=== PATIENT | female | born 1950 | race Caucasian/White ===

== ENCOUNTER → 2019-07-19 14:37 | Outpatient (BNVA) | payer MEDICARE, MEDICAID, SELFPAY | PROVIDERS: Family Provider Family Medicine; PCP Family Medicine; Visit Provider Nurse Practitioner Psychiatric/Mental Health | DX: F33.2 Major depressive disorder, recurrent severe without psychotic features (principal); F41.1 Generalized anxiety disorder; F17.210 Nicotine dependence, cigarettes, uncomplicated | CPT/HCPCS: 99213 ==

== ENCOUNTER → 2019-07-30 14:55 | Outpatient (BNVA) | payer MEDICARE, MEDICAID, SELFPAY | PROVIDERS: Family Provider Family Medicine; PCP Family Medicine; Visit Provider Anesthesiology | DX: M47.817 Spondylosis without myelopathy or radiculopathy, lumbosacral region (principal); M79.651 Pain in right thigh; F17.210 Nicotine dependence, cigarettes, uncomplicated; Z79.891 Long term (current) use of opiate analgesic | CPT/HCPCS: 99214 ==

== ENCOUNTER → 2019-08-17 12:53 | Outpatient (BNVA) | payer MEDICARE, MEDICAID, SELFPAY | PROVIDERS: Family Provider Family Medicine; PCP Family Medicine; Visit Provider Psychiatry & Neurology Neurology | DX: G43.709 Chronic migraine without aura, not intractable, without status migrainosus (principal); F17.210 Nicotine dependence, cigarettes, uncomplicated | CPT/HCPCS: 99213 ==

== ENCOUNTER → 2019-08-25 13:25 | Outpatient (BNVA) | payer MEDICARE, MEDICAID, SELFPAY | PROVIDERS: Family Provider Family Medicine; PCP Family Medicine; Visit Provider Anesthesiology Pain Medicine | DX: G57.01 Lesion of sciatic nerve, right lower limb (principal); G24.8 Other dystonia; M54.9 Dorsalgia, unspecified | CPT/HCPCS: 64642; 77003; J0585; J2001 ==

== ENCOUNTER → 2019-09-24 10:18 | Outpatient (BNVA) | payer MEDICARE, MEDICAID, SELFPAY | PROVIDERS: Family Provider Family Medicine; PCP Family Medicine; Visit Provider Nurse Practitioner | DX: Z76.89 Persons encountering health services in other specified circumstances (principal) | CPT/HCPCS: 99212 ==

== ENCOUNTER → 2019-10-12 08:20 | Outpatient (BNVA) | payer MEDICARE, MEDICAID, SELFPAY | PROVIDERS: Family Provider Family Medicine; PCP Family Medicine; Visit Provider Nurse Practitioner Psychiatric/Mental Health | DX: F33.2 Major depressive disorder, recurrent severe without psychotic features (principal); F41.1 Generalized anxiety disorder; F17.210 Nicotine dependence, cigarettes, uncomplicated | CPT/HCPCS: 99214 ==

== ENCOUNTER → 2019-12-08 07:50 | Outpatient (BNVA) | payer MEDICARE, MEDICAID, SELFPAY | PROVIDERS: Family Provider Family Medicine; PCP Family Medicine; Visit Provider Nurse Practitioner Psychiatric/Mental Health | DX: F33.2 Major depressive disorder, recurrent severe without psychotic features (principal); F41.1 Generalized anxiety disorder; F17.210 Nicotine dependence, cigarettes, uncomplicated | CPT/HCPCS: 99214 ==

== ENCOUNTER → 2020-01-20 13:45 | Outpatient (BNVA) | payer MEDICARE, MEDICAID, SELFPAY | PROVIDERS: Family Provider Family Medicine; PCP Family Medicine; Visit Provider Anesthesiology | DX: M54.42 Lumbago with sciatica, left side (principal); M47.817 Spondylosis without myelopathy or radiculopathy, lumbosacral region; M54.9 Dorsalgia, unspecified; F17.210 Nicotine dependence, cigarettes, uncomplicated; Z79.891 Long term (current) use of opiate analgesic | CPT/HCPCS: 99213; 99214 ==

== ENCOUNTER → 2020-02-21 07:35 | Outpatient (BNVA) | payer MEDICARE, MEDICAID, SELFPAY | PROVIDERS: Family Provider Family Medicine; PCP Family Medicine; Visit Provider Nurse Practitioner Psychiatric/Mental Health | DX: F33.2 Major depressive disorder, recurrent severe without psychotic features (principal); F41.1 Generalized anxiety disorder; F17.210 Nicotine dependence, cigarettes, uncomplicated; F43.12 Post-traumatic stress disorder, chronic | CPT/HCPCS: 99213 ==

== ENCOUNTER 2020-02-27 16:26 | Inpatient (IN) | payer MEDICARE, MEDICAID, SELFPAY ==
[2020-02-27] VITALS (8 sets, daily range): BP systolic 90–117; BP diastolic 49–72; PULSE 71–85; RESP 12–19; TEMP 36.7–37.9; O2SAT 94–98; BMI 24.3
--- NOTE | 2020-02-27 | SCC_ITS ---
Procedure Done: 1. Cystoscopy with right ureteral stent placement 9.7 seconds of fluoroscopic guidance, for a cumulative dose of 2.09 mGy, was provided to Dr. Willard by the radiology department. C-arm images of the abdomen were saved for the patient's permanent record. [facility]
--- NOTE | 2020-02-27 16:35 | CTR_ITS ---
PROCEDURE INFORMATION: Exam: CT Abdomen And Pelvis Without Contrast Exam date and time: 02/27/2020 5:14 PM Age: 69 years old Clinical indication: Abdominal pain; Right; Prior surgery; Surgery date: 6+ months; Surgery type: Hysteroscopy; Patient HX: C/O R flank pain and nausea x 2 days; Additional info: Flank/abdominal pain TECHNIQUE: Imaging protocol: Computed tomography of the abdomen and pelvis without contrast. Radiation optimization: All CT scans at this facility use at least one of these dose optimization techniques: automated exposure control; mA and/or kV adjustment per patient size (includes targeted exams where dose is matched to clinical indication); or iterative reconstruction. COMPARISON: CT abdomen pelvis w con* [id number] 03/22/2019 11:09 AM RADIATION DOSE METRICS: Total DLP (mGy-cm): 936.37 FINDINGS: Lungs: There is mild right basilar ground-glass opacity compatible with mild pneumonitis versus atelectasis. Liver: Unremarkable.No mass. Gallbladder and bile ducts: There has been a cholecystectomy. There is no common bile duct dilation. Pancreas: Normal. No ductal dilation. Spleen: Normal. No splenomegaly. Adrenals: Normal. No mass. Kidneys and ureters: There is mild right hydronephrosis and right hydroureter which can be followed to a 2.5 mm calculus right ureter at the level of the right sacroiliac joint image 123. There is no evidence of renal calcifications. There is right perinephric stranding. There is no evidence of left hydronephrosis. Stomach and bowel: There is wall thickening of the descending and sigmoid colon with haziness of the adjacent fat compatible with distal colitis. Appendix: A normal appendix is identified. Intraperitoneal space: Unremarkable. No free air. No significant fluid collection. Vasculature: Unremarkable.No abdominal aortic aneurysm. Lymph nodes: Unremarkable.No enlarged lymph nodes. Bladder: There is nonspecific bladder wall thickening. This may be related to incomplete distention. Reproductive: Unremarkable as visualized. Bones/joints: Unremarkable. No acute fracture. Soft tissues: Unremarkable. CT/CT kidney stone [id number] IMPRESSION: 1. There is wall thickening of the descending and sigmoid colon with haziness of the adjacent fat compatible with distal colitis. 2. There is mild right hydronephrosis and right hydroureter which can be followed to a 2.5 mm calculus right ureter at the level of the right sacroiliac joint image 123. Radiation Dose CTDIVOL = (mGy): DLP = 936.37 (mGy-cm)
[2020-02-27 16:53] LABS: Basophils % 0.5 %; Eosinophils # 0.1 10^3/uL (0.0-0.8); Eosinophils % 1.4 %; Hematocrit 44.7 % (37.0-47.0); Hemoglobin 14.1 g/dL (11.5-15.3); Lymphocytes # 2.3 10^3/uL (0.8-4.8); Lymphocytes % 29.8 %; Mean Corpuscular HGB Conc 31.5 g/dL (30.0-36.0); Mean Corpuscular Hemoglobin 27.3 pg (28.0-34.0); Mean Corpuscular Volume 86.6 fL (81-99); Mean Platelet Volume 12.8 fL (7.4-10.4); Monocytes # 0.6 10^3/uL (0.2-0.9); Monocytes % 7.2 %; Neutrophils # 4.69 10^3/uL (1.8-7.7); Neutrophils % 60.7 %; Nucleated Red Blood Cells % 0 %; Platelet Count 360 10^3/cmm (130-400); Red Blood Count 5.16 10^6/uL (4.1-5.3); Red Cell Distribution Width 16.1 % (12.1-15.1); White Blood Count 7.7 10^3/uL (4.0-10.0)
--- NOTE | 2020-02-27 16:55 | ED_ITS ---
HPI - Female Genitourinary General: Chief complaint: Urogenital-Female Stated complaint: RIGHT FLANK PAIN; NAUSEA; RASH Time Seen by Provider: 02/27/20 16:32 Source: patient and EMS Mode of arrival: EMS Limitations: no limitations History of Present Illness: HPI Narrative: Ms. Romero is a nice 69-year-old female who comes in complaining of right flank pain that started 2 nights ago. She states the pain comes and goes and she is not had anything like this before. Pain is described as sharp and moderate to severe in nature. Patient also complains of a diffuse rash. She states she itches all over. Patient has significant loss of vision but states she can still tell that this looks like hives. Patient is unaware of any new medicines, shampoos, soaps, clothing, perfumes or any other allergen that may have precipitated this reaction. She denies any nausea or vomiting, shortness of breath or throat tightening. She denies any urinary symptoms such as dysuria, urinary frequency or urgency. The patient took Benadryl for the itching shortly before calling EMS for her flank pain. The rash just started today according to her. Associated symptoms: Deny abdominal pain, headache(s), nausea or syncope Review of Systems Const: Denies: fever(s), chills, body aches, fatigue, malaise or diaphoresis Eyes: Denies: change in vision, blurry vision, photophobia, eye discomfort, eye discharge or eye redness ENMT: Denies: throat pain, odynophagia, hoarseness, swelling of lips/tongue, ear or mastoid pain, ear discharge, change in hearing or nasal discharge Card: Denies: chest pain, palpitations, irregular heart rhythm, edema, lightheadedness, syncope, pre-syncope, dyspnea on exertion or orthopnea Resp: Denies: dyspnea, productive cough, non-productive cough, wheezing, hemoptysis or chest congestion GI: Denies: abdominal pain, nausea, vomiting, hematemesis, coffee ground emesis, heartburn, diarrhea, constipation, GI cramping, hematochezia or melena : Reports: flank pain; Denies: dysuria, urinary frequency, urinary urgency or hematuria Musc: Denies: neck pain, back pain, extremity pain, extremity swelling, joint pain, joint swelling, joint redness, joint warmth or joint stiffness Skin/Breast: Reports: rash; Denies: pruritus, erythema or skin tenderness Neuro: Denies: headache(s), numbness in extremities, weakness in extremities, sensory changes, lack of coordination, difficulty walking, dizziness, vertigo, confusion, Slurred speech present or seizure-like activity Alec/Lymph: Denies: easy bruising, easy bleeding, petechiae, purpura or enlarged lymph nodes All/Imm: Denies: urticaria, throat swelling, tongue swelling, facial swelling or acute wheezing PFSH ED PFSH: Medical History (Updated 02/27/20 @ 19:29 by Artie Willard MD) Chronic migraine Encounter for long-term use of opiate analgesic Generalized anxiety disorder History of hysteroscopy Major depressive disorder, recurrent severe without psychotic features Nicotine dependence, cigarettes, uncomplicated Obstructive pyelonephritis Opioid contract exists Right ureteral calculus Smoker Spondylosis without myelopathy or radiculopathy, lumbosacral region Surgical History (Updated 02/27/20 @ 19:29 by Artie Willard MD) H/O tubal ligation Hx of dilation and curettage 09/14/19 [facility] Family History Other CAD (coronary artery disease) Cancer Social History Smoking and tobacco status: current every day smoker cigarettes [ Other cigarette details: 2-3 DAILY ] Alcohol intake: never History of recent travel: No Physical Exam Const: COMMON NORMALS: no acute distress, patient oriented x3, no limitations, healthy appearing and well nourished GENERAL APPEARANCE: cooperative, well kempt and well developed HENMT: COMMON NORMALS: normocephalic, atraumatic, external ears normal, EAC's normal and Normal external nose present HEAD & SCALP: normal to inspection, normocephalic and atraumatic FACE & SINUS: normal facial exam and face symmetric NOSE: Normal external nose present and Normal nares present EXTERNAL EAR: Yes external ears normal EXTERNAL AUDITORY CANAL: EAC's normal MOUTH: Normal oral and palatal mucosa present, lip normal and tongue normal Eye: COMMON NORMALS: Equal, round and reactive pupils present and conjunctivae normal GENERAL EYE: appearance normal, both eyes and all related structures ALIGNMENT: Yes alignment normal PERIORBITAL: periorbital findings normal EYELID: eyelids normal CONJUNCTIVA: Yes conjunctivae normal SCLERA: sclerae normal PUPIL: Yes Equal, round and reactive pupils present Neck/C-Spine: COMMON NORMALS: full ROM, no lymphadenopathy, supple, no meningeal signs and no JVD GENERAL: Yes normal visual inspection and Yes trachea midline Chest: COMMONS NORMALS: normal inspection of the chest and normal palpation of entire chest wall Resp: COMMON NORMALS: normal respiratory effort, No retractions, No use of accessory muscles and clear to auscultation bilaterally EFFORT & INSPECTION: Yes able to speak in complete sentences and Yes symmetric chest movement AUSCULTATION: clear to auscultation bilaterally, no crackles, no rales, no rhonchi and no wheezes Cardio: COMMON NORMALS: no JVD, regular rate, regular rhythm, S1 normal heart sound present and S2 normal heart sound present RATE: regular rate RHYTHM: regular rhythm HEART SOUNDS: S1 normal heart sound present, S2 normal heart sound present, no click, no gallops, no murmurs, no rubs and abnormal split S2 GI: COMMON NORMALS: Soft to palpation and No hepatosplenomegaly present PALPATION: Yes Soft to palpation, No Tenderness to palpation present (GI), No Guarding due to palpation present (GI), No Rigid due to palpation, Yes No hepatosplenomegaly present, No Hernia present, No Palpable mass present and No Pulsatile mass present : COMMON NORMALS: Yes no CVA tenderness BLADDER/KIDNEY EXAM: Yes no CVA tenderness EXTERNAL FEMALE EXAM: No Hernia present Back/Pelvis: COMMON NORMALS: no CVA tenderness, thoracic and lumbar spine normal to inspection, no thoracic nor lumbar tenderness and thoraco-lumbar ROM normal Extremity: COMMON NORMALS: normal to inspection, full ROM, capillary refill normal, no joint enlargement, no clubbing, cyanosis or edema and no calf tenderness Neuro: COMMON NORMALS: patient oriented x3, CN's II-XII intact bilaterally, m oves all extremities, no focal motor deficits and no sensory deficits noted MENINGEAL SIGNS: Yes no meningeal signs SPEECH: speech normal Psych: COMMON NORMALS: mental status grossly normal, Normal thought process present, cooperative, normal affect, speech normal and activity/motor behavior normal APPEARANCE: Yes well kempt SPEECH: Yes normal speech THOUGHT PROCESS: Normal thought process present Skin: COMMON NORMALS: turgor normal, no jaundice, no petechiae and no mottling NARRATIVE SKIN EXAM: Diffuse hives GENERAL SKIN EXAM: turgor normal Course Vital Signs: Vital signs: Vital Signs Temperature 98.9 F 02/27/20 20:09 Pulse Rate 74 02/27/20 20:09 Respiratory Rate 18 02/27/20 20:09 Blood Pressure 117/72 02/27/20 20:09 Pulse Oximetry 96 02/27/20 20:09 MDM - Female MDM Narrative: Medical decision making narrative: Ms Romero is a nice 69-year-old female who comes in with right flank pain and hives. Benadryl, Pepcid and Solu-Medrol her hives are improved. There is no sign of anaphylaxis that she has no throat tightening, shortness of breath, wheezing or other anaphylactic symptoms. Patient's right flank pain I believe is caused by a 2.[address] seen on CT. Patient has a urinary tract infection and appears septic with acute renal failure from this. The case was reviewed with Drs. Villeda and Sudheer, they will admit and consult respectively. Currently the patient is being loaded with Cipro and Flagyl to cover a UTI and colitis. She getting IV fluids and her blood pressure is remained stable. She was going to the OR for stent placement and then will be admitted for further IV antibiotics and IV fluids. Lab Data: Attestation: I reviewed the patient's lab results. Labs: Lab Results 02/27/20 02/27/20 02/27/20 Range/Units 16:10 16:10 16:10 WBC 7.7 (4.0-10.0) 10^3/ uL RBC 5.16 (4.1-5.3) 10^6/u L Hgb 14.1 (11.5-15.3) g/dL Hct 44.7 (37.0-47.0) % MCV 86.6 (81-99) fL MCH 27.3 L (28.0-34.0) pg MCHC 31.5 (30.0-36.0) g/dL RDW 16.1 H (12.1-15.1) % Plt Count 360 (130-400) 10^3/c mm MPV 12.8 H (7.4-10.4) fL Neut % (Auto) 60.7 % Lymph % (Auto) 29.8 % [place] % (Auto) 7.2 % Eos % (Auto) 1.4 % Baso % (Auto) 0.5 % Neut # (Auto) 4.69 (1.8-7.7) 10^3/u L Lymph # (Auto) 2.3 (0.8-4.8) 10^3/u L [place] # (Auto) 0.6 (0.2-0.9) 10^3/u L Eos # (Auto) 0.1 (0.0-0.8) 10^3/u L Baso # (Auto) 0.0 (0.0-0.1) 10^3/u L Nucleated RBC % (a uto) 0 % Nucleated RBCs # 0.0 /100WBC Specimen Type Sample Site ABG pH (7.35-7.45) ABG pCO2 (35-45) mmHg ABG pO2 (80.0-100.0) mmH g ABG HCO3 (22-26) mmol/L ABG Base Excess (-2.0-2.0) mmol/ L Robert Test Hematocrit (37-47) % O2 Delivery Device FiO2 % Income Tax Expert ID Sodium 131 L (136-145) mmol/L Potassium 4.2 (3.5-5.1) mmol/L Chloride 96 L (98-107) mmol/L Carbon Dioxide 18 L (22-29) mmol/L Anion Gap 21.2 H (5-19) BUN 22 (8-23) mg/dL Creatinine 2.3 H (0.5-0.9) mg/dL GFR Calculation Not Reportable Glucose 294 H (65-115) mg/dL Calculated Osmolal ity 280 L (285-295) mOsm/k g Lactic Acid (0.5-2.2) mmol/L Calcium 8.7 (8.5-10.5) mg/dL Total Bilirubin 1.0 (0.15-1.2) mg/dL AST 55 H (0-32) U/L ALT 37 H (0-33) U/L Alkaline Phosphata se 120 H (35-105) IU/L Creatine Kinase 73 (26-192) U/L C-Reactive Protein (0.0-4.9) mg/L Total Protein 7.0 (6.6-8.7) g/dL Albumin 3.3 L (3.5-5.2) g/dL Globulin 3.7 (1.3-4.6) g/dL Lipase 7 L (13-60) U/L Procalcitonin (0-0.5) ng/mL Urine Color (Yellow) Urine Appearance (CLEAR) Urine pH (5-7) Ur Specific Gravit y (1.005-1.030) Urine Protein (Negative) Urine Glucose (UA) (Normal) Urine Ketones (Negative) Urine Blood (Negative) Urine Nitrate (Negative) Urine Bilirubin (NEGATIVE) Urine Urobilinogen (Negative) mg/dL Ur Leukocyte Sally ase (Negative) Urine RBC (0-2) /hpf Urine WBC (0-5) /hpf Ur Squamous Epith Cells (0-5) Amorphous Sediment Urine Bacteria (NONE) 02/27/20 02/27/20 02/27/20 Range/Units 16:10 18:05 18:12 WBC (4.0-10.0) 10^3/ uL RBC (4.1-5.3) 10^6/u L Hgb (11.5-15.3) g/dL Hct (37.0-47.0) % MCV (81-99) fL MCH (28.0-34.0) pg MCHC (30.0-36.0) g/dL RDW (12.1-15.1) % Plt Count (130-400) 10^3/c mm MPV (7.4-10.4) fL Neut % (Auto) % Lymph % (Auto) % [place] % (Auto) % Eos % (Auto) % Baso % (Auto) % Neut # (Auto) (1.8-7.7) 10^3/u L Lymph # (Auto) (0.8-4.8) 10^3/u L [place] # (Auto) (0.2-0.9) 10^3/u L Eos # (Auto) (0.0-0.8) 10^3/u L Baso # (Auto) (0.0-0.1) 10^3/u L Nucleated RBC % (a uto) % Nucleated RBCs # /100WBC Specimen Type Sample Site ABG pH (7.35-7.45) ABG pCO2 (35-45) mmHg ABG pO2 (80.0-100.0) mmH g ABG HCO3 (22-26) mmol/L ABG Base Excess (-2.0-2.0) mmol/ L Robert Test Hematocrit (37-47) % O2 Delivery Device FiO2 % Income Tax Expert ID Sodium (136-145) mmol/L Potassium (3.5-5.1) mmol/L Chloride (98-107) mmol/L Carbon Dioxide (22-29) mmol/L Anion Gap (5-19) BUN (8-23) mg/dL Creatinine (0.5-0.9) mg/dL GFR Calculation Glucose (65-115) mg/dL Calculated Osmolal ity (285-295) mOsm/k g Lactic Acid 3.5 H (0.5-2.2) mmol/L Calcium (8.5-10.5) mg/dL Total Bilirubin (0.15-1.2) mg/dL AST (0-32) U/L ALT (0-33) U/L Alkaline Phosphata se (35-105) IU/L Creatine Kinase (26-192) U/L C-Reactive Protein 443.6 H (0.0-4.9) mg/L Total Protein (6.6-8.7) g/dL Albumin (3.5-5.2) g/dL Globulin (1.3-4.6) g/dL Lipase (13-60) U/L Procalcitonin 3.18 H (0-0.5) ng/mL Urine Color Yellow (Yellow) Urine Appearance Cloudy (CLEAR) Urine pH 5 (5-7) Ur Specific Gravit y 1.015 (1.005-1.030) Urine Protein 2+ H (Negative) Urine Glucose (UA) Norm (Normal) Urine Ketones Negative (Negative) Urine Blood 3+ H (Negative) Urine Nitrate Negative (Negative) Urine Bilirubin Neg (NEGATIVE) Urine Urobilinogen 1 H (Negative) mg/dL Ur Leukocyte Sally ase 2+ H (Negative) Urine RBC Too numerous to c nt H (0-2) /hpf Urine WBC Too numerous to c nt H (0-5) /hpf Ur Squamous Epith Cells 0-4 H (0-5) Amorphous Sediment Not Reportable Urine Bacteria 4+ H (NONE) 02/26/20 Range/Units 18:45 WBC (4.0-10.0) 10^3/ uL RBC (4.1-5.3) 10^6/u L Hgb (11.5-15.3) g/dL Hct (37.0-47.0) % MCV (81-99) fL MCH (28.0-34.0) pg MCHC (30.0-36.0) g/dL RDW (12.1-15.1) % Plt Count (130-400) 10^3/c mm MPV (7.4-10.4) fL Neut % (Auto) % Lymph % (Auto) % [place] % (Auto) % Eos % (Auto) % Baso % (Auto) % Neut # (Auto) (1.8-7.7) 10^3/u L Lymph # (Auto) (0.8-4.8) 10^3/u L [place] # (Auto) (0.2-0.9) 10^3/u L Eos # (Auto) (0.0-0.8) 10^3/u L Baso # (Auto) (0.0-0.1) 10^3/u L Nucleated RBC % (a uto) % Nucleated RBCs # /100WBC Specimen Type Arterial Sample Site Radial, left ABG pH 7.35 (7.35-7.45) ABG pCO2 35.4 (35-45) mmHg ABG pO2 64.2 L (80.0-100.0) mmH g ABG HCO3 19.5 L (22-26) mmol/L ABG Base Excess -5.4 L (-2.0-2.0) mmol/ L Robert Test Pos Hematocrit 36.8 L (37-47) % O2 Delivery Device Room air FiO2 21.0 % Income Tax Expert ID glc Sodium (136-145) mmol/L Potassium (3.5-5.1) mmol/L Chloride (98-107) mmol/L Carbon Dioxide (22-29) mmol/L Anion Gap (5-19) BUN (8-23) mg/dL Creatinine (0.5-0.9) mg/dL GFR Calculation Glucose (65-115) mg/dL Calculated Osmolal ity (285-295) mOsm/k g Lactic Acid (0.5-2.2) mmol/L Calcium (8.5-10.5) mg/dL Total Bilirubin (0.15-1.2) mg/dL AST (0-32) U/L ALT (0-33) U/L Alkaline Phosphata se (35-105) IU/L Creatine Kinase (26-192) U/L C-Reactive Protein (0.0-4.9) mg/L Total Protein (6.6-8.7) g/dL Albumin (3.5-5.2) g/dL Globulin (1.3-4.6) g/dL Lipase (13-60) U/L Procalcitonin (0-0.5) ng/mL Urine Color (Yellow) Urine Appearance (CLEAR) Urine pH (5-7) Ur Specific Gravit y (1.005-1.030) Urine Protein (Negative) Urine Glucose (UA) (Normal) Urine Ketones (Negative) Urine Blood (Negative) Urine Nitrate (Negative) Urine Bilirubin (NEGATIVE) Urine Urobilinogen (Negative) mg/dL Ur Leukocyte Sally ase (Negative) Urine RBC (0-2) /hpf Urine WBC (0-5) /hpf Ur Squamous Epith Cells (0-5) Amorphous Sediment Urine Bacteria (NONE) Imaging Data: CT Abd/Pel: Radiologist's impression: [place] [address] CT Scan Report Signed Patient: Jackie Romero Unit #: [id number] : [id number] Age/Sex: 69 / F ADM Date: 02/27/20 Loc: ER Room/Bed: Attending Dr: Ordering Provider/Ordering MD: Ashley Iqbal DO Date of Service: 02/27/20 Procedure(s): CT kidney stone [id number] Accession Number(s): [id number] Report Number: [id number] PROCEDURE INFORMATION: Exam: CT Abdomen And Pelvis Without Contrast Exam date and time: 02/27/2020 5:14 PM Age: 69 years old Clinical indication: Abdominal pain; Right; Prior surgery; Surgery date: 6+ months; Surgery type: Hysteroscopy; Patient HX: C/O R flank pain and nausea x 2 days; Additional info: Flank/abdominal pain TECHNIQUE: Imaging protocol: Computed tomography of the abdomen and pelvis without contrast. Radiation optimization: All CT scans at this facility use at least one of these dose optimization techniques: automated exposure control; mA and/or kV adjustment per patient size (includes targeted exams where dose is matched to clinical indication); or iterative reconstruction. COMPARISON: CT abdomen pelvis w con* [id number] 03/22/2019 11:09 AM RADIATION DOSE METRICS: Total DLP (mGy-cm): 936.37 FINDINGS: Lungs: There is mild right basilar ground-glass opacity compatible with mild pneumonitis versus atelectasis. Liver: Unremarkable.No mass. Gallbladder and bile ducts: There has been a cholecystectomy. There is no common bile duct dilation. Pancreas: Normal. No ductal dilation. Spleen: Normal. No splenomegaly. Adrenals: Normal. No mass. Kidneys and ureters: There is mild right hydronephrosis and right hydroureter which can be followed to a 2.5 mm calculus right ureter at the level of the right sacroiliac joint image 123. There is no evidence of renal calcifications. There is right perinephric stranding. There is no evidence of left hydronephrosis. Stomach and bowel: There is wall thickening of the descending and sigmoid colon with haziness of the adjacent fat compatible with distal colitis. Appendix: A normal appendix is identified. Intraperitoneal space: Unremarkable. No free air. No significant fluid collection. Vasculature: Unremarkable.No abdominal aortic aneurysm. Lymph nodes: Unremarkable.No enlarged lymph nodes. Bladder: There is nonspecific bladder wall thickening. This may be related to incomplete distention. Reproductive: Unremarkable as visualized. Bones/joints: Unremarkable. No acute fracture. Soft tissues: Unremarkable. CT/CT kidney stone [id number] IMPRESSION: 1. There is wall thickening of the descending and sigmoid colon with haziness of the adjacent fat compatible with distal colitis. 2. There is mild right hydronephrosis and right hydroureter which can be followed to a 2.5 mm calculus right ureter at the level of the right sacroiliac joint image 123. Radiation Dose CTDIVOL = (mGy): DLP = 936.37 (mGy-cm) Dictated By: Sarah Huggins Signed By: Sarah Huggins Signed Date/Time: 02/27/201748 DD/ 46 Discharge Plan Discharge Patient Disposition: Placed in Observation Admit Provider: Javon Villeda Clinical Impression: Acute pyelonephritis, Colitis Sepsis Qualifiers: Sepsis type: sepsis due to unspecified organism Sepsis acute organ dysfunction status: with acute organ dysfunction Severe sepsis acute organ dysfunction type: acute renal failure Acute renal failure type: unspecified Severe sepsis shock status: with septic shock Qualified Code(s): A41.9 - Sepsis, unspecified organism Allergic reaction Qualifiers: Encounter type: initial encounter Qualified Code(s): T78.40XA - Allergy, unspecified, initial encounter Condition: Stable Discharge Date/Time: 02/27/20 19:09 Coding Level of Care Code ED Director Software for g 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
[2020-02-27] MEDS: famotidine 20 mg/2 mL INJ 40 MG IVP (17:05)
[2020-02-27] MEDS: diphenhydrAMINE 50 mg/mL SDV 1mL 25 MG IVP (17:05)
[2020-02-27] MEDS: sodium chloride 0.9% 1,000 ML 999 ML IV ×2 (17:05→18:51)
[2020-02-27 17:11] LABS: Alanine Aminotransferase 37 U/L (0-33); Albumin Level 3.3 g/dL (3.5-5.2); Alkaline Phosphatase 120 IU/L (35-105); Aspartate Amino Transferase 55 U/L (0-32); Blood Urea Nitrogen 22 mg/dL (8-23); Calcium 8.7 mg/dL (8.5-10.5); Carbon Dioxide 18 mmol/L (22-29); Chloride 96 mmol/L (98-107); Globulin 3.7 g/dL (1.3-4.6); Glucose 294 mg/dL (65-115); Lipase 7 U/L (13-60); Osmolality Calculated 280 mOsm/kg (285-295); Sodium 131 mmol/L (136-145)
[2020-02-27 17:14] LABS: Anion Gap 21.2 (5-19); Potassium 4.2 mmol/L (3.5-5.1)
[2020-02-27 18:03] LABS: Creatine Phosphokinase 73 U/L (26-192)
[2020-02-27 18:27] LABS: Bilirubin Urine Neg (NEGATIVE); Blood Urine 3+ (Negative); Glucose Urine UA Norm (Normal); Ketones Urine Negative (Negative); Leukocyte Esterase Urine 2+ (Negative); Nitrate Urine Negative (Negative); Protein Urine 2+ (Negative); Specific Gravity, Urine 1.015 (1.005-1.030); Urine Appearance Cloudy (CLEAR); Urine Color Yellow (Yellow); Urobilinogen Urine 1 mg/dL (Negative); pH Urine 5 (5-7)
[2020-02-27 18:28] LABS: Add Urine Culture? Yes; Bacteria Urine 4+; RBC Urine TOO NUMEROUS TO CNT /hpf (0-2); Squamous Epithelial Cell Urine 0-4 (0-5); WBC Urine TOO NUMEROUS TO CNT /hpf (0-5)
[2020-02-27] MEDS: metroNIDAZOLE IV 500 MG/100 ML PREMIX 100 MG IV (18:35)
[2020-02-27] MEDS: ciprofloxacin 400 MG/200 ML PREMIX 200 MG IV (18:35)
[2020-02-27 18:40] LABS: Lactic Sepsis W/Reflex 3.5 mmol/L (0.5-2.2)
[2020-02-27 18:46] LABS: Procalcitonin 3.18 ng/mL (0-0.5)
--- NOTE | 2020-02-27 18:50 | P.CONIM_ITS ---
Providers/Reason For Consult Consulting Physican/Specialty*: Urology/Sudheer Reason for Consult*: Right obstructive pyelonephritis Attending Physician: Artie Willard MD Primary Care Provider: Cisco Sevilla MD History of Present Illness History of Present Illness Jackie Romero is a 69 year old female evaluated emergency department for sepsis. Urine was grossly infected CT scan showed an obstructing 2.5 mm stone at the level of the pelvic vessel crossing on the RIGHT. Related to emergency right ureteral stent placement cystoscopy Began having right flank pain and abdominal pain 2 days ago. Has continually deteriorated with progressive weakness to the point where she was falling over. She also developed a rash with no clear evidence of anaphylaxis but it was unclear what she had done as the source of that. Also had fever and chills. Work-up was consistent with sepsis with a lactic acid of 3.5, elevated creatinine, elevated alk phos and pro-Codey 3.18. She is critically ill and it was recommended that she go emergently for the stent placement. Situation is complicated by no ICU beds currently available. It was felt that it was indicated to proceed with stent placement rather than risk further deterioration during transport and pursuit of an ICU bed. This decision regarding her postop care status was made by Dr. Fountain and Dr. Andersen after close evaluation and thorough consideration. If her deterioration continues despite stent placement transfer would then be pursued. I reviewed with the patient the diagnosis and the rationale for emergency stent placement. She expressed good understanding and has given informed consent to proceed. Review of Systems Const: Reports: fever(s), chills and malaise Eyes: Reports: other (Chronic decreased visual acuity with legal blindness) ENMT: Denies: throat pain Card: Denies: chest pain or palpitations Resp: Denies: dyspnea, productive cough, non-productive cough or wheezing GI: Reports: abdominal pain and nausea : Reports: flank pain; Denies: dysuria Musc: Denies: neck pain or joint warmth Skin/Breast: Reports: rash, pruritus and other (Consistent with allergic reaction) Neuro: Denies: Slurred speech present or seizure-like activity Psych: Denies: panic attacks or memory loss Endo: Denies: polyuria or hot flashes Alec/Lymph: Denies: easy bruising or easy bleeding All/Imm: Reports: urticaria Meds/Allergies Home Medications and Allergies Home Medications Medication Instructions Recorded Confirmed Last Taken Type furosemide 20 mg tablet 20 mg PO QAM 07/19/19 02/27/20 Unknown History insulin aspart U-100 100 unit/mL See Rx Instructions .ROUTE 07/19/19 02/27/20 Unknown History (3 mL) subcutaneous pen .COMPLEX ml omeprazole 40 mg capsule,delayed 40 mg PO DAILY 07/19/19 02/27/20 Unknown History release insulin detemir U-100 100 unit/mL 28 unit SUBCUT BEDTIME ml 07/30/19 02/27/20 Unknown History (3 mL) subcutaneous pen meclizine 25 mg tablet 25 mg PO BID #60 tab 08/17/19 02/27/20 Unknown Rx hydrocodone 10 mg-acetaminophen 1 tab PO TID PRN 30 Days #90 tab 01/20/20 02/27/20 Unknown Rx 325 mg tablet aripiprazole 5 mg tablet 5 mg PO QAM #30 tab 02/21/20 02/27/20 Unknown Rx lorazepam 1 mg tablet 1 mg PO TID PRN #90 tab 02/22/20 02/27/20 Unknown Rx 5 Hour Energy Drink With Vit B See Rx Instructions .ROUTE .COMPLEX 02/27/20 02/27/20 Unknown History Celexa 20 mg PO QAM 02/27/20 02/27/20 Unknown History Emergen-C 1 packet PO QAM 02/27/20 02/27/20 Unknown History Hair,Skin and Nails 2 tab PO DAILY 02/27/20 02/27/20 Unknown History Pepto-Bismol See Rx Instructions .ROUTE .COMPLEX 02/27/20 02/27/20 Unknown History cinnamon bark [Cinnamon] 500 mg PO DAILY 02/27/20 02/27/20 Unknown History loratadine [Claritin] 10 mg PO DAILY 02/27/20 02/27/20 Unknown History ondansetron HCl [Zofran] 4 mg PO BID 02/27/20 02/27/20 Unknown History oxybutynin chloride 10 mg PO DAILY 02/27/20 02/27/20 Unknown History zinc 50 mg PO DAILY 02/27/20 02/27/20 Unknown History Allergies Allergy/AdvReac Type Severity Reaction Status Date / Time atorvastatin [From Lipitor] Allergy Unknown Unknown Verified 02/27/20 16:42 desvenlafaxine [From Pristiq] Allergy Unknown Unknown Verified 02/27/20 16:42 duloxetine [From Cymbalta] Allergy Unknown Unknown Verified 02/27/20 16:42 paroxetine [From Paxil] Allergy Unknown Unknown Verified 02/27/20 16:42 Penicillins Allergy Unknown Unknown Verified 02/27/20 16:42 gabapentin Allergy Unknown Verified 02/27/20 16:42 Current Medications Current Medications Generic Name Dose Route Start Last Admin Trade Name Freq PRN Reason Stop Dose Admin Sodium Chloride 1,000 mls @ 999 mls/hr 02/27/20 17:00 02/27/20 17:05 Sodium Chloride 0.9% IV 02/27/20 19:00 999 mls/hr .Q1H1M RADHA Administration PFSH Acute PFSH: Medical History (Updated 02/27/20 @ 19:29 by Artie Willard MD) Chronic migraine Encounter for long-term use of opiate analgesic Generalized anxiety disorder History of hysteroscopy Major depressive disorder, recurrent severe without psychotic features Nicotine dependence, cigarettes, uncomplicated Obstructive pyelonephritis Opioid contract exists Right ureteral calculus Smoker Spondylosis without myelopathy or radiculopathy, lumbosacral region Surgical History (Updated 02/27/20 @ 19:29 by Artie Willard MD) H/O tubal ligation Hx of dilation and curettage 09/14/19 [facility] Family History Other CAD (coronary artery disease) Cancer Social History Smoking and tobacco status: current every day smoker cigarettes [ Other cigarette details: 2-3 DAILY ] Alcohol intake: never History of recent travel: No Vitals/I&O/Wt Last Vital Signs Temp 98.0 F 02/27/20 16:34 Pulse 77 02/27/20 17:13 Resp 14 02/27/20 17:13 BP 90/51 02/27/20 17:13 Pulse Ox 97 02/27/20 17:13 Weight last 48 hrs Weight 133 lb Physical Exam Const: COMMON NORMALS: no acute distress, alert and well nourished GENERAL APPEARANCE: well kempt and well developed ORIENTATION/CONSCIOUSNESS: not confused HENMT: COMMON NORMALS: normocephalic and atraumatic HEAD & SCALP: normocephalic and atraumatic Eye: VISUAL ACUITY: Yes other (Severe visual loss) Neck/C-Spine: COMMON NORMALS: full ROM GENERAL: Yes normal visual inspection Lymph: LYMPHATIC: no lymphadenopathy noted and no lymphedema noted Resp: COMMON NORMALS: normal respiratory effort EFFORT & INSPECTION: No labored and No Actively coughing : COMMON NORMALS: No no CVA tenderness, Yes normal external appearance and Yes normal appearance of the vagina BLADDER/KIDNEY EXAM: No no CVA tenderness EXTERNAL FEMALE EXAM: Yes normal appearance of the urethra and No lesion Back/Pelvis: COMMON NORMALS: negative for no CVA tenderness Extremity: COMMON NORMALS: no clubbing, cyanosis or edema Neuro: COMMON NORMALS: no focal motor deficits SENSORIUM/ORIENTATION: Yes alert Psych: COMMON NORMALS: mental status grossly normal APPEARANCE: Yes grossly normal and Yes well kempt ATTITUDE: Yes calm and Yes engaged Skin: NARRATIVE SKIN EXAM: Hives Urinary Catheter Management^: Mccoy: Cath Placed During This Visit: yes Reason for Continuing Indwelling Catheter: Acute Urinary Retention or Obstruction Urinary Catheter Date of Insertion: 02/27/20 Urinary Catheter Time of Insertion: 18:07 Data Micro: Micro: Microbiology 02/27/20 18:12 Blood Culture - Pr eliminary Blood SPECIMEN [facility] A&P Assessment and plan (1) Obstructive pyelonephritis: To the operating room emergently for right ureteral stent placement Reviewed that we will deal with the stone after she recovers from the infection. 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 Evidence of sepsis. Requires emergent stent placement If deteriorates may require transfer for ICU care currently not available at [facility] due to the ICU being full. Coding Level of Care Code Acute Rn Digestive for [facility] 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 Diagnoses Obstructive pyelonephritis N11.1 Sepsis A41.9 Right ureteral calculus N20.1 Obstructive pyelonephritis N11.1 Blind in both eyes H54.3
--- NOTE | 2020-02-27 18:52 | PM.HP ---
Providers/Chief Complaint Primary Care Provider: Cisco Sevilla MD Chief Complaint: RIGHT FLANK PAIN; NAUSEA; RASH History of Present Illness Jackie Romero is a 69 year old female with a past medical history of age-related macular degeneration, currently legally blind, type 2 diabetes mellitus, chronic back pain on [place], depression anxiety, who presents to [facility] due to complaints of right flank pain and a rash. Patient states she lives at home by herself, has 2 dogs, currently from her , she has been in [place] for 37 years, originally from [place], has been doing well, socially isolating, has been doing well for the last few weeks, but for the last 2 days she has been noticing right flank pain, she thought it was her pain related related to the sciatica, but the pain persisted, [place] did not help, she also complains dysuria, increased urinary frequency, no nausea, no vomiting she complains of fevers at home, chills, no recent travel, no exposure to COVID-19. Denies lightheadedness, denies dizziness, denies chest pain, denies nausea, denies vomiting, but does have poor appetite. She states that roughly at noon she started to develop a rash, rash all over her face and arms with pruritus, rash then became quite diffuse, so she called her , who called EMS. In the emergency room patient was diagnosed with right nephrolithiasis, UTI, pyelonephritis, obstructive uropathy, and allergic reaction. She is received Solu-Medrol, Benadryl and the rash has significantly improved, mainly on the arms. She received a liter bolus, currently working working on a second liter bolus, initial blood pressures were 80s over 60s, blood pressure is improved to 111/60, she is answering all questions appropriate, no tachycardia, no fevers, Lactic acid 3.5, creatinine 2.3, has transaminitis, elevated alk phos, pro-Codye 3.18. Dr. Willard has been consulted, he will take the patient to the OR, place a stent. Initially I was concerned as we did not have an ICU bed, or CSU bed, currently patient's has septic shock secondary to obstructive uropathy, I was told that all the EMS is on her divert, and it could be hours before she could be transferred. After the second bolus, patient's blood pressures have improved over to 111 over 60s, she is responding adequately to fluids, she wants to stay, alert oriented x3, is a full code, I think that urgently placing a stent would be in her best interest, delaying surgical intervention in preference for transfer could result in significant morbidity and mortality, will monitor closely postoperatively, if her blood pressures are reasonable, she is okay to go to the general medical floors postoperatively, however if she remains hypotensive or septic will need to transfer her to a facility with a with a capable ICU, I will go over this with Dr. Mills Review of Systems Const: Reports: fever(s) and chills; Denies: fatigue or malaise Eyes: Denies: change in vision or blurry vision ENMT: Denies: nasal congestion Resp: Denies: dyspnea, productive cough, non-productive cough or wheezing GI: Denies: abdominal pain, nausea, vomiting, hematemesis, diarrhea, constipation, hematochezia or melena : Reports: flank pain and dysuria; Denies: urinary frequency Musc: Denies: neck pain or back pain Skin/Breast: Reports: rash Neuro: Denies: headache(s), dizziness or vertigo Psych: Denies: anxiety or depression Endo: Denies: polyuria or polydipsia Medications/Allergies Home Medications Medication Instructions Recorded Confirmed Last Taken Type furosemide 20 mg tablet 20 mg PO QAM 07/19/19 02/27/20 Unknown History insulin aspart U-100 100 unit/mL See Rx Instructions .ROUTE 07/19/19 02/27/20 Unknown History (3 mL) subcutaneous pen .COMPLEX ml omeprazole 40 mg capsule,delayed 40 mg PO DAILY 07/19/19 02/27/20 Unknown History release insulin detemir U-100 100 unit/mL 28 unit SUBCUT BEDTIME ml 07/30/19 02/27/20 Unknown History (3 mL) subcutaneous pen meclizine 25 mg tablet 25 mg PO BID #60 tab 08/17/19 02/27/20 Unknown Rx hydrocodone 10 mg-acetaminophen 1 tab PO TID PRN 30 Days #90 tab 01/20/20 02/27/20 Unknown Rx 325 mg tablet aripiprazole 5 mg tablet 5 mg PO QAM #30 tab 02/21/20 02/27/20 Unknown Rx lorazepam 1 mg tablet 1 mg PO TID PRN #90 tab 02/22/20 02/27/20 Unknown Rx 5 Hour Energy Drink With Vit B See Rx Instructions .ROUTE .COMPLEX 02/27/20 02/27/20 Unknown History Celexa 20 mg PO QAM 02/27/20 02/27/20 Unknown History Emergen-C 1 packet PO QAM 02/27/20 02/27/20 Unknown History Hair,Skin and Nails 2 tab PO DAILY 02/27/20 02/27/20 Unknown History Pepto-Bismol See Rx Instructions .ROUTE .COMPLEX 02/27/20 02/27/20 Unknown History cinnamon bark [Cinnamon] 500 mg PO DAILY 02/27/20 02/27/20 Unknown History loratadine [Claritin] 10 mg PO DAILY 02/27/20 02/27/20 Unknown History ondansetron HCl [Zofran] 4 mg PO BID 02/27/20 02/27/20 Unknown History oxybutynin chloride 10 mg PO DAILY 02/27/20 02/27/20 Unknown History zinc 50 mg PO DAILY 02/27/20 02/27/20 Unknown History Allergies Allergy/AdvReac Type Severity Reaction Status Date / Time atorvastatin [From Lipitor] Allergy Unknown Unknown Verified 02/27/20 16:42 desvenlafaxine [From Pristiq] Allergy Unknown Unknown Verified 02/27/20 16:42 duloxetine [From Cymbalta] Allergy Unknown Unknown Verified 02/27/20 16:42 paroxetine [From Paxil] Allergy Unknown Unknown Verified 02/27/20 16:42 Penicillins Allergy Unknown Unknown Verified 02/27/20 16:42 gabapentin Allergy Unknown Verified 02/27/20 16:42 PFSH Acute PFSH: Medical History Chronic migraine Encounter for long-term use of opiate analgesic Generalized anxiety disorder History of hysteroscopy Major depressive disorder, recurrent severe without psychotic features Nicotine dependence, cigarettes, uncomplicated Opioid contract exists Smoker Spondylosis without myelopathy or radiculopathy, lumbosacral region Surgical History H/O tubal ligation Family History Other CAD (coronary artery disease) Cancer Social History Smoking and tobacco status: current every day smoker cigarettes [ Other cigarette details: 2-3 DAILY ] Alcohol intake: never History of recent travel: No Vitals/I&O/Wt Last Vital Signs Temp 98.0 F 02/27/20 16:34 Pulse 77 02/27/20 17:13 Resp 14 02/27/20 17:13 BP 90/51 02/27/20 17:13 Pulse Ox 97 02/27/20 17:13 Weight last 48 hrs Weight 60.328 kg Physical Exam Const: COMMON NORMALS: no acute distress and patient oriented x3 GENERAL APPEARANCE: cooperative and comfortable HENMT: COMMON NORMALS: normocephalic HEAD & SCALP: normocephalic Eye: COMMON NORMALS: Equal, round and reactive pupils present, EOMs intact bilaterally and no papilledema GENERAL EYE: appearance normal, both eyes and all related structures PUPIL: Yes Equal, round and reactive pupils present DIRECT OPHTHALMOSCOPY: Yes no papilledema Neck/C-Spine: COMMON NORMALS: full ROM, no lymphadenopathy, no JVD and Thyroid normal THYROID: Thyroid normal Lymph: LYMPHATIC: no lymphadenopathy noted Resp: COMMON NORMALS: normal respiratory effort, No retractions, No use of accessory muscles and clear to auscultation bilaterally AUSCULTATION: clear to auscultation bilaterally Cardio: COMMON NORMALS: no JVD, regular rate, regular rhythm, S1 normal heart sound present, S2 normal heart sound present, No gallops present (Cardio), No clicks present (Cardio) and No murmurs present (Cardio) RATE: regular rate RHYTHM: regular rhythm HEART SOUNDS: S1 normal heart sound present and S2 normal heart sound present GI: COMMON NORMALS: Normal to inspection, nondistended, normoactive bowel sounds present, Soft to palpation, non-tender and No hepatosplenomegaly present PALPATION: Yes Soft to palpation and Yes No hepatosplenomegaly present : OTHER: Has right CVA tenderness Extremity: COMMON NORMALS: normal to inspection, full ROM and no pedal edema Neuro: COMMON NORMALS: patient oriented x3, CN's II-XII intact bilaterally, moves all extremities and no focal motor deficits Psych: COMMON NORMALS: mental status grossly normal, Normal thought process present and cooperative THOUGHT PROCESS: Normal thought process present Urinary Catheter Management^: Mccoy: Cath Placed During This Visit: yes Reason for Continuing Indwelling Catheter: Acute Urinary Retention or Obstruction Urinary Catheter Date of Insertion: 02/27/20 Urinary Catheter Time of Insertion: 18:07 Data : 02/27/20 16:10 02/27/20 16:10 Micro: Microbiology 02/27/20 18:12 Blood Culture - Preliminary Blood SPECIMEN COLLECTED A&P Assessment and plan (1) Obstructive pyelonephritis: -Obstructive pyelonephritis, UTI, sepsis -Currently fluid responsive after 1-1/2 L bolus, blood pressure is 111 over 60s, white blood cell count 7.7, creatinine 2.3, lactic acid 3.5, transaminitis, pro-Codey 3.18, -UA positive for WBCs, rare RBCs, nitrate negative, positive for blood, positive for leukocyte Estrace -CT of the abdomen shows mild right hydronephrosis, right hydroureter, followed by 2.5 mm calculus right ureter at the level of the right sacroiliac joint Plan: -Patient will take be taken from the ER straight to the operating room by Dr. Willard for stent placement -Currently working on sepsis bolus, LR for map less than 65, continue LR at 125 cc an hour -Received ciprofloxacin, and Flagyl will give her Primaxin -Trend lactic acids -Monitor blood pressure carefully, monitor postoperatively -If patient continues to have hypotensive episodes, postoperatively, will likely need to be transferred to ICU or to an ICU capable facility, if she does well postoperatively, she is okay to go to the general medical floors, I will go over this in detail with Dr. Marin Status: Acute (2) Sepsis: Status: Acute (3) Allergic reaction: -Continue prednisone 40 mg daily, Benadryl as needed for rash Status: Acute Qualifiers: Encounter type: initial encounter Qualified Code(s): T78.40XA - Allergy, unspecified, initial encounter (4) LISHA (acute kidney injury): Status: Acute (5) Transaminitis: Status: Acute (6) Lactic acidemia: Status: Acute Attestations Medical Necessity Statement*: Patient current hospitalization, inpatient, greater than 2 midnights, for obstructive pyelonephritis with sepsis Coding Level of Care Code Acute Developmental Psychologist for [facility] Diagnoses Obstructive pyelonephritis N11.1 Sepsis A41.9 Allergic reaction T78.40XA Encounter type: initial encounter LISHA (acute kidney injury) N17.9 Transaminitis R74.0 Lactic acidemia E87.2
[2020-02-27 18:56] LABS: ABG PCO2 35.4 mmHg (35-45); ABG PH Result 7.35 (7.35-7.45); Arterial Blood Gas Hematocrit 36.8 % (37-47); Base Excess ABG -5.4 mmol/L (-2.0-2.0); Blood Gas Allen Test Pos; Blood Gas Operator Identificat glc; Blood Gas Sample Site Radial, left; Blood Gas Sample Type Arterial; HCO3 ABG 19.5 mmol/L (22-26); Oxygen Device ROOM AIR; PO2 ABG 64.2 mmHg (80.0-100.0)
--- NOTE | 2020-02-27 18:56 | SC_ITS ---
WS: [id number] C-ARM RADIOGRAPHS ABDOMEN; 2 IMAGES HISTORY: Intraoperative imaging. COMPARISON: 02/27/2020 Intraoperative imaging during RIGHT ureteral stent placement. [place]/C-arm [place] for Urology IMPRESSION: Intraoperative imaging during RIGHT ureteral stent placement.
[2020-02-27 19:09] LABS: Reflex Lactate Order REFLEX LACTIC ORDERD
[2020-02-27 19:19] LABS: C Reactive Protein 443.6 mg/L (0.0-4.9)
--- NOTE | 2020-02-27 19:22 | ANES.PREANE2 ---
Pre-Anesthetic Assessment Pre-Anesthetic Assessment: Height/Weight: Height 1.57 m Weight 60.328 kg Temp Pulse Resp BP Pulse Ox 98.0 F 73 14 98/49 96 02/27/20 16:34 02/27/20 18:53 02/27/20 18:53 02/27/20 18:53 02/27/20 18:53 Preop Diagnosis: Hydronephrosis Proposed Procedure: Operation Date: 02/27/20 19:00 Proposed Procedures p Ureteral Stent Placement(Not Applicable) - Artie Willard MD Familial anesthetic complications: None Last intake: NPO > 8 hrs, has been drinking water to flush kidneys, unable to state last intake of water Social: Social History: Tobacco and No alcohol Exam: Pre-Anes Outpt Exam: alert, oriented x 3, clear to auscultation bilaterally and regular rate & rhythm Airway: Cervical ROM: WNL MP: 2 Dentition: Full : Comments: LISHA d/t stone GI: GI: GERD Metabolic: Metabolic: DM Anesthetic Plan: ASA status: 3E Anesthesia: MAC Risk of > 500 ml blood loss (7ml/kg in children): No PFSH Anesthesia PFSH: Medical History Chronic migraine Encounter for long-term use of opiate analgesic Generalized anxiety disorder History of hysteroscopy Major depressive disorder, recurrent severe without psychotic features Nicotine dependence, cigarettes, uncomplicated Opioid contract exists Smoker Spondylosis without myelopathy or radiculopathy, lumbosacral region Surgical History H/O tubal ligation Family History Other CAD (coronary artery disease) Cancer Social History Smoking and tobacco status: current every day smoker cigarettes [ Other cigarette details: 2-3 DAILY ] Alcohol intake: never History of recent travel: No Data Anesthesia CBC & Chem 7: 02/27/20 16:10 02/27/20 16:10 Other Labs: Laboratory Results - last 48 hr 02/27/20 02/27/20 02/27/20 16:10 16:10 16:10 WBC 7.7 RBC 5.16 Hgb 14.1 Hct 44.7 MCV 86.6 MCH 27.3 L MCHC 31.5 RDW 16.1 H Plt Count 360 MPV 12.8 H Neut % (Auto) 60.7 Lymph % (Auto) 29.8 [place] % (Auto) 7.2 Eos % (Auto) 1.4 Baso % (Auto) 0.5 Neut # (Auto) 4.69 Lymph # (Auto) 2.3 [place] # (Auto) 0.6 Eos # (Auto) 0.1 Baso # (Auto) 0.0 Nucleated RBC % (auto) 0 Nucleated RBCs # 0.0 Specimen Type Sample Site ABG pH ABG pCO2 ABG pO2 ABG HCO3 ABG Base Excess Robert Test Hematocrit O2 Delivery Device FiO2 Director Educational Radio ID Sodium 131 L Potassium 4.2 Chloride 96 L Carbon Dioxide 18 L Anion Gap 21.2 H BUN 22 Creatinine 2.3 H GFR Calculation Not Reportable Glucose 294 H Calculated Osmolality 280 L Lactic Acid Calcium 8.7 Total Bilirubin 1.0 AST 55 H ALT 37 H Alkaline Phosphatase 120 H Creatine Kinase 73 C-Reactive Protein Total Protein 7.0 Albumin 3.3 L Globulin 3.7 Lipase 7 L Procalcitonin Urine Color Urine Appearance Urine pH Ur Specific [place] Urine Protein Urine Glucose (UA) Urine Ketones Urine Blood Urine Nitrate Urine Bilirubin Urine Urobilinogen Ur Leukocyte Esterase Urine RBC Urine WBC Ur Squamous Epith Cells Amorphous Sediment Urine Bacteria 02/27/20 02/27/20 02/27/20 16:10 18:05 18:12 WBC RBC Hgb Hct MCV MCH MCHC RDW Plt Count MPV Neut % (Auto) Lymph % (Auto) [place] % (Auto) Eos % (Auto) Baso % (Auto) Neut # (Auto) Lymph # (Auto) [place] # (Auto) Eos # (Auto) Baso # (Auto) Nucleated RBC % (auto) Nucleated RBCs # Specimen Type Sample Site ABG pH ABG pCO2 ABG pO2 ABG HCO3 ABG Base Excess Robert Test Hematocrit O2 Delivery Device FiO2 Director Educational Radio ID Sodium Potassium Chloride Carbon Dioxide Anion Gap BUN Creatinine GFR Calculation Glucose Calculated Osmolality Lactic Acid 3.5 H Calcium Total Bilirubin AST ALT Alkaline Phosphatase Creatine Kinase C-Reactive Protein 443.6 H Total Protein Albumin Globulin Lipase Procalcitonin 3.18 H Urine Color Yellow Urine Appearance Cloudy Urine pH 5 Ur Specific [place] 1.015 Urine Protein 2+ H Urine Glucose (UA) Norm Urine Ketones Negative Urine Blood 3+ H Urine Nitrate Negative Urine Bilirubin Neg Urine Urobilinogen 1 H Ur Leukocyte Esterase 2+ H Urine RBC Too numerous to cnt H Urine WBC Too numerous to cnt H Ur Squamous Epith Cells 0-4 H Amorphous Sediment Not Reportable Urine Bacteria 4+ H 02/27/20 18:45 WBC RBC Hgb Hct MCV MCH MCHC RDW Plt Count MPV Neut % (Auto) Lymph % (Auto) [place] % (Auto) Eos % (Auto) Baso % (Auto) Neut # (Auto) Lymph # (Auto) [place] # (Auto) Eos # (Auto) Baso # (Auto) Nucleated RBC % (auto) Nucleated RBCs # Specimen Type Arterial Sample Site Radial, left ABG pH 7.35 ABG pCO2 35.4 ABG pO2 64.2 L ABG HCO3 19.5 L ABG Base Excess -5.4 L Robert Test Pos Hematocrit 36.8 L O2 Delivery Device Room air FiO2 21.0 Director Educational Radio ID glc Sodium Potassium Chloride Carbon Dioxide Anion Gap BUN Creatinine GFR Calculation Glucose Calculated Osmolality Lactic Acid Calcium Total Bilirubin AST ALT Alkaline Phosphatase Creatine Kinase C-Reactive Protein Total Protein Albumin Globulin Lipase Procalcitonin Urine Color Urine Appearance Urine pH Ur Specific [place] Urine Protein Urine Glucose (UA) Urine Ketones Urine Blood Urine Nitrate Urine Bilirubin Urine Urobilinogen Ur Leukocyte Esterase Urine RBC Urine WBC Ur Squamous Epith Cells Amorphous Sediment Urine Bacteria Micro: Microbiology 02/27/20 18:12 Blood Culture - Preliminary Blood SPECIMEN COLLECTED Cardiac Studies: No Data to Display
--- NOTE | 2020-02-27 20:04 | PM.OP ---
Operative Report Date of procedure: February 27, 2020 Pre-op Diagnosis: Obstructive pyelonephritis, right Post-op diagnosis: same Procedure Done: 1. Cystoscopy with right ureteral stent placement Implants: 7 Tanzanian by 24 cm double-pigtail stent Pathology: none sent Surgeon: Sudheer Anesthesia: MAC (AVTAR Rios) Urine output: Not measured Complications: None Findings: Stent easily passed. Showed purulent drainage Condition: stable Disposition: PACU Brief History: Mrs. Quintero is a very pleasant 69-year-old white female who I evaluated for the first time today at the request of the emergency department and the hospitalist service for obstructive pyelonephritis with a 2.5 mm right mid/distal ureteral stone with obstructive changes and grossly purulent urine. It was recommended because of her septic status that she undergo emergency ureteral stent placement. Procedure: After emergent evaluation examination and obtaining of informed consent she was taken to the operating suite on 02/27/2020 where general anesthesia was administered without difficulty after appropriate timeout was performed, SCDs confirmed to be functioning, preoperative antibiotics administered, beta-jonna protocol confirmed. Prepped and draped in the usual sterile fashion in dorsolithotomy position pain careful attention to avoiding pressure points. 21 Tanzanian cystoscope with 30 degree lens was introduced into urethral meatus and advanced into the bladder under videoscopy. Bladder was systematically examined. No stones were seen. There was no evidence of chronic infection. A flexible tip guidewire was then easily advanced up the right ureter bypassing the area of the stone curling in the area of the renal pelvis and a 7 Tanzanian by 24 cm double-pigtail stent was advanced easily over the guidewire through the cystoscope into appropriate position as confirmed via fluoroscopy and cystoscopy. The stent was confirmed to be draining purulent urine immediately after placement. Bladder was drained with a Mccoy catheter and the procedure was completed. She tolerated procedure well without complications and was awakened in the operating room and returned to the recovery room in stable condition. PLANS: 1. Maintain Mccoy catheter as long as needed. Can remove at your discretion 2. We will plan for cystoscopy, right ureteroscopy stone extraction after she is recovered from the infectious part of this condition
[2020-02-27] MEDS: predniSONE 20 mg Tablet 40 MG PO (20:39)
[2020-02-27] MEDS: lactated ringers 1,000 ML 125 ML IV (20:42)
[2020-02-27 21:01] LABS: Glucose Point of Care 285 mg/dL (70-110)
[2020-02-27 21:19] LABS: Lactic Sepsis W/Reflex 2.3 mmol/L (0.5-2.2)
[2020-02-27 21:24] LABS: Thyroid Stimulating Hormone 3.19 uIU/mL (0.27-4.20)
[2020-02-27 22:50] LABS: Reflex Lactate Order REFLEX LACTIC ORDERD
[2020-02-28] VITALS (8 sets, daily range): BP systolic 110–128; BP diastolic 53–79; PULSE 64–85; RESP 16–18; TEMP 36.6–37.2; O2SAT 94–98
[2020-02-28 00:34] LABS: Lactic Acid level (Lactate) 3.4 mmol/L (0.5-2.2)
[2020-02-28 04:37] LABS: Basophils # 0.1 10^3/uL (0.0-0.1); Basophils % 0.6 %; Eosinophils # 0.1 10^3/uL (0.0-0.8); Eosinophils % 0.7 %; Hematocrit 38.8 % (37.0-47.0); Hemoglobin 11.9 g/dL (11.5-15.3); Lymphocytes % 9.5 %; Mean Corpuscular HGB Conc 30.7 g/dL (30.0-36.0); Mean Corpuscular Hemoglobin 26.9 pg (28.0-34.0); Mean Corpuscular Volume 87.6 fL (81-99); Mean Platelet Volume 12.3 fL (7.4-10.4); Monocytes # 0.5 10^3/uL (0.2-0.9); Neutrophils # 9.02 10^3/uL (1.8-7.7); Neutrophils % 83.9 %; Nucleated Red Blood Cells % 0 %; Platelet Count 301 10^3/cmm (130-400); Red Blood Count 4.43 10^6/uL (4.1-5.3); White Blood Count 10.7 10^3/uL (4.0-10.0)
[2020-02-28 04:49] LABS: INR 1.16 (0.8-1.2)
[2020-02-28 04:57] LABS: Lactic Sepsis W/Reflex 3.3 mmol/L (0.5-2.2)
[2020-02-28 05:01] LABS: Alanine Aminotransferase 24 U/L (0-33); Albumin Level 2.9 g/dL (3.5-5.2); Alkaline Phosphatase 95 IU/L (35-105); Anion Gap 21.5 (5-19); Aspartate Amino Transferase 28 U/L (0-32); Blood Urea Nitrogen 20 mg/dL (8-23); Calcium 7.7 mg/dL (8.5-10.5); Carbon Dioxide 16 mmol/L (22-29); Chloride 103 mmol/L (98-107); Globulin 3.2 g/dL (1.3-4.6); Glucose 412 mg/dL (65-115); Magnesium 1.9 mg/dL (1.7-2.3); Osmolality Calculated 296 mOsm/kg (285-295); Phosphorus 3.3 mg/dL (2.5-4.5); Potassium 4.5 mmol/L (3.5-5.1); Sodium 136 mmol/L (136-145); Total Bilirubin 0.5 mg/dL (0.15-1.2); Total Protein 6.1 g/dL (6.6-8.7)
[2020-02-28] MEDS: lactated ringers 1,000 ML 125 ML IV ×3 (06:15→16:14)
[2020-02-28 06:51] LABS: Glucose Point of Care 376 mg/dL (70-110)
--- NOTE | 2020-02-28 07:27 | P.PN_ITS ---
Subjective Subjective: Interval history: Feeling much better this morning. Denies any significant right flank pain. No spiking fever. Significant overall improvement in status. Still has Mccoy catheter in. We will plan on removing that later today. Reviewed symptoms related to the stent once the catheter is out. Once she is ready for discharge will make plans according to status of infection clearance in regards to definitive treatment of the right ureteral calculus. No further current recommendations. Medications: Reviewed: Yes Vitals/I&O/Wt Last Vital Signs Temp 98.1 F 02/28/20 07:12 Pulse 77 02/28/20 07:12 Resp 16 02/28/20 07:12 BP 126/62 02/28/20 07:12 Pulse Ox 95 02/28/20 07:12 02/27/20 02/28/20 02/28/20 22:59 06:59 14:59 Intake Total 100 / 100 1000 / 1100 127.083 / 127.083 Output Total 0 / 0 Balance 100 / 100 1000 / 1100 127.083 / 127.083 Weight last 48 hrs Weight 133 lb Physical Exam Const: COMMON NORMALS: no acute distress, alert and well nourished GENERAL APPEARANCE: well kempt and well developed ORIENTATION/CONSCIOUSNESS: not confused HENMT: COMMON NORMALS: normocephalic and atraumatic HEAD & SCALP: normocephalic and atraumatic Eye: COMMON NORMALS: conjunctivae normal and no scleral icterus CONJUNCTIVA: Yes conjunctivae normal Neck/C-Spine: GENERAL: Yes normal visual inspection Resp: COMMON NORMALS: normal respiratory effort EFFORT & INSPECTION: No labored and No Actively coughing Neuro: SENSORIUM/ORIENTATION: Yes alert Psych: COMMON NORMALS: mental status grossly normal APPEARANCE: Yes grossly normal and Yes well kempt ATTITUDE: Yes calm and Yes engaged Urinary Catheter Management^: Mccoy: Cath Placed During This Visit: yes, but has since been removed by the nurse Reason for Continuing Indwelling Catheter: Perioperative Use in Selected Surgeries Urinary Catheter Date of Insertion: 02/27/20 Urinary Catheter Time of Insertion: 19:42 Date Urinary Catheter Removed: 02/27/20 Time Urinary Catheter Discontinued: 19:35 Data : 02/28/20 04:15 02/28/20 04:15 Micro: Microbiology 02/27/20 23:57 Blood Culture - Preliminary Blood SPECIMEN COLLECTED 02/27/20 18:12 Blood Culture - Preliminary Blood SPECIMEN COLLECTED A&P Assessment and plan (1) Obstructive pyelonephritis: No evidence of progressive infectious concerns and stent placement. Status: Acute (2) Right ureteral calculus: Clinically reduced pain because of stenting. Status: Acute Attestations Medical Necessity Statement*: See attending Coding Level of Care Code Acute Insulation Board Back Tender for [facility] Diagnoses Obstructive pyelonephritis N11.1 Right ureteral calculus N20.1
--- NOTE | 2020-02-28 07:33 | ANE.PACU2 ---
Inpatient post-anesthesia follow up: Airway intact: Yes Vital signs: Temperature 98.1 F Pulse Rate [Apical ] 85 Pulse Rate 77 Respiratory Rate 16 Blood Pressure [Ri ght Arm] 98/59 Blood Pressure 126/62 Pulse Oximetry 95 Oxygen Delivery Me thod Room Air Oxygen Flow Rate Fraction of Inspir ed Oxygen Hydration adequate: Yes Nausea and vomiting: No Pain level: 4 Mental status: Baseline
[2020-02-28 08:42] LABS: Lactic Sepsis W/Reflex 2.6 mmol/L (0.5-2.2)
[2020-02-28] MEDS: predniSONE 20 mg Tablet 40 MG PO (09:14)
[2020-02-28 10:42] LABS: Glucose Point of Care 299 mg/dL (70-110)
--- NOTE | 2020-02-28 11:33 | P.PN_ITS ---
Subjective Subjective: Interval history: Patient feeling much better. She had stent placed which has helped significantly. No fevers or chills overnight. No chest pain or shortness of breath. She states she feels better than she has in a while. Vitals/I&O/Wt Last Vital Signs Temp 98.4 F 02/28/20 10:52 Pulse 78 02/28/20 10:52 Resp 16 02/28/20 10:52 BP 114/66 02/28/20 10:52 Pulse Ox 97 02/28/20 10:52 02/27/20 02/28/20 02/28/20 22:59 06:59 14:59 Intake Total 100 / 1100 1000 / 1100 367.083 / 367.083 Output Total 0 / 0 Balance 100 / 1100 1000 / 1100 367.083 / 367.083 Weight last 48 hrs Weight 133 lb Physical Exam Narrative: EXAM NARRATIVE: General: No acute distress, Alert. Well nourished. Heart: Regular rate and rhythm. No murmurs, rubs or gallops. Normal capillary refill. Lungs: Clear to auscultation. No wheezes, rhonchi or rales. Abdomen: Positive bowel sounds. Non-tender, non-distended. No hepatosplenomegaly. No gaurding. Extremities: No clubbing, cyanosis, or edema. Negative Karon's Urinary Catheter Management^: Mccoy: Cath Placed During This Visit: yes, but has since been removed by the nurse Reason for Continuing Indwelling Catheter: Perioperative Use in Selected Surgeries Urinary Catheter Date of Insertion: 02/27/20 Urinary Catheter Time of Insertion: 19:42 Date Urinary Catheter Removed: 02/27/20 Time Urinary Catheter Discontinued: 19:35 Data : 02/28/20 04:15 02/28/20 04:15 Micro: Microbiology 02/27/20 23:57 Blood Culture - Preliminary Blood SPECIMEN COLLECTED 02/27/20 18:12 Blood Culture - Preliminary Blood SPECIMEN COLLECTED A&P Assessment and plan (1) Obstructive pyelonephritis: Patient is status post stent as of 02/27/2020. Symptoms seem to be improved. We will continue to follow with Dr. Willard. Status: Acute (2) Sepsis: -Patient is currently on Primaxin. Vitals are doing well. Clinically she is much improved. Continue with IV antibiotics and supportive care. Likely plan for discharge tomorrow if she continues to do well. Status: Acute (3) Diabetes mellitus type 2 in nonobese: Blood sugars are running high at this time. Prednisone is probably contributing-along with the infection. We will go ahead and stop the prednisone today. Continue to monitor this and do sliding scale insulin. Status: Acute Attestations Medical Necessity Statement*: This is a 69-year-old female with diabetes and obstructive pyelonephritis and sepsis requiring continued inpatient treatment and IV antibiotics. Coding Level of Care Code Acute Directional Survey Drafter for [facility] Diagnoses Obstructive pyelonephritis N11.1 Sepsis A41.9 Diabetes mellitus type 2 in nonobese E11.9
[2020-02-28 12:56] LABS: Lactic Sepsis W/Reflex 2.2 mmol/L (0.5-2.2)
[2020-02-28 17:02] LABS: Lactic Sepsis W/Reflex 2.6 mmol/L (0.5-2.2)
[2020-02-28 17:04] LABS: Glucose Point of Care 354 mg/dL (70-110)
[2020-02-28 20:41] LABS: Lactic Sepsis W/Reflex 2.4 mmol/L (0.5-2.2)
[2020-02-28 21:28] LABS: Glucose Point of Care 309 mg/dL (70-110)
[2020-02-28 22:03] LABS: Reflex Lactate Order REFLEX LACTIC ORDERD
[2020-02-28 22:55] LABS: Lactic Acid level (Lactate) 2.5 mmol/L (0.5-2.2)
[2020-02-29] VITALS (8 sets, daily range): BP systolic 110–179; BP diastolic 70–88; PULSE 70–91; RESP 16–18; TEMP 36.9–37.9; O2SAT 90–96
[2020-02-29] MEDS: lactated ringers 1,000 ML 125 ML IV ×3 (01:47→17:25)
[2020-02-29 02:56] LABS: Reflex Lactate Order REFLEX LACTIC ORDERD
[2020-02-29 04:57] LABS: Hematocrit 33.1 % (37.0-47.0); Hemoglobin 10.4 g/dL (11.5-15.3); Mean Corpuscular HGB Conc 31.4 g/dL (30.0-36.0); Mean Corpuscular Hemoglobin 26.9 pg (28.0-34.0); Mean Corpuscular Volume 85.8 fL (81-99); Platelet Count 293 10^3/cmm (130-400); Red Blood Count 3.86 10^6/uL (4.1-5.3); Red Cell Distribution Width 16.4 % (12.1-15.1); White Blood Count 13.9 10^3/uL (4.0-10.0)
[2020-02-29 05:27] LABS: C Reactive Protein 304.3 mg/L (0.0-4.9)
[2020-02-29 05:37] LABS: Lactic Acid level (Lactate) 2.3 mmol/L (0.5-2.2)
[2020-02-29 05:38] LABS: Alanine Aminotransferase 24 U/L (0-33); Albumin Level 3.1 g/dL (3.5-5.2); Alkaline Phosphatase 97 IU/L (35-105); Anion Gap 14.4 (5-19); Aspartate Amino Transferase 23 U/L (0-32); Blood Urea Nitrogen 19 mg/dL (8-23); Carbon Dioxide 23 mmol/L (22-29); Chloride 105 mmol/L (98-107); Globulin 3.3 g/dL (1.3-4.6); Glucose 337 mg/dL (65-115); Magnesium 2.1 mg/dL (1.7-2.3); Osmolality Calculated 296 mOsm/kg (285-295); Phosphorus 2.3 mg/dL (2.5-4.5); Potassium 4.4 mmol/L (3.5-5.1); Sodium 138 mmol/L (136-145); Total Bilirubin 0.3 mg/dL (0.15-1.2); Total Protein 6.4 g/dL (6.6-8.7)
[2020-02-29] MEDS: citalopram 20 mg Tablet PO (06:10)
[2020-02-29] MEDS: ARIPiprazole 10 mg Tablet 5 MG PO (06:10)
[2020-02-29 06:49] LABS: Glucose Point of Care 331 mg/dL (70-110)
[2020-02-29 07:05] LABS: Slide Review Slide Review Perform
[2020-02-29 07:06] LABS: Absolute Segmented Neutrophil 4.9 10/cmm (1.6-7.1); Band Neutrophils Absolute 6.8 10^3/cmm (0.0-1.2); Lymphocytes 12 %; Monocytes Absolute 0.6 10^3/cmm (0.1-0.6); Segmented Neutrophils 35 %; Total Cells Counted 100 (0-100)
[2020-02-29 07:07] LABS: Absolute Neutrophil 11.7 10^3/cmm (1.4-6.5); Platelet Estimate Normal (Normal)
--- NOTE | 2020-02-29 07:45 | P.PN_ITS ---
Subjective Subjective: Interval history: Patient is doing well today. She feels ready to go home. No fevers overnight. Vitals/I&O/Wt Last Vital Signs Temp 99.4 F 03/01/20 03:00 Pulse 91 03/01/20 03:00 Resp 16 03/01/20 03:00 BP 169/82 03/01/20 03:00 Pulse Ox 94 03/01/20 03:00 02/29/20 03/01/20 03/01/20 22:59 06:59 14:59 Intake Total 1308.75 / 2544.167 Output Total 650 / 950 Balance 658.75 / 1594.167 Physical Exam Narrative: EXAM NARRATIVE: General: No acute distress, Alert. Well nourished. Heart: Regular rate and rhythm. No murmurs, rubs or gallops. Normal capillary refill. Lungs: Clear to auscultation. No wheezes, rhonchi or rales. Abdomen: Positive bowel sounds. Non-tender, non-distended. No hepatosplenomegaly. No gaurding. Extremities: No clubbing, cyanosis, or edema. Negative Karon's Urinary Catheter Management^: Mccoy: Cath Placed During This Visit: yes, but has since been removed by the nurse Reason for Continuing Indwelling Catheter: Decision to DC Catheter Urinary Catheter Date of Insertion: 02/27/20 Urinary Catheter Time of Insertion: 19:42 Date Urinary Catheter Removed: 02/27/20 Time Urinary Catheter Discontinued: 19:35 Data : 03/01/20 04:20 03/01/20 04:20 Micro: Microbiology 02/27/20 18:05 Urine Culture - Preliminary Urine,Clean Catch Gram Negative Rods A&P Assessment and plan (1) Obstructive pyelonephritis: -Clinically she appears to be doing well however her white blood cell count was elevated this morning. Her C-reactive protein remains elevated as well. We will probably add Levaquin to her regimen today. Monitor overnight. Hopeful for discharge maybe tomorrow. Status: Acute (2) Sepsis: Status: Acute (3) Diabetes mellitus type 2 in nonobese: Status: Acute Attestations Medical Necessity Statement*: Patient is a 69-year-old female with obstructive pyelonephritis and sepsis requiring continued inpatient IV treatments and monitoring. Coding Level of Care Code Acute Pull Up Hand for [facility] Diagnoses Obstructive pyelonephritis N11.1 Sepsis A41.9 Diabetes mellitus type 2 in nonobese E11.9
[2020-02-29] MEDS: oxybutynin chloride XL 5 MG TABLET 10 MG PO (08:05)
[2020-02-29] MEDS: pantoprazole DR 40 mg Tablet PO (08:06)
[2020-02-29] MEDS: HYDROcodone-acetaminophen 10-325 mg Tablet 1 TAB PO ×3 (08:06→21:58)
[2020-02-29] MEDS: zinc gluconate 50 mg Tablet PO (08:06)
[2020-02-29] MEDS: levofloxacin-dextrose 5 % 750 MG/150 ML PREMIX 100 MG IV (09:37)
[2020-02-29] MEDS: LORazepam 1 mg Tablet PO ×2 (10:26→17:24)
[2020-02-29 10:52] LABS: Glucose Point of Care 217 mg/dL (70-110)
--- NOTE | 2020-02-29 12:31 | PM.PN ---
Subjective Subjective: Interval history: Urology follow-up: Postop day #2 emergency right ureteral stent placement for obstructive pyelonephritis. Clinically continues to improve. No spiking temperatures. Returning appetite. Returning strength. Blood cultures have grown gram-negative rods. Identification pending as well as sensitivities. She was disappointed today that she would not be on to go home yet but understands the importance of targeted antibiotic therapy. Also reviewed with her the sequence of events regarding treating the stone definitively after her infection has improved. May target that for early next week. Vitals/I&O/Wt Last Vital Signs Temp 98.4 F 02/29/20 11:00 Pulse 75 02/29/20 11:00 Resp 18 02/29/20 11:00 BP 156/88 02/29/20 11:00 Pulse Ox 94 02/29/20 11:00 02/28/20 02/29/20 02/29/20 22:59 06:59 14:59 Intake Total 1100 / 6554.767 2048 / 2807.083 1235.417 / 1235.417 Output Total 700 / 700 150 / 150 Balance 400 / 1809.766 5171 / 2107.083 1085.417 / 1085.417 Weight last 48 hrs Weight 133 lb Physical Exam Const: COMMON NORMALS: no acute distress, alert and well nourished GENERAL APPEARANCE: well kempt and well developed ORIENTATION/CONSCIOUSNESS: not confused Resp: COMMON NORMALS: normal respiratory effort EFFORT & INSPECTION: No labored and No Actively coughing Neuro: SENSORIUM/ORIENTATION: Yes alert Psych: COMMON NORMALS: mental status grossly normal APPEARANCE: Yes grossly normal and Yes well kempt ATTITUDE: Yes calm and Yes engaged Urinary Catheter Management^: Mccoy: Cath Placed During This Visit: yes, but has since been removed by the nurse Reason for Continuing Indwelling Catheter: Decision to DC Catheter Urinary Catheter Date of Insertion: 02/27/20 Urinary Catheter Time of Insertion: 19:42 Date Urinary Catheter Removed: 02/27/20 Time Urinary Catheter Discontinued: 19:35 Data : 02/29/20 04:33 02/29/20 04:33 Micro: Microbiology 02/27/20 18:05 Urine Culture - Preliminary Urine,Clean Catch Gram Negative Rods 02/27/20 23:57 Blood Culture - Preliminary Blood NEGATIVE TO DATE 02/27/20 18:12 Blood Culture - Preliminary Blood Gram Negative Rods A&P Assessment and plan (1) Sepsis: Gram-negative rods growing in her blood cultures. Final pending Status: Acute (2) Right ureteral calculus: Small obstructing right mid ureteral stone status post stenting emergently for obstructive pyelonephritis. Status: Acute (3) Obstructive pyelonephritis: Clinically doing better. Final cultures are pending. 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
[2020-02-29 16:38] LABS: Glucose Point of Care 65 mg/dL (70-110)
--- NOTE | 2020-02-29 18:22 | PC.NURSE ---
Summary Pt has walked to the bathroom almost every hour. No stones were found so far. Pt had a couple of episodes of anxiety and was wanting to go home. I talked with Di over the phone and he had me explain that he lab work was WBC were high and that she needed to stay for the antibiotics. She said she would until the morning. Dr Willard talked with her and explained also.
[2020-02-29 20:28] LABS: Glucose Point of Care 185 mg/dL (70-110)
[2020-03-01 03:00] VITALS: BP 169/82; PULSE 91; RESP 16; TEMP 37.4; O2SAT 94
[2020-03-01] MEDS: LORazepam 1 mg Tablet PO ×2 (04:43→12:57)
[2020-03-01] MEDS: diphenhydrAMINE 50 mg/mL SDV 1mL 25 MG IVP (04:43)
[2020-03-01 05:08] LABS: Basophils # 0.1 10^3/uL (0.0-0.1); Basophils % 0.4 %; Eosinophils # 0.1 10^3/uL (0.0-0.8); Eosinophils % 0.4 %; Hematocrit 32.8 % (37.0-47.0); Hemoglobin 10.2 g/dL (11.5-15.3); Lymphocytes % 13.8 %; Mean Corpuscular HGB Conc 31.1 g/dL (30.0-36.0); Mean Corpuscular Hemoglobin 26.8 pg (28.0-34.0); Mean Corpuscular Volume 86.1 fL (81-99); Mean Platelet Volume 12.4 fL (7.4-10.4); Monocytes % 7.3 %; Neutrophils # 10.48 10^3/uL (1.8-7.7); Neutrophils % 73.7 %; Nucleated Red Blood Cells % 0 %; Platelet Count 265 10^3/cmm (130-400); Red Blood Count 3.81 10^6/uL (4.1-5.3); Red Cell Distribution Width 16.8 % (12.1-15.1); White Blood Count 14.2 10^3/uL (4.0-10.0)
[2020-03-01 05:32] LABS: Alanine Aminotransferase 25 U/L (0-33); Albumin Level 3.1 g/dL (3.5-5.2); Alkaline Phosphatase 108 IU/L (35-105); Aspartate Amino Transferase 21 U/L (0-32); Blood Urea Nitrogen 10 mg/dL (8-23); Calcium 8.7 mg/dL (8.5-10.5); Carbon Dioxide 22 mmol/L (22-29); Chloride 102 mmol/L (98-107); Globulin 3.2 g/dL (1.3-4.6); Glucose 360 mg/dL (65-115); Magnesium 1.8 mg/dL (1.7-2.3); Osmolality Calculated 297 mOsm/kg (285-295); Phosphorus 2.5 mg/dL (2.5-4.5); Sodium 138 mmol/L (136-145); Total Bilirubin 0.4 mg/dL (0.15-1.2); Total Protein 6.3 g/dL (6.6-8.7)
[2020-03-01] MEDS: citalopram 20 mg Tablet PO (05:47)
[2020-03-01] MEDS: ARIPiprazole 10 mg Tablet 5 MG PO (05:47)
[2020-03-01 05:53] LABS: C Reactive Protein 220.9 mg/L (0.0-4.9)
[2020-03-01] MEDS: HYDROcodone-acetaminophen 10-325 mg Tablet 1 TAB PO ×2 (06:42→14:43)
[2020-03-01 07:00] VITALS: BP 165/74; PULSE 91; RESP 18; TEMP 37.5; O2SAT 92
[2020-03-01 07:00] LABS: Glucose Point of Care 415 mg/dL (70-110)
--- NOTE | 2020-03-01 07:48 | P.PN_ITS ---
Subjective Subjective: Interval history: Patient had a rough night last night. She felt like the Primaxin infusion caused her to have a reaction. She felt she got a fever afterwards. She had a significant anxiety attack. This happened again early this morning with the infusion. She is having a difficult time assessing whether she is feeling better today or not. Very anxious this morning. Medications: Reviewed: Yes Vitals/I&O/Wt Last Vital Signs Temp 99.4 F 03/01/20 03:00 Pulse 91 03/01/20 03:00 Resp 16 03/01/20 03:00 BP 169/82 03/01/20 03:00 Pulse Ox 94 03/01/20 03:00 02/29/20 03/01/20 03/01/20 22:59 06:59 14:59 Intake Total 1308.75 / 2544.167 Output Total 650 / 950 Balance 658.75 / 1594.167 Physical Exam Narrative: EXAM NARRATIVE: General: No acute distress, Alert. Well nourished. Heart: Regular rate and rhythm. No murmurs, rubs or gallops. Normal capillary refill. Lungs: Clear to auscultation. No wheezes, rhonchi or rales. Abdomen: Positive bowel sounds. Non-tender, non-distended. No hepatosplenomegaly. No gaurding. Extremities: No clubbing, cyanosis, or edema. Negative Karon's Urinary Catheter Management^: Mccoy: Cath Placed During This Visit: yes, but has since been removed by the nurse Reason for Continuing Indwelling Catheter: Decision to DC Catheter Urinary Catheter Date of Insertion: 02/27/20 Urinary Catheter Time of Insertion: 19:42 Date Urinary Catheter Removed: 02/27/20 Time Urinary Catheter Discontinued: 19:35 Data : 03/01/20 04:20 03/01/20 04:20 Micro: Microbiology 02/27/20 18:05 Urine Culture - Preliminary Urine,Clean Catch Gram Negative Rods A&P Assessment and plan (1) Obstructive pyelonephritis: -She seems a little worse today. White count has elevated a little more but CRP is continuing to go down some. She had a difficult night last night. That being said she is very adamant about going home today. I convinced her to wait and see how she does through the day today. If she is feeling better we may consider discharge later on today.. Status: Acute (2) Sepsis: Status: Acute (3) Diabetes mellitus type 2 in nonobese: Status: Acute Attestations Medical Necessity Statement*: 69-year-old with obstructive pyelonephritis requiring continued IV treatments and monitoring in the inpatient setting. Coding Level of Care Code [facility] Diagnoses Obstructive pyelonephritis N11.1 Sepsis A41.9 Diabetes mellitus type 2 in nonobese E11.9
[2020-03-01] MEDS: pantoprazole DR 40 mg Tablet PO (08:03)
[2020-03-01] MEDS: oxybutynin chloride XL 5 MG TABLET 10 MG PO (08:03)
[2020-03-01] MEDS: zinc gluconate 50 mg Tablet PO (08:03)
--- NOTE | 2020-03-01 08:50 | PC.SOCIAL ---
IMM Page 2 of IMM explained to patient, however she is unable to sign d/t her being legally blind. Initialed, dated, and timed and placed in chart. Copy provided to patient.
[2020-03-01] MEDS: lactated ringers 1,000 ML 125 ML IV (10:38)
[2020-03-01 10:57] LABS: Glucose Point of Care 199 mg/dL (70-110)
[2020-03-01 11:00] VITALS: BP 148/78; PULSE 82; RESP 18; TEMP 36.9; O2SAT 93
--- NOTE | 2020-03-01 14:25 | P.DS_ITS ---
Discharge Providers Date of Admission: 02/27/20 19:43 Date of Discharge: March 01, 2020 Attending Provider at Admission: Javon Villeda MD Attending Provider at Discharge: Artie Willard MD Primary Care Provider: Cisco Sevilla MD Diagnoses at Discharge Discharge Diagnosis (1) Obstructive pyelonephritis: Status: Acute (2) Sepsis: Status: Acute (3) Diabetes mellitus type 2 in nonobese: Status: Acute Reason for Visit Reason for Visit: RIGHT FLANK PAIN; NAUSEA; RASH Hospital Course Discharge Summary: Patient came in with a renal stone, ureter obstruction, pyelonephritis and severe sepsis. She improved with fluids and had stent placed. On Primaxin. Was improving. Her WBC remained high but her CRP was improving. She overall felt good. She was anxious to go home so discharged on Levaquin. cultures pending. Physical Exam Urinary Catheter Management^: Mccoy: Cath Placed During This Visit: yes, but has since been removed by the nurse Reason for Continuing Indwelling Catheter: Decision to DC Catheter Urinary Catheter Date of Insertion: 02/27/20 Urinary Catheter Time of Insertion: 19:42 Date Urinary Catheter Removed: 02/27/20 Time Urinary Catheter Discontinued: 19:35 Discharge Data Data Completed and Pending: Completed Studies During Hospitalization Category Date Time Status CT kidney stone [id number] Urgent Cat Scan 02/27/20 16:35 Completed Pending at discharge Category Date Time Status Basic Metabolic P marie AM LABS Lab 03/02/20 04:00 Ordered Blood Culture Sta t Lab 02/27/20 23:57 Results Blood Culture Sta t Lab 03/01/20 08:38 Results C Reactive Protei n AM LABS Lab 03/02/20 04:00 Ordered Complete Blood Co unt w/Auto AM LABS Lab 03/02/20 04:00 Ordered Urine Culture Rou cristi Lab 02/29/20 11:16 Received Labs from last 24 hours 03/01/20 03/01/20 03/01/20 10:52 06:44 04:20 WBC RBC Hgb Hct MCV MCH MCHC RDW Plt Count MPV Neut % (Auto) Lymph % (Auto) [place] % (Auto) Eos % (Auto) Baso % (Auto) Neut # (Auto) Lymph # (Auto) [place] # (Auto) Eos # (Auto) Baso # (Auto) Nucleated RBC % (a uto) Nucleated RBCs # Sodium Potassium Chloride Carbon Dioxide Anion Gap BUN Creatinine GFR Calculation Glucose POC Glucose 199 415 Calculated Osmolal ity Calcium Phosphorus Magnesium Total Bilirubin AST ALT Alkaline Phosphata se C-Reactive Protein 220.9 H Total Protein Albumin Globulin 03/01/20 03/01/20 02/29/20 04:20 04:20 20:22 WBC 14.2 H RBC 3.81 L Hgb 10.2 L Hct 32.8 L MCV 86.1 MCH 26.8 L MCHC 31.1 RDW 16.8 H Plt Count 265 MPV 12.4 H Neut % (Auto) 73.7 Lymph % (Auto) 13.8 [place] % (Auto) 7.3 Eos % (Auto) 0.4 Baso % (Auto) 0.4 Neut # (Auto) 10.48 H Lymph # (Auto) 2.0 [place] # (Auto) 1.0 H Eos # (Auto) 0.1 Baso # (Auto) 0.1 Nucleated RBC % (a uto) 0 Nucleated RBCs # 0.0 Sodium 138 Potassium 4.0 Chloride 102 Carbon Dioxide 22 Anion Gap 18.0 BUN 10 Creatinine 1.1 H GFR Calculation Not Reportable Glucose 360 H POC Glucose 185 Calculated Osmolal ity 297 H Calcium 8.7 Phosphorus 2.5 Magnesium 1.8 Total Bilirubin 0.4 AST 21 ALT 25 Alkaline Phosphata se 108 H C-Reactive Protein Total Protein 6.3 L Albumin 3.1 L Globulin 3.2 02/29/20 16:35 WBC RBC Hgb Hct MCV MCH MCHC RDW Plt Count MPV Neut % (Auto) Lymph % (Auto) [place] % (Auto) Eos % (Auto) Baso % (Auto) Neut # (Auto) Lymph # (Auto) [place] # (Auto) Eos # (Auto) Baso # (Auto) Nucleated RBC % (a uto) Nucleated RBCs # Sodium Potassium Chloride Carbon Dioxide Anion Gap BUN Creatinine GFR Calculation Glucose POC Glucose 65 Calculated Osmolal ity Calcium Phosphorus Magnesium Total Bilirubin AST ALT Alkaline Phosphata se C-Reactive Protein Total Protein Albumin Globulin Vitals: Last Vital Signs Temp 98.5 F 03/01/20 11:00 Pulse 82 03/01/20 11:00 Resp 18 03/01/20 11:00 BP 148/78 03/01/20 11:00 Pulse Ox 93 03/01/20 11:00 Discharge Plan Discharge Patient Disposition: Home Condition: Stable Prescriptions: New Levaquin 500 mg tablet 500 mg PO DAILY 5 Days Qty: 5 RF: 0 Continued meclizine 25 mg tablet 25 mg PO BID Qty: 60 RF: 11 omeprazole 40 mg capsule,delayed release(DR/EC) 40 mg PO DAILY RF: 0 furosemide 20 mg tablet 20 mg PO QAM RF: 0 Novolog Flexpen U-100 Insulin 100 unit/mL (3 mL) insulin pen See Rx Instructions .ROUTE .COMPLEX RF: 0 Levemir FlexTouch U-100 Insuln 100 unit/mL (3 mL) insulin pen 28 unit SUBCUT BEDTIME RF: 0 hydrocodone-acetaminophen 10-325 mg tablet 1 tab PO TID PRN (Reason: pain) 30 Days Qty: 90 RF: 0 lorazepam [Ativan] 1 mg tablet 1 mg PO TID PRN (Reason: anxiety) Qty: 90 RF: 3 Celexa 20 mg tablet 20 mg PO QAM Qty: 90 RF: 2 aripiprazole [Abilify] 5 mg tablet 5 mg PO QAM Qty: 90 RF: 2 5 Hour Energy Drink With Vit B See Rx Instructions .ROUTE .COMPLEX RF: 0 oxybutynin chloride 10 mg tablet extended release 24hr 10 mg PO DAILY RF: 0 Zofran 4 mg Tablet 4 mg PO BID RF: 0 zinc 50 mg Tablet 50 mg PO DAILY RF: 0 Claritin 10 mg Tablet 10 mg PO DAILY RF: 0 Cinnamon 500 mg Capsule 500 mg PO DAILY RF: 0 Emergen-C 1 packet PO QAM RF: 0 Hair,Skin and Nails 2 tab PO DAILY RF: 0 Pepto-Bismol See Rx Instructions .ROUTE .COMPLEX RF: 0 Discharge Orders: Discharge Order (Routine); Ordered 03/01/20 Ordered By: Cisco Sevilla Referrals: [facility] [Other] Artie Willard MD [Physician] - 1 week Cisco Sevilla MD [Primary Care Provider] - 4-7 days Discharge Diet: Diabetic Discharge Activity: Resume usual activity Activity Restrictions/Additional Instructions: - resume all of your home medications the same. 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
[2020-03-01 15:14] VITALS: BP 148/78; PULSE 82; RESP 18; TEMP 36.9; O2SAT 93
--- NOTE | 2020-03-01 18:06 | P.PN_ITS ---
Subjective Subjective: Interval history: Urology follow-up: Feels much better this morning. Denies fever or chills. Voiding well. Will be discharged later today on antibiotics. I will plan on seeing her back early next week with plans for intervention for stone removal either later that week or possibly the week of 03/20/2020 because of my out-of-town schedule on the week of the . Discussed that with her. Encouraged her to call if she has any further trouble after discharge related to stone pain stent pain etc. Vitals/I&O/Wt Last Vital Signs Temp 98.5 F 03/01/20 15:14 Pulse 82 03/01/20 15:14 Resp 18 03/01/20 15:14 BP 148/78 03/01/20 15:14 Pulse Ox 93 03/01/20 15:14 03/01/20 03/01/20 03/01/20 06:59 14:59 22:59 Intake Total 1100 / 1100 Output Total 1075 / 1075 Balance Physical Exam Const: COMMON NORMALS: no acute distress and alert GENERAL APPEARANCE: well kempt and well developed ORIENTATION/CONSCIOUSNESS: not confused Resp: COMMON NORMALS: normal respiratory effort EFFORT & INSPECTION: No labored and No Actively coughing Neuro: COMMON NORMALS: no focal motor deficits SENSORIUM/ORIENTATION: Yes alert Psych: COMMON NORMALS: mental status grossly normal, Normal thought process present and cooperative APPEARANCE: Yes grossly normal and Yes well kempt ATTITUDE: Yes calm and Yes engaged THOUGHT PROCESS: Normal thought process present Skin: COMMON NORMALS: no rashes or lesions noted GENERAL SKIN EXAM: no rashes or lesions noted Urinary Catheter Management^: Mccoy: Cath Placed During This Visit: yes, but has since been removed by the nurse Reason for Continuing Indwelling Catheter: Decision to DC Catheter Urinary Catheter Date of Insertion: 02/27/20 Urinary Catheter Time of Insertion: 19:42 Date Urinary Catheter Removed: 02/27/20 Time Urinary Catheter Discontinued: 19:35 Data : 03/01/20 04:20 03/01/20 04:20 Micro: Microbiology 02/27/20 18:12 Blood Culture - Preliminary Blood Escherichia coli 03/01/20 08:38 Blood Culture - Preliminary Blood SPECIMEN COLLECTED 03/01/20 08:36 Blood Culture - Preliminary Blood SPECIMEN COLLECTED 02/27/20 18:05 Urine Culture - Final Urine,Clean Catch Escherichia coli A&P Assessment and plan (1) Sepsis: E. coli. Sensitive to LEVAQUIN. Status: Acute (2) Right ureteral calculus: Small obstructing right mid ureteral stone status post stenting emergently for obstructive pyelonephritis. Plan for stone removal either week of 03/06/2020 or 03/20/2020. Status: Acute (3) Obstructive pyelonephritis: Clinically doing better. Final cultures are pending. Positive blood cultures as well Status: Acute Attestations Medical Necessity Statement*: See attending Coding Level of Care Code Acute Hand Crown Pouncer for [facility] Diagnoses Sepsis A41.9 Right ureteral calculus N20.1 Obstructive pyelonephritis N11.1
[2020-03-04 04:11] LABS: Coronavirus Lab Test PTC Negative
== END 2020-03-01 15:14 | disposition home or self-care (01) | DRG 853 ==
LOC: ER 18:43 → OR 18:45 → MEDSURG 19:44
PROVIDERS: Emergency Medicine; Admitting Provider Family Medicine; Family Provider Family Medicine; PCP Family Medicine; Visit Provider Urology
PROC: 0T768DZ Dilation of Right Ureter with Intraluminal Device, Via Natural or Artificial Opening Endoscopic (ICD-10-PCS; CPT 50605; principal; 2020-02-27 19:00)
PROC: 0TJB8ZZ Inspection of Bladder, Via Natural or Artificial Opening Endoscopic (ICD-10-PCS; CPT 52000; 2020-02-27 19:00)
DX: A41.9 Sepsis, unspecified organism (principal); R65.21 Severe sepsis with septic shock; E87.2 Acidosis; N17.9 Acute kidney failure, unspecified; N13.6 Pyonephrosis; F33.9 Major depressive disorder, recurrent, unspecified; G43.709 Chronic migraine without aura, not intractable, without status migrainosus; F41.1 Generalized anxiety disorder; F17.210 Nicotine dependence, cigarettes, uncomplicated; Z87.442 Personal history of urinary calculi; M47.897 Other spondylosis, lumbosacral region; H35.30 Unspecified macular degeneration; H54.8 Legal blindness, as defined in USA; E11.9 Type 2 diabetes mellitus without complications; G89.29 Other chronic pain; Z79.891 Long term (current) use of opiate analgesic; Z79.4 Long term (current) use of insulin; R21 Rash and other nonspecific skin eruption
CPT/HCPCS: 12345; 36415; 36416; 36600; 51702; 74176; 76000; 80053; 81001; 82550; 82803; 82962; 83605; 83690; 83735; 84100; 84145; 84443; 85007; 85025; 85610; 86140; 87040; 87077; 87086; 87186; 87205; 87635; 96372; 96375; 99283; C2625; J0743; J0744; J1200; J1815; J1956; J2704; J2930; J3010; J3490; J7030; J7512; S0030

== ENCOUNTER → 2020-03-07 10:38 | Outpatient (BNVA) | payer MEDICARE, MEDICAID, SELFPAY | PROVIDERS: Family Provider Family Medicine; PCP Family Medicine; Visit Provider Urology | DX: N11.1 Chronic obstructive pyelonephritis (principal) | CPT/HCPCS: 81001 ==

== ENCOUNTER 2020-03-08 05:41 | Day surgery (SDC) | payer MEDICARE, MEDICAID, SELFPAY ==
[2020-03-07 12:38] VITALS: BMI 24.3
--- NOTE | 2020-03-08 | SCC_ITS ---
Procedure Done: 1. Cystoscopy, right ureteral stent removal 2. Right ureteroscopy 16.7 seconds of fluoroscopic guidance, for a cumulative dose of 2.95 mGy, was provided to Dr. Willard by the radiology department. C-arm images of the abdomen were saved for the patient's permanent record. [facility]
--- NOTE | 2020-03-08 05:56 | SC_ITS ---
WS: [id number] C-arm fluoroscopy of the right upper quadrant, 03/08/2020. Clinical Data: Right ureteroscopy Comparison: C-arm fluoroscopy right upper quadrant, 02/27/2020. Findings: No abnormalities of the ureters are seen. There are faint densities just to the right of the L2 verte bral body. These could be within the small bowel or colon but do not appear to be in the kidney. Ther e are clips in the right upper quadrant from a cholecystectomy SC/C-arm FL for Urology Impression: Negative for right renal calcifications.
[2020-03-08 06:05] VITALS: BP 117/58; PULSE 70; RESP 16; TEMP 36.8; O2SAT 95
[2020-03-08] MEDS: sodium chloride 0.9% 1,000 ML 30 ML IV (06:20)
[2020-03-08 06:23] LABS: Glucose Point of Care 116 mg/dL (70-110)
--- NOTE | 2020-03-08 06:40 | P.HPUD_ITS ---
Surgery/Procedure H&P Update DATE OF PROCEDURE: March 08, 2020 DATE H&P PERFORMED: 03/07/20 H&P UPDATE INFORMATION: I have reviewed H&P completed within last 30 days, I have examined patient prior to procedure, No changes to prior documentation and H&P is in [facility] on date indicated PREOP DIAGNOSIS: Status post emergency stenting for obstructive pyelonephritis right PLANNED PROCEDURE: Operation Date: 03/08/20 07:00 Proposed Procedures p Cystoscopy 70117 07678 N11.1(Not Applicable) - Artie Willard MD s Retrograde Pyelogram(Right) - MD ximena Sidhu Ureteroscopy(Not Applicable) - MD ximena Sidhu Ureteral Stent Removal(Not Applicable) - Artie Willard MD s Possible Ureteral Stent Placement(Right) - Artie Willard MD
--- NOTE | 2020-03-08 06:42 | P.OP_ITS ---
Operative Report Date of procedure: March 08, 2020 Pre-op Diagnosis: Status post emergency stenting for obstructive pyelonephritis right Post-op Diagnosis: Status post emergency stenting for obstructive pyelonephritis, right Right mid ureteral stone Procedure Done: 1. Cystoscopy, right ureteral stent removal 2. Right ureteroscopy Surgeon: Sudheer Anesthesia: General Estimated blood loss: Minimal Urine output: Not measured Complications: None Condition: stable Disposition: PACU Brief History: Mrs. Romero is a very pleasant 69-year-old white female recently hospitalized for obstructive pyelonephritis associated with a 2.5 mm right mid ureteral stone. She ended up having bacteria in both blood and urine. Was treated aggressively with stent placement and antibiotics and has recovered well. Back now for stent removal ureteroscopy stone extraction if still present possible replacement of stent for short-term pending the status of the ureter. She is still being maintained on antibiotics No additional stones were seen on the original diagnostic CT scan. Procedure: After routine preoperative evaluation examination and obtaining of informed consent she was taken to the operating suite on 03/08/2020 where general anesthesia was administered without difficulty after appropriate timeout was performed, SCDs confirmed to be functioning, preoperative antibiotics administered, beta-jonna protocol confirmed. Prepped and draped in the usual sterile fashion in dorsolithotomy position pain careful attention to avoiding pressure points. The 21 [place] cystoscope with 30 degree lens was introduced into the urethral meatus and advanced into the bladder under videoscopy. Bladder was systematically examined. Stent in the expected position. No stone was seen in the bladder. The stent was grasped with grasping forceps and withdrawn to the urethral meatus where a flexible tip guidewire was advanced through the stent into appropriate position in the renal pelvis and the stent removed. The wire was secured to the drapes as a safety wire. A 7.5 [place] offset semirigid ureteroscope was advanced up the ureter, next to the wire. The scope was passed all the way to the UPJ. There was no evidence of residual stone. Based on the previous size of the stone the most likely conclusion is that it had spontaneously passed. There was no inflammatory change in the ureter where the stone had been located. The wire was removed, the bladder drained, the procedure completed. No stent She tolerated the procedure well without complications and was awakened in the operating room and returned to the recovery room in stable condition. PLANS: 1. Discharge from outpatient surgery 2. Complete antibiotic course 3. Follow-up in 3 months with [facility].
--- NOTE | 2020-03-08 06:43 | ANES.PREANE2 ---
Pre-Anesthetic Assessment Pre-Anesthetic Assessment: Height/Weight: Height 1.57 m Weight 60.328 kg Temp Pulse Resp BP Pulse Ox 98.2 F 70 16 117/58 95 03/08/20 06:05 03/08/20 06:05 03/08/20 06:05 03/08/20 06:05 03/08/20 06:05 Preop Diagnosis: Status post emergency stenting for obstructive pyelonephritis right Proposed Procedure: Operation Date: 03/08/20 07:00 Proposed Procedures p Cystoscopy [id number] N11.1(Not Applicable) - Artie Willard MD s Retrograde Pyelogram(Right) - MD ximena Sidhu Ureteroscopy(Not Applicable) - MD ximena Sidhu Ureteral Stent Removal(Not Applicable) - MD ximena Sidhu Possible Ureteral Stent Placement(Right) - Artie Willard MD Familial anesthetic complications: None Was Beta Gareth taken within 24 hours: N/A Last intake: Intake Last Liquid Date 03/07/20 Last Liquid Time 16:00 Last Solid Date 03/07/20 Last Solid Time 16:00 Social: Social History: Tobacco and No alcohol Exam: Pre-Anes Outpt Exam: alert, oriented x 3, clear to auscultation bilaterally and regular rate & rhythm Airway: Cervical ROM: WNL MP: 2 Dentition: Full GI: GI: GERD Metabolic: Metabolic: DM Neuropsych: Comments: legally blind Anesthetic Plan: ASA status: 2 Anesthesia: General Risk of > 500 ml blood loss (7ml/kg in children): No PFSH Anesthesia PFSH: Medical History Chronic migraine Diabetes mellitus type 2 in nonobese Encounter for long-term use of opiate analgesic Generalized anxiety disorder History of hysteroscopy Major depressive disorder, recurrent severe without psychotic features Nicotine dependence, cigarettes, uncomplicated Obstructive pyelonephritis Opioid contract exists Right ureteral calculus Smoker Spondylosis without myelopathy or radiculopathy, lumbosacral region Surgical History H/O tubal ligation Hx of dilation and curettage 09/14/19 [facility] Family History Other CAD (coronary artery disease) Cancer Social History (Updated 03/07/20 @ 10:33 by ADRIANA Shoemaker) Smoking and tobacco status: current every day smoker cigarettes [ Other cigarette details: 2-3 DAILY ] Alcohol intake: never Adopted: No Caregiver/support person: No Lives independently: No Marital status: Current occupational status: disabled History of recent travel: No Data Anesthesia Other Labs: Laboratory Results - last 48 hr 03/08/20 06:20 POC Glucose 116 Cardiac Studies: No Data to Display
[2020-03-08 07:22] VITALS: BP 162/80; PULSE 75; RESP 12; TEMP 37.3; O2SAT 94
[2020-03-08 07:25] VITALS: BP 137/78; PULSE 71; RESP 16; O2SAT 94
--- NOTE | 2020-03-08 07:26 | ANE.PACU2 ---
Inpatient post-anesthesia follow up: Airway intact: Yes Vital signs: Temperature 99.1 F Pulse Rate 75 Respiratory Rate 12 Blood Pressure 162/80 Pulse Oximetry 94 Oxygen Delivery Me thod Room Air Oxygen Flow Rate Fraction of Inspir ed Oxygen Hydration adequate: Yes Nausea and vomiting: No Pain level: 1 Mental status: Baseline
--- NOTE | 2020-03-08 07:29 | SUR.PHASEI ---
PT AWAKE ALERT TALKATIVE ON RA VSS PT DENIES PAIN AND NAUSEA, PT REQUESTS SPRITE AND WANTS TO SEE FAMILY,
[2020-03-08 07:30] VITALS: BP 130/65; PULSE 67; RESP 13; TEMP 37.2; O2SAT 93
[2020-03-08 07:46] VITALS: BP 131/59; PULSE 69; RESP 16; TEMP 37.2; O2SAT 94
[2020-03-08 07:56] VITALS: BP 134/87; PULSE 72; RESP 18; TEMP 37.2; O2SAT 95
--- NOTE | 2020-03-08 08:00 | ANE.PACU2 ---
Inpatient post-anesthesia follow up: Airway intact: Yes Vital signs: Temperature 99 F Pulse Rate 72 Respiratory Rate 18 Blood Pressure 134/87 Pulse Oximetry 95 Oxygen Delivery Me thod Room Air Oxygen Flow Rate Fraction of Inspir ed Oxygen Hydration adequate: Yes Nausea and vomiting: No Pain level: 1 Mental status: Baseline
== END 2020-03-08 08:10 | disposition home or self-care (01) ==
PROVIDERS: PCP Family Medicine; Visit Provider Urology
PROC: 0TJB8ZZ Inspection of Bladder, Via Natural or Artificial Opening Endoscopic (ICD-10-PCS; CPT 52000; principal; 2020-03-08 07:00)
PROC: 0TJ98ZZ Inspection of Ureter, Via Natural or Artificial Opening Endoscopic (ICD-10-PCS; CPT 52351; 2020-03-08 07:00)
PROC: (CPT 52310; 2020-03-08 07:00)
DX: Z46.6 Encounter for fitting and adjustment of urinary device (principal); Z87.442 Personal history of urinary calculi; N11.1 Chronic obstructive pyelonephritis; K21.9 Gastro-esophageal reflux disease without esophagitis; E11.9 Type 2 diabetes mellitus without complications; F33.2 Major depressive disorder, recurrent severe without psychotic features; M47.817 Spondylosis without myelopathy or radiculopathy, lumbosacral region; F17.210 Nicotine dependence, cigarettes, uncomplicated
CPT/HCPCS: 52310; 12345; 36416; 76000; 82962; J1100; J1885; J2405; J2704; J3010; J7030

== ENCOUNTER → 2020-03-24 10:54 | Outpatient (BNVA) | payer MEDICARE, MEDICAID, SELFPAY | PROVIDERS: PCP Family Medicine; Visit Provider Anesthesiology | DX: M54.42 Lumbago with sciatica, left side (principal); M47.817 Spondylosis without myelopathy or radiculopathy, lumbosacral region; M54.2 Cervicalgia; M54.9 Dorsalgia, unspecified; F17.210 Nicotine dependence, cigarettes, uncomplicated; Z79.891 Long term (current) use of opiate analgesic | CPT/HCPCS: 99214 ==

== ENCOUNTER → 2020-04-17 07:24 | Outpatient (BNVA) | payer MEDICARE, MEDICAID, SELFPAY | PROVIDERS: PCP Family Medicine; Visit Provider Nurse Practitioner Psychiatric/Mental Health | DX: F33.2 Major depressive disorder, recurrent severe without psychotic features (principal); F41.1 Generalized anxiety disorder; F17.210 Nicotine dependence, cigarettes, uncomplicated | CPT/HCPCS: 99213 ==

== ENCOUNTER 2020-06-04 08:35 | Inpatient (IN) | payer MEDICARE, MEDICAID, SELFPAY ==
[2020-06-04] VITALS (75 sets, daily range): BP systolic 76–188; BP diastolic 40–124; PULSE 77–113; RESP 12–24; TEMP 36.7–36.8; O2SAT 92–99; BMI 24.7
--- NOTE | 2020-06-04 08:48 | XRR_ITS ---
PROCEDURE INFORMATION: Exam: XR Chest, 1 View Exam date and time: 06/04/2020 8:50 AM Age: 69 years old Clinical indication: Cough and dyspnea; Additional info: Dyspnea/cough TECHNIQUE: Imaging protocol: XR of the chest Views: 1 view. COMPARISON: CR Chest 1 [place] [id number] 08/16/2017 10:12 PM FINDINGS: Lungs: Unremarkable. No consolidation. Pleural space: Unremarkable. No pleural effusion. No pneumothorax. Heart/Mediastinum: Unremarkable. No cardiomegaly. Bones/joints: Unremarkable. XR/XR chest 1V portable [id number] IMPRESSION: No acute findings.
--- NOTE | 2020-06-04 08:50 | W.ED.GENADLT ---
HPI - General Adult General: Chief complaint: Headache Stated complaint: N/V; HEADACHE Time Seen by Provider: 06/04/20 08:38 History of Present Illness: HPI narrative: 69-year-old female presents to the emergency room with complaints of a headache. She usually goes to the pain clinic and takes hydrocodone regularly she missed an appointment so she has been out. States her headache is similar to what she usually had but is more intense otherwise has the same characteristics. She is diabetic she is also blind and has aides that come to help her daily she says she is not been able to keep a track of her blood sugars lately. She has some nausea denies any vomiting or diarrhea. She denies any chest pain shortness of breath or cough. She does have frequency of urination the last few days. Her stools have been loose since she stopped taking hydrocodone but not have any james diarrhea. Onset (ago): day(s) Location: head Radiation: non-radiation Severity: severe Quality: dull and constant Pain Consistency: constant Relieving factors: none Exacerbating factors: none Associated symptoms: Reports nausea; Deny chest pain, confusion, cough, diaphoresis, decreased appetite, dyspnea, fevers/chills, headache(s), malaise, rash, palpitations, seizures, short of breath, syncope, vomiting or weakness Treatments prior to arrival: none Review of Systems Const: Denies: malaise or diaphoresis ENMT: Denies: throat pain, ear or mastoid pain, nasal discharge or nasal congestion Card: Denies: chest pain, palpitations or syncope Resp: Denies: dyspnea GI: Reports: nausea; Denies: vomiting : Denies: flank pain, difficulty voiding, dysuria, urinary frequency or urinary urgency Skin/Breast: Denies: rash Neuro: Denies: headache(s) or confusion PFS ED PFSH: Medical History (Updated 06/04/20 @ 12:38 by Lee Turner DO) Chronic migraine Diabetes mellitus type 2 in nonobese She reports DM1 Encounter for long-term use of opiate analgesic Generalized anxiety disorder History of hysteroscopy Major depressive disorder, recurrent severe without psychotic features Nicotine dependence, cigarettes, uncomplicated Obstructive pyelonephritis Opioid contract exists Right ureteral calculus Smoker Spondylosis without myelopathy or radiculopathy, lumbosacral region Surgical History H/O tubal [facility] Family History Other CAD (coronary artery disease) Cancer Social History Smoking and tobacco status: current every day smoker cigarettes [ Other cigarette details: 10 DAILY ] Alcohol intake: never Adopted: No Caregiver/support person: No Lives independently: No Marital status: Current occupational status: disabled History of recent travel: No Physical Exam Const: COMMON NORMALS: no acute distress GENERAL APPEARANCE: cooperative and comfortable ORIENTATION/CONSCIOUSNESS: Yes awake, Yes oriented to person, Yes oriented to place and Yes oriented to time HENMT: COMMON NORMALS: normocephalic, atraumatic and hearing grossly normal bilaterally HEAD & SCALP: normocephalic and atraumatic Neck/C-Spine: COMMON NORMALS: no JVD Resp: COMMON NORMALS: normal respiratory effort, No retractions, No use of accessory muscles and clear to auscultation bilaterally AUSCULTATION: clear to auscultation bilaterally Cardio: COMMON NORMALS: no JVD, regular rate, regular rhythm and No murmurs present (Cardio) RATE: regular rate RHYTHM: regular rhythm GI: COMMON NORMALS: Soft to palpation and No hepatosplenomegaly present AUSCULTATION: Yes normoactive bowel sounds PALPATION: Yes Soft to palpation, No Tenderness to palpation present (GI), No Guarding due to palpation present (GI) and Yes No hepatosplenomegaly present Extremity: COMMON NORMALS: normal to inspection, capillary refill normal, no clubbing, cyanosis or edema, no calf tenderness and no pedal edema Neuro: SENSORIUM/ORIENTATION: Yes oriented to person, Yes oriented to place and Yes oriented to time Skin: COMMON NORMALS: no rashes or lesions noted GENERAL SKIN EXAM: no rashes or lesions noted Course Vital Signs: Vital signs: Vital Signs Temperature 98.2 F 06/04/20 08:45 Pulse Rate 93 06/04/20 13:15 Respiratory Rate 22 H 06/04/20 13:15 Blood Pressure 118/58 06/04/20 13:15 Pulse Oximetry 96 06/04/20 13:15 MDM - General Adult MDM Narrative: Medical decision making narrative: Patient initially presents complaining of headache and lack of hydrocodone. On evaluation she is found to be in DKA with a significant anion gap and with a pH of 702 glucose of 1152. Patient has been given insulin fluids started on insulin drip her potassium is somewhat low given her degree of metabolic acidosis and she will require potassium supplement. Patient is to be admitted to the ICU under the care of Dr. Andrea. Lab Data: Attestation: I reviewed the patient's lab results. Labs: Lab Results 06/04/20 06/04/20 06/04/20 Range/Units 08:32 08:42 08:42 WBC 17.0 H (4.0-10.0) 10^3/ uL RBC 5.07 (4.1-5.3) 10^6/u L Hgb 12.7 (11.5-15.3) g/dL Hct 44.4 (37.0-47.0) % MCV 87.6 (81-99) fL MCH 25.0 L (28.0-34.0) pg MCHC 28.6 L (30.0-36.0) g/dL RDW 19.1 H (12.1-15.1) % Plt Count 438 H (130-400) 10^3/c mm MPV 13.5 H (7.4-10.4) fL Neut % (Auto) 79.6 % Lymph % (Auto) 16.5 % [place] % (Auto) 2.4 % Eos % (Auto) 0.1 % Baso % (Auto) 0.6 % Neut # (Auto) 13.53 H (1.8-7.7) 10^3/u L Lymph # (Auto) 2.8 (0.8-4.8) 10^3/u L [place] # (Auto) 0.4 (0.2-0.9) 10^3/u L Eos # (Auto) 0.0 (0.0-0.8) 10^3/u L Baso # (Auto) 0.1 (0.0-0.1) 10^3/u L Nucleated RBC % (a uto) 0 % Nucleated RBCs # 0.0 /100WBC Specimen Type Sample Site ABG pH (7.35-7.45) ABG pCO2 (35-45) mmHg ABG pO2 (80.0-100.0) mmH g ABG HCO3 (22-26) mmol/L ABG O2 Saturation ABG Base Excess (-2.0-2.0) mmol/ L Robert Test A-a O2 Gradient (5-10) mmHg Hematocrit (37-47) % Hgb O2 Saturation (95-100) % Carboxyhemoglobin (0.4-20.1) %THgb Methemoglobin (0.4-1.5) % Total Hemoglobin (12-16) g/dL Ionized Calcium (1.1-1.4) mmol/L O2 Delivery Device FiO2 % Theatre Manager ID Sodium 131 L (136-145) mmol/L Potassium 5.0 (3.5-5.1) mmol/L Chloride 86 L (98-107) mmol/L Carbon Dioxide 10 L (22-29) mmol/L Anion Gap 40.0 H (5-19) BUN 24 H (8-23) mg/dL Creatinine 1.5 H (0.5-0.9) mg/dL GFR Calculation Not Reportable Glucose 1152 H* (65-115) mg/dL POC Glucose (70-110) mg/dL Calculated Osmolal ity 335 H (285-295) mOsm/k g Calcium 9.5 (8.5-10.5) mg/dL Phosphorus (2.5-4.5) mg/dL Magnesium (1.7-2.3) mg/dL Total Bilirubin 0.5 (0.15-1.2) mg/dL AST 12 (0-32) U/L ALT 12 (0-33) U/L Alkaline Phosphata se 130 H (35-105) IU/L Creatine Kinase 45 (26-192) U/L Total Protein 8.3 (6.6-8.7) g/dL Albumin 4.3 (3.5-5.2) g/dL Globulin 4.0 (1.3-4.6) g/dL TSH 1.18 (0.27-4.20) uIU/ mL Urine Color (Yellow) Urine Appearance (CLEAR) Urine pH (5-7) Ur Specific Gravit y (1.005-1.030) Urine Protein (Negative) Urine Glucose (UA) (Normal) Urine Ketones (Negative) Urine Blood (Negative) Urine Nitrate (Negative) Urine Bilirubin (Negative) Urine Urobilinogen (Negative) mg/dL Ur Leukocyte Sally ase (Negative) Serum Ketones Positive H (Negative) 06/04/20 06/04/20 06/04/20 Range/Units 08:42 09:08 09:26 WBC (4.0-10.0) 10^3/ uL RBC (4.1-5.3) 10^6/u L Hgb (11.5-15.3) g/dL Hct (37.0-47.0) % MCV (81-99) fL MCH (28.0-34.0) pg MCHC (30.0-36.0) g/dL RDW (12.1-15.1) % Plt Count (130-400) 10^3/c mm MPV (7.4-10.4) fL Neut % (Auto) % Lymph % (Auto) % [place] % (Auto) % Eos % (Auto) % Baso % (Auto) % Neut # (Auto) (1.8-7.7) 10^3/u L Lymph # (Auto) (0.8-4.8) 10^3/u L [place] # (Auto) (0.2-0.9) 10^3/u L Eos # (Auto) (0.0-0.8) 10^3/u L Baso # (Auto) (0.0-0.1) 10^3/u L Nucleated RBC % (a uto) % Nucleated RBCs # /100WBC Specimen Type Sample Site ABG pH (7.35-7.45) ABG pCO2 (35-45) mmHg ABG pO2 (80.0-100.0) mmH g ABG HCO3 (22-26) mmol/L ABG O2 Saturation ABG Base Excess (-2.0-2.0) mmol/ L Robert Test A-a O2 Gradient (5-10) mmHg Hematocrit (37-47) % Hgb O2 Saturation (95-100) % Carboxyhemoglobin (0.4-20.1) %THgb Methemoglobin (0.4-1.5) % Total Hemoglobin (12-16) g/dL Ionized Calcium (1.1-1.4) mmol/L O2 Delivery Device FiO2 % Theatre Manager ID Sodium (136-145) mmol/L Potassium (3.5-5.1) mmol/L Chloride (98-107) mmol/L Carbon Dioxide (22-29) mmol/L Anion Gap (5-19) BUN (8-23) mg/dL Creatinine (0.5-0.9) mg/dL GFR Calculation Glucose (65-115) mg/dL POC Glucose > 600 (70-110) mg/dL Calculated Osmolal ity (285-295) mOsm/k g Calcium (8.5-10.5) mg/dL Phosphorus 8.8 H* (2.5-4.5) mg/dL Magnesium 2.3 (1.7-2.3) mg/dL Total Bilirubin (0.15-1.2) mg/dL AST (0-32) U/L ALT (0-33) U/L Alkaline Phosphata se (35-105) IU/L Creatine Kinase (26-192) U/L Total Protein (6.6-8.7) g/dL Albumin (3.5-5.2) g/dL Globulin (1.3-4.6) g/dL TSH (0.27-4.20) uIU/ mL Urine Color Colorless (Yellow) Urine Appearance Clear (CLEAR) Urine pH 5 (5-7) Ur Specific Gravit y 1.010 (1.005-1.030) Urine Protein Neg (Negative) Urine Glucose (UA) 4+ H (Normal) Urine Ketones 3+ H (Negative) Urine Blood Neg (Negative) Urine Nitrate Negative (Negative) Urine Bilirubin Neg (Negative) Urine Urobilinogen Norm (Negative) mg/dL Ur Leukocyte Sally ase Negative (Negative) Serum Ketones (Negative) 06/04/20 06/04/20 Range/Units 10:10 10:33 WBC (4.0-10.0) 10^3/ uL RBC (4.1-5.3) 10^6/u L Hgb (11.5-15.3) g/dL Hct (37.0-47.0) % MCV (81-99) fL MCH (28.0-34.0) pg MCHC (30.0-36.0) g/dL RDW (12.1-15.1) % Plt Count (130-400) 10^3/c mm MPV (7.4-10.4) fL Neut % (Auto) % Lymph % (Auto) % [place] % (Auto) % Eos % (Auto) % Baso % (Auto) % Neut # (Auto) (1.8-7.7) 10^3/u L Lymph # (Auto) (0.8-4.8) 10^3/u L [place] # (Auto) (0.2-0.9) 10^3/u L Eos # (Auto) (0.0-0.8) 10^3/u L Baso # (Auto) (0.0-0.1) 10^3/u L Nucleated RBC % (a uto) % Nucleated RBCs # /100WBC Specimen Type Arterial Sample Site Radial, left ABG pH 7.02 L* (7.35-7.45) ABG pCO2 25.5 L (35-45) mmHg ABG pO2 96.8 (80.0-100.0) mmH g ABG HCO3 6.6 L (22-26) mmol/L ABG O2 Saturation 94.2 ABG Base Excess -23.1 L (-2.0-2.0) mmol/ L Robert Test Pos A-a O2 Gradient 2.5 L (5-10) mmHg Hematocrit 39.2 (37-47) % Hgb O2 Saturation 92.2 L (95-100) % Carboxyhemoglobin 0.8 (0.4-20.1) %THgb Methemoglobin 1.3 (0.4-1.5) % Total Hemoglobin 12.8 (12-16) g/dL Ionized Calcium 1.2 (1.1-1.4) mmol/L O2 Delivery Device Room air FiO2 21.0 % Theatre Manager ID Cak Sodium 139.0 (136-145) mmol/L Potassium 4.7 (3.5-5.1) mmol/L Chloride (98-107) mmol/L Carbon Dioxide (22-29) mmol/L Anion Gap (5-19) BUN (8-23) mg/dL Creatinine (0.5-0.9) mg/dL GFR Calculation Glucose 803.0 H (65-115) mg/dL POC Glucose > 600 (70-110) mg/dL Calculated Osmolal ity (285-295) mOsm/k g Calcium (8.5-10.5) mg/dL Phosphorus (2.5-4.5) mg/dL Magnesium (1.7-2.3) mg/dL Total Bilirubin (0.15-1.2) mg/dL AST (0-32) U/L ALT (0-33) U/L Alkaline Phosphata se (35-105) IU/L Creatine Kinase (26-192) U/L Total Protein (6.6-8.7) g/dL Albumin (3.5-5.2) g/dL Globulin (1.3-4.6) g/dL TSH (0.27-4.20) uIU/ mL Urine Color (Yellow) Urine Appearance (CLEAR) Urine pH (5-7) Ur Specific Gravit y (1.005-1.030) Urine Protein (Negative) Urine Glucose (UA) (Normal) Urine Ketones (Negative) Urine Blood (Negative) Urine Nitrate (Negative) Urine Bilirubin (Negative) Urine Urobilinogen (Negative) mg/dL Ur Leukocyte Sally ase (Negative) Serum Ketones (Negative) Discharge Plan Discharge Patient Disposition: Admitted As Inpatient Admit Provider: Best Andrea Clinical Impression: DKA (diabetic ketoacidoses) Condition: Stable Coding Level of Care Code ED Bill Cutter for Chg 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
[2020-06-04 09:02] LABS: Basophils # 0.1 10^3/uL (0.0-0.1); Basophils % 0.6 %; Eosinophils % 0.1 %; Hematocrit 44.4 % (37.0-47.0); Hemoglobin 12.7 g/dL (11.5-15.3); Lymphocytes # 2.8 10^3/uL (0.8-4.8); Lymphocytes % 16.5 %; Mean Corpuscular HGB Conc 28.6 g/dL (30.0-36.0); Mean Corpuscular Volume 87.6 fL (81-99); Mean Platelet Volume 13.5 fL (7.4-10.4); Monocytes # 0.4 10^3/uL (0.2-0.9); Monocytes % 2.4 %; Neutrophils # 13.53 10^3/uL (1.8-7.7); Neutrophils % 79.6 %; Nucleated Red Blood Cells % 0 %; Platelet Count 438 10^3/cmm (130-400); Red Blood Count 5.07 10^6/uL (4.1-5.3); Red Cell Distribution Width 19.1 % (12.1-15.1)
[2020-06-04] MEDS: promethazine 25 mg/mL SDV 1 mL IM (09:06)
[2020-06-04] MEDS: ketorolac 30 mg/mL INJ 15 MG IVP (09:06)
[2020-06-04] MEDS: sodium chloride 0.9% 1,000 ML 999 ML IV ×2 (09:07→10:57)
[2020-06-04 09:09] LABS: Ketone (Acetest) Serum Positive (Negative)
[2020-06-04 09:14] LABS: Add Urine Microscopic? NO
[2020-06-04 09:21] LABS: Protein Urine Neg (Negative); Urine Appearance Clear (CLEAR); Urine Color Colorless (Yellow); pH Urine 5 (5-7)
[2020-06-04 09:21] LABS: Alanine Aminotransferase 12 U/L (0-33); Albumin Level 4.3 g/dL (3.5-5.2); Alkaline Phosphatase 130 IU/L (35-105); Aspartate Amino Transferase 12 U/L (0-32); Blood Urea Nitrogen 24 mg/dL (8-23); Calcium 9.5 mg/dL (8.5-10.5); Carbon Dioxide 10 mmol/L (22-29); Chloride 86 mmol/L (98-107); Creatine Phosphokinase 45 U/L (26-192); Sodium 131 mmol/L (136-145); Total Bilirubin 0.5 mg/dL (0.15-1.2); Total Protein 8.3 g/dL (6.6-8.7)
[2020-06-04 09:22] LABS: Bilirubin Urine Neg (Negative); Blood Urine Neg (Negative); Glucose Urine UA 4+ (Normal); Ketones Urine 3+ (Negative); Leukocyte Esterase Urine Negative (Negative); Nitrate Urine Negative (Negative); Urobilinogen Urine Norm (Negative)
[2020-06-04 09:29] LABS: Glucose Point of Care > 600 mg/dL (70-110)
[2020-06-04 09:29] LABS: Osmolality Calculated 335 mOsm/kg (285-295)
[2020-06-04] MEDS: insulin regular-human 100 units/1 mL 10 UNIT IVP (09:35)
[2020-06-04 10:13] LABS: Glucose 1152 mg/dL (65-115)
--- NOTE | 2020-06-04 10:19 | PC.NURSE ---
Evaluating patient's needs, comfortable in bed eating ice chips. Sofie Dawson CLAIMS COLLECTOR
[2020-06-04 10:22] LABS: ABG PCO2 25.5 mmHg (35-45); ABG PH Result 7.02 (7.35-7.45); Alveolar-Arterial Oxygen Gradi 2.5 mmHg (5-10); Arterial Blood Gas Hematocrit 39.2 % (37-47); Base Excess ABG -23.1 mmol/L (-2.0-2.0); Blood Gas Allen Test Pos; Blood Gas Operator Identificat CAK; Blood Gas Sample Site Radial, left; Blood Gas Sample Type Arterial; Carboxyhemoglobin 0.8 %THgb (0.4-20.1); HCO3 ABG 6.6 mmol/L (22-26); HGB O2 Sat 92.2 % (95-100); Ionized Calcium Level - ABG 1.2 mmol/L (1.1-1.4); Methemoglobin 1.3 % (0.4-1.5); Oxygen Device ROOM AIR; Oxygen Saturation ABG 94.2; PO2 ABG 96.8 mmHg (80.0-100.0); Potassium Level - ABG 4.7 mmol/L (3.5-5.0); Total Hemoglobin 12.8 g/dL (12-16)
--- NOTE | 2020-06-04 10:30 | CTR_ITS ---
PROCEDURE INFORMATION: Exam: CT Abdomen And Pelvis Without Contrast Exam date and time: 06/04/2020 10:55 AM Age: 69 years old Clinical indication: Abdominal pain; Generalized; Additional info: Dka, abd pain TECHNIQUE: Imaging protocol: Computed tomography of the abdomen and pelvis without contrast. Radiation optimization: All CT scans at this facility use at least one of these dose optimization techniques: automated exposure control; mA and/or kV adjustment per patient size (includes targeted exams where dose is matched to clinical indication); or iterative reconstruction. COMPARISON: CT kidney stone [id number] 02/27/2020 5:23 PM RADIATION DOSE METRICS: Total DLP (mGy-cm): 466.57 FINDINGS: Liver: Normal. No mass. Gallbladder and bile ducts: Cholecystectomy. Normal bile ducts. Pancreas: Normal. No ductal dilation. Spleen: Normal. No splenomegaly. Adrenal glands: Normal. No mass. Kidneys and ureters: Normal. No hydronephrosis. Stomach and bowel: There are a few sigmoid diverticuli but there is no evidence of acute diverticulosis. There is no bowel obstruction or dilatation. Appendix: No evidence of appendicitis. Intraperitoneal space: Unremarkable. No free air. No significant fluid collection. Vasculature: There is calcification in the aorta and iliac arteries but there is no aneurysm. Lymph nodes: Unremarkable. No enlarged lymph nodes. Urinary bladder: Unremarkable as visualized. Reproductive: Unremarkable as visualized. Bones/joints: There is degenerative disease and scoliosis in the lumbar spine. Soft tissues: Bilateral breast implants are present. CT/CT abdomen pelvis wo con [id number] IMPRESSION: No acute abnormalities are seen in the abdomen and pelvis. Radiation Dose CTDIVOL = (mGy): DLP = 466.57 (mGy-cm)
[2020-06-04 10:37] LABS: Glucose Point of Care > 600 mg/dL (70-110)
[2020-06-04] MEDS: morphine 4 mg/mL SDV 1 mL IVP ×2 (10:48→21:31)
[2020-06-04] MEDS: insulin regular-human 250 UNIT in sodium chloride 0.9% 250 ML 10 UNIT IV (11:03)
[2020-06-04 11:58] LABS: Magnesium 2.3 mg/dL (1.7-2.3)
--- NOTE | 2020-06-04 12:07 | P.HP_ITS ---
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 She takes hydrocodone for chronic back pain which she gets from pain clinic. Her chief complaint in ER was headache. Glucose check in ER noted to be severely hyperglycemic, glucose 1152, noted in DKA, with metabolic acidosis, bicarb of 10, anion gap of 40. Sodium 131. Creatinine 1.5. Alk phos 130. Positive urine and serum ketones. ABG 7.02/25.5/96.8/6.6. Noted leukocytosis of 17. Platelets 438. Sinus tachycardia 113. She is afebrile. Urinalysis not suggestive of UTI. Chest x- ray unremarkable. Treatment for obstructive pyelonephritis in February CT scan of abdomen pelvis is obtained in ER which is unremarkable. She is currently feeling better and asks if she can go home. Eating ice chips. Reports her migraine has resolved. She did not eat anything today. She did not take any of her medications. She states that last night her glucose was 300. She states that she had red meat for dinner, although is a vegetarian. She had baked potato, green beans. Drank water. She states that she takes 30-35 units of long-acting insulin at night depending on her blood glucose. She states that also takes a sliding scale insulin before her meals, and for sugar 300 would give herself 10 units, although sometimes gives insulin depending on how she feels her body will needed. She states that she is very conscious in terms of what she puts into he r body. She smokes 10 cigarettes/day, but says that she has not smoked any today, and has not felt like needing any. She is afebrile. Denies any sore throat, runny nose, sneezing, coughing, shortness of breath, chills or muscle aches. She is agreeable to stay for treatment of DKA, LISHA. Review of Systems Const: Denies: fever(s), chills, body aches or malaise Eyes: Denies: change in vision or eye redness ENMT: Denies: throat pain, oral sores or ear or mastoid pain Card: Denies: chest pain, edema, pre-syncope or dyspnea on exertion Resp: Denies: dyspnea, productive cough, change in phlegm color or hemoptysis GI: Reports: abdominal pain, nausea and vomiting; Denies: diarrhea (few loose stools, no diarrhea), constipation, hematochezia or melena : Denies: flank pain, urinary frequency or hematuria Musc: Denies: back pain, joint swelling or joint redness Skin/Breast: Denies: rash, sores or new lesions Neuro: Denies: headache(s), numbness in extremities, weakness in extremities, dizziness, confusion or seizure-like activity Endo: Denies: polyuria or polydipsia Alec/Lymph: Denies: easy bleeding or purpura All/Imm: Denies: urticaria, throat swelling or tongue swelling Medications/Allergies Home Medications Medication Instructions Recorded Confirmed Last Taken Type furosemide 20 mg tablet 20 mg PO QAM@0800 07/19/19 06/04/20 06/03/20 History insulin aspart U-100 100 unit/mL See Rx Instructions .ROUTE 07/19/19 06/04/20 06/03/20 History (3 mL) subcutaneous pen .COMPLEX ml omeprazole 40 mg capsule,delayed 40 mg PO DAILY@0800 07/19/19 06/04/20 06/02/20 History release insulin detemir U-100 100 unit/mL 28 unit SUBCUT BEDTIME@2000 ml 07/30/19 06/04/20 06/03/20 History (3 mL) subcutaneous pen Hair,Skin and Nails 2 tab PO DAILY@0800 02/27/20 06/04/20 06/03/20 History loratadine [Claritin] 10 mg PO DAILY@0802/27/20 06/04/20 06/03/20 History ondansetron HCl [Zofran] 4 mg PO BID@08,16 02/27/20 06/04/20 06/02/20 History oxybutynin chloride 10 mg PO DAILY@08 02/27/20 06/04/20 06/02/20 History zinc 50 mg PO DAILY@08 02/27/20 06/04/20 Unknown History lorazepam 1 mg tablet 1 mg PO TID PRN #90 tab 04/17/20 06/04/20 06/01/20 Rx Abilify 5 mg PO QAM@08 06/04/20 06/04/20 06/03/20 History 1 tab PO DAILY@08 06/04/20 06/04/20 06/02/20 History citalopram [Celexa] 20 mg PO QAM@06/04/20 06/04/20 06/03/20 History hydrocodone-acetaminophen 1 tab PO TID@,, PRN 06/04/20 06/04/20 06/02/20 History meclizine 25 mg PO BID@,06/04/20 06/04/20 06/02/20 History Allergies Allergy/AdvReac Type Severity Reaction Status Date / Time atorvastatin [From Lipitor] Allergy Unknown Unknown Verified 03/24/20 10:56 desvenlafaxine [From Pristiq] Allergy Unknown Unknown Verified 03/24/20 10:56 duloxetine [From Cymbalta] Allergy Unknown Unknown Verified 03/24/20 10:56 paroxetine [From Paxil] Allergy Unknown Unknown Verified 03/24/20 10:56 Penicillins Allergy Unknown Unknown Verified 03/24/20 10:56 gabapentin Allergy Unknown Verified 03/24/20 10:56 PFSH Acute PFSH: Medical History (Updated 06/04/20 @ 12:15 by Best Andrea MD) Chronic migraine Diabetes mellitus type 2 in nonobese She reports DM1 Encounter for long-term use of opiate analgesic Generalized anxiety disorder History of hysteroscopy Major depressive disorder, recurrent severe without psychotic features Nicotine dependence, cigarettes, uncomplicated Obstructive pyelonephritis Opioid contract exists Right ureteral calculus Smoker Spondylosis without myelopathy or radiculopathy, lumbosacral region Surgical History H/O tubal ligation Hx of dilation and curettage 09/14/19 [facility] Family History Other CAD (coronary artery disease) Cancer Social History Smoking and tobacco status: current every day smoker cigarettes [ Other cigarette details: 10 DAILY ] Alcohol intake: never Adopted: No Caregiver/support person: No Lives independently: No Marital status: Current occupational status: disabled History of recent travel: No Vitals/I&O/Wt Last Vital Signs Temp 98.2 F 06/04/20 08:45 Pulse 113 H 06/04/20 10:17 Resp 18 06/04/20 10:48 BP 130/81 06/04/20 10:17 Pulse Ox 98 06/04/20 10:48 Weight last 48 hrs Weight 61.235 kg Physical Exam Const: COMMON NORMALS: no acute distress, patient oriented x3 and alert GENERAL APPEARANCE: comfortable ORIENTATION/CONSCIOUSNESS: Yes awake OTHER: Not in distress. Enjoying ice chips. Conversant. HENMT: COMMON NORMALS: oropharynx normal OTHER: Blind Neck/C-Spine: COMMON NORMALS: no JVD Resp: COMMON NORMALS: normal respiratory effort and clear to auscultation bilaterally AUSCULTATION: clear to auscultation bilaterally Cardio: COMMON NORMALS: no JVD, regular rhythm, S1 normal heart sound present, S2 normal heart sound present and No murmurs present (Cardio) RHYTHM: regular rhythm HEART SOUNDS: S1 normal heart sound present and S2 normal heart sound present GI: COMMON NORMALS: Soft to palpation and non-tender INSPECTION: Yes normal to inspection and Yes abdominal distension PALPATION: Yes Soft to palpation Extremity: COMMON NORMALS: no joint enlargement and no pedal edema Neuro: COMMON NORMALS: patient oriented x3 and moves all extremities Skin: COMMON NORMALS: no rashes or lesions noted GENERAL SKIN EXAM: no rashes or lesions noted Data : 06/04/20 08:42 06/04/20 08:42 A&P Assessment and plan (1) DKA (diabetic ketoacidoses): IV hydration. Received 2 L IV fluid boluses. Started on half-normal saline with potassium. Insulin drip. Admit to ICU. Does not appear to have infection related triggers. She is already feeling better. Nausea and vomiting appear resolved. Migraine resolved. Due to abdominal pain, recent obstructive pyelonephritis CT abdomen pelvis obtained which is unremarkable. No sign of UTI. Monitor glucose, electrolytes, volume status. Mccoy catheter for accurate I&O. Not entirely sure what the trigger may be, although she does report having a meal which is unusual for her as she is a vegetarian but was having red meat, not sure if perhaps there were other indulgences. Apart from that she also appears to take some liberties with dosing of sliding scale insulin, and says that sometimes adjust her sliding scale depending on how she feels her body will need it. Reports taking 30-35 units long-acting insulin at night. Also reports sliding scale depending on glucose before meals, although does not provide a specific scale. Above 150 says would give herself 3-4 units. Glucose last night was 300, and says that for glucose like that would take 10 units. Status: Acute (2) LISHA (acute kidney injury): Creatinine 1.5. She is not aware of having chronic kidney disease, although does have diabetic retinopathy in addition to macular degeneration, so a degree of diabetic nephropathy may be expected, with renal function variable and recent acute kidney injury at that time had obstructive pyelonephritis, however. LISHA likely prerenal, with DKA, hypovolemi.She also takes Lasix at home forLower extremity swelling, although is not swollen at this time. Denies history of congestive heart failure. On discharge would make sure she is taking this only as needed or DC entirely. Status: Acute (3) Chronic migraine: Intermittent chronic migraine for which she takes at home Excedrin, Tylenol, oral Benadryl. Was having migraine this morning. Currently this is resolved. Status: Acute (4) Smoker: Current smoker of 10 cigarettes/day. Discussed smoking cessation for 5 minutes, cardiovascular risks especially with other underlying conditions, risks of lung disease, various cancers. She verbalized understanding, states understands that she needs to quit. Says that she did not smoke today he did not have a craving. She declines nicotine patch, but is agreeable to nicotine gum as needed for cravings. Status: Chronic Additional A&P Information Recent obstructive pyelonephritis: Continue follow-up with Dr. Willard. Does have LISHA currently, but no sign of hydronephrosis on CT. Urine not suggestive of UTI. Metabolic acidosis Leukocytosis Tachycardia Thrombocytosis: Suspected hemoconcentration. Dehydration: Rehydrate Hyponatremia: Hypovolemic, as above Isolated alkaline phosphatase elevation: Perhaps due to dehydration. Follow-up level. No abdominal pain currently. CT abdomen pelvis unremarkable. Attestations Medical Necessity Statement*: Admission of over 2 midnights is going to be needed for assessment and management of DKA, LISHA Critical Care Time: 45 minutes critical care time spent assessment management of immediately life-threatening issue of DKA, with metabolic acidosis, acute kidney injury, assessment for possible infectious source or sepsis, initiation of treatment. Discussed with ER physician. Patient. Coding Level of Care Code Acute Coin Machine Servicer Repairer for Noemi Veliz Diagnoses DKA (diabetic ketoacidoses) E11.10 LISHA (acute kidney injury) N17.9 Chronic migraine G43.709 Smoker F17.200
[2020-06-04 12:16] LABS: Phosphorus 8.8 mg/dL (2.5-4.5)
[2020-06-04 12:24] LABS: Glucose Point of Care 522 mg/dL (70-110)
[2020-06-04 12:24] LABS: Glucose Point of Care 600 mg/dL (70-110)
[2020-06-04 12:39] LABS: Thyroid Stimulating Hormone 1.18 uIU/mL (0.27-4.20)
[2020-06-04] MEDS: sodium chlor 0.45% +KCl 20 mEq 20 MEQ/1,000 ML BAG 100 MEQ IV (14:07)
[2020-06-04 14:12] LABS: Glucose Point of Care 386 mg/dL (70-110)
[2020-06-04 15:31] LABS: Glucose Point of Care 113 mg/dL (70-110)
[2020-06-04 15:31] LABS: Glucose Point of Care 260 mg/dL (70-110)
[2020-06-04 16:24] LABS: Anion Gap 15.1 (5-19); Blood Urea Nitrogen 20 mg/dL (8-23); Calcium 8.9 mg/dL (8.5-10.5); Carbon Dioxide 20 mmol/L (22-29); Chloride 109 mmol/L (98-107); Glucose 96 mg/dL (65-115); Osmolality Calculated 292 mOsm/kg (285-295); Phosphorus 1.9 mg/dL (2.5-4.5); Potassium 4.1 mmol/L (3.5-5.1); Sodium 140 mmol/L (136-145)
[2020-06-04] MEDS: ondansetron 4 MG Tablet PO (16:39)
[2020-06-04] MEDS: HYDROcodone-acetaminophen 10-325 mg Tablet 1 TAB PO (16:39)
[2020-06-04] MEDS: D5-NS 0.45% + KCL 20 mEq 20 MEQ/1,000 ML BAG 100 MEQ IV (16:42)
[2020-06-04 17:03] LABS: Glucose Point of Care 121 mg/dL (70-110)
--- NOTE | 2020-06-04 17:54 | PC.NURSE ---
Admission Patient was transferred from ED via stretcher at 1300. Patient was able to transfer self to other bed with no complaints. All vitals were WNL and glucose checked at time of arrival. 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
[2020-06-04] MEDS: LORazepam 1 mg Tablet PO (18:36)
--- NOTE | 2020-06-04 18:45 | PC.NURSE ---
Emesis Patient had small occurrence of emesis. About 10 minuets prior ativan was given but no pill was noted. Will continue to monitor.
[2020-06-04 18:55] LABS: Glucose Point of Care 221 mg/dL (70-110)
[2020-06-04 18:55] LABS: Glucose Point of Care 305 mg/dL (70-110)
[2020-06-04 18:58] LABS: Glucose Point of Care 344 mg/dL (70-110)
[2020-06-04 21:11] LABS: Glucose Point of Care 278 mg/dL (70-110)
[2020-06-04 21:11] LABS: Glucose Point of Care 195 mg/dL (70-110)
[2020-06-04] MEDS: ondansetron 2 mg/ML SDV 2 mL 4 MG IVP (21:30)
[2020-06-04 22:56] LABS: Anion Gap 15.3 (5-19); Blood Urea Nitrogen 15 mg/dL (8-23); Calcium 8.7 mg/dL (8.5-10.5); Carbon Dioxide 19 mmol/L (22-29); Chloride 108 mmol/L (98-107); Glucose 164 mg/dL (65-115); Osmolality Calculated 290 mOsm/kg (285-295); Phosphorus 2.2 mg/dL (2.5-4.5); Potassium 4.3 mmol/L (3.5-5.1); Sodium 138 mmol/L (136-145)
[2020-06-04 23:11] LABS: Glucose Point of Care 163 mg/dL (70-110)
[2020-06-04 23:11] LABS: Glucose Point of Care 163 mg/dL (70-110)
--- NOTE | 2020-06-04 23:48 | PC.NURSE ---
1807: Spoke to Dr. Marin regarding patient. Reported patient's Insulin gtt is currently off for this hour per protocol. Also, reported latest lab results including anion gap of 15 and CO2 of 19. Per MD: give lantus 20u, restart insulin gtt at low dose and continue with D5 1/2NS fluids. Let patient eat and turn off Insulin gtt 2hours post lantus administration and eating
[2020-06-05] VITALS (28 sets, daily range): BP systolic 92–120; BP diastolic 43–67; PULSE 54–78; RESP 11–21; TEMP 36.3–36.8; O2SAT 90–96
[2020-06-05 00:17] LABS: Glucose Point of Care 173 mg/dL (70-110)
[2020-06-05] MEDS: insulin glargine 100 units/1 mL 20 UNIT SUBCUT (00:21)
[2020-06-05] MEDS: morphine 4 mg/mL SDV 1 mL IVP ×3 (05:14→20:51)
[2020-06-05 05:22] LABS: Basophils # 0.1 10^3/uL (0.0-0.1); Basophils % 0.6 %; Eosinophils # 0.1 10^3/uL (0.0-0.8); Eosinophils % 0.4 %; Hemoglobin 10.6 g/dL (11.5-15.3); Lymphocytes # 3.8 10^3/uL (0.8-4.8); Lymphocytes % 23.6 %; Mean Corpuscular HGB Conc 30.3 g/dL (30.0-36.0); Mean Corpuscular Hemoglobin 25.2 pg (28.0-34.0); Mean Corpuscular Volume 83.1 fL (81-99); Mean Platelet Volume 11.4 fL (7.4-10.4); Monocytes # 0.9 10^3/uL (0.2-0.9); Monocytes % 5.3 %; Neutrophils # 11.24 10^3/uL (1.8-7.7); Neutrophils % 69.7 %; Nucleated Red Blood Cells % 0 %; Platelet Count 341 10^3/cmm (130-400); Red Blood Count 4.21 10^6/uL (4.1-5.3); Red Cell Distribution Width 18.2 % (12.1-15.1); White Blood Count 16.1 10^3/uL (4.0-10.0)
[2020-06-05 05:52] LABS: Alanine Aminotransferase 8 U/L (0-33); Albumin Level 3.4 g/dL (3.5-5.2); Alkaline Phosphatase 91 IU/L (35-105); Aspartate Amino Transferase 12 U/L (0-32); Blood Urea Nitrogen 13 mg/dL (8-23); Calcium 8.8 mg/dL (8.5-10.5); Carbon Dioxide 19 mmol/L (22-29); Chloride 106 mmol/L (98-107); Globulin 3.1 g/dL (1.3-4.6); Glucose 351 mg/dL (65-115); Osmolality Calculated 300 mOsm/kg (285-295); Sodium 138 mmol/L (136-145); Total Bilirubin 0.6 mg/dL (0.15-1.2); Total Protein 6.5 g/dL (6.6-8.7)
[2020-06-05 07:37] LABS: Estmated Average Glucose 177; Hemoglobin A1C 7.8 % (4.0-6.0)
[2020-06-05 07:58] LABS: Glucose Point of Care 359 mg/dL (70-110)
[2020-06-05] MEDS: oxybutynin chloride XL 5 MG TABLET 10 MG PO (07:58)
[2020-06-05] MEDS: citalopram 20 mg Tablet 10 MG PO (07:58)
[2020-06-05] MEDS: ARIPiprazole 10 mg Tablet 5 MG PO (07:58)
[2020-06-05] MEDS: zinc gluconate 50 mg Tablet PO (07:58)
[2020-06-05] MEDS: pantoprazole DR 40 mg Tablet PO (07:59)
--- NOTE | 2020-06-05 08:54 | PC.CHAP ---
Pastoral Care Encounter/Spiritual Assessment Type of Contact [] Declined banana ripening room supervisor visit [] Patient/Family/Request visit [] Outpatient visit [] Follow-up visit [] Physician referral [] Code/Alert [] Routine visit [] Staff referral [] Actively dying [] Patient sleeping [] Family support [] [] Out of room [] Palliative care [] [] Receiving care in room [] Pre-surgical visit [] Trauma [] Long length of stay [] ICU visit [] Other: Relational/Emotional Strength [] Patient feels connected with others/family/visitors/staff [] Distress [] Loneliness/isolation [] Abandonment Spirituality of Patient [] Person of Gricelda [] Attends Christian of their Gricelda [] Believes in Prayer [] Reads Bible or Tenriism materials [] There are Spiritual issues to be addressed Office Mover Interventions [x] Prayer [] Active listening [] Non-anxious presence [] Spiritual/emotional support [] Crisis/trauma care [] Spiritual counseling [] Bereavement support [] Provided bereavement packet [] Provided Bible/devotional materials [] Provided toy/stuffed animal, coloring book to patient or family member [] Provided Communion [] Anointing/[place] [] Salvation [x] Completed spiritual assessment [] Other: Impact on Illness or Injury [] Angry [] Fearful [] Anxious [] Often cries [] Exhaustion [] Unable to work [] Unable to attend judaism [] Unable to walk/stand [] Unable to read [] Unable to drive [] Unable to eat/drink [] Unable to sleep [] Unable to be with family [] Patient intubated [] Other: Summary Time spent with patient
[2020-06-05] MEDS: meclizine 25 mg tablet PO ×2 (09:08→15:15)
--- NOTE | 2020-06-05 10:26 | PM.PN ---
Subjective Subjective: Interval history: Overall she is doing a bit better. Nausea and vomiting resolved. No diarrhea. No abdominal discomfort. Ate a bit of toast this morning since he says that other parts of breakfast were leblanc and sausage, whereas she is vegetarian. Vitals/I&O/Wt Last Vital Signs Temp 98.1 F 06/05/20 04:00 Pulse 72 06/05/20 08:00 Resp 14 06/05/20 06:00 BP 114/47 06/05/20 06:00 Pulse Ox 93 06/05/20 06:00 06/04/20 06/05/20 06/05/20 22:59 06:59 14:59 Intake Total 184.39 / 573.699 7341.167 / 1397.390 200 / 200 Output Total 700 / 700 700 / 700 Balance 184.39 / 199.223 498.167 / 697.390 -500 / -500 Weight last 48 hrs Weight 64.127 kg Weight 61.235 kg Physical Exam Const: COMMON NORMALS: no acute distress, patient oriented x3 and alert GENERAL APPEARANCE: cooperative and comfortable ORIENTATION/CONSCIOUSNESS: Yes awake HENMT: COMMON NORMALS: oropharynx normal OTHER: Blind Neck/C-Spine: COMMON NORMALS: no JVD Resp: COMMON NORMALS: normal respiratory effort and clear to auscultation bilaterally AUSCULTATION: clear to auscultation bilaterally Cardio: COMMON NORMALS: no JVD, regular rhythm, S1 normal heart sound present, S2 normal heart sound present and No murmurs present (Cardio) RHYTHM: regular rhythm HEART SOUNDS: S1 normal heart sound present and S2 normal heart sound present GI: COMMON NORMALS: Normal to inspection, nondistended, normoactive bowel sounds present, Soft to palpation and non-tender INSPECTION: Yes normal to inspection PALPATION: Yes Soft to palpation Extremity: COMMON NORMALS: no joint enlargement and no pedal edema Neuro: COMMON NORMALS: patient oriented x3 and moves all extremities SENSORIUM/ORIENTATION: Yes alert Skin: COMMON NORMALS: no rashes or lesions noted GENERAL SKIN EXAM: no rashes or lesions noted Urinary Catheter Management^: Mccoy: Cath Placed During This Visit: yes Reason for Continuing Indwelling Catheter: Accurate Measurement of Urinary Output in Critically Ill Patients Urinary Catheter Date of Insertion: 06/04/20 Urinary Catheter Time of Insertion: 14:47 Data : 06/05/20 05:09 06/05/20 05:09 A&P Assessment and plan (1) DKA (diabetic ketoacidoses): DKA improved, bicarbonate yesterday improved up to 20, and kept up to 15. She was transitioned over to subcutaneous insulin and received 20 units of Lantus at night. Was started on low-dose sliding scale. This morning bicarbonate is slightly worse, 19, anion gap slightly worse as well at 18. Subjectively she is feeling well. Ate. Discussed with her options including switching back to insulin drip, however, at this time she prefers to escalate subcutaneous insulin somewhat, give additional 10 units of Lantus given she takes 30 units Levemir nightly at home. We will also increase sliding scale to moderate dose. IV hydration. P.o. diet as tolerating. If improving, DC Mccoy. Persistent metabolic acidosis, bicarb 19, anion gap 18. Will obtain VBG. Hypophosphatemia - add dairy. Improving. Recheck. Not entirely sure what the trigger may be, although she does report having a meal which is unusual for her as she is a vegetarian but was having red meat, not sure if perhaps there were other indulgences. She does state that she had barbecue beef. This usually has quite a bit of brown sugar in it. Status: Acute (2) LISHA (acute kidney injury): Improved. Continue gentle hydration. LISHA likely prerenal, with DKA, hypovolemi.She also takes Lasix at home for lower extremity swelling, although is not swollen at this time. Denies history of congestive heart failure. On discharge would make sure she is taking this only as needed or DC entirely. Status: Acute (3) Chronic migraine: Intermittent chronic migraine for which she takes at home Excedrin, Tylenol, oral Benadryl. Was having migraine this morning. Currently this is resolved. Status: Acute (4) Smoker: Current smoker of 10 cigarettes/day. Discussed smoking cessation for 5 minutes, cardiovascular risks especially with other underlying conditions, risks of lung disease, various cancers. She verbalized understanding, states understands that she needs to quit. Says that she did not smoke today he did not have a craving. She declines nicotine patch, but is agreeable to nicotine gum as needed for cravings. Status: Chronic Additional A&P Information Recent obstructive pyelonephritis: Continue follow-up with Dr. Willard. Does have LISHA currently, but no sign of hydronephrosis on CT. Urine not suggestive of UTI. Diabetes: Documented type II, she reports type I. A1c near target at 7.8. Metabolic acidosis: As above. Leukocytosis persists, although no evidence of acute infection so far. Will monitor. Tachycardia resolved Thrombocytosis: Resolved. Suspected hemoconcentration. Dehydration: Rehydrate Hyponatremia: Hypovolemic, as above Isolated alkaline phosphatase elevation: Perhaps due to dehydration. Follow-up level. No abdominal pain currently. CT abdomen pelvis unremarkable. Attestations Medical Necessity Statement*: Continue admission for assessment management following DKA, persistent metabolic acidosis, hyperglycemia, optimization of blood glucose control. Coding Level of Care Code Acute Facilities Maintenance Technician for [facility] 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 Diagnoses DKA (diabetic ketoacidoses) E11.10 LISHA (acute kidney injury) N17.9 Chronic migraine G43.709 Smoker F17.200
[2020-06-05] MEDS: ondansetron 2 mg/ML SDV 2 mL 4 MG IVP ×2 (10:44→20:48)
--- NOTE | 2020-06-05 10:46 | PC.RESP ---
Smoking Cessation information sent to patient.
[2020-06-05] MEDS: sodium chloride 0.45% 1,000 ML 75 ML IV ×2 (10:59→23:05)
[2020-06-05 11:13] LABS: Glucose Point of Care 207 mg/dL (70-110)
--- NOTE | 2020-06-05 11:38 | PC.NURSE ---
Tried to stick patient to obtain venous blood gas. When I stuck, patient stated 'it hurts too much' so I had to withdrawl the needle without the sample. I asked if I could try again and patient said no. After providing education, she did agree to let them collect the sample in the am, with the morning labs. Physician notified.
[2020-06-05] MEDS: LORazepam 1 mg Tablet PO ×2 (12:17→21:47)
[2020-06-05] MEDS: insulin glargine 100 units/1 mL 10 UNIT SUBCUT (13:13)
[2020-06-05] MEDS: enoxaparin 30 mg/0.3 mL Syringe SUBCUT (14:29)
[2020-06-05 17:16] LABS: Glucose Point of Care 188 mg/dL (70-110)
[2020-06-05 21:37] LABS: Glucose Point of Care 156 mg/dL (70-110)
--- NOTE | 2020-06-05 22:48 | PC.NURSE ---
Patient concerns Patient expressed concerns of not getting her night time levemir. She usually takes 28 units at bedtime and reports her blood sugar gets high overnight every night without it. Last glucose 156 and received 4 units novolog. Nurse reviewed chart and educated patient she had 10 units of lantus around 1300 today that she does not normally take. Pt concerned and adamant about receiving long acting insulin at bedtime. Dr. Greenberg was notified and received orders for 15 units of subcutaneous lantus insulin now.
[2020-06-05] MEDS: insulin glargine 100 units/1 mL 15 UNIT SUBCUT (23:06)
[2020-06-06] VITALS (12 sets, daily range): BP systolic 90–124; BP diastolic 40–65; PULSE 57–77; RESP 11–22; TEMP 36.4–36.7; O2SAT 92–96
[2020-06-06 03:28] LABS: Blood Gas Operator Identificat JB; Blood Gas Sample Type Venous
[2020-06-06 03:34] LABS: Glucose Point of Care 52 mg/dL (70-110)
[2020-06-06 04:04] LABS: Glucose Point of Care 80 mg/dL (70-110)
[2020-06-06 04:04] LABS: Basophils # 0.1 10^3/uL (0.0-0.1); Basophils % 0.7 %; Eosinophils # 0.3 10^3/uL (0.0-0.8); Eosinophils % 2.7 %; Hematocrit 31.7 % (37.0-47.0); Hemoglobin 9.9 g/dL (11.5-15.3); Lymphocytes % 28.9 %; Mean Corpuscular HGB Conc 31.2 g/dL (30.0-36.0); Mean Corpuscular Hemoglobin 25.3 pg (28.0-34.0); Mean Corpuscular Volume 81.1 fL (81-99); Mean Platelet Volume 11.8 fL (7.4-10.4); Monocytes # 0.7 10^3/uL (0.2-0.9); Monocytes % 7.1 %; Neutrophils # 6.27 10^3/uL (1.8-7.7); Neutrophils % 60.4 %; Nucleated Red Blood Cells % 0 %; Platelet Count 302 10^3/cmm (130-400); Red Blood Count 3.91 10^6/uL (4.1-5.3); Red Cell Distribution Width 18.5 % (12.1-15.1); White Blood Count 10.4 10^3/uL (4.0-10.0)
[2020-06-06] MEDS: ondansetron 2 mg/ML SDV 2 mL 4 MG IVP (04:06)
[2020-06-06 04:28] LABS: Alanine Aminotransferase 8 U/L (0-33); Albumin Level 3.3 g/dL (3.5-5.2); Alkaline Phosphatase 85 IU/L (35-105); Anion Gap 13.7 (5-19); Aspartate Amino Transferase 11 U/L (0-32); Blood Urea Nitrogen 8 mg/dL (8-23); Calcium 8.3 mg/dL (8.5-10.5); Carbon Dioxide 23 mmol/L (22-29); Chloride 107 mmol/L (98-107); Globulin 2.7 g/dL (1.3-4.6); Glucose 46 mg/dL (65-115); Osmolality Calculated 285 mOsm/kg (285-295); Potassium 3.7 mmol/L (3.5-5.1); Sodium 140 mmol/L (136-145); Total Bilirubin 0.3 mg/dL (0.15-1.2)
[2020-06-06 04:40] LABS: Phosphorus 3.7 mg/dL (2.5-4.5)
[2020-06-06 04:55] LABS: Glucose Point of Care 151 mg/dL (70-110)
[2020-06-06 05:31] LABS: PCO2 VBG 43.6 mmHg (41-51); pH VBG 7.35 (7.32-7.42)
[2020-06-06 05:32] LABS: Base Excess VBG -1.7 mmol/L (-3.0-3.0)
[2020-06-06 05:33] LABS: Blood Gas Sample Site LINE
[2020-06-06 05:36] LABS: Venous Blood Gas Hematocrit 31.7 % (37-47)
[2020-06-06] MEDS: pantoprazole DR 40 mg Tablet PO (07:40)
[2020-06-06] MEDS: meclizine 25 mg tablet PO (07:40)
[2020-06-06] MEDS: oxybutynin chloride XL 5 MG TABLET 10 MG PO (07:40)
[2020-06-06] MEDS: ARIPiprazole 10 mg Tablet 5 MG PO (07:40)
[2020-06-06] MEDS: citalopram 20 mg Tablet 10 MG PO (07:41)
[2020-06-06] MEDS: zinc gluconate 50 mg Tablet PO (07:41)
[2020-06-06 07:50] LABS: Glucose Point of Care 155 mg/dL (70-110)
[2020-06-06] MEDS: HYDROcodone-acetaminophen 10-325 mg Tablet 1 TAB PO (08:10)
--- NOTE | 2020-06-06 08:19 | PC.CHAP ---
Pastoral Care Encounter/Spiritual Assessment Type of Contact [] Declined electronic warfare technical visit [] Patient/Family/Request visit [] Outpatient visit [] Follow-up visit [] Physician referral [] Code/Alert [] Routine visit [] Staff referral [] Actively dying [] Patient sleeping [] Family support [] [] Out of room [] Palliative care [] [] Receiving care in room [] Pre-surgical visit [] Trauma [] Long length of stay [] ICU visit [] Other: Relational/Emotional Strength [] Patient feels connected with others/family/visitors/staff [] Distress [] Loneliness/isolation [] Abandonment Spirituality of Patient [] Person of Gricelda [] Attends Restorationist of their Gricelda [] Believes in Prayer [] Reads Bible or Orthodox materials [] There are Spiritual issues to be addressed Sports Physiologist Interventions [x] Prayer [] Active listening [] Non-anxious presence [] Spiritual/emotional support [] Crisis/trauma care [] Spiritual counseling [] Bereavement support [] Provided bereavement packet [] Provided Bible/devotional materials [] Provided toy/stuffed animal, coloring book to patient or family member [] Provided Communion [] Anointing/[place] [] Salvation [x] Completed spiritual assessment [] Other: Impact on Illness or Injury [] Angry [] Fearful [] Anxious [] Often cries [] Exhaustion [] Unable to work [] Unable to attend hinduism [] Unable to walk/stand [] Unable to read [] Unable to drive [] Unable to eat/drink [] Unable to sleep [] Unable to be with family [] Patient intubated [] Other: Summary Time spent with patient
--- NOTE | 2020-06-06 09:23 | PM.DCS ---
Discharge Providers Date of Admission: 06/04/20 10:58 Date of Discharge: June 06, 2020 Attending Provider at Admission: Best Andrea Attending Provider at Discharge: Best Andrea Primary Care Provider: Cisco Sevilla MD Diagnoses at Discharge Discharge Diagnosis (1) DKA (diabetic ketoacidoses): Status: Acute (2) LISHA (acute kidney injury): Status: Acute (3) Chronic migraine: Status: Acute (4) Smoker: Status: Chronic Reason for Visit Reason for Visit: N/V; HEADACHE Hospital Course Hospital Course Pleasant 69-year-old lady with insulin-dependent diabetes, blindness due to macular degeneration and diabetic retinopathy who 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 She was admitted after nausea vomiting, abdominal discomfort, migraine headache, found to have DKA, dehydration presentation, glucose on presentation in ER noted 1152, bicarb 10, anion gap 40, sodium 131, creatinine 1.5, alk phos 130, positive urine and serum ketones. ABG 7.02/25.5/96.8/6.6. Leukocytosis of 17,000. Platelets 438. Sinus tachycardia 113. On work-up no infectious trigger was identified, with unremarkable chest x-ray, unremarkable CT abdomen pelvis, UA. No signs of ACETYLENE PLANT OPERATOR, integumentary, GI infection, etc. She did state that she had an out of the usual meal for her the night before, and before the meal her sugar was 300 and with, and had barbecue beef, baked potato, etc. She does state that she has been regular with using her insulin. She states that she has a talking monitor, but also gets assistance from the BRAKE REPAIRER HYDRAULIC's with both checking glucose, and insulin. She counseled a number of clicks on the pen to know how many units she is administering. She received treatment with IV hydration, insulin drip. She was feeling much better. Acute kidney injury improved. She was transitioned to subcutaneous insulin, although acidosis has subsequently worsened somewhat again. Her insulin dosing was adjusted, and she is subsequently done well with 25 units total daily dose of Lantus, and was continued on sliding scale insulin. She states that her insulin regimen has worked for her for a long time. At this time we will leave it unchanged. Wreath Inspector her on diabetic diet. 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 She was also counseled on smoking cessation. Please revisit with her and assist with regards to diabetes control and stopping smoking. Physical Exam Const: COMMON NORMALS: no acute distress, patient oriented x3 and alert GENERAL APPEARANCE: cooperative and comfortable ORIENTATION/CONSCIOUSNESS: Yes awake OTHER: Feeling well. In great spirits. Happy and ready to return home. HENMT: COMMON NORMALS: oropharynx normal OTHER: Blind Neck/C-Spine: COMMON NORMALS: no JVD Resp: COMMON NORMALS: normal respiratory effort and clear to auscultation bilaterally AUSCULTATION: clear to auscultation bilaterally Cardio: COMMON NORMALS: no JVD, regular rhythm, S1 normal heart sound present, S2 normal heart sound present and No murmurs present (Cardio) RHYTHM: regular rhythm HEART SOUNDS: S1 normal heart sound present and S2 normal heart sound present GI: COMMON NORMALS: Normal to inspection, nondistended, normoactive bowel sounds present, Soft to palpation and non-tender INSPECTION: Yes normal to inspection PALPATION: Yes Soft to palpation Extremity: COMMON NORMALS: no joint enlargement and no pedal edema Neuro: COMMON NORMALS: patient oriented x3 and moves all extremities SENSORIUM/ORIENTATION: Yes alert Skin: COMMON NORMALS: no rashes or lesions noted GENERAL SKIN EXAM: no rashes or lesions noted Urinary Catheter Management^: Mccoy: Cath Placed During This Visit: yes Reason for Continuing Indwelling Catheter: Accurate Measurement of Urinary Output in Critically Ill Patients Urinary Catheter Date of Insertion: 06/04/20 Urinary Catheter Time of Insertion: 14:47 Discharge Data Data Completed and Pending: Completed Studies During Hospitalization Category Date Time Status CT abdomen pelvis wo con [id number] Urge nt Cat Scan 06/04/20 10:30 Completed XR chest 1V roselyn ble [id number] Stat Exams 06/04/20 08:48 Completed Pending at discharge Category Date Time Status Complete Blood Co unt w/Auto AM LABS Lab 06/07/20 04:00 Ordered Comprehensive Met abolic Panel AM LA BS Lab 06/07/20 04:00 Ordered Venous Blood Gas Routine Lab 06/05/20 10:39 Results Labs from last 24 hours 06/06/20 06/06/20 06/06/20 07:44 04:51 04:00 WBC RBC Hgb Hct MCV MCH MCHC RDW Plt Count MPV Neut % (Auto) Lymph % (Auto) [place] % (Auto) Eos % (Auto) Baso % (Auto) Neut # (Auto) Lymph # (Auto) [place] # (Auto) Eos # (Auto) Baso # (Auto) Nucleated RBC % (a uto) Nucleated RBCs # Specimen Type Sample Site Robert Test VBG pH VBG pCO2 VBG pO2 VBG HCO3 VBG Base Excess VBG Hematocrit O2 Delivery Device FiO2 Specimen Drawn By Copra Processor ID Sodium Potassium Chloride Carbon Dioxide Anion Gap BUN Creatinine GFR Calculation Glucose POC Glucose 155 151 80 Calculated Osmolal ity Calcium Phosphorus Total Bilirubin AST ALT Alkaline Phosphata se Total Protein Albumin Globulin 06/06/20 06/06/20 06/06/20 03:31 03:20 03:20 WBC RBC Hgb Hct MCV MCH MCHC RDW Plt Count MPV Neut % (Auto) Lymph % (Auto) [place] % (Auto) Eos % (Auto) Baso % (Auto) Neut # (Auto) Lymph # (Auto) [place] # (Auto) Eos # (Auto) Baso # (Auto) Nucleated RBC % (a uto) Nucleated RBCs # Specimen Type Sample Site Robert Test VBG pH VBG pCO2 VBG pO2 VBG HCO3 VBG Base Excess VBG Hematocrit O2 Delivery Device FiO2 Specimen Drawn By Copra Processor ID Sodium 140 Potassium 3.7 Chloride 107 Carbon Dioxide 23 Anion Gap 13.7 BUN 8 Creatinine 0.8 GFR Calculation Not Reportable Glucose 46 L POC Glucose 52 Calculated Osmolal ity 285 Calcium 8.3 L Phosphorus 3.7 Total Bilirubin 0.3 AST 11 ALT 8 Alkaline Phosphata se 85 Total Protein 6.0 L Albumin 3.3 L Globulin 2.7 06/06/20 06/06/20 06/05/20 03:20 03:20 20:47 WBC 10.4 H RBC 3.91 L Hgb 9.9 L Hct 31.7 L MCV 81.1 MCH 25.3 L MCHC 31.2 RDW 18.5 H Plt Count 302 MPV 11.8 H Neut % (Auto) 60.4 Lymph % (Auto) 28.9 [place] % (Auto) 7.1 Eos % (Auto) 2.7 Baso % (Auto) 0.7 Neut # (Auto) 6.27 Lymph # (Auto) 3.0 [place] # (Auto) 0.7 Eos # (Auto) 0.3 Baso # (Auto) 0.1 Nucleated RBC % (a uto) 0 Nucleated RBCs # 0.0 Specimen Type Venous Sample Site Line Robert Test N/a VBG pH 7.35 VBG pCO2 43.6 VBG pO2 100.0 H VBG HCO3 24.0 VBG Base Excess -1.7 VBG Hematocrit 31.7 L O2 Delivery Device Pending FiO2 21.0 Specimen Drawn By Nurcl Copra Processor ID Darion Sodium Potassium Chloride Carbon Dioxide Anion Gap BUN Creatinine GFR Calculation Glucose POC Glucose 156 Calculated Osmolal ity Calcium Phosphorus Total Bilirubin AST ALT Alkaline Phosphata se Total Protein Albumin Globulin 06/05/20 06/05/20 17:05 10:51 WBC RBC Hgb Hct MCV MCH MCHC RDW Plt Count MPV Neut % (Auto) Lymph % (Auto) [place] % (Auto) Eos % (Auto) Baso % (Auto) Neut # (Auto) Lymph # (Auto) [place] # (Auto) Eos # (Auto) Baso # (Auto) Nucleated RBC % (a uto) Nucleated RBCs # Specimen Type Sample Site Robert Test VBG pH VBG pCO2 VBG pO2 VBG HCO3 VBG Base Excess VBG Hematocrit O2 Delivery Device FiO2 Specimen Drawn By Copra Processor ID Sodium Potassium Chloride Carbon Dioxide Anion Gap BUN Creatinine GFR Calculation Glucose POC Glucose 188 207 Calculated Osmolal ity Calcium Phosphorus Total Bilirubin AST ALT Alkaline Phosphata se Total Protein Albumin Globulin Vitals: Last Vital Signs Temp 98.0 F 06/06/20 04:00 Pulse 77 06/06/20 06:00 Resp 16 06/06/20 06:00 BP 104/51 06/06/20 06:00 Pulse Ox 93 06/06/20 06:00 Discharge Plan Discharge Patient Disposition: Home Condition: Stable Prescriptions: New nicotine (polacrilex) 2 mg gum 2 mg buccal Q1H PRN (Reason: nicotine cravings) Qty: 100 RF: 0 Continued omeprazole 40 mg capsule,delayed release(DR/EC) 40 mg PO DAILY@0800 RF: 0 furosemide 20 mg tablet 20 mg PO QAM@0800 RF: 0 Novolog Flexpen U-100 Insulin 100 unit/mL (3 mL) insulin pen See Rx Instructions .ROUTE .COMPLEX RF: 0 Levemir FlexTouch U-100 Insuln 100 unit/mL (3 mL) insulin pen 28 unit SUBCUT BEDTIME@1999 RF: 0 lorazepam [Ativan] 1 mg tablet 1 mg PO TID PRN (Reason: anxiety) Qty: 90 RF: 3 oxybutynin chloride 10 mg tablet extended release 24hr 10 mg PO DAILY@08 RF: 0 ondansetron HCl [Zofran] 4 mg Tablet 4 mg PO BID@08,16 RF: 0 zinc 50 mg Tablet 50 mg PO DAILY@08 RF: 0 loratadine [Claritin] 10 mg Tablet 10 mg PO DAILY@0800 RF: 0 Hair,Skin and Nails 2 tab PO DAILY@0800 RF: 0 hydrocodone-acetaminophen 10-325 mg tablet 1 tab PO TID@08,16,20 PRN (Reason: pain) RF: 0 Celexa 20 mg tablet 20 mg PO QAM@08 RF: 0 meclizine 25 mg tablet 25 mg PO BID@08,16 RF: 0 Abilify 5 mg tablet 5 mg PO QAM@08 RF: 0 1 tab PO DAILY@08 RF: 0 Discharge Orders: Discharge Order (Routine); Ordered 06/06/20 Ordered By: Best Andrea Referrals: Todd Flowers MD [Physician] - 2 weeks (DM) Cisco Sevilla MD [Primary Care Provider] - 4-7 days Discharge Diet: Diabetic Discharge Activity: Increase activity as tolerated Patient Instructions: How to Stop Smoking (GEN), Acute Kidney Injury (GEN), Diabetic Ketoacidosis (GEN), Quitting Smoking Activity Restrictions/Additional Instructions: Please stop smoking. Please have your primary care doctor follow-up on your anemia. 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
--- NOTE | 2020-06-06 09:57 | PC.NURSE ---
Mccoy catheter and IV removed, discharge assessment complete, education/papers provided, all belongings accounted for. Follow up appointment 06/[address] Willard, 06/09 with pain clinic, and 06/[address] Sevilla
== END 2020-06-06 10:15 | disposition home or self-care (01) | DRG 638 ==
LOC: ER 08:59 → ICU 11:10
PROVIDERS: Admitting Provider Internal Medicine; Emergency Provider Family Medicine; PCP Family Medicine; Visit Provider Internal Medicine
DX: E11.10 Type 2 diabetes mellitus with ketoacidosis without coma (principal); N17.9 Acute kidney failure, unspecified; E87.1 Hypo-osmolality and hyponatremia; F33.2 Major depressive disorder, recurrent severe without psychotic features; F17.210 Nicotine dependence, cigarettes, uncomplicated; G43.709 Chronic migraine without aura, not intractable, without status migrainosus; H54.7 Unspecified visual loss; H35.30 Unspecified macular degeneration; E11.319 Type 2 diabetes mellitus with unspecified diabetic retinopathy without macular edema; E86.0 Dehydration; F41.1 Generalized anxiety disorder
CPT/HCPCS: 12345; 36415; 36416; 36600; 51702; 71045; 74176; 80048; 80051; 80053; 81003; 82009; 82330; 82550; 82803; 82805; 82962; 83036; 83605; 83735; 84100; 84443; 85025; 96372; 96375; 99282; J1650; J1815 ×2; J1885; J2270; J2405; J2550; J7030; J7050; J8597; Q0162

== ENCOUNTER → 2020-06-07 07:49 | Outpatient (BNVA) | payer MEDICARE, MEDICAID, SELFPAY | PROVIDERS: PCP Family Medicine; Visit Provider Urology | DX: N11.1 Chronic obstructive pyelonephritis (principal); N39.41 Urge incontinence | CPT/HCPCS: 81003; 87086 ==

== ENCOUNTER → 2020-06-09 10:23 | Outpatient (BNVA) | payer MEDICARE, MEDICAID, SELFPAY | PROVIDERS: PCP Family Medicine; Visit Provider Anesthesiology | DX: M54.42 Lumbago with sciatica, left side (principal); M47.817 Spondylosis without myelopathy or radiculopathy, lumbosacral region; M54.9 Dorsalgia, unspecified; F17.210 Nicotine dependence, cigarettes, uncomplicated; Z79.891 Long term (current) use of opiate analgesic | CPT/HCPCS: 99213; 99214 ==

== ENCOUNTER → 2020-06-12 07:43 | Outpatient (BNVA) | payer MEDICARE, MEDICAID, SELFPAY | PROVIDERS: PCP Family Medicine; Visit Provider Nurse Practitioner Psychiatric/Mental Health | DX: F33.2 Major depressive disorder, recurrent severe without psychotic features (principal); F17.210 Nicotine dependence, cigarettes, uncomplicated; F41.1 Generalized anxiety disorder | CPT/HCPCS: 99213 ==

== ENCOUNTER → 2020-07-17 08:07 | Outpatient (BNVA) | payer MEDICARE, MEDICAID, SELFPAY | PROVIDERS: PCP Family Medicine; Visit Provider Nurse Practitioner Psychiatric/Mental Health | DX: F33.2 Major depressive disorder, recurrent severe without psychotic features (principal); F41.1 Generalized anxiety disorder; F17.210 Nicotine dependence, cigarettes, uncomplicated | CPT/HCPCS: 99214 ==

== ENCOUNTER → 2020-07-25 13:13 | Outpatient (BNVA) | payer MEDICARE, MEDICAID, SELFPAY | PROVIDERS: PCP Family Medicine; Referring Provider Internal Medicine; Visit Provider Internal Medicine | DX: E10.65 Type 1 diabetes mellitus with hyperglycemia (principal); Z79.4 Long term (current) use of insulin; E16.0 Drug-induced hypoglycemia without coma; T38.3X5A Adverse effect of insulin and oral hypoglycemic [antidiabetic] drugs, initial encounter; H54.7 Unspecified visual loss | CPT/HCPCS: 99205 ==

== ENCOUNTER → 2020-08-01 13:11 | Outpatient (BNVA) | payer MEDICARE, MEDICAID, SELFPAY | PROVIDERS: PCP Family Medicine; Visit Provider Nurse Practitioner | DX: M47.817 Spondylosis without myelopathy or radiculopathy, lumbosacral region (principal); M54.9 Dorsalgia, unspecified; H54.7 Unspecified visual loss; F17.210 Nicotine dependence, cigarettes, uncomplicated; Z79.891 Long term (current) use of opiate analgesic; Z71.6 Tobacco abuse counseling | CPT/HCPCS: 99213; 99214 ==

== ENCOUNTER 2020-08-03 10:13 | Outpatient (CLI) | payer MEDICARE, MEDICAID, SELFPAY ==
[2020-08-03 11:33] LABS: Glucose 93 mg/dL (65-115)
[2020-08-04 10:28] LABS: C-Peptide 0.14 ng/mL (0.80-3.85)
== END 2020-08-03 10:14 | disposition home or self-care (01) ==
PROVIDERS: PCP Family Medicine; Visit Provider Internal Medicine
DX: E10.9 Type 1 diabetes mellitus without complications (principal)
CPT/HCPCS: 36415; 82947; 83519; 83525; 84681; 86337

== ENCOUNTER → 2020-08-15 07:37 | Outpatient (BNVA) | payer MEDICARE, MEDICAID, SELFPAY | PROVIDERS: PCP Family Medicine; Visit Provider Nurse Practitioner Psychiatric/Mental Health | DX: F33.2 Major depressive disorder, recurrent severe without psychotic features (principal); F41.1 Generalized anxiety disorder; F17.210 Nicotine dependence, cigarettes, uncomplicated | CPT/HCPCS: 99214 ==

== ENCOUNTER → 2020-10-06 09:48 | Outpatient (BNVA) | payer MEDICARE, MEDICAID, SELFPAY | PROVIDERS: PCP Family Medicine; Visit Provider Anesthesiology | DX: M54.41 Lumbago with sciatica, right side (principal); M47.817 Spondylosis without myelopathy or radiculopathy, lumbosacral region; M54.9 Dorsalgia, unspecified; M54.2 Cervicalgia; F17.210 Nicotine dependence, cigarettes, uncomplicated; Z79.891 Long term (current) use of opiate analgesic | CPT/HCPCS: 99214 ==

== ENCOUNTER → 2020-10-10 07:31 | Outpatient (BNVA) | payer MEDICARE, MEDICAID, SELFPAY | PROVIDERS: PCP Family Medicine; Visit Provider Nurse Practitioner Psychiatric/Mental Health | DX: F33.2 Major depressive disorder, recurrent severe without psychotic features (principal); F41.1 Generalized anxiety disorder; F17.210 Nicotine dependence, cigarettes, uncomplicated | CPT/HCPCS: 99214 ==

== ENCOUNTER → 2020-12-14 07:21 | Outpatient (BNVA) | payer MEDICARE, MEDICAID, SELFPAY | PROVIDERS: PCP Family Medicine; Visit Provider Nurse Practitioner Psychiatric/Mental Health | DX: F33.2 Major depressive disorder, recurrent severe without psychotic features (principal); Z79.899 Other long term (current) drug therapy; F41.1 Generalized anxiety disorder; F17.210 Nicotine dependence, cigarettes, uncomplicated | CPT/HCPCS: 99214 ==

== ENCOUNTER → 2021-03-08 07:23 | Outpatient (BNVA) | payer MEDICARE, MEDICAID, SELFPAY | PROVIDERS: PCP Family Medicine; Visit Provider Nurse Practitioner Psychiatric/Mental Health | DX: F33.2 Major depressive disorder, recurrent severe without psychotic features (principal); F41.1 Generalized anxiety disorder; F17.210 Nicotine dependence, cigarettes, uncomplicated; Z79.899 Other long term (current) drug therapy | CPT/HCPCS: 99214 ==

== ENCOUNTER 2021-04-06 08:33 | Inpatient (IN) | payer MEDICARE, MEDICAID, SELFPAY ==
[2021-04-06] VITALS (10 sets, daily range): BP systolic 96–167; BP diastolic 53–72; PULSE 72–91; RESP 18; TEMP 36.6–38.2; O2SAT 93–98; BMI 23.6
--- NOTE | 2021-04-06 08:48 | ECG_ITS ---
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 Measurements Intervals [place] Rate: 80 P: 62 NM: 154 QRS: -16 QRSD: 88 T: 59 QT: 385 QTc: 446 Interpretive Statements SINUS RHYTHM LOW QRS VOLTAGE IN PRECORDIAL LEADS [QRS DEFLECTION < 1.0 mV IN CHEST LEADS] POSSIBLE RIGHT VENTRICULAR CONDUCTION DELAY [RSR (QR) IN V1/V2] Compared to ECG 04/13/2019 11:46:25 Myocardial infarct finding no longer present Electronically Signed On 04-06-2021 9:34:27 CDT by Deisy Moreland M.D. [email or web address]
--- NOTE | 2021-04-06 08:49 | XR_ITS ---
WS: [id number] XR chest 1V portable [id number] REASON FOR EXAM: dyspnea/cough FINDINGS: The chest is unchanged compared to 06/04/2020. Mild tortuosity of the thoracic aorta. Normal heart size. Calcified granulomatous disease in both hemithoraces. Mild scoliosis thoracic spine convex left. XR/XR chest 1V portable [id number] IMPRESSION: No acute chest abnormality.
--- NOTE | 2021-04-06 08:53 | W.ED.BACK ---
HPI - Back Pain/Injury General: Chief Complaint: Back Pain/Injury Stated Complaint: L FLANK PAIN/ NAUSEA Time Seen by Provider: 04/06/21 08:36 History of Present Illness: HPI Narrative: 70-year-old female presents emergency room complaining of right flank pain. States she has had a stone about 1 week ago. Patient planing of right flank pain with a fever. She also has a history of diabetes mellitus blood sugars have been poorly controlled. She is not had any vomiting but has been having severe nausea. MD elicited complaint: back pain Onset (ago): day(s) Timing: constant Severity: moderate Similar Symptoms Previously: Yes Quality: stabbing Location: lumbar spine and sacrum Radiation: none Exacerbating factors: movement and other (plaptaion) Relieving factors: none Associated symptoms: Reports abdominal pain, chills, fatigue and fever(s); Deny arthralgias, change in bowel habits, difficulty walking, dysuria, fecal incontinence, hematuria, myalgias, nausea, numbness, syncope, tingling/numbness/burning, urinary frequency, urinary urgency, vomiting or weakness Review of Systems Const: Reports: fever(s), chills and fatigue ENMT: Denies: throat pain, ear or mastoid pain, nasal discharge or nasal congestion Card: Denies: syncope Resp: Denies: dyspnea, productive cough or non-productive cough GI: Reports: abdominal pain; Denies: nausea, vomiting, fecal incontinence or change in bowel habits : Denies: dysuria, urinary urgency or hematuria Skin/Breast: Denies: rash or pruritus Neuro: Denies: difficulty walking PFS ED PFSH: Medical History (Updated 04/09/21 @ 07:31 by Lee Turner DO) Blindness Cholecystectomy planned Chronic migraine Chronic migraine Colonoscopy planned Diabetes mellitus type 2 in nonobese She reports DM1 Encounter for long-term use of opiate analgesic Generalized anxiety disorder GERD (gastroesophageal reflux disease) Major depressive disorder, recurrent severe without psychotic features Medical marijuana use Nicotine dependence, cigarettes, uncomplicated Obstructive pyelonephritis Opioid contract exists Psychiatric care Right ureteral calculus Smoker Spondylosis without myelopathy or radiculopathy, lumbosacral region Urolithiasis Surgical History (Updated 04/06/21 @ 13:09 by Woody Cervantes MD) H/O tubal ligation History of cholecystectomy History of hysteroscopy Hx of dilation and curettage 09/14/19 [facility] Family History Father , at age 76 CHF (congestive heart failure) Mother Acute arthritis Other CAD (coronary artery disease) Cancer Social History Smoking and tobacco status: current every day smoker cigarettes [ Other cigarette details: 6 DAILY ] Alcohol intake: never Adopted: No Caregiver/support person: No Lives independently: No Marital status: Current occupational status: disabled History of recent travel: No Physical Exam Const: COMMON NORMALS: no acute distress GENERAL APPEARANCE: cooperative and comfortable ORIENTATION/CONSCIOUSNESS: Yes awake, Yes oriented to person, Yes oriented to place and Yes oriented to time HENMT: COMMON NORMALS: normocephalic, atraumatic and hearing grossly normal bilaterally HEAD & SCALP: normocephalic and atraumatic Neck/C-Spine: COMMON NORMALS: no JVD Resp: COMMON NORMALS: normal respiratory effort, No retractions, No use of accessory muscles and clear to auscultation bilaterally AUSCULTATION: clear to auscultation bilaterally Cardio: COMMON NORMALS: no JVD, regular rate, regular rhythm and No murmurs present (Cardio) RATE: regular rate RHYTHM: regular rhythm GI: COMMON NORMALS: Soft to palpation and No hepatosplenomegaly present AUSCULTATION: Yes normoactive bowel sounds PALPATION: Yes Soft to palpation, No Tenderness to palpation present (GI), No Guarding due to palpation present (GI) and Yes No hepatosplenomegaly present Extremity: COMMON NORMALS: normal to inspection, capillary refill normal, no clubbing, cyanosis or edema, no calf tenderness and no pedal edema Neuro: SENSORIUM/ORIENTATION: Yes oriented to person, Yes oriented to place and Yes oriented to time Skin: COMMON NORMALS: no rashes or lesions noted GENERAL SKIN EXAM: no rashes or lesions noted Course Vital Signs: Vital signs: Vital Signs Temperature 98.0 F 04/07/21 13:05 Pulse Rate 74 04/07/21 13:05 Respiratory Rate 16 04/07/21 13:05 Blood Pressure 93/58 04/07/21 13:05 Pulse Oximetry 96 04/07/21 13:05 MDM - Back Pain/Injury MDM Narrative: Medical decision making narrative: Labs and imaging reviewed. Patient has pyelonephritis elevated white count. We will go ahead and admit patient started on ceftriaxone discussed the hospitalist orders written also need control of diabetes. Lab Data: Labs: Lab Results 04/06/21 04/06/21 04/06/21 09:01 09:01 09:21 WBC 15.8 10^3/uL H 10 ^3/uL (4.0-10.0) RBC 4.69 10^6/uL 10^6 /uL (4.1-5.3) Hgb 12.6 g/dL g/dL (11.5-15.3) Hct 38.6 % % (37.0-47.0) MCV 82.3 fl fl (81-99) MCH 26.9 pg L pg (28.0-34.0) MCHC 32.6 g/dL g/dL (30.0-36.0) RDW 13.6 % % (12.1-15.1) Plt Count 361 10^3/cmm 10^3 /cmm (130-400) MPV 12.7 fL H fL (7.4-10.4) Neut % (Auto) 85.8 % % Lymph % (Auto) 7.7 % % [place] % (Auto) 5.6 % % Eos % (Auto) 0.1 % % Baso % (Auto) 0.5 % % Neut # (Auto) 13.52 10^3/uL H 1 0^3/uL (1.8-7.7) Lymph # (Auto) 1.2 10^3/uL 10^3/ uL (0.8-4.8) [place] # (Auto) 0.9 10^3/uL 10^3/ uL (0.2-0.9) Eos # (Auto) 0.0 10^3/uL 10^3/ uL (0.0-0.8) Baso # (Auto) 0.1 10^3/uL 10^3/ uL (0.0-0.1) Nucleated RBC % (a uto) 0 % % Nucleated RBCs # 0.0 /100WBC /100W BC Sodium 135 mmol/L L mmol /L (136-145) Potassium 3.8 mmol/L mmol/L (3.5-5.1) Chloride 98 mmol/L mmol/L (98-107) Carbon Dioxide 23 mmol/L mmol/L (22-29) Anion Gap 17.8 (5-19) BUN 14 mg/dL mg/dL (8-23) Creatinine 0.9 mg/dL mg/dL (0.5-0.9) GFR Calculation Not Reportable Glucose 259 mg/dL H mg/dL (65-115) Calculated Osmolal ity 289 mOsm/kg mOsm/ kg (285-295) Lactic Acid 3.8 mmol/L H mmol /L (0.5-2.2) Calcium 8.8 mg/dL mg/dL (8.5-10.5) Total Bilirubin 1.0 mg/dL mg/dL (0.15-1.2) AST 17 U/L U/L (0-32) ALT 11 U/L U/L (0-33) Alkaline Phosphata se 95 IU/L IU/L (35-105) Total Protein 7.2 g/dL g/dL (6.6-8.7) Albumin 4.0 g/dL g/dL (3.5-5.2) Globulin 3.2 g/dL g/dL (1.3-4.6) Urine Color Urine Appearance Urine pH Ur Specific Gravit y Urine Protein Urine Glucose (UA) Urine Ketones Urine Blood Urine Nitrate Urine Bilirubin Urine Urobilinogen Ur Leukocyte Sally ase Urine RBC Urine WBC Ur Squamous Epith Cells Amorphous Sediment Urine Bacteria 04/06/21 09:40 WBC RBC Hgb Hct MCV MCH MCHC RDW Plt Count MPV Neut % (Auto) Lymph % (Auto) [place] % (Auto) Eos % (Auto) Baso % (Auto) Neut # (Auto) Lymph # (Auto) [place] # (Auto) Eos # (Auto) Baso # (Auto) Nucleated RBC % (a uto) Nucleated RBCs # Sodium Potassium Chloride Carbon Dioxide Anion Gap BUN Creatinine GFR Calculation Glucose Calculated Osmolal ity Lactic Acid Calcium Total Bilirubin AST ALT Alkaline Phosphata se Total Protein Albumin Globulin Urine Color Yellow (Yellow) Urine Appearance Cloudy (CLEAR) Urine pH 6 (5-7) Ur Specific Gravit y 1.005 (1.005-1.030) Urine Protein Trace (Negative) Urine Glucose (UA) Norm (Normal) Urine Ketones 1+ H (Negative) Urine Blood 2+ H (Negative) Urine Nitrate Negative (Negative) Urine Bilirubin Neg (Negative) Urine Urobilinogen Norm mg/dL mg/dL (Negative) Ur Leukocyte Sally ase 2+ H (Negative) Urine RBC 0-4 /hpf H /hpf (0-2) Urine WBC >100 /hpf H /hpf (0-5) Ur Squamous Epith Cells 0-4 /hpf H /hpf (0-5) Amorphous Sediment Not Reportable Urine Bacteria 3+ /hpf H /hpf (NONE) Discharge Plan Discharge Patient Disposition: Home Admit Provider: Woody Cervantes Clinical Impression: Pyelonephritis Condition: Stable Discharge Orders: Discharge Order (Routine); Ordered 04/07/21 Ordered By: Vazquez Greenberg Coding Level of Care Code 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
[2021-04-06 09:11] LABS: Basophils # 0.1 10^3/uL (0.0-0.1); Basophils % 0.5 %; Eosinophils % 0.1 %; Hematocrit 38.6 % (37.0-47.0); Hemoglobin 12.6 g/dL (11.5-15.3); Lymphocytes # 1.2 10^3/uL (0.8-4.8); Lymphocytes % 7.7 %; Mean Corpuscular HGB Conc 32.6 g/dL (30.0-36.0); Mean Corpuscular Hemoglobin 26.9 pg (28.0-34.0); Mean Corpuscular Volume 82.3 fl (81-99); Mean Platelet Volume 12.7 fL (7.4-10.4); Monocytes # 0.9 10^3/uL (0.2-0.9); Monocytes % 5.6 %; Neutrophils # 13.52 10^3/uL (1.8-7.7); Neutrophils % 85.8 %; Nucleated Red Blood Cells % 0 %; Platelet Count 361 10^3/cmm (130-400); Red Blood Count 4.69 10^6/uL (4.1-5.3); Red Cell Distribution Width 13.6 % (12.1-15.1); White Blood Count 15.8 10^3/uL (4.0-10.0)
[2021-04-06 09:29] LABS: Alanine Aminotransferase 11 U/L (0-33); Alkaline Phosphatase 95 IU/L (35-105); Anion Gap 17.8 (5-19); Aspartate Amino Transferase 17 U/L (0-32); Blood Urea Nitrogen 14 mg/dL (8-23); Calcium 8.8 mg/dL (8.5-10.5); Carbon Dioxide 23 mmol/L (22-29); Chloride 98 mmol/L (98-107); Globulin 3.2 g/dL (1.3-4.6); Glucose 259 mg/dL (65-115); Osmolality Calculated 289 mOsm/kg (285-295); Potassium 3.8 mmol/L (3.5-5.1); Sodium 135 mmol/L (136-145); Total Protein 7.2 g/dL (6.6-8.7)
[2021-04-06 09:46] LABS: Lactic Sepsis W/Reflex 3.8 mmol/L (0.5-2.2)
[2021-04-06 10:21] LABS: Urine Appearance Cloudy (CLEAR); Urine Color Yellow (Yellow)
[2021-04-06 10:22] LABS: Add Urine Microscopic? YES; Bilirubin Urine Neg (Negative); Blood Urine 2+ (Negative); Glucose Urine UA Norm (Normal); Ketones Urine 1+ (Negative); Leukocyte Esterase Urine 2+ (Negative); Nitrate Urine Negative (Negative); Protein Urine Trace (Negative); Specific Gravity, Urine 1.005 (1.005-1.030); Urobilinogen Urine Norm (Negative); pH Urine 6 (5-7)
--- NOTE | 2021-04-06 10:22 | CT_ITS ---
WS: [id number] CT ABDOMEN PELVIS TECHNIQUE: Noncontrast CT of the abdomen and pelvis with coronal and sagittal reformatted images. CLINICAL INFORMATION: flank pain COMPARISON: CT June 04, 2020 DLP: 787.[address] scans at [facility] [place] use at least one of these dose optimization techniques: automated e xposure control; mA and/or kV adjustment per patient size (includes targeted exams where dose is matc hed to clinical indication); or iterative reconstruction. FINDINGS: Lung bases are well aerated. Bilateral breast implants. Prior cholecystectomy. Mild hepatomegaly. Adr enal glands are normal. Inflammatory stranding and edema about the left kidney with mild left ureterectasis. No obstructing l eft renal or ureteral calculi. Findings likely due to recently passed calculus with residual obstruct tejinder uropathy. No visualized calculi in the bladder. No obstructing right renal or ureteral calculi. No hydronephrosis right kidney. Pelvic phleboliths. Fatty atrophy of the pancreas. Small esophageal hiatal hernia. Sigmoid diverticulosis. No evidence of acute diverticulitis. Normal appendix in the right lower quadrant. Normal caliber abdominal aorta. L umbar scoliosis convex right. CT/CT kidney stone [id number] IMPRESSION: 1. Inflammatory stranding and edema about the left kidney with mild left urete rectasis. No visualized obstructing left renal ureteral calculi. No calculi wit hin the bladder. Findings likely due to recently passed calculus considering hi story of stones with residual obstructive uropathy/pyelonephritis. 2. No obstructing right renal or ureteral calculi. 3. Pelvic phleboliths. 4. Cholecystectomy clips. 5. Mild hepatomegaly. 6. Small esophageal hiatal hernia. 7. Sigmoid diverticulosis. Notified Lee Turner DO at 04/06/2021 11:11 AM.
[2021-04-06] MEDS: sodium chloride 0.9% 500 ML 999 ML IV (10:27)
[2021-04-06 10:29] LABS: Bacteria Urine 3+ /hpf; RBC Urine 0-4 /hpf (0-2); Squamous Epithelial Cell Urine 0-4 /hpf (0-5); WBC Urine >100 /hpf (0-5)
[2021-04-06 10:30] LABS: Add Urine Culture? Yes
[2021-04-06] MEDS: acetaminophen 500 mg Tablet 1000 MG PO (10:30)
[2021-04-06] MEDS: cefTRIAXone 1,000 MG in sodium chloride 0.9% (plus) 50 ML 100 MG IV ×2 (10:31→21:50)
[2021-04-06] MEDS: morphine 4 mg/mL SDV 1 mL 2 MG IVP (10:31)
[2021-04-06 11:14] LABS: Reflex Lactate Order REFLEX LACTIC ORDERD
--- NOTE | 2021-04-06 12:08 | PC.PHAR ---
pts ex silvio verified pts medications-pts exs states the pt has a card and takes thc gummies-states he gives the pt 30 units at hs of levemir rx filled for 30 units qam and 20 units qpm-states the pt takes novolog u-100 ss tid rx filled for 3-7 units per ss as directed-states the pt takes oxybutynin 10mg hs and 15mg qam-notes are made in the pharmacy comments
[2021-04-06] MEDS: ondansetron 2 mg/ML SDV 2 mL 4 MG IVP (12:44)
--- NOTE | 2021-04-06 13:04 | PM.HP ---
Providers/Chief Complaint Admitting Physician: Woody Cervantes MD Primary Care Provider: Cisco Sevilla MD Chief Complaint: L FLANK PAIN/ NAUSEA History of Present Illness Jackie Romero is a 70 year old female who presents to the emergency department with complaints of left back pain, nausea, fever. She is worried she might have a kidney stone. She has had previous kidney stones, and urinary tract infections. She reports no chest pain, or shortness of breath. She has had chills as well. In the emergency department she received Rocephin, Zofran, and morphine. Review of Systems General: Reports: 10 or more systems reviewed and unremarkable except in HPI and below Const: Reports: fever(s), chills, body aches and malaise Eyes: Denies: change in vision ENMT: Denies: throat pain Card: Denies: chest pain Resp: Denies: dyspnea GI: Reports: nausea; Denies: abdominal pain or vomiting : Reports: flank pain Musc: Denies: neck pain Skin/Breast: Denies: rash Neuro: Denies: headache(s) Psych: Reports: depression; Denies: anxiety Endo: Denies: polyuria Alec/Lymph: Denies: easy bruising All/Imm: Denies: urticaria Medications/Allergies Home Medications Medication Instructions Recorded Confirmed Last Taken Type furosemide 20 mg tablet 20 mg PO DAILY@07/19/19 04/06/21 06/03/20 History omeprazole 40 mg capsule,delayed 40 mg PO DAILY@0807/19/19 04/06/21 06/02/20 History release Hair,Skin and Nails 2 tab PO DAILY@79902/27/20 04/06/21 06/03/20 History loratadine [Claritin] 10 mg PO DAILY@79902/27/20 04/06/21 06/03/20 History ondansetron HCl [Zofran] 4 mg PO Q4H PRN 02/27/20 04/06/21 06/02/20 History meclizine 25 mg PO BID@08,16 06/04/20 04/06/21 06/02/20 History insulin detemir U-100 100 unit/mL 30 unit SUBCUT BEDTIME@2000 ml 07/25/20 04/06/21 Unknown History (3 mL) subcutaneous pen oxybutynin chloride 10 mg 10 mg PO BEDTIME 07/25/20 04/06/21 Unknown History tablet,extended release 24 hr lorazepam 1 mg tablet 1 mg PO BID PRN #60 tab 03/08/21 04/06/21 Unknown Rx Abilify 5 mg PO QAM 04/06/21 04/06/21 Unknown History Azo Cranberry Gummies 2 cap PO QAM 04/06/21 04/06/21 Unknown History PNV cmb#95-ferrous fumarate-FA 1 tab PO DAILY@04/06/21 04/06/21 Unknown History [ Multivitamins] acetaminophen [Tylenol Ex Str 500 mg PO Q4H PRN 04/06/21 04/06/21 Unknown History Rapid Release] citalopram [Celexa] 20 mg PO DAILY@04/06/21 04/06/21 Unknown History diphenhydramine HCl [Benadryl] 25 mg PO BID PRN 04/06/21 04/06/21 Unknown History docusate sodium [Colace] 100 mg PO BEDTIME 04/06/21 04/06/21 Unknown History insulin aspart U-100 [Novolog See Rx Instructions .ROUTE .COMPLEX 04/06/21 04/06/21 Unknown History Flexpen U-100 Insulin] oxybutynin chloride 15 mg PO QAM 04/06/21 04/06/21 Unknown History vit C,B-Fg-qmfif-lutein-zeaxan 1 tab PO BID 04/06/21 04/06/21 Unknown History [PreserVision AREDS-2] Allergies Allergy/AdvReac Type Severity Reaction Status Date / Time hydroxyzine Allergy Severe swollen Verified 04/06/21 11:50 throat rivaroxaban [From Xarelto] Allergy Severe suicidial Verified 04/06/21 11:50 thoughts atorvastatin [From Lipitor] Allergy Unknown Unknown Verified 04/06/21 11:50 desvenlafaxine [From Pristiq] Allergy Unknown Unknown Verified 04/06/21 11:50 duloxetine [From Cymbalta] Allergy Unknown Unknown Verified 04/06/21 11:50 paroxetine [From Paxil] Allergy Unknown Unknown Verified 04/06/21 11:50 Penicillins Allergy Unknown Unknown Verified 04/06/21 11:50 gabapentin Allergy Unknown Verified 04/06/21 11:50 PFSH Acute PFSH: Medical History (Updated 04/06/21 @ 13:16 by Woody Cervantes MD) Blindness Cholecystectomy planned Chronic migraine Chronic migraine Colonoscopy planned Diabetes mellitus type 2 in nonobese She reports DM1 Encounter for long-term use of opiate analgesic Generalized anxiety disorder GERD (gastroesophageal reflux disease) Major depressive disorder, recurrent severe without psychotic features Medical marijuana use Nicotine dependence, cigarettes, uncomplicated Obstructive pyelonephritis Opioid contract exists Psychiatric care Right ureteral calculus Smoker Spondylosis without myelopathy or radiculopathy, lumbosacral region Urolithiasis Surgical History (Updated 04/06/21 @ 13:09 by Woody Cervantes MD) H/O tubal ligation History of cholecystectomy History of hysteroscopy Hx of dilation and curettage 09/14/19 [facility] Family History Father , at age 76 CHF (congestive heart failure) Mother Acute arthritis Other CAD (coronary artery disease) Cancer Social History Smoking and tobacco status: current every day smoker cigarettes [ Other cigarette details: 6 DAILY ] Alcohol intake: never Adopted: No Caregiver/support person: No Lives independently: No Marital status: Current occupational status: disabled History of recent travel: No Vitals/I&O/Wt Last Vital Signs Temp 100.8 F H 04/06/21 08:51 Pulse 91 04/06/21 10:34 Resp 18 04/06/21 10:31 BP 167/68 04/06/21 10:34 Pulse Ox 94 04/06/21 10:34 Weight last 48 hrs Weight 58.513 kg Physical Exam Narrative: EXAM NARRATIVE: General exam is a white female complaining of left flank pain and nausea HEENT: Pupils equally round. Oropharynx clear. Neck is supple no lymphadenopathy or thyromegaly Cardiovascular regular rate and rhythm without murmur Lungs clear without wheezing or crackles Abdomen is soft. Nontender. Positive bowel sounds Back demonstrates left CVA tenderness exam is deferred Extremities no cyanosis clubbing or edema, cap refill brisk Skin no rash Neuro no obvious focal deficits. Data : 04/06/21 09:01 04/06/21 09:01 Micro: Microbiology 04/06/21 09:48 Blood Culture - Preliminary Blood SPECIMEN COLLECTED 04/06/21 09:21 Blood Culture - Preliminary Blood SPECIMEN COLLECTED Other data: Lactic acid 3.8 Calcium 8.8 LFTs normal Urinalysis demonstrates 0-4 reds, greater than 100 whites with positive leukocyte Estrace, positive bacteria Chest x-ray negative CT abdomen and pelvis noncontrast demonstrated inflammatory stranding and edema left kidney with mild left ureterectasis. No evidence of obstruction. A&P Assessment and plan (1) Pyelonephritis: Continue Rocephin 1 g IV every 12 hours Await urine and blood cultures Pain control Note lactate is elevated, but patient has no current evidence for severe sepsis or septic shock Status: Acute (2) Leukocytosis: Secondary to above Status: Acute (3) Uncontrolled type 1 diabetes mellitus: Sliding scale insulin Consistent carb diet Continue long-acting insulin, reduced amount considering current nausea Status: Acute Additional A&P Information Depression/anxiety History of migraines Full code Lovenox for DVT prophylaxis Attestations Medical Necessity Statement*: Will need greater than 2 midnight stay secondary to acute pyelonephritis, febrile UTI, with elevated lactate in this patient who possibly recently passed a renal stone. Time Spent in Patient Care: Greater than 35 minutes Coding Level of Care Code Acute Gym Teacher for Noemi Veliz Diagnoses Pyelonephritis N12 Leukocytosis D72.829 Uncontrolled type 1 diabetes mellitus E10.65
[2021-04-06 14:21] LABS: Lactic Acid level (Lactate) 1.2 mmol/L (0.5-2.2)
[2021-04-06] MEDS: sodium chloride 0.9% 1,000 ML 100 ML IV (14:49)
[2021-04-06] MEDS: LORazepam 1 mg Tablet PO (14:55)
[2021-04-06 17:06] LABS: Glucose Point of Care 373 mg/dL (70-110)
[2021-04-06] MEDS: insulin lispro 100 unit/1 mL SUBCUT ×2 (17:31→21:50)
[2021-04-06] MEDS: meclizine 25 mg tablet PO (17:32)
[2021-04-06 20:56] LABS: Glucose Point of Care 234 mg/dL (70-110)
[2021-04-06] MEDS: docusate sodium 100 mg Capsule PO (21:49)
[2021-04-06] MEDS: acetaminophen 325 mg Tablet 650 MG PO (21:49)
[2021-04-06] MEDS: insulin glargine 100 units/1 mL 15 UNIT SUBCUT (21:49)
[2021-04-07] VITALS: BP 96/58; PULSE 82; RESP 18; TEMP 36.6; O2SAT 98
[2021-04-07] MEDS: sodium chloride 0.9% 1,000 ML 100 ML IV ×2 (01:45→11:45)
[2021-04-07 04:00] VITALS: BP 121/69; PULSE 70; RESP 20; TEMP 36.9; O2SAT 98
[2021-04-07] MEDS: LORazepam 1 mg Tablet PO (04:22)
[2021-04-07] MEDS: diphenhydrAMINE 25 mg Capsule PO (04:40)
--- NOTE | 2021-04-07 04:40 | PM.MISC ---
Miscellaneous Note Note: Patient developed hives shortly after completing 1g iv dose of Ceftriaxone. States also having itchy thorat. ordered for hydrocortisone 100mg iv x 1 and benadryl 25mg po x 1. Discontinued ceftriaxone, started Ciprofloxacin 500mg po BID instead
[2021-04-07] MEDS: hydrocortisone 100 mg/2 mL SDV IVP (04:41)
--- NOTE | 2021-04-07 04:53 | PC.NURSE ---
PATIENT WAS GIVEN A DOSE OF CEFTRIAXONE AND WOKE UP HAVING AN ALLERGIC REACTION. PATIENT HAD HIVES, ITCHING AND DIFFICULTY SWALLOWING. NONE OF THESE SYMPTOMS WAS PRESENT BEFORE CEFTRIAXONE WAS ADMINISTERED. THIS NURSE GAVE PATIENT 1MG PO OF ATIVAN AND CALLED THE HOSPITALIST. NEW BLOOD PRESSURE OF 115/69 WAS OBTAINED WHEN BENADRYL 25MG PO AND SOLU-CORTEF 100MG IVP AT 0440. PER DOCTORS ORDERS ANOTHER BLOOD PRESSURE WAS TAKEN 2O MINUTES POST ADMINISTRATION OF BENADRYL AND SOLU-CORTEF WHICH READ 121/69. DOCTOR WAS NOTIFIED OF BLOOD PRESSURES. WILL CONTINUE TO CLOSELY MONITOR AND ROUND ON PATIENT.
[2021-04-07 05:48] LABS: Basophils # 0.1 10^3/uL (0.0-0.1); Basophils % 0.5 %; Eosinophils # 0.1 10^3/uL (0.0-0.8); Eosinophils % 0.8 %; Hematocrit 41.7 % (37.0-47.0); Hemoglobin 12.7 g/dL (11.5-15.3); Lymphocytes # 1.7 10^3/uL (0.8-4.8); Lymphocytes % 15.2 %; Mean Corpuscular HGB Conc 30.5 g/dL (30.0-36.0); Mean Corpuscular Hemoglobin 26.8 pg (28.0-34.0); Mean Platelet Volume 12.7 fL (7.4-10.4); Monocytes # 0.8 10^3/uL (0.2-0.9); Monocytes % 6.9 %; Neutrophils # 8.45 10^3/uL (1.8-7.7); Neutrophils % 76.2 %; Nucleated Red Blood Cells % 0 %; Platelet Count 224 10^3/cmm (130-400); Red Blood Count 4.74 10^6/uL (4.1-5.3); White Blood Count 11.1 10^3/uL (4.0-10.0)
[2021-04-07 06:00] VITALS: PULSE 67
[2021-04-07 06:16] LABS: Alanine Aminotransferase 112 U/L (0-33); Alkaline Phosphatase 107 IU/L (35-105); Blood Urea Nitrogen 12 mg/dL (8-23); Calcium 7.6 mg/dL (8.5-10.5); Carbon Dioxide 19 mmol/L (22-29); Chloride 105 mmol/L (98-107); Creatinine Clr Calc Pharmacy 53.6508; Globulin 2.6 g/dL (1.3-4.6); Glucose 159 mg/dL (65-115); Osmolality Calculated 285 mOsm/kg (285-295); Sodium 136 mmol/L (136-145); Total Bilirubin 0.4 mg/dL (0.15-1.2); Total Protein 5.6 g/dL (6.6-8.7)
[2021-04-07 06:18] LABS: Anion Gap 16.1 (5-19); Aspartate Amino Transferase 129 U/L (0-32); Potassium 4.1 mmol/L (3.5-5.1)
[2021-04-07 06:53] LABS: Glucose Point of Care 190 mg/dL (70-110)
[2021-04-07 07:50] VITALS: BP 99/63; PULSE 69; RESP 17; TEMP 36.8; O2SAT 99
[2021-04-07] MEDS: ARIPiprazole 10 mg Tablet 5 MG PO (08:40)
[2021-04-07] MEDS: citalopram 20 mg Tablet PO (08:40)
[2021-04-07] MEDS: loratadine 10 mg Tablet PO (08:40)
[2021-04-07] MEDS: pantoprazole DR 40 mg Tablet PO (08:40)
[2021-04-07] MEDS: ciprofloxacin 500 mg Tablet PO (08:40)
[2021-04-07] MEDS: meclizine 25 mg tablet PO (08:40)
[2021-04-07] MEDS: insulin lispro 100 unit/1 mL SUBCUT ×2 (08:42→12:13)
[2021-04-07] MEDS: acetaminophen 325 mg Tablet 650 MG PO (11:14)
[2021-04-07 11:21] LABS: Glucose Point of Care 284 mg/dL (70-110)
[2021-04-07 11:28] VITALS: BP 93/58; PULSE 74; RESP 16; TEMP 36.7; O2SAT 96
--- NOTE | 2021-04-07 11:36 | PM.DCS ---
Discharge Providers Date of Admission: 04/06/21 11:19 Date of Discharge: April 07, 2021 Attending Provider at Admission: Woody Cervantes MD Attending Provider at Discharge: Vazquez Greenberg MD Primary Care Provider: Cisco Sevilla MD Diagnoses at Discharge Discharge Diagnosis (1) Pyelonephritis: Status: Acute (2) Leukocytosis: Status: Acute (3) Uncontrolled type 1 diabetes mellitus: Status: Acute Reason for Visit Reason for Visit: L FLANK PAIN/ NAUSEA Hospital Course Hospital Course 70-year-old female with a history of type 1 diabetes, kidney stones recurrent UTI presented with chief complaint of left-sided flank pain. She was diagnosed with nonobstructive pyelonephritis, CT abdomen pelvis consistent with changes associated with passage of kidney stones, there were no signs of obstruction. Patient remained stable, however noticed low-grade fever. Next day patient was requesting to be discharged home with antibiotics. Of note, she developed itching and subjective feelings of facial Swelling which she attributed to use of ceftriaxone as she has allergies to penicillin. Her antibiotics were changed to ciprofloxacin overnight. No signs of anaphylaxis. She will be discharged home with a 14-day course of levofloxacin. Urine cultures negative to date. Patient does not want to stay in the hospital any further. Physical Exam Narrative: EXAM NARRATIVE: Patient was sitting comfortably in her bed I did not appreciate any stridor, wheezing No facial swelling Hemodynamically stable No focal deficit She is legally blind Abdomen soft Saturating well on room air S1, S2 sinus rhythm Discharge Data Data Completed and Pending: Completed Studies During Hospitalization Category Date Time Status CT kidney stone [id number] Stat Cat Scan 04/06/21 10:22 Completed XR chest 1V roselyn ble [id number] Stat Exams 04/06/21 08:49 Completed Pending at discharge Category Date Time Status Blood Culture Sta t Lab 04/06/21 09:48 Results Urine Culture Sta t Lab 04/06/21 09:40 Results Labs from last 24 hours 04/07/21 04/07/21 04/07/21 11:11 06:43 05:15 WBC RBC Hgb Hct MCV MCH MCHC RDW Plt Count MPV Neut % (Auto) Lymph % (Auto) [place] % (Auto) Eos % (Auto) Baso % (Auto) Neut # (Auto) Lymph # (Auto) [place] # (Auto) Eos # (Auto) Baso # (Auto) Nucleated RBC % (a uto) Nucleated RBCs # Sodium 136 Potassium 4.1 Chloride 105 Carbon Dioxide 19 L Anion Gap 16.1 BUN 12 Creatinine 0.8 GFR Calculation Not Reportable Glucose 159 H POC Glucose 284 H 190 H Calculated Osmolal ity 285 Lactic Acid (Sepsi s) Calcium 7.6 L Total Bilirubin 0.4 AST 129 H ALT 112 H Alkaline Phosphata se 107 H Total Protein 5.6 L D Albumin 3.0 L Globulin 2.6 04/07/21 04/06/21 04/06/21 05:15 20:49 16:53 WBC 11.1 H RBC 4.74 Hgb 12.7 Hct 41.7 MCV 88.0 D MCH 26.8 L MCHC 30.5 D RDW 14.0 Plt Count 224 D MPV 12.7 H Neut % (Auto) 76.2 Lymph % (Auto) 15.2 [place] % (Auto) 6.9 Eos % (Auto) 0.8 Baso % (Auto) 0.5 Neut # (Auto) 8.45 H Lymph # (Auto) 1.7 [place] # (Auto) 0.8 Eos # (Auto) 0.1 Baso # (Auto) 0.1 Nucleated RBC % (a uto) 0 Nucleated RBCs # 0.0 Sodium Potassium Chloride Carbon Dioxide Anion Gap BUN Creatinine GFR Calculation Glucose POC Glucose 234 H 373 H Calculated Osmolal ity Lactic Acid (Sepsi s) Calcium Total Bilirubin AST ALT Alkaline Phosphata se Total Protein Albumin Globulin 04/06/21 13:48 WBC RBC Hgb Hct MCV MCH MCHC RDW Plt Count MPV Neut % (Auto) Lymph % (Auto) [place] % (Auto) Eos % (Auto) Baso % (Auto) Neut # (Auto) Lymph # (Auto) [place] # (Auto) Eos # (Auto) Baso # (Auto) Nucleated RBC % (a uto) Nucleated RBCs # Sodium Potassium Chloride Carbon Dioxide Anion Gap BUN Creatinine GFR Calculation Glucose POC Glucose Calculated Osmolal ity Lactic Acid (Sepsi s) 1.2 Calcium Total Bilirubin AST ALT Alkaline Phosphata se Total Protein Albumin Globulin Vitals: Last Vital Signs Temp 98.0 F 04/07/21 11:28 Pulse 74 04/07/21 11:28 Resp 16 04/07/21 11:28 BP 93/58 04/07/21 11:28 Pulse Ox 96 04/07/21 11:28 Discharge Plan Discharge Patient Disposition: Home Condition: Stable Prescriptions: New ciprofloxacin HCl 500 mg Tablet 500 mg PO BID@0900,2100 14 Days Qty: 28 RF: 0 Continued omeprazole 40 mg capsule,delayed release(DR/EC) 40 mg PO DAILY@0800 RF: 0 furosemide 20 mg tablet 20 mg PO DAILY@08 RF: 0 Levemir FlexTouch U-100 Insuln 100 unit/mL (3 mL) insulin pen 30 unit SUBCUT BEDTIME@2000 RF: 0 lorazepam [Ativan] 1 mg tablet 1 mg PO BID PRN (Reason: anxiety) Qty: 60 RF: 2 oxybutynin chloride 10 mg tablet extended release 24hr 10 mg PO BEDTIME RF: 0 ondansetron HCl [Zofran] 4 mg Tablet 4 mg PO Q4H PRN (Reason: Nausea And Vomiting) RF: 0 loratadine [Claritin] 10 mg Tablet 10 mg PO DAILY@0800 RF: 0 Hair,Skin and Nails 2 tab PO DAILY@0800 RF: 0 meclizine 25 mg tablet 25 mg PO BID@08,16 RF: 0 Azo Cranberry Gummies 2 cap PO QAM RF: 0 acetaminophen 500 mg Tablet 500 mg PO Q4H PRN (Reason: Pain) RF: 0 Benadryl 25 mg Capsule 25 mg PO BID PRN (Reason: Allergic Symptoms) RF: 0 Colace 100 mg Capsule 100 mg PO BEDTIME RF: 0 Multivitamins 28 mg iron- 800 mcg Tablet 1 tab PO DAILY@08 RF: 0 PreserVision AREDS-2 250-90-40-1 mg Capsule 1 tab PO BID RF: 0 oxybutynin chloride 15 mg tablet extended release 24 hr 15 mg PO QAM RF: 0 Celexa 20 mg tablet 20 mg PO DAILY@08 RF: 0 Abilify 5 mg tablet 5 mg PO QAM RF: 0 Novolog Flexpen U-100 Insulin 100 unit/mL (3 mL) insulin pen See Rx Instructions .ROUTE .COMPLEX RF: 0 Discharge Orders: Discharge Order (Routine); Ordered 04/07/21 Ordered By: Vazquez Greenberg Referrals: Cisco Sevilla MD [Primary Care Provider] - 2 weeks (Please call Friday to schedule a follow up appointment.) Discharge Diet: Diabetic Discharge Activity: Resume usual activity Patient Instructions: Ciprofloxacin (By mouth), Opioid Safety, Pyelonephritis Discharge Attestations Time Spent in Discharge Care*: less than 30 min Quality Metrics Clinical Quality Measures During this hospital stay, did patient experience: None Coding Level of Care Code Acute [facility]g [facility] note Diagnoses Pyelonephritis N12 Leukocytosis D72.829 Uncontrolled type 1 diabetes mellitus E10.65
--- NOTE | 2021-04-07 13:04 | PC.NURSE ---
Discharge Note Patient discharged to home via personal vehicle accompanied by ex- Tim.. Discharge instructions reviewed with patient and/or patient intake representative. Mobile pharmacy medications and/or prescriptions provided. Belongings/home medications returned.
[2021-04-07 13:05] VITALS: BP 93/58; PULSE 74; RESP 16; TEMP 36.7; O2SAT 96
--- NOTE | 2021-04-09 17:30 | PC.RESP ---
SMOKING CESSATION INFORMATION SENT TO PATIENT.
--- NOTE | 2021-04-11 12:19 | PC.SOCIAL ---
discharge follow up call made, spoke with patient. patient reports she had an allergic reaction to cipro. she stopped taking and is taking benadryl for the rash. patient has called dr. caro office for medication change, junior underwriter spoke with his office and they did call in new prescription. patient reports nausea, which she is taking zofran with relief. patient has been taking tylenol for a fever of 101. patient denies any questions or concerns. she is aware of her follow up appointment on 04-[address] webster.
== END 2021-04-07 13:06 | disposition home health service (06) | DRG 690 ==
LOC: ER 09:16 → MEDSURG 14:02
PROVIDERS: Admitting Provider Internal Medicine; Emergency Provider Family Medicine; PCP Family Medicine; Visit Provider Internal Medicine
DX: N10 Acute pyelonephritis (principal); F17.210 Nicotine dependence, cigarettes, uncomplicated; F32.A Depression, unspecified; F41.9 Anxiety disorder, unspecified; E10.9 Type 1 diabetes mellitus without complications
CPT/HCPCS: 36415; 36416; 71045; 74176; 80053; 81001; 82962; 83605; 85025; 87040; 87077; 87086; 87186; 87205; 93005; 96365; 96372; 96375; 99285; J0696; J1720; J1815 ×2; J2270; J2405; J7030; J7040; J8597

== ENCOUNTER 2021-04-18 14:52 | Outpatient (CLI) | payer MEDICARE, MEDICAID, SELFPAY | END 2021-04-18 14:53 | disposition home or self-care (01) | PROVIDERS: PCP Family Medicine; Visit Provider Family Medicine | DX: N12 Tubulo-interstitial nephritis, not specified as acute or chronic (principal); R78.81 Bacteremia; B96.20 Unspecified Escherichia coli [E. coli] as the cause of diseases classified elsewhere; Z76.89 Persons encountering health services in other specified circumstances | CPT/HCPCS: 80048; 85025; 87040 ==

== ENCOUNTER → 2021-05-01 08:36 | Outpatient (BNVA) | payer MEDICARE, MEDICAID, SELFPAY | PROVIDERS: PCP Family Medicine; Visit Provider Nurse Practitioner Psychiatric/Mental Health | DX: F33.2 Major depressive disorder, recurrent severe without psychotic features (principal); Z79.899 Other long term (current) drug therapy; F41.1 Generalized anxiety disorder; F17.210 Nicotine dependence, cigarettes, uncomplicated | CPT/HCPCS: 99214 ==

== ENCOUNTER → 2021-05-30 08:50 | Outpatient (BNVA) | payer MEDICARE, MEDICAID, SELFPAY | PROVIDERS: PCP Family Medicine; Visit Provider Anesthesiology | DX: G89.29 Other chronic pain (principal); M47.817 Spondylosis without myelopathy or radiculopathy, lumbosacral region; M54.2 Cervicalgia; E10.9 Type 1 diabetes mellitus without complications; Z79.4 Long term (current) use of insulin; Z79.891 Long term (current) use of opiate analgesic; Z79.899 Other long term (current) drug therapy | CPT/HCPCS: 99214 ==

== ENCOUNTER → 2021-06-26 07:52 | Outpatient (BNVA) | payer MEDICARE, MEDICAID, SELFPAY | PROVIDERS: PCP Family Medicine; Visit Provider Anesthesiology | DX: G89.29 Other chronic pain (principal); M47.817 Spondylosis without myelopathy or radiculopathy, lumbosacral region; M79.605 Pain in left leg; M54.2 Cervicalgia; F17.210 Nicotine dependence, cigarettes, uncomplicated; Z79.891 Long term (current) use of opiate analgesic | CPT/HCPCS: 99213 ==

== ENCOUNTER → 2021-07-05 08:12 | Outpatient (BNVA) | payer MEDICARE, MEDICAID, SELFPAY | PROVIDERS: PCP Family Medicine; Visit Provider Nurse Practitioner Psychiatric/Mental Health | DX: F33.2 Major depressive disorder, recurrent severe without psychotic features (principal); F41.1 Generalized anxiety disorder; F17.210 Nicotine dependence, cigarettes, uncomplicated | CPT/HCPCS: 99214 ==

== ENCOUNTER → 2021-08-20 07:40 | Outpatient (BNVA) | payer MEDICARE, MEDICAID, SELFPAY | PROVIDERS: PCP Family Medicine; Visit Provider Nurse Practitioner Psychiatric/Mental Health | DX: F33.2 Major depressive disorder, recurrent severe without psychotic features (principal); F41.1 Generalized anxiety disorder; F17.210 Nicotine dependence, cigarettes, uncomplicated | CPT/HCPCS: 99214 ==

== ENCOUNTER → 2021-09-06 15:50 | Outpatient (BNVA) | payer MEDICARE, MEDICAID, SELFPAY | PROVIDERS: PCP Family Medicine; Visit Provider Nurse Practitioner | DX: N39.0 Urinary tract infection, site not specified (principal); R53.1 Weakness | CPT/HCPCS: 81000; 87400 ==

== ENCOUNTER 2021-09-14 09:27 | Outpatient (CLI) | payer MEDICARE, MEDICAID, SELFPAY ==
--- NOTE | 2021-09-14 09:41 | XR_ITS ---
WS: [id number] XR KUB [id number] REASON FOR EXAM: stones FINDINGS: In retrospect there was likely a very small distal left ureteral calculus on the CT scan of 04/06/2021 . No intrarenal calculi were identified. No intrarenal or ureteral calculi are identified on the current abdomen film. No bladder calculi iden tified. No other significant abnormality. XR/XR KUB [id number] IMPRESSION: No urinary tract calculi identified.
== END 2021-09-14 09:28 | disposition home or self-care (01) ==
LOC: RAD 09:32
PROVIDERS: PCP Family Medicine; Visit Provider Nurse Practitioner Family
DX: N20.9 Urinary calculus, unspecified (principal)
CPT/HCPCS: 74018; 81003

== ENCOUNTER → 2021-10-17 15:36 | Outpatient (BNVA) | payer MEDICARE, MEDICAID, SELFPAY | PROVIDERS: PCP Family Medicine; Visit Provider Nurse Practitioner Psychiatric/Mental Health | DX: F33.2 Major depressive disorder, recurrent severe without psychotic features (principal); F41.1 Generalized anxiety disorder; F17.210 Nicotine dependence, cigarettes, uncomplicated | CPT/HCPCS: 99214 ==

== ENCOUNTER → 2021-12-17 15:40 | Outpatient (BNVA) | payer MEDICARE, MEDICAID, SELFPAY | PROVIDERS: PCP Family Medicine; Visit Provider Urology | DX: N39.0 Urinary tract infection, site not specified (principal) | CPT/HCPCS: 81003; 99213 ==

== ENCOUNTER → 2021-12-27 07:51 | Outpatient (BNVA) | payer MEDICARE, MEDICAID, SELFPAY | PROVIDERS: PCP Family Medicine; Visit Provider Nurse Practitioner Psychiatric/Mental Health | DX: Z79.899 Other long term (current) drug therapy (principal); F33.2 Major depressive disorder, recurrent severe without psychotic features; F41.1 Generalized anxiety disorder; F17.210 Nicotine dependence, cigarettes, uncomplicated | CPT/HCPCS: 99214 ==

== ENCOUNTER → 2022-01-07 12:30 | Outpatient (BNVA) | payer MEDICARE, MEDICAID, SELFPAY | PROVIDERS: PCP Family Medicine; Visit Provider Nurse Practitioner Psychiatric/Mental Health | DX: Z79.899 Other long term (current) drug therapy (principal) | CPT/HCPCS: 80053 ==

== ENCOUNTER → 2022-01-18 11:24 | Outpatient (BNVA) | payer MEDICARE, MEDICAID, SELFPAY | PROVIDERS: PCP Family Medicine; Visit Provider Clinical Nurse Specialist Adult Health | DX: R30.0 Dysuria (principal); N39.0 Urinary tract infection, site not specified | CPT/HCPCS: 81000 ==

== ENCOUNTER → 2022-01-24 16:04 | Outpatient (BNVA) | payer MEDICARE, MEDICAID, SELFPAY | PROVIDERS: PCP Family Medicine; Visit Provider Nurse Practitioner Family | DX: N39.0 Urinary tract infection, site not specified (principal); R10.9 Unspecified abdominal pain; R19.00 Intra-abdominal and pelvic swelling, mass and lump, unspecified site | CPT/HCPCS: 81000 ==

== ENCOUNTER → 2022-01-25 10:57 | Outpatient (BNVA) | payer MEDICARE, MEDICAID, SELFPAY | PROVIDERS: PCP Family Medicine; Visit Provider Family Medicine | DX: R10.9 Unspecified abdominal pain (principal); R19.00 Intra-abdominal and pelvic swelling, mass and lump, unspecified site; F33.2 Major depressive disorder, recurrent severe without psychotic features; Z98.890 Other specified postprocedural states; Z79.891 Long term (current) use of opiate analgesic; E11.10 Type 2 diabetes mellitus with ketoacidosis without coma; E11.9 Type 2 diabetes mellitus without complications; E16.0 Drug-induced hypoglycemia without coma; T38.3X5A Adverse effect of insulin and oral hypoglycemic [antidiabetic] drugs, initial encounter; R78.81 Bacteremia; B96.20 Unspecified Escherichia coli [E. coli] as the cause of diseases classified elsewhere | CPT/HCPCS: 80053; 83690; 85025 ==

== ENCOUNTER 2022-01-27 11:33 | Emergency (ER) | payer MEDICARE, MEDICAID, SELFPAY ==
[2022-01-27 11:37] VITALS: BP 133/59; PULSE 84; RESP 16; O2SAT 100; BMI 28.5
--- NOTE | 2022-01-27 11:58 | ED_ITS ---
HPI - Abdominal Pain General: Chief Complaint: Abdominal Pain Stated Complaint: ABD PAIN Time Seen by Provider: 01/27/22 11:53 Source: patient Mode of arrival: EMS Limitations: no limitations History of Present Illness: This patient requested transport to the emergency department via EMS today because of concerns about continued bloating and abdominal fullness. She relates that the symptoms been present for several weeks and she is becoming concerned what they might represent and is here for more evaluation. She states she saw her primary care clinic last week and they have plans on doing some evaluation but she is more anxious and desires a quicker work-up. She states that she has had abdominal fullness with some discomfort, which she describes as basically fullness and some aching from time to time. She does not have any vomiting or diarrhea. She has been able to eat and drink normally. She states her bowel movements are relatively normal as well as her urinary habits. She states that she feels some bloated at time and that it is difficult to take a deep breath but denies any significant shortness of breath chest pain etc. She does not have any history of fevers or feeling il l with body aches chills etc. She states she has had a prior cholecystectomy but no other abdominal surgeries other than a tubal ligation. She does live alone and has diabetic retinopathy and still has markedly diminished vision. She denies alcohol use. She quit smoking earlier this year. She states she was that she has been taking all her medication as prescribed although her primary hearing healthcare practitioner did reduce some of her medications and the thought it may be contributing to her physical symptoms but she states she is in the 3 weeks since some of those have been discontinued and has not made a difference. Quality: aching and fullness Exacerbating factors: nothing Relieving factors: nothing Associated Symptoms: Denies change in bowel habits, chills, constipation, diar jean paul, dysuria, fever(s), nausea, syncope and vomiting Review of Systems Const: Denies: fever(s), chills or body aches ENMT: Denies: throat pain, odynophagia, nasal discharge or nasal congestion Card: Denies: chest pain, palpitations, irregular heart rhythm, edema or syncope Resp: Denies: dyspnea, productive cough or non-productive cough GI: Denies: nausea, vomiting, diarrhea, constipation or change in bowel habits : Denies: flank pain, difficulty voiding, dysuria, urinary frequency or urinary urgency Musc: Reports: neck pain, back pain and extremity pain; Denies: extremity swelling, joint pain or joint swelling Skin/Breast: Denies: rash or pruritus Neuro: Denies: headache(s), numbness in extremities, weakness in extremities or dizziness Endo: Denies: polyuria or polydipsia PFSH ED PFSH: Medical History Abdominal pain Blindness Cholecystectomy planned Chronic migraine Chronic migraine Colonoscopy planned Diabetes mellitus type 2 in nonobese She reports DM1 Encounter for long-term use of opiate analgesic Generalized anxiety disorder GERD (gastroesophageal reflux disease) Major depressive disorder, recurrent severe without psychotic features Obstructive pyelonephritis Opioid contract exists Psychiatric care Recurrent UTI Right ureteral calculus Smoker Spondylosis without myelopathy or radiculopathy, lumbosacral region Urolithiasis Surgical History H/O tubal ligation History of cholecystectomy History of hysteroscopy Hx of dilation and curettage 09/14/19 [facility] Family History Father , at age 76 CHF (congestive heart failure) Mother Acute arthritis Other CAD (coronary artery disease) Cancer Social History Smoking and tobacco status: former smoker Alcohol intake: never Adopted: No Caregiver/support person: Yes Lives independently: Yes Housing: House Marital status: Current occupational status: disabled History of recent travel: No Physical Exam Narrative: EXAM NARRATIVE: The patient is alert interacts in appropriate fashion. She appears to be calm and no acute distress. Const: COMMON NORMALS: no acute distress, patient oriented x3 and alert GENERAL APPEARANCE: cooperative and comfortable HENMT: COMMON NORMALS: normocephalic, atraumatic, Normal nasal mucous membranes and turbinates present, moist oral mucous membranes and oropharynx normal HEAD & SCALP: normocephalic and atraumatic FACE & SINUS: normal facial exam NOSE: Normal nasal mucous membranes and turbinates present Eye: COMMON NORMALS: EOMs intact bilaterally, conjunctivae normal and no scleral icterus CONJUNCTIVA: Yes conjunctivae normal OTHER: She is able to perceive light but is unable to see shadows count fingers etc. Neck/C-Spine: COMMON NORMALS: full ROM, supple, Thyroid normal and No carotid bruits THYROID: Thyroid normal Lymph: LYMPHATIC: no lymphadenopathy noted Chest: COMMONS NORMALS: normal inspection of the chest Resp: COMMON NORMALS: normal respiratory effort, No use of accessory muscles and clear to auscultation bilaterally AUSCULTATION: clear to auscultation bilaterally Cardio: COMMON NORMALS: regular rate, regular rhythm, No murmurs present (Cardio) and Peripheral pulses 2+ throughout RATE: regular rate RHYTHM: regular rhythm PERIPHERAL PULSES: Peripheral pulses 2+ throughout GI: COMMON NORMALS: Soft to palpation and no bruits PALPATION: Yes Soft to palpation, No Guarding due to palpation present (GI) and No Rebound tenderness present OTHER: Patient's abdomen is soft protuberant. She is hyperresonant to percussion. She has normal active bowel sounds. She has some mild subjective tenderness in the mid abdomen extending from the epigastrium to the right upper abdomen and somewhat to the umbilicus but no rebound or guarding. No ecchymosis. : COMMON NORMALS: Yes no CVA tenderness BLADDER/KIDNEY EXAM: Yes no CVA tenderness Back/Pelvis: COMMON NORMALS: no CVA tenderness, no thoracic nor lumbar tenderness and straight leg raise negative bilaterally Extremity: COMMON NORMALS: normal to inspection, full ROM, capillary refill normal, no calf tenderness and no pedal edema Neuro: COMMON NORMALS: patient oriented x3, moves all extremities, no focal motor deficits and no sensory deficits noted SENSORIUM/ORIENTATION: Yes alert SPEECH: speech normal Psych: COMMON NORMALS: mental status grossly normal Skin: COMMON NORMALS: no rashes or lesions noted, turgor normal and no jaundice GENERAL SKIN EXAM: no rashes or lesions noted and turgor normal Course Reevaluation(s): Reevaluation #1: Patient is comfortable. Repeat evaluation revealed no new or focal findings on repeat examination. Current findings were shared and discussed with the patient. Time: 14:20 Vital Signs: Vital signs: Vital Signs Pulse Rate 84 01/27/22 11:37 Respiratory Rate 16 01/27/22 11:37 Blood Pressure 133/59 01/27/22 11:37 Pulse Oximetry 100 01/27/22 11:37 Oxygen Delivery Me thod 01/27/22 11:37 MDM - Abdominal Pain Medical Decision Making Patient is not any other associated symptoms such as fever nausea vomiting diarrhea etc. She does take chronic pain medications due to her peripheral neuropathy and chronic back pain. Her clinical examination and work-up today are reassuring. Her CT scan of only significant finding was that she had evidence of significant colonic constipation without impaction. No obstruction. I shared these findings with the patient. She apparently just started MiraLAX regimen yesterday. I shared with her that we need to increase her MiraLAX regimen to twice daily until she gets subjective relief of her symptoms and then she may reduce it down to once a day with adjustments as necessary. No evidence at this time of an ongoing emergency medical condition such as a surgical abdomen, bowel obstruction, etc. She has a very minimal elevation in her alkaline phosphatase but no other significant findings to suggest a biliary tract issue at this time. She has mild elevation in her blood sugar but that certainly consistent with her underlying diabetes. She is stable at this time to be managed as an outpatient with good return precautions which she acknowle dged. She is stable at this time and was appreciative of care. Subjective symptoms of bloating and abdominal distention that she states have been occurring over the past several weeks. Lab Data : 01/27/22 13:08 01/27/22 13:08 Labs/Radiology: Radiology Impressions Abdomen/Pelvis CT 01/27/22 12:23 IMPRESSION: Colonic constipation is present. Chest X-Ray 01/27/22 12:23 IMPRESSION: No evidence for acute cardiopulmonary disease. Laboratory Results WBC 10.6 10^3/uL (4.0-10.0) H 01/27/22 13:08 RBC 5.22 10^6/uL (4.1-5.3) 01/27/22 13:08 Hgb 13.1 g/dL (11.5-15.3) 01/27/22 13:08 Hct 39.6 % (37.0-47.0) 01/27/22 13:08 MCV 75.9 fl (81-99) L 01/27/22 13:08 MCH 25.1 pg (28.0-34.0) L 01/27/22 13:08 MCHC 33.1 g/dL (30.0-36.0) 01/27/22 13:08 RDW 14.5 % (12.1-15.1) 01/27/22 13:08 Plt Count 360 10^3/cmm (130-400) 01/27/22 13:08 MPV 10.6 fL (7.4-10.4) H 01/27/22 13:08 Neut % (Auto) 62.9 % 01/27/22 13:08 Lymph % (Auto) 28.0 % 01/27/22 13:08 [place] % (Auto) 5.6 % 01/27/22 13:08 Eos % (Auto) 2.0 % 01/27/22 13:08 Baso % (Auto) 1.0 % 01/27/22 13:08 Neut # (Auto) 6.68 10^3/uL (1.8-7.7) 01/27/22 13:08 Lymph # (Auto) 3.0 10^3/uL (0.8-4.8) 01/27/22 13:08 [place] # (Auto) 0.6 10^3/uL (0.2-0.9) 01/27/22 13:08 Eos # (Auto) 0.2 10^3/uL (0.0-0.8) 01/27/22 13:08 Baso # (Auto) 0.1 10^3/uL (0.0-0.1) 01/27/22 13:08 Nucleated RBC % (auto) 0 % 01/27/22 13:08 Nucleated RBCs # 0.0 /100WBC 01/27/22 13:08 Sodium 141 mmol/L (136-145) 01/27/22 13:08 Potassium 3.7 mmol/L (3.5-5.1) 01/27/22 13:08 Chloride 101 mmol/L (98-107) 01/27/22 13:08 Carbon Dioxide 27 mmol/L (22-29) 01/27/22 13:08 Anion Gap 16.7 (5-19) 01/27/22 13:08 BUN 13 mg/dL (8-23) 01/27/22 13:08 Creatinine 0.9 mg/dL (0.5-0.9) 01/27/22 13:08 GFR Calculation Not Reportable 01/27/22 13:08 Glucose 131 mg/dL (65-115) H 01/27/22 13:08 Calculated Osmolality 294 mOsm/kg (285-295) 01/27/22 13:08 Calcium 9.7 mg/dL (8.5-10.5) 01/27/22 13:08 Total Bilirubin 0.3 mg/dL (0.15-1.2) 01/27/22 13:08 AST 16 U/L (0-32) 01/27/22 13:08 ALT 15 U/L (0-33) 01/27/22 13:08 Alkaline Phosphatase 108 IU/L (35-105) H 01/27/22 13:08 NT-Pro-B Natriuret Pep 296 pg/mL (0-125) H 01/27/22 13:08 Total Protein 7.1 g/dL (6.6-8.7) 01/27/22 13:08 Albumin 4.0 g/dL (3.5-5.2) 01/27/22 13:08 Globulin 3.1 g/dL (1.3-4.6) 01/27/22 13:08 TSH 1.82 uIU/mL (0.27-4.20) 01/27/22 13:08 Urine Color Straw (Yellow) 01/27/22 12:33 Urine Appearance Clear (CLEAR) 01/27/22 12:33 Urine pH 5 (5-7) 01/27/22 12:33 Ur Specific [place] 1.000 (1.005-1.030) L 01/27/22 12:33 Urine Protein Neg (Negative) 01/27/22 12:33 Urine Glucose (UA) 4+ (Normal) H 01/27/22 12:33 Urine Ketones Negative (Negative) 01/27/22 12:33 Urine Blood Neg (Negative) 01/27/22 12:33 Urine Nitrate Negative (Negative) 01/27/22 12:33 Urine Bilirubin Neg (Negative) 01/27/22 12:33 Urine Urobilinogen Norm mg/dL (Negative) 01/27/22 12:33 Ur Leukocyte Esterase Negative (Negative) 01/27/22 12:33 Ethyl Alcohol < 10 mg/dL (0-10) 01/27/22 13:08 EKG Data EKG 1: I personally reviewed and interpreted this EKG as follows: EKG interpretation time: 12:59 Interpretation: Resting EKG reveals a ventricular rate of 67 bpm. Normal intervals, normal axis, no evidence of acute ST-T wave changes at this time. Discharge Plan Discharge Patient Disposition: Home Clinical Impression: Constipation, Diabetes mellitus type 2 in nonobese, Chronic lumbar pain Condition: Stable Prescriptions: No Action omeprazole 40 mg capsule,delayed release(DR/EC) 40 mg PO DAILY@0800 furosemide 20 mg tablet 20 mg PO DAILY@08 Levemir FlexTouch U-100 Insuln 100 unit/mL (3 mL) insulin pen 30 unit SUBCUT BEDTIME@2000 tramadol 50 mg tablet 50 mg PO QID PRN methenamine hippurate 1 gram tablet 1 g PO BID Qty: 60 12RF Hold Instructions: temporary hold Rx Instructions: Take 1000 mg of vitamin C with each dose of methenamine oxybutynin chloride 10 mg tablet extended release 24hr 10 mg PO BEDTIME pregabalin 25 mg capsule 25 mg PO DAILY lamotrigine [Lamictal] 25 mg tablet 50 mg PO DIRECTED Qty: 120 1RF Rx Instructions: Take two tablets every morning and two tablets in evening with supper lorazepam [Ativan] 1 mg tablet 1 mg PO BID PRN (Reason: severe anxiety) Qty: 60 3RF Rx Instructions: Take one tablet twice per day as needed for severe anxiety trazodone 50 mg tablet 50 mg PO BEDTIME PRN (Reason: insomnia) Qty: 30 2RF Rx Instructions: May take one tablet at bedtime as needed for sleep ondansetron HCl [Zofran] 4 mg Tablet 4 mg PO Q4H PRN (Reason: Nausea And Vomiting) loratadine [Claritin] 10 mg Tablet 10 mg PO DAILY@0800 Hair,Skin and Nails 2 tab PO DAILY@0800 meclizine 25 mg tablet 25 mg PO BID@08,16 Azo Cranberry Gummies 2 cap PO QAM acetaminophen 500 mg Tablet 500 mg PO Q4H PRN (Reason: Pain) Colace 100 mg Capsule 100 mg PO BEDTIME Novolog Flexpen U-100 Insulin 100 unit/mL (3 mL) insulin pen See Rx Instructions .ROUTE .COMPLEX Rx Instructions: sliding sclae tid prn oxybutynin chloride 15 mg tablet extended release 24hr 15 mg PO QAM PreserVision AREDS-2 250-90-40-1 mg capsule 1 tab PO BID Multivitamins 28 mg iron- 800 mcg tablet 1 tab PO DAILY@08 Discharge Orders: Discharge ED (Routine); Ordered 01/27/22 Ordered By: Ortega Brito Referrals: Cisco Sevilla MD [Primary Care Provider] - 1 week Discharge Diet: Usual diet Discharge Activity: Resume usual activity Patient Instructions: Opioid Safety Activity Restrictions/Additional Instructions: Continue all. Monitor your blood sugar carefully. Increase your MiraLAX to 1 dose in the morning and 1 dose in the evening. Continue this regimen until you are stools are loose and you begin to feel relief. At that time you may reduce your MiraLAX back to 1 dose daily. Call your primary care doctor on Friday for a 1 week follow-up. If you develop increasing abdominal pain fevers or other concerning symptoms return to this emergency department immediately for reevaluation. Coding Level of Care Code ED Lithographic Etcher for Noemi 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
--- NOTE | 2022-01-27 12:23 | CTR_ITS ---
PROCEDURE INFORMATION: Exam: CT Abdomen And Pelvis Without Contrast Exam date and time: 01/27/2022 1:19 PM Age: 71 years old Clinical indication: Prior surgery; Surgery date: 6+ months; Surgery type: Gb, hyst; Patient HX: C/O bloating/fullness x several weeks; Additional info: [employer] TECHNIQUE: Imaging protocol: Computed tomography of the abdomen and pelvis without contrast. Radiation optimization: All CT scans at this facility use at least one of these dose optimization techniques: automated exposure control; mA and/or kV adjustment per patient size (includes targeted exams where dose is matched to clinical indication); or iterative reconstruction. COMPARISON: CT abdomen pelvis wo con [id number] 06/04/2020 11:00 AM RADIATION DOSE METRICS: Total DLP (mGy-cm): 648.31 FINDINGS: Diaphragm: Small hiatal hernia. Liver: Normal. No mass. Gallbladder and bile ducts: The gallbladder has been removed. Pancreas: Normal. No ductal dilation. Spleen: The spleen is lobulated in contour with adjacent splenules, stable from the prior study. Adrenal glands: Normal. No mass. Kidneys and ureters: Normal. No hydronephrosis. Stomach and bowel: Colonic constipation is present. Appendix: A normal appendix is identified. Intraperitoneal space: Unremarkable. No free air. No significant fluid collection. Vasculature: Unremarkable. No abdominal aortic aneurysm. Lymph nodes: Unremarkable. No enlarged lymph nodes. Urinary bladder: Unremarkable as visualized. Reproductive: Unremarkable as visualized. Bones/joints: Lower thoracic/lumbar dextroscoliosis. There are degenerative changes in the visualized spine. Lower lumbar disc bulges. Soft tissues: Bilateral breast implants. CT/CT abdomen pelvis wo con [id number] IMPRESSION: Colonic constipation is present.
--- NOTE | 2022-01-27 12:23 | XRR_ITS ---
PROCEDURE INFORMATION: Exam: XR Chest Exam date and time: 01/27/2022 1:14 PM Age: 71 years old Clinical indication: Shortness of breath; Additional info: [employer] TECHNIQUE: Imaging protocol: Radiologic exam of the chest. Views: 1 view. COMPARISON: CR XR chest 1V portable [id number] 04/06/2021 8:57 AM FINDINGS: Lungs: Unremarkable. No consolidation. Pleural spaces: Unremarkable. No pleural effusion. No pneumothorax. Heart/Mediastinum: Unremarkable. No cardiomegaly. Diaphragm: Mild elevation of the right hemidiaphragm. Bones/joints: Unremarkable. XR/XR chest 1V portable [id number] IMPRESSION: No evidence for acute cardiopulmonary disease.
--- NOTE | 2022-01-27 12:24 | ECG_ITS ---
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 Measurements Intervals [place] Rate: 67 P: 60 MD: 172 QRS: -13 QRSD: 87 T: 30 QT: 391 QTc: 415 Interpretive Statements SINUS RHYTHM LOW QRS VOLTAGE IN PRECORDIAL LEADS [QRS DEFLECTION < 1.0 mV IN CHEST LEADS] Compared to ECG 04/06/2021 09:10:33 No significant changes Electronically Signed On 01-28-2022 9:28:14 CDT by Hemanth Kim M.D. [email or web address] Company/store/[id number]
[2022-01-27 12:35] VITALS: BP 116/59; PULSE 73; O2SAT 99
[2022-01-27 12:57] LABS: Add Urine Microscopic? NO; Bilirubin Urine Neg (Negative); Blood Urine Neg (Negative); Glucose Urine UA 4+ (Normal); Ketones Urine Negative (Negative); Leukocyte Esterase Urine Negative (Negative); Nitrate Urine Negative (Negative); Protein Urine Neg (Negative); Urine Appearance Clear (CLEAR); Urine Color Straw (Yellow); Urobilinogen Urine Norm (Negative); pH Urine 5 (5-7)
[2022-01-27 12:58] LABS: Charge for UA Resulting for Rev
[2022-01-27 13:13] LABS: Basophils # 0.1 10^3/uL (0.0-0.1); Eosinophils # 0.2 10^3/uL (0.0-0.8); Hematocrit 39.6 % (37.0-47.0); Hemoglobin 13.1 g/dL (11.5-15.3); Mean Corpuscular HGB Conc 33.1 g/dL (30.0-36.0); Mean Corpuscular Hemoglobin 25.1 pg (28.0-34.0); Mean Corpuscular Volume 75.9 fl (81-99); Mean Platelet Volume 10.6 fL (7.4-10.4); Monocytes # 0.6 10^3/uL (0.2-0.9); Monocytes % 5.6 %; Neutrophils # 6.68 10^3/uL (1.8-7.7); Neutrophils % 62.9 %; Nucleated Red Blood Cells % 0 %; Platelet Count 360 10^3/cmm (130-400); Red Blood Count 5.22 10^6/uL (4.1-5.3); Red Cell Distribution Width 14.5 % (12.1-15.1); White Blood Count 10.6 10^3/uL (4.0-10.0)
[2022-01-27 13:35] VITALS: BP 119/59; PULSE 73; O2SAT 99
[2022-01-27] MEDS: hyoscyamine ODT 0.125 mg Tablet 0.25 MG PO (13:38)
[2022-01-27 14:00] LABS: Alanine Aminotransferase 15 U/L (0-33); Alkaline Phosphatase 108 IU/L (35-105); Anion Gap 16.7 (5-19); Aspartate Amino Transferase 16 U/L (0-32); Blood Urea Nitrogen 13 mg/dL (8-23); Calcium 9.7 mg/dL (8.5-10.5); Carbon Dioxide 27 mmol/L (22-29); Chloride 101 mmol/L (98-107); Globulin 3.1 g/dL (1.3-4.6); Glucose 131 mg/dL (65-115); NT Pro B Type Natriuretic Pept 296 pg/mL (0-125); Osmolality Calculated 294 mOsm/kg (285-295); Potassium 3.7 mmol/L (3.5-5.1); Sodium 141 mmol/L (136-145); Thyroid Stimulating Hormone 1.82 uIU/mL (0.27-4.20); Total Bilirubin 0.3 mg/dL (0.15-1.2); Total Protein 7.1 g/dL (6.6-8.7)
[2022-01-27 14:02] LABS: Alcohol Level < 10 mg/dL (0-10)
[2022-01-27 14:30] VITALS: BP 132/71; PULSE 74; O2SAT 100
[2022-01-27 15:00] VITALS: BP 105/58; PULSE 76; O2SAT 100
== END 2022-01-27 15:02 | disposition home or self-care (01) ==
PROVIDERS: Emergency Provider Emergency Medicine; PCP Family Medicine
DX: K59.00 Constipation, unspecified (principal); E11.9 Type 2 diabetes mellitus without complications; G89.29 Other chronic pain; M54.50 Low back pain, unspecified; Z79.4 Long term (current) use of insulin; Z87.891 Personal history of nicotine dependence
CPT/HCPCS: 36415; 71045; 74176; 80053; 80307; 81003; 83880; 84443; 85025; 93005; 99285

== ENCOUNTER 2022-02-05 07:55 | Outpatient (CLI) | payer MEDICARE, MEDICAID, SELFPAY ==
--- NOTE | 2022-02-05 08:00 | US_ITS ---
WS: [id number] Complete ABDOMINAL ULTRASOUND HISTORY: right upper quadrant pain and abdominal swelling COMPARISON: CT 01/27/2022 Liver: 15.3 cm in length. Liver is top normal size. Moderate coarse echotexture throughout the liver is probably due to hepatic steatosis. No mass or bile duct dilatation. Portal Vein: Portal vein not imaged or evaluated. Gallbladder: Prior cholecystectomy. Pancreas: Mild atrophy of the pancreas. CBD: 0.7 cm. Right kidney: 9.5 cm x 4.3 cm x 4.1 cm. Normal size kidney with mild cortical atrophy. No obstructio n or mass. Left kidney: 9.5 cm x 4.4 cm x 4.6 cm. Normal size kidney with mild cortical atrophy. No obstruction or mass. Spleen: Poorly visualized. Not enlarged. Lobulated appearance to the spleen also noted on a prior CT of 01/27/2022. Abdominal aorta and IVC are within normal limits. No ascites. US/US abdomen complete* [id number] IMPRESSION: 1. Status post cholecystectomy. 2. Top normal size liver with moderate hepatic steatosis. 3. Normal size kidneys with mild bilateral cortical atrophy.
== END 2022-02-05 07:56 | disposition home or self-care (01) ==
LOC: RAD 07:56
PROVIDERS: PCP Family Medicine; Visit Provider Nurse Practitioner Family
DX: R10.11 Right upper quadrant pain (principal); R19.00 Intra-abdominal and pelvic swelling, mass and lump, unspecified site; Z90.49 Acquired absence of other specified parts of digestive tract; K76.0 Fatty (change of) liver, not elsewhere classified
CPT/HCPCS: 76700

== ENCOUNTER 2022-02-06 10:22 | Emergency (ER) | payer MEDICARE, MEDICAID, SELFPAY ==
[2022-02-06] VITALS (9 sets, daily range): BP systolic 84–129; BP diastolic 34–80; PULSE 72–89; RESP 14–26; TEMP 37.1–39.5; O2SAT 91–95; BMI 29.9
--- NOTE | 2022-02-06 11:17 | CT_ITS ---
WS: [id number] CT NECK WITH CONTRAST HISTORY: possible neck infection TECHNIQUE: Contiguous 5 mm axial images are performed through the neck with intravenous contrast. Sag ittal and coronal reformats are also submitted. All CT scans at [facility] use at least one o f these dose optimization techniques: automated exposure control; mA and/or kV adjustment per patient size (includes targeted exams where dose is matched to clinical indication); or iterative reconstruc tion. CONTRAST: CONTRAST: Omnipaque 350; 95 mL IV. DLP: 236.01 mGy.cm COMPARISON: Cervical spine CT 08/15/2017 Nasopharynx, oropharynx, hypopharynx and larynx are unremarkable. No soft tissue masses or abnormal e nhancement. Torus tubarius and fossa of Rosenmuller and parapharyngeal fat are normal. Small benign cervical chain lymph nodes. The largest lymph node at level IIa on the RIGHT measures 9 mm. Thyroid gland and salivary glands are normally enhancing with no masses. Mild curvature of the cervical spine. Mild straightening with degenerative disc disease most signific ant at C5-6. Facet joints are normally aligned. Visualized portions of the skull base demonstrate no abnormalities. Orbits and globes are within norm al limits. No soft tissue masses. Visualized paranasal sinuses and mastoid air cells are normal. Lung apices are clear. CT/CT neck w con* [id number] IMPRESSION: 1. No neck mass or abscess. 2. No significant adenopathy. 3. Mild degenerative cervical scoliosis and moderate degenerative disc disease at C5-6.
--- NOTE | 2022-02-06 11:17 | XRR_ITS ---
PROCEDURE INFORMATION: Exam: XR Chest Exam date and time: 02/06/2022 11:23 AM Age: 71 years old Clinical indication: Patient HX: Trouble swallowing, weakness and fever for a few days TECHNIQUE: Imaging protocol: Radiologic exam of the chest. Views: 1 view. Total images: 1 COMPARISON: CR (CHEST, ) 01/27/2022 1:14 PM FINDINGS: Lungs: Unremarkable. No consolidation. Pleural spaces: Unremarkable. No pleural effusion. No pneumothorax. Heart/Mediastinum: Unremarkable. No cardiomegaly. Diaphragm: There is nonspecific elevation of the right hemidiaphragm. Bones/joints: Unremarkable. XR/XR chest 1V portable [id number] IMPRESSION: No acute cardiopulmonary process.
[2022-02-06 11:20] LABS: Glucose Point of Care 83 mg/dL (70-110)
--- NOTE | 2022-02-06 11:21 | ED_ITS ---
HPI - General Adult General: Chief complaint: Fever Stated complaint: DIFFICULTY SWALLOWING, FEVER Time Seen by Provider: 02/06/22 11:05 History of Present Illness: 71-year-old female history of diabetes, bilateral blindness, chronic migraine presenting to the emergency room for complaints of fever /chills and throat pain. Patient tells me for last week, she has noticed difficulty swallowing and pain in the anterior throat. Patient reports mild voice change and drooling. Patient says that the symptom has worsened over the last week. Patient has any cough, no sore throat, chest pain or shortness of breath. Patient denies any abdominal complaints nausea/vomiting diarrhea, m david/hematochezia. No complaints. No sick contact rub. Patient denies any runny nose, body ache or loss of taste. Onset: 1 week ago Duration:1 week Location:home Severity:moderate Associated symptoms: Deny chest pain, dyspnea, nausea, rash, palpitations or vomiting Review of Systems Const: Reports: fever(s), chills and fatigue Eyes: Denies: change in vision ENMT: Reports: other (+throat and neck pain); Denies: mouth pain Card: Denies: chest pain or palpitations Resp: Denies: dyspnea or non-productive cough GI: Denies: abdominal pain, nausea, vomiting or diarrhea : Denies: dysuria Musc: Denies: extremity pain Skin/Breast: Denies: rash or new lesions Neuro: Denies: weakness in extremities Psych: Reports: other (Normal mood) Alec/Lymph: Denies: easy bruising PFSH ED PFSH: Medical History Abdominal pain Blindness Cholecystectomy planned Chronic migraine Chronic migraine Colonoscopy planned Diabetes mellitus type 2 in nonobese She reports DM1 Encounter for long-term use of opiate analgesic Generalized anxiety disorder GERD (gastroesophageal reflux disease) Major depressive disorder, recurrent severe without psychotic features Obstructive pyelonephritis Opioid contract exists Psychiatric care Recurrent UTI Right ureteral calculus Smoker Spondylosis without myelopathy or radiculopathy, lumbosacral region Urolithiasis Surgical History H/O tubal ligation History of cholecystectomy History of hysteroscopy Hx of dilation and curettage 09/14/19 [facility] Family History Father , at age 76 CHF (congestive heart failure) Mother Acute arthritis Other CAD (coronary artery disease) Cancer Social History Smoking and tobacco status: former smoker Alcohol intake: never Adopted: No Caregiver/support person: Yes Lives independently: Yes Housing: House Marital status: Current occupational status: disabled History of recent travel: No Physical Exam Const: COMMON NORMALS: alert HENMT: COMMON NORMALS: atraumatic HEAD & SCALP: atraumatic MOUTH: moist mucous membranes not abnormal OTHER: + No posterior oropharyngeal erythema, exudate or tonsillar swelling, no uvula deviation Eye: COMMON NORMALS: EOMs intact bilaterally and conjunctivae normal CONJUNCTIVA: Yes conjunctivae normal Neck/C-Spine: COMMON NORMALS: full ROM and supple Resp: COMMON NORMALS: normal respiratory effort and clear to auscultation bilaterally AUSCULTATION: clear to auscultation bilaterally Cardio: COMMON NORMALS: regular rate RATE: regular rate GI: COMMON NORMALS: Soft to palpation and non-tender PALPATION: Yes Soft to palpation Extremity: COMMON NORMALS: full ROM Neuro: SENSORIUM/ORIENTATION: Yes alert MOTOR EXAM: No Abnormal motor strength present and Other motor observations present (no focal motor deficits) Psych: COMMON NORMALS: speech normal SPEECH: Yes normal speech MOOD & AFFECT: Yes euthymic mood Course Vital Signs: Vital signs: Vital Signs Temperature 98.8 F 02/06/22 13:00 Pulse Rate 75 02/06/22 17:35 Respiratory Rate 14 02/06/22 17:00 Blood Pressure 116/77 02/06/22 17:35 Pulse Oximetry 95 02/06/22 17:35 Oxygen Delivery Me thod 02/06/22 17:00 Oxygen Flow Rate 2 02/06/22 10:28 MDM - General Adult Medical Decision Making 71-year-old female history of diabetes, bilateral blindness, chronic migraine presenting to the emergency room for complaints of fever /chills and throat pain. Patient tells me for last week, she has noticed difficulty swallowing and pain in the anterior throat. On physical exam, she is noted to have a fever today. Continues to be hemodynamically stable. There is no oropharyngeal c ompromise. No signs of respiratory distress for upper airway obstruction. CT of the neck negative for any acute finding. CT of the chest showed possible distal esophageal lesion. UA is consistent with UTI. At the present time, suspect the patient's source of fever is likely related to UTI. Patient received ABX, IVF and Tylenol. Patient's temperature improved on reassessment. Patient reports feeling symptomatically improved. Patient's COVID/influenza/strep swabs are negative. I discussed case with Dr. Cardona in regards to the distal esophageal lesion at which point he recommended outpatient follow-up. Do not suspect this to esophageal lesion as a cause of patient's sepsis. I have given patient follow up with our dependency case manager to be seen by our outpatient by Dr. Cardona for distal esophageal lesion. Patient aware of a call from our dependency case manager to schedule for appointment(s) and verbalizes understanding of the importance of following up. Rx bactrim for UTI Disposition: Discharge. Patient counseled regarding diagnostic impression, treatment plan. Patient given ED strict return precautions to return for continuation, worsening, or development of new symptoms. Instructed to f/u w/ PCP and Dr. Cardona regarding symptoms today. Patient verbalized understanding. She is given strict return precaution for any signs of pyelonephritis or any other new concerning complaints Lab Data : 02/06/22 11:18 02/06/22 11:18 Radiology Impressions Chest X-Ray 02/06/22 11:17 IMPRESSION: No acute cardiopulmonary process. Neck CT 02/06/22 11:17 IMPRESSION: 1. No neck mass or abscess. 2. No significant adenopathy. 3. Mild degenerative cervical scoliosis and moderate degenerative disc disease at C5-6. Chest CT 02/06/22 14:13 IMPRESSION: 1. No pneumonia. 2. RIGHT lower lobe subsegmental atelectasis. 3. Fluid distended esophagus and possible mass in the distal esophagus. Recommend endoscopy for further evaluation. 4. Bilateral breast implants. 5. Prior cholecystectomy. Laboratory Results WBC 12.8 10^3/uL (4.0-10.0) H 02/06/22 11:18 RBC 4.67 10^6/uL (4.1-5.3) 02/06/22 11:18 Hgb 11.9 g/dL (11.5-15.3) 02/06/22 11:18 Hct 37.9 % (37.0-47.0) 02/06/22 11:18 MCV 81.2 fl (81-99) 02/06/22 11:18 MCH 25.5 pg (28.0-34.0) L 02/06/22 11:18 MCHC 31.4 g/dL (30.0-36.0) 02/06/22 11:18 RDW 16.2 % (12.1-15.1) H 02/06/22 11:18 Plt Count 368 10^3/cmm (130-400) 02/06/22 11:18 MPV 10.9 fL (7.4-10.4) H 02/06/22 11:18 Neut % (Auto) 77.0 % 02/06/22 11:18 Lymph % (Auto) 14.4 % 02/06/22 11:18 [place] % (Auto) 6.0 % 02/06/22 11:18 Eos % (Auto) 1.6 % 02/06/22 11:18 Baso % (Auto) 0.6 % 02/06/22 11:18 Neut # (Auto) 9.85 10^3/uL (1.8-7.7) H 02/06/22 11:18 Lymph # (Auto) 1.9 10^3/uL (0.8-4.8) 02/06/22 11:18 [place] # (Auto) 0.8 10^3/uL (0.2-0.9) 02/06/22 11:18 Eos # (Auto) 0.2 10^3/uL (0.0-0.8) 02/06/22 11:18 Baso # (Auto) 0.1 10^3/uL (0.0-0.1) 02/06/22 11:18 Nucleated RBC % (auto) 0 % 02/06/22 11:18 Nucleated RBCs # 0.0 /100WBC 02/06/22 11:18 Sodium 140 mmol/L (136-145) 02/06/22 11:18 Potassium 3.9 mmol/L (3.5-5.1) 02/06/22 11:18 Chloride 101 mmol/L (98-107) 02/06/22 11:18 Carbon Dioxide 30 mmol/L (22-29) H 02/06/22 11:18 Anion Gap 12.9 (5-19) 02/06/22 11:18 BUN 6 mg/dL (8-23) L 02/06/22 11:18 Creatinine 0.9 mg/dL (0.5-0.9) 02/06/22 11:18 GFR Calculation Not Reportable 02/06/22 11:18 Glucose 83 mg/dL (65-115) 02/06/22 11:18 POC Glucose 83 mg/dL (70-110) 02/06/22 11:17 Calculated Osmolality 287 mOsm/kg (285-295) 02/06/22 11:18 Calcium 8.7 mg/dL (8.5-10.5) 02/06/22 11:18 Total Bilirubin 0.6 mg/dL (0.15-1.2) 02/06/22 11:18 AST 162 U/L (0-32) H 02/06/22 11:18 ALT 203 U/L (0-33) H 02/06/22 11:18 Alkaline Phosphatase 138 IU/L (35-105) H 02/06/22 11:18 Troponin T Baseline 8 ng/L (0-10) 02/06/22 11:18 Troponin T 120 Minute 7.02 ng/L (0-10) 02/06/22 13:25 Delta Troponin T -0.98 ABS# (0-10) L 02/06/22 13:25 Total Protein 6.6 g/dL (6.6-8.7) 02/06/22 11:18 Albumin 3.8 g/dL (3.5-5.2) 02/06/22 11:18 Globulin 2.8 g/dL (1.3-4.6) 02/06/22 11:18 Lipase 7 U/L (13-60) L 02/06/22 11:18 Urine Color Yellow (Yellow) 02/06/22 13:35 Urine Appearance Cloudy (CLEAR) 02/06/22 13:35 Urine pH 5 (5-7) 02/06/22 13:35 Ur Specific [place] 1.010 (1.005-1.030) 02/06/22 13:35 Urine Protein Neg (Negative) 02/06/22 13:35 Urine Glucose (UA) Norm (Normal) 02/06/22 13:35 Urine Ketones Negative (Negative) 02/06/22 13:35 Urine Blood Neg (Negative) 02/06/22 13:35 Urine Nitrate Positive (Negative) H 02/06/22 13:35 Urine Bilirubin Neg (Negative) 02/06/22 13:35 Urine Urobilinogen Norm mg/dL (Negative) 02/06/22 13:35 Ur Leukocyte Esterase 2+ (Negative) H 02/06/22 13:35 Urine RBC 0-4 /hpf (0-2) H 02/06/22 13:35 Urine WBC 25-40 /hpf (0-5) H 02/06/22 13:35 Ur Squamous Epith Cells 0-4 /hpf (0-5) H 02/06/22 13:35 Amorphous Sediment Not Reportable 02/06/22 13:35 Urine Bacteria 2+ /hpf (NONE) H 02/06/22 13:35 Coronavirus 229E (PCR) Not detected (NOT DETECT) 02/06/22 11:18 Influenza Type A Ag Negative (Negative) 02/06/22 13:35 Influenza Type B Ag Negative (Negative) 02/06/22 13:35 SARS-CoV-2 (PCR) Not detected (NOT DETECT) 02/06/22 11:18 Group A Strep Rapid Negative (Negative) 02/06/22 11:18 Imaging Data Other Imaging: Radiologist's impression: [place] [address] CT Scan Report Signed Patient: Jackie Romero Unit #: [id number] : 1950 Age/Sex: 71 / F ADM Date: 02/06/22 Loc: ER Room/Bed: Attending Dr: Ordering Provider/Ordering MD: Ambrose Warren MD Date of Service: 02/06/22 Procedure(s): CT chest w con* [id number] Accession Number(s): [id number] Report Number: [id number] WS: [email or web address] CT CHEST WITH INTRAVENOUS CONTRAST HISTORY: Chest pain, fever and weakness. Chest tightness and difficulty swallowing. TECHNIQUE: Contiguous 5 mm axial imaging performed on the thorax. Coronal and sagittal reformats are submitted.? All CT scans at [facility] use at least one of these dose optimization techniques: automated exposure control; mA and/or kV adjustment per patient size (includes targeted exams where dose is m atched to clinical indication); or iterative reconstruction. CONTRAST: Omnipaque 350; 80 mL IV. DLP: 388.21 mGy.cm COMPARISON: None available. Lungs and central airway: Subsegmental area of increased consolidation in the posterior inferior RIGHT lower lobe consistent with atelectasis. There is some very mild additional stranding in the RIGHT lower lobe from atelectasis. No mass or nodule. No pneumothorax. Very mild central bile duct dilatation may be on the basis of cholecystectomy. Pleura: Normal. No pleural effusion. Heart and pericardium: Normal size heart with no pericardial effusion. Mediastinum and jorge: Fluid within the upper esophagus. There is fluid noted in the esophagus beginning in the upper thoracic esophagus and extending inferiorly. Mild tortuosity of the esophagus. Increased soft tissue at the GE junction. Suspicious but indeterminate for soft tissue mass measuring 18 x 16 mm in the distal esophagus. Vessels: Mild atherosclerosis. No aneurysm of aorta. Normal size pulmonary artery. Chest wall and lower neck: Bilateral breast implants. Upper abdomen: Hepatic steatosis. Prior cholecystectomy. Visualized portal vein is normal. No adrenal mass. Lobulated spleen. Adjacent splenule. Marked atrophy of the pancreas. No bile duct dilatation. Osseous structures: Mild thoracolumbar scoliosis. No destructive bone lesions. CT/CT chest w con* [id number] IMPRESSION: ? 1.? No pneumonia. 2.? RIGHT lower lobe subsegmental atelectasis. 3.? Fluid distended esophagus and possible mass in the distal esophagus. Recommend endoscopy for further evaluation. 4.? Bilateral breast implants. 5.? Prior cholecystectomy. ? ? ? Dictated By: Chayito Chu DO Signed By: Chayito Chu DO Signed Date/Time: 02/06/22 1503 DD/ [address] [address] [address] Scan Report Signed Patient: Jackie Romero Unit #: [id number] : 1950 Age/Sex: 71 / F ADM Date: 02/06/22 Loc: ER Room/Bed: Attending Dr: Ordering Provider/Ordering MD: Ambrose Warren MD Date of Service: 02/06/22 Procedure(s): CT neck w con* [id number] Accession Number(s): [id number] Report Number: [id number] WS: [email or web address] CT NECK WITH CONTRAST HISTORY: possible neck infection TECHNIQUE: Contiguous 5 mm axial images are performed through the neck with intravenous contrast. Sagittal and coronal reformats are also submitted.? All CT scans at [facility] use at least one of these dose optimization techniques: automated exposure control; mA and/or kV adjustment per patient size (includes targeted exams where dose is matched to clinical indication); or iterative reconstruction. CONTRAST: CONTRAST: Omnipaque 350; 95 mL IV. DLP: 236.01 mGy.cm COMPARISON: Cervical spine CT 08/15/2017 Nasopharynx, oropharynx, hypopharynx and larynx are unremarkable. No soft tissue masses or abnormal enhancement. Torus tubarius and fossa of Rosenmuller and parapharyngeal fat are normal. Small benign cervical chain lymph nodes. The largest lymph node at level IIa on the RIGHT measures 9 mm. Thyroid gland and salivary glands are normally enhancing with no masses. Mild curvature of the cervical spine. Mild straightening with degenerative disc disease most significant at C5-6. Facet joints are normally aligned. Visualized portions of the skull base demonstrate no abnormalities. Orbits and globes are within normal limits. No soft tissue masses. Visualized paranasal sinuses and mastoid air cells are normal. Lung apices are clear. CT/CT neck w con* [id number] IMPRESSION: ? 1.? No neck mass or abscess. 2.? No significant adenopathy. 3.? Mild degenerative cervical scoliosis and moderate degenerative disc disease at C5-6. ? Dictated By: Chayito Chu DO Signed By: Chayito Chu DO Signed Date/Time: 02/06/22 1257 DD/ [address] [address] XRay Report Signed Patient: Jackie Romero Unit #: [id number] : 1950 Age/Sex: 71 / F ADM Date: 02/06/22 Loc: ER Room/Bed: Attending Dr: Ordering Provider/Ordering MD: Ambrose Warren MD Date of Service: 02/06/22 Procedure(s): XR chest 1V portable [id number] Accession Number(s): [id number] Report Number: [id number] PROCEDURE INFORMATION: Exam: XR Chest Exam date and time: 02/06/2022 11:23 AM Age: 71 years old Clinical indication: Patient HX: Trouble swallowing, weakness and fever for a few days TECHNIQUE: Imaging protocol: Radiologic exam of the chest. Views: 1 view. Total images: 1 COMPARISON: CR (CHEST, ) 01/27/2022 1:14 PM FINDINGS: Lungs: Unremarkable. No consolidation. Pleural spaces: Unremarkable. No pleural effusion. No pneumothorax. Heart/Mediastinum: Unremarkable. No cardiomegaly. Diaphragm: There is nonspecific elevation of the right hemidiaphragm. Bones/joints: Unremarkable. XR/XR chest 1V portable [id number] IMPRESSION: No acute cardiopulmonary process. ? Dictated By: Jensen Tan MD Signed By: Jensen Tan MD Signed Date/Time: 02/06/22 1201 DD/ 1123 Discharge Plan Discharge Patient Disposition: Home Clinical Impression: Acute UTI, Fever Condition: Stable Prescriptions: New acetaminophen 500 mg tablet 500 mg PO Q6H PRN (Reason: pain) 5 Days Qty: 20 0RF Bactrim 400-80 mg tablet 1 tab PO BID 10 Days Qty: 20 0RF No Action furosemide 20 mg tablet 20 mg PO DAILY@08 Levemir FlexTouch U-100 Insuln 100 unit/mL (3 mL) insulin pen 30 unit SUBCUT BEDTIME@2000 tramadol 50 mg tablet 50 mg PO QID PRN (Reason: Pain) methenamine hippurate 1 gram tablet 1 g PO BID Qty: 60 12RF Hold Instructions: temporary hold Rx Instructions: Take 1000 mg of vitamin C with each dose of methenamine oxybutynin chloride 10 mg tablet extended release 24hr 10 mg PO BID omeprazole 40 mg capsule,delayed release(DR/EC) 40 mg PO BID Qty: 60 12RF pregabalin 25 mg capsule 25 mg PO TID lorazepam [Ativan] 1 mg tablet 1 mg PO BID PRN (Reason: severe anxiety) Qty: 60 3RF Rx Instructions: Take one tablet twice per day as needed for severe anxiety trazodone 50 mg tablet 50 mg PO BEDTIME PRN (Reason: insomnia) Qty: 30 2RF ondansetron HCl [Zofran] 4 mg Tablet 4 mg PO Q4H PRN (Reason: Nausea And Vomiting) loratadine [Claritin] 10 mg Tablet 10 mg PO DAILY@0800 Hair, Skin, Nails with Biotin 7.5-7.5-1,250 mg-unit-mcg Tablet,Chewable 2 tab PO DAILY Qty: 0 meclizine 25 mg tablet 25 mg PO BID@08,16 acetaminophen 500 mg Tablet 500 mg PO Q4H PRN (Reason: Pain) docusate sodium [Colace] 100 mg Capsule 100 mg PO BEDTIME Azo Cranberry 250 mg Tablet,Chewable 500 mg PO DAILY Qty: 0 insulin aspart U-100 [Novolog Flexpen U-100 Insulin] 100 unit/mL (3 mL) insulin pen See Rx Instructions .ROUTE .COMPLEX Rx Instructions: sliding sclae tid prn PreserVision AREDS-2 250-90-40-1 mg capsule 1 tab PO BID Multivitamins 28 mg iron- 800 mcg tablet 1 tab PO DAILY@08 Lamictal 25 mg tablet 50 mg PO BID Rx Instructions: Take two tablets every morning and two tablets in evening with supper Discharge Orders: Discharge ED (Routine); Ordered 02/06/22 Ordered By: Ambrose Warren Referrals: Cisco Sevilla MD [Primary Care Provider] - Discharge Diet: Advance as tolerated Discharge Activity: Increase activity as tolerated Patient Instructions: Dysuria (ED) Activity Restrictions/Additional Instructions: Please take your antibiotics as instructed. Watch out for signs of skin changes/redness, mouth redeness or swelling, nausea/vomiting, diarrhea, blood in the urine or any new or concering complaints. Come back to the emergency room for any fever/chills, flank pain, nausea/vomiting, or any new external complaints. Coding Level of Care Code ED Communications Tower Climber for Noemi Fwfior Exam Comprehensive
[2022-02-06 11:31] LABS: Basophils # 0.1 10^3/uL (0.0-0.1); Basophils % 0.6 %; Eosinophils # 0.2 10^3/uL (0.0-0.8); Eosinophils % 1.6 %; Hematocrit 37.9 % (37.0-47.0); Hemoglobin 11.9 g/dL (11.5-15.3); Lymphocytes # 1.9 10^3/uL (0.8-4.8); Lymphocytes % 14.4 %; Mean Corpuscular HGB Conc 31.4 g/dL (30.0-36.0); Mean Corpuscular Hemoglobin 25.5 pg (28.0-34.0); Mean Corpuscular Volume 81.2 fl (81-99); Mean Platelet Volume 10.9 fL (7.4-10.4); Monocytes # 0.8 10^3/uL (0.2-0.9); Neutrophils # 9.85 10^3/uL (1.8-7.7); Nucleated Red Blood Cells % 0 %; Platelet Count 368 10^3/cmm (130-400); Red Blood Count 4.67 10^6/uL (4.1-5.3); Red Cell Distribution Width 16.2 % (12.1-15.1); White Blood Count 12.8 10^3/uL (4.0-10.0)
[2022-02-06 11:36] LABS: Rapid Strep A Test Negative (Negative)
[2022-02-06 12:05] LABS: Troponin(5th) Baseline 8 ng/L (0-10)
[2022-02-06 12:08] LABS: Alanine Aminotransferase 203 U/L (0-33); Albumin Level 3.8 g/dL (3.5-5.2); Alkaline Phosphatase 138 IU/L (35-105); Anion Gap 12.9 (5-19); Aspartate Amino Transferase 162 U/L (0-32); Blood Urea Nitrogen 6 mg/dL (8-23); Calcium 8.7 mg/dL (8.5-10.5); Carbon Dioxide 30 mmol/L (22-29); Chloride 101 mmol/L (98-107); Globulin 2.8 g/dL (1.3-4.6); Glucose 83 mg/dL (65-115); Lipase 7 U/L (13-60); Osmolality Calculated 287 mOsm/kg (285-295); Potassium 3.9 mmol/L (3.5-5.1); Sodium 140 mmol/L (136-145); Total Bilirubin 0.6 mg/dL (0.15-1.2); Total Protein 6.6 g/dL (6.6-8.7)
--- NOTE | 2022-02-06 12:13 | ECG_ITS ---
[facility] Test Date: 2022-02-06 Pat Name: Jackie Romero Department: Room: Gender: Female Biophysics Scientist: : 1950 Requested By: Ambrose Warren Order Number: [id number] Aubree MD: Deisy Moreland M.D. Measurements Intervals [place] Rate: 80 P: 59 LA: 160 QRS: -6 QRSD: 88 T: 44 QT: 392 QTc: 453 Interpretive Statements SINUS RHYTHM LOW QRS VOLTAGE IN PRECORDIAL LEADS [QRS DEFLECTION < 1.0 mV IN CHEST LEADS] NONSPECIFIC T-WAVE ABNORMALITY Compared to ECG 01/27/2022 12:48:02 T-wave abnormality now present Electronically Signed On 02-07-2022 18:48:24 CDT by Deisy Moreland M.D. [id number]
[2022-02-06] MEDS: iohexol 350 mg/mL 100 mL Btl IV ×2 (12:31→14:48)
[2022-02-06] MEDS: acetaminophen 500 mg Tablet 1000 MG PO (12:41)
[2022-02-06] MEDS: sodium chloride 0.9% 1,000 ML 999 ML IV ×2 (12:42→14:57)
--- NOTE | 2022-02-06 12:48 | PC.NURSE ---
PT PLACED ON CONTINUOUS NIBP, SPO2, AND CM
[2022-02-06 13:13] LABS: Adenovirus Not Detected (NOT DETECT); Chlamydia Pneumoniae Not Detected (NOT DETECT); Coronavirus 229E,HKU1,NL63,OC4 Not Detected (NOT DETECT); Human Metapneumovirus Not Detected (NOT DETECT); Human Rhinovirus/Enterovirus Not Detected (NOT DETECT); Influenza A Not Detected (NOT DETECT); Influenza A H1 Not Detected (NOT DETECT); Influenza A H1-2009 Not Detected (NOT DETECT); Influenza A H3 Not Detected (NOT DETECT); Influenza B Not Detected (NOT DETECT); Mycoplasma Pneumoniae Not Detected (NOT DETECT); Parainfluenza Virus Type 1 Not Detected (NOT DETECT); Parainfluenza Virus Type 2 Not Detected (NOT DETECT); Parainfluenza Virus Type 3 Not Detected (NOT DETECT); Parainfluenza Virus Type 4 Not Detected (NOT DETECT); Respiratory Syncytial Virus A Not Detected (NOT DETECT); Respiratory Syncytial Virus B Not Detected (NOT DETECT); SARS-COV-2 Not Detected (NOT DETECT)
--- NOTE | 2022-02-06 13:18 | ECG_ITS ---
[facility] Test Date: 2022-02-06 Pat Name: Jackie Romero Department: Room: Gender: Female Bias Cutter: : 1950 Requested By: Ambrose Warren Order Number: [id number] Reading MD: Deisy Moreland M.D. Measurements Intervals [place] Rate: 80 P: 67 [place]: 159 QRS: -14 QRSD: 90 T: 48 QT: 390 QTc: 452 Interpretive Statements SINUS RHYTHM LOW QRS VOLTAGE IN PRECORDIAL LEADS [QRS DEFLECTION < 1.0 mV IN CHEST LEADS] POSSIBLE ANTERIOR MYOCARDIAL INFARCTION , OF INDETERMINATE AGE [30 ms Q WAVE IN V3/V4, OR R < 0.2 mV IN V4] Compared to ECG 02/06/2022 12:13:28 Myocardial infarct finding now present T-wave abnormality no longer present Electronically Signed On 02-07-2022 19:01:11 CDT by Deisy Moreland M.D. [id number]
[2022-02-06 14:12] LABS: Troponin 5 2HR 7.02 ng/L (0-10)
--- NOTE | 2022-02-06 14:13 | CT_ITS ---
WS: [id number] CT CHEST WITH INTRAVENOUS CONTRAST HISTORY: Chest pain, fever and weakness. Chest tightness and difficulty swallowing. TECHNIQUE: Contiguous 5 mm axial imaging performed on the thorax. Coronal and sagittal reformats are submitted. All CT scans at [facility] use at least one of these dose optimization techniques: automated exposure control; mA and/or kV adjustment per patient size (includes targeted exams where dose is matched to clinical indication); or iterative reconstruction. CONTRAST: Omnipaque 350; 80 mL IV. DLP: 388.21 mGy.cm COMPARISON: None available. Lungs and central airway: Subsegmental area of increased consolidation in the posterior inferior RIGH T lower lobe consistent with atelectasis. There is some very mild additional stranding in the RIGHT l ower lobe from atelectasis. No mass or nodule. No pneumothorax. Very mild central bile duct dilatatio n may be on the basis of cholecystectomy. Pleura: Normal. No pleural effusion. Heart and pericardium: Normal size heart with no pericardial effusion. Mediastinum and jorge: Fluid within the upper esophagus. There is fluid noted in the esophagus beginni ng in the upper thoracic esophagus and extending inferiorly. Mild tortuosity of the esophagus. Increa sed soft tissue at the GE junction. Suspicious but indeterminate for soft tissue mass measuring 18 x 16 mm in the distal esophagus. Vessels: Mild atherosclerosis. No aneurysm of aorta. Normal size pulmonary artery. Chest wall and lower neck: Bilateral breast implants. Upper abdomen: Hepatic steatosis. Prior cholecystectomy. Visualized portal vein is normal. No adrenal mass. Lobulated spleen. Adjacent splenule. Marked atrophy of the pancreas. No bile duct dilatation. Osseous structures: Mild thoracolumbar scoliosis. No destructive bone lesions. CT/CT chest w con* [id number] IMPRESSION: 1. No pneumonia. 2. RIGHT lower lobe subsegmental atelectasis. 3. Fluid distended esophagus and possible mass in the distal esophagus. Recomm end endoscopy for further evaluation. 4. Bilateral breast implants. 5. Prior cholecystectomy.
[2022-02-06 14:27] LABS: Add Urine Microscopic? YES; Bilirubin Urine Neg (Negative); Blood Urine Neg (Negative); Glucose Urine UA Norm (Normal); Ketones Urine Negative (Negative); Leukocyte Esterase Urine 2+ (Negative); Nitrate Urine Positive (Negative); Protein Urine Neg (Negative); Urine Appearance Cloudy (CLEAR); Urine Color Yellow (Yellow); Urobilinogen Urine Norm (Negative); pH Urine 5 (5-7)
[2022-02-06 14:28] LABS: Bacteria Urine 2+ /hpf; RBC Urine 0-4 /hpf (0-2); Squamous Epithelial Cell Urine 0-4 /hpf (0-5); WBC Urine 25-40 /hpf (0-5)
[2022-02-06 14:29] LABS: Add Urine Culture? Yes; Influenza A by IFA Negative (Negative); Influenza B by IFA Negative (Negative)
[2022-02-06] MEDS: vancomycin 1,000 MG in sodium chloride 0.9% 250 ML 250 MG IV (14:56)
[2022-02-06] MEDS: piperacillin-tazobactam 4.5 GM in sodium chloride 0.9% (plus) 50 ML IV (16:08)
[2022-02-06 16:51] LABS: Troponin 5 2HR Delta -0.98 ABS# (0-10)
--- NOTE | 2022-02-07 10:16 | DCPLANNER ---
Addendum entered by Charo Diamond 02/19/22 13:40: Patient had a follow up appointment scheduled for 02.18.22 with general surgery - patient did attend appointment. Addendum entered by Charo Diamond 02/08/22 14:25: Patient has a follow up appointment scheduled for Friday, February 18, 2022 at 10:[address] Etienne at general surgery. Clinic will call patient with appointment information Original Note: scientific research manager had message to schedule a follow up appointment for patient with general surgery. scientific research manager sent patients information to the front office staff at general surgery. Patients information will be printed and reviewed. Clinic will call patient with appointment information.
== END 2022-02-06 17:37 | disposition home or self-care (01) ==
PROVIDERS: Emergency Provider Emergency Medicine; PCP Family Medicine
DX: N39.0 Urinary tract infection, site not specified (principal); Z79.4 Long term (current) use of insulin; E11.9 Type 2 diabetes mellitus without complications; Z87.440 Personal history of urinary (tract) infections; Z87.891 Personal history of nicotine dependence; Z20.822 Contact with and (suspected) exposure to COVID-19
CPT/HCPCS: 36415; 36416; 70491; 71045; 71260; 80053; 81001; 82962; 83690; 84484; 85025; 87040; 87077; 87081; 87086; 87186; 87635; 87804; 87880; 93005; 96365; 96367; 99285; J2543; J3370; J7030; J7050; Q9967

== ENCOUNTER → 2022-02-18 10:17 | Outpatient (BNVA) | payer MEDICARE, MEDICAID, SELFPAY | PROVIDERS: PCP Family Medicine; Visit Provider Surgery | DX: R10.9 Unspecified abdominal pain (principal); K59.00 Constipation, unspecified | CPT/HCPCS: 99203 ==

== ENCOUNTER → 2022-04-16 12:51 | Outpatient (BNVA) | payer MEDICARE, MEDICAID, SELFPAY | PROVIDERS: PCP Family Medicine; Visit Provider Surgery | DX: R49.0 Dysphonia (principal); K22.89 Other specified disease of esophagus; R07.0 Pain in throat; R13.10 Dysphagia, unspecified | CPT/HCPCS: 99213 ==

== ENCOUNTER 2022-04-19 09:46 | Day surgery (SDC) | payer MEDICARE, MEDICAID, SELFPAY ==
[2022-04-17 12:08] VITALS: BMI 29.2
[2022-04-19 10:38] VITALS: BP 147/73; PULSE 74; RESP 16; TEMP 36.2; O2SAT 93
--- NOTE | 2022-04-19 10:41 | ANES.PREANE2 ---
Pre-Anesthetic Assessment Height/Weight: Height 1.57 m Weight 72.575 kg Preop Diagnosis: Dysphagia Operation Date: 04/19/22 11:30 Proposed Procedures p EGD 15689,R13.10,K2.89(Not Applicable) - Nilson Etienne DO Familial anesthetic complications: none Was Beta Gareth taken within 24 hours: N/A Social No alcohol and No tobacco Exam alert, oriented x 3, clear to auscultation bilaterally and regular rate & rhythm Airway Submandibular: within normal limits Cervical ROM: within normal limits Mallampati: Class II Dentition: false Pulmonary None reported CV/HEM None reported None reported Hepatic None reported GI Gastroesophageal Reflux Disease and Hiatal Hernia mass of esophagus Metabolic Diabetes Mellitus (type 1) Musc/skel None reported PRN wheelchair use due to sciatic nerve pain. Neuropsych Anxiety and Depression Anesthetic Plan ASA status: 3 Anesthesia: MAC Other: blind. Medications/Allergies Home Medications Medication Instructions Recorded Confirmed Last Taken Type furosemide 20 mg tablet 20 mg PO DAILY@08 07/19/19 04/19/22 04/18/22 History ascorbic acid 7.5 mg-vit E 7.5 2 tab PO DAILY ##0 02/27/20 04/19/22 04/18/22 History unit-biotin 1,250 mcg chewable tablet (Hair,Skin,Nails with Biotin) loratadine 10 mg tablet (Claritin) 10 mg PO DAILY@0800 02/27/20 04/19/22 04/18/22 History oxybutynin chloride 10 mg 10 mg PO BID 07/25/20 04/19/22 04/18/22 History tablet,extended release 24 hr acetaminophen 500 mg tablet 500 mg PO Q4H PRN Pain 04/06/21 04/19/22 04/18/22 History cranberry fruit concentrate 250 mg 500 mg PO DAILY ##0 04/06/21 04/19/22 04/18/22 History chewable tablet (Azo Cranberry) docusate sodium 100 mg capsule 100 mg PO BEDTIME 04/06/21 04/19/22 04/18/22 History (Colace) insulin aspart U-100 100 unit/mL See Rx Instructions .Route 04/06/21 04/19/22 04/18/22 History (3 mL) subcutaneous pen (Novolog .COMPLEX see pharmacy comments Flexpen U-100 Insulin aspart) vit no.95-ferrous 1 tab PO DAILY@08 08/20/21 04/19/22 04/18/22 History fumarate 28 mg-folic acid 800 mcg tablet ( Multivitamins) tramadol 50 mg tablet 50 mg PO QID PRN Pain 08/20/21 04/19/22 04/19/22 History vit C 250 mg-vit E 90 mg-zinc 40 1 tab PO BID 08/20/21 04/19/22 04/18/22 History mg-copper 1 oo-qhdnml-lgzzft capsule (PreserVision AREDS-2) lorazepam 1 mg tablet (Ativan) 1 mg PO BID PRN severe anxiety #60 12/24/21 04/19/22 04/19/22 Rx tabs trazodone 50 mg tablet 50 mg PO BEDTIME PRN insomnia #30 01/24/22 04/19/22 04/18/22 Rx tabs citalopram 20 mg tablet (Celexa) 20 mg PO .morning #30 tabs 02/14/22 04/19/22 04/18/22 Rx meclizine 25 mg tablet 25 mg PO BID@08,16 #180 tabs 03/01/22 04/19/22 04/18/22 Rx omeprazole 40 mg capsule,delayed 40 mg PO BID #180 caps 03/01/22 04/19/22 04/18/22 Rx release insulin detemir U-100 100 unit/mL 30 unit SUBCUT BID 03/19/22 04/19/22 04/18/22 History (3 mL) subcutaneous pen (Levemir FlexTouch U-100 Insulin) pregabalin 25 mg capsule 25 mg PO Q12H 04/16/22 04/19/22 04/19/22 History ondansetron HCl 4 mg tablet 4 mg PO Q4H PRN Nausea 04/17/22 04/19/22 04/18/22 History Allergies Allergy/AdvReac Type Severity Reaction Status Date / Time ceftriaxone Allergy Severe ALGY-Hives Verified 04/17/22 12:03 rivaroxaban [From Xarelto] Allergy Severe suicidial Verified 04/17/22 12:03 thoughts atorvastatin [From Lipitor] Allergy Unknown Unknown Verified 04/17/22 12:03 desvenlafaxine [From Pristiq] Allergy Unknown Unknown Verified 04/17/22 12:03 duloxetine [From Cymbalta] Allergy Unknown Unknown Verified 04/17/22 12:03 Penicillins Allergy Unknown Unknown Verified 04/17/22 12:03 ciprofloxacin Allergy ALGY-Hives Verified 04/19/22 10:28 gabapentin Allergy Unknown Verified 04/17/22 12:03 [facility] Anesthesia Medical History Abdominal pain Blindness Cholecystectomy planned Chronic migraine Chronic migraine Colonoscopy planned Diabetes mellitus type 2 in nonobese She reports DM1 Encounter for long-term use of opiate analgesic Generalized anxiety disorder GERD (gastroesophageal reflux disease) Major depressive disorder, recurrent severe without psychotic features Obstructive pyelonephritis Opioid contract exists Psychiatric care Recurrent UTI Right ureteral calculus Smoker Spondylosis without myelopathy or radiculopathy, lumbosacral region Urolithiasis Surgical History H/O tubal ligation History of cholecystectomy History of hysteroscopy Hx of colonoscopy Hx of dilation and curettage 09/14/19 [facility] Family History Father , at age 76 CHF (congestive heart failure) Mother Acute arthritis Other CAD (coronary artery disease) Cancer Social History Smoking and tobacco status: former smoker (Spouse is a smoker) Alcohol intake: never Adopted: No Caregiver/support person: Yes Lives independently: Yes Housing: House Marital status: Current occupational status: disabled History of recent travel: No Data Anesthesia Cardiac Studies: No Data to Display
[2022-04-19] MEDS: sodium chloride 0.9% 1,000 ML 30 ML IV (11:00)
[2022-04-19 11:20] LABS: Glucose Point of Care 143 mg/dL (70-110)
--- NOTE | 2022-04-19 11:45 | W.PM.OPSUD ---
Surgery/Procedure H&P Update DATE OF PROCEDURE: April 19, 2022 DATE H&P PERFORMED: 04/16/22 PREOP DIAGNOSIS: Dysphagia PLANNED PROCEDURE: Operation Date: 04/19/22 11:30 Proposed Procedures p EGD 01911,R13.10,K2.89(Not Applicable) - Nilson Etienne DO
[2022-04-19 12:09] VITALS: BP 118/73; PULSE 83; RESP 18; TEMP 36.1; O2SAT 96
[2022-04-19 12:14] VITALS: BP 126/80; PULSE 78; RESP 18; TEMP 36.3; O2SAT 94
[2022-04-19 12:20] VITALS: BP 127/81; PULSE 77; RESP 18; TEMP 36.2; O2SAT 94
[2022-04-19 12:35] VITALS: BP 123/68; PULSE 74; RESP 18; O2SAT 94
--- NOTE | 2022-04-19 14:03 | ANE.PACU2 ---
Inpatient post-anesthesia follow up: Airway intact: Yes Vital signs: Temperature 97.1 F Pulse Rate 74 Respiratory Rate 18 Blood Pressure 123/68 Pulse Oximetry 94 Oxygen Delivery Me thod Room Air Oxygen Flow Rate Fraction of Inspir ed Oxygen Hydration adequate: Yes Nausea and vomiting: No Pain level: 1 Mental status: Baseline
== END 2022-04-19 13:05 | disposition home or self-care (01) ==
PROVIDERS: PCP Family Medicine; Visit Provider Surgery
PROC: 0DJ08ZZ Inspection of Upper Intestinal Tract, Via Natural or Artificial Opening Endoscopic (ICD-10-PCS; CPT 43235; principal; 2022-04-19 11:30)
DX: R13.10 Dysphagia, unspecified (principal); K22.2 Esophageal obstruction; K29.50 Unspecified chronic gastritis without bleeding; B96.81 Helicobacter pylori [H. pylori] as the cause of diseases classified elsewhere; K21.9 Gastro-esophageal reflux disease without esophagitis; E11.9 Type 2 diabetes mellitus without complications; F32.A Depression, unspecified; F41.1 Generalized anxiety disorder; Z87.891 Personal history of nicotine dependence
CPT/HCPCS: 36416; 43239; 43249; 82962; 88305; J0330; J2704; J7030

== ENCOUNTER → 2022-04-29 12:53 | Outpatient (BNVA) | payer MEDICARE, MEDICAID, SELFPAY | PROVIDERS: PCP Family Medicine; Visit Provider Otolaryngology | DX: R49.0 Dysphonia (principal); K11.7 Disturbances of salivary secretion; Z87.891 Personal history of nicotine dependence | CPT/HCPCS: 31575; 99203; 99204 ==

== ENCOUNTER → 2022-04-30 16:29 | Outpatient (BNVA) | payer MEDICARE, MEDICAID, SELFPAY | PROVIDERS: PCP Family Medicine; Visit Provider Surgery | DX: K29.70 Gastritis, unspecified, without bleeding (principal); B96.81 Helicobacter pylori [H. pylori] as the cause of diseases classified elsewhere; K22.89 Other specified disease of esophagus | CPT/HCPCS: 99212 ==

== ENCOUNTER 2022-05-03 09:59 | Outpatient (CLI) | payer MEDICARE, MEDICAID, SELFPAY ==
--- NOTE | 2022-05-03 10:13 | CT_ITS ---
WS: [id number] Exam: CT chest w con* [id number] Date/Time of Exam: 05/03/2022 10:15 AM Reason For Exam: ESOPHAGEAL MASS DLP: 724.[address] scans at [facility] use at least one of these dose optimization techniques: automated e xposure control; mA and/or kV adjustment per patient size (includes targeted exams where dose is matc hed to clinical indication); or iterative reconstruction. Comparison 02/06/2022. The lungs are clear and fully expanded. No pleural effusion. No pericardial effusion noted. The airwa y is patent. The thoracic aorta is normal in caliber. No mediastinal or hilar lymphadenopathy noted. Intact bilateral breast implants. Small hiatal hernia noted. Again noted is eccentric thickening at t he gastroesophageal junction as previously described. Normal thyroid tissue. No destructive bone lesi ons are seen. On CT sections of the upper abdomen there are numerous low-attenuation densities in the liver some somewhat tubular shaped. This could represent hepatic vein thrombosis. This is incomplete ly visualized. This is a change since the previous study. There is also significant decrease in hepat ic steatosis reported previously. CT/CT chest w con* [id number] IMPRESSION: 1. No indication of pulmonary mass or nodule. 2. No significant lymphadenopathy in the chest. 3. Again noted is eccentric thickening at the gastroesophageal junction as prev iously described. No change. 4. Development of numerous low-attenuation densities in the liver some of which are tubular shaped. This might represent hepatic vein thrombosis. This is a ne w finding since the previous study. The liver is incompletely visualized. A ded icated contrast abdominal and pelvic CT scan using hepatic arterial and venous protocol recommended for further workup.
[2022-05-03] MEDS: iohexol 350 mg/mL 100 mL Btl IV (12:09)
== END 2022-05-03 10:00 | disposition home or self-care (01) ==
LOC: RAD 09:59
PROVIDERS: PCP Family Medicine; Visit Provider Surgery
DX: C15.9 Malignant neoplasm of esophagus, unspecified (principal)
CPT/HCPCS: 71260

== ENCOUNTER → 2022-05-07 16:24 | Outpatient (BNVA) | payer MEDICARE, MEDICAID, SELFPAY | PROVIDERS: PCP Family Medicine; Visit Provider Surgery | DX: Z09 Encounter for follow-up examination after completed treatment for conditions other than malignant neoplasm (principal) | CPT/HCPCS: 99212 ==

== ENCOUNTER 2022-05-15 09:35 | Emergency (ER) | payer MEDICARE, MEDICAID, SELFPAY ==
[2022-05-15 09:34] VITALS: BP 136/70; PULSE 63; RESP 17; TEMP 36.6; O2SAT 97; BMI 27.8
--- NOTE | 2022-05-15 09:39 | XR_ITS ---
WS: [id number] Exam: XR chest 1V portable [id number] Date/Time of Exam: 05/15/2022 9:47 AM Reason For Exam: generalized weakness Comparison 02/06/2022. The lungs are clear and fully expanded. Unremarkable cardiomediastinal silhouette. Eventration of the right diaphragm unchanged. Bony structures appear normal. Mild levoscoliosis of the T-spine. XR/XR chest 1V portable [id number] IMPRESSION: 1. No acute cardiopulmonary finding. No change.
--- NOTE | 2022-05-15 09:40 | ECG_ITS ---
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 Measurements Intervals [place]ard Rate: 63 P: 48 ID: [id number] QRS: -14 QRSD: 90 T: 36 QT: 429 QTc: 441 Interpretive Statements SINUS RHYTHM LOW QRS VOLTAGE IN PRECORDIAL LEADS [QRS DEFLECTION < 1.0 mV IN CHEST LEADS] POSSIBLE ANTERIOR MYOCARDIAL INFARCTION , PROBABLY OLD [30 ms Q WAVE IN V3/V4, OR R < 0.2 mV IN V4] Compared to ECG 02/06/2022 13:24:47 No significant changes Electronically Signed On 05-17-2022 6:28:44 [employer]LL[employer] INSPECTOR [employer] MENDER by Pedro Strickland M.D. [email or web address]
[2022-05-15 10:08] VITALS: BP 103/44; PULSE 66; O2SAT 95
[2022-05-15 10:17] LABS: Basophils # 0.1 10^3/uL (0.0-0.1); Basophils % 0.9 %; Eosinophils % 0.4 %; Hematocrit 42.5 % (37.0-47.0); Hemoglobin 13.5 g/dL (11.5-15.3); Lymphocytes # 2.1 10^3/uL (0.8-4.8); Lymphocytes % 19.7 %; Mean Corpuscular HGB Conc 31.8 g/dL (30.0-36.0); Mean Corpuscular Hemoglobin 26.1 pg (28.0-34.0); Mean Platelet Volume 11.2 fL (7.4-10.4); Monocytes # 0.6 10^3/uL (0.2-0.9); Monocytes % 6.1 %; Neutrophils # 7.55 10^3/uL (1.8-7.7); Neutrophils % 72.5 %; Nucleated Red Blood Cells % 0 %; Platelet Count 385 10^3/cmm (130-400); Red Blood Count 5.18 10^6/uL (4.1-5.3); Red Cell Distribution Width 16.6 % (12.1-15.1); White Blood Count 10.4 10^3/uL (4.0-10.0)
[2022-05-15 10:36] LABS: Add Urine Microscopic? NO; Charge for UA Resulting for Rev
[2022-05-15 10:36] LABS: Troponin(5th) Baseline 11 ng/L (0-10)
[2022-05-15 10:37] LABS: Bilirubin Urine Neg (Negative); Blood Urine Neg (Negative); Glucose Urine UA Trace (Normal); Ketones Urine Negative (Negative); Leukocyte Esterase Urine Negative (Negative); Nitrate Urine Negative (Negative); Protein Urine Neg (Negative); Specific Gravity, Urine 1.005 (1.005-1.030); Urine Appearance Clear (CLEAR); Urine Color Yellow (Yellow); Urobilinogen Urine Neg (Negative); pH Urine 6.5 (5-7)
[2022-05-15 10:38] LABS: Alanine Aminotransferase 27 U/L (0-33); Albumin Level 4.1 g/dL (3.5-5.2); Alkaline Phosphatase 110 U/L (35-105); Anion Gap 18.3 (5-19); Aspartate Amino Transferase 29 U/L (0-32); Blood Urea Nitrogen 9 mg/dL (8-23); Calcium 9.4 mg/dL (8.5-10.5); Carbon Dioxide 27 mmol/L (22-29); Chloride 98 mmol/L (98-107); Globulin 3.1 g/dL (1.3-4.6); Glucose 108 mg/dL (65-115); Lipase 12 U/L (13-60); Osmolality Calculated 287 mOsm/kg (285-295); Potassium 4.3 mmol/L (3.5-5.1); Sodium 139 mmol/L (136-145); Total Bilirubin 0.5 mg/dL (0.15-1.2); Total Protein 7.2 g/dL (6.6-8.7)
[2022-05-15 11:00] VITALS: BP 123/90; PULSE 61; O2SAT 93
--- NOTE | 2022-05-15 11:01 | W.ED.WEAKNES ---
HPI - Weakness General: Chief complaint: Weakness Stated complaint: GENERALIZED WEAKNESS Time Seen by Provider: 05/15/22 09:39 Source: patient Mode of arrival: EMS History of Present Illness: 71-year-old female presents to the emergency room with complaints of weakness for the last week. She has had a few falls she denies any specific injuries not strike her head or lose consciousness she was recently started on a course of treatment for Helicobacter pylori. She states she has been in problems with her blood sugars getting excessively low in the early hours of the morning which she feels is causing the weakness. She is on Levemir twice a day and NovoLog on a sliding scale. MD Complaint: generalized weakness Onset (ago): week(s) (1) Duration: constant Location: generalized Migration: none Severity: moderate Relieving factors: none Exacerbating factors: none Associated symptoms: Denies chest pain, chills, confusion, melena, decreased appetite, diaphoresis, dysuria, easy bruising, fever(s), headache(s), myalgias, nausea, short of breath, syncope or vomiting Review of Systems Const: Denies: fever(s), chills, fatigue, malaise or diaphoresis ENMT: Denies: throat pain, ear or mastoid pain, nasal discharge or nasal congestion Card: Denies: chest pain or syncope Resp: Denies: dyspnea, productive cough or non-productive cough GI: Denies: abdominal pain, nausea, vomiting or melena : Denies: difficulty voiding, dysuria, urinary frequency or urinary urgency Musc: Denies: neck pain or back pain Skin/Breast: Denies: rash or pruritus Neuro: Denies: headache(s) or confusion Alec/Lymph: Denies: easy bruising PFSH ED PFSH: Medical History Abdominal pain Blindness Cholecystectomy planned Chronic migraine Chronic migraine Colonoscopy planned Diabetes mellitus type 2 in nonobese She reports DM1 Encounter for long-term use of opiate analgesic Generalized anxiety disorder GERD (gastroesophageal reflux disease) Helicobacter pylori gastritis Major depressive disorder, recurrent severe without psychotic features Obstructive pyelonephritis Opioid contract exists Psychiatric care Recurrent UTI Right ureteral calculus Smoker Spondylosis without myelopathy or radiculopathy, lumbosacral region Urolithiasis Surgical History H/O tubal ligation History of cholecystectomy History of hysteroscopy Hx of colonoscopy Hx of dilation and curettage 09/14/19 [facility] Family History Father , at age 76 CHF (congestive heart failure) Mother Acute arthritis Other CAD (coronary artery disease) Cancer Social History Smoking and tobacco status: former smoker (Spouse is a smoker) Alcohol intake: never Adopted: No Caregiver/support person: Yes Lives independently: Yes Housing: House Marital status: Current occupational status: disabled History of recent travel: No Physical Exam Const: COMMON NORMALS: no acute distress GENERAL APPEARANCE: cooperative and comfortable ORIENTATION/CONSCIOUSNESS: Yes awake, Yes oriented to person, Yes oriented to place and Yes oriented to time HENMT: COMMON NORMALS: normocephalic, atraumatic, hearing grossly normal bilaterally, external ears normal, EAC's normal, TM's normal bilaterally, Normal nasal mucous membranes and turbinates present, moist oral mucous membranes and oropharynx normal HEAD & SCALP: normocephalic and atraumatic NOSE: Normal nasal mucous membranes and turbinates present EXTERNAL EAR: Yes external ears normal EXTERNAL AUDITORY CANAL: EAC's normal TYMPANIC MEMBRANE: TM's normal bilaterally Eye: COMMON NORMALS: Equal, round and reactive pupils present, EOMs intact bilaterally, conjunctivae normal and no scleral icterus CONJUNCTIVA: Yes conjunctivae normal PUPIL: Yes Equal, round and reactive pupils present Neck/C-Spine: COMMON NORMALS: full ROM, no lymphadenopathy, supple and no JVD Resp: COMMON NORMALS: normal respiratory effort, No retractions, No use of accessory muscles and clear to auscultation bilaterally AUSCULTATION: clear to auscultation bilaterally Cardio: COMMON NORMALS: no JVD, regular rate, regular rhythm and No murmurs present (Cardio) RATE: regular rate RHYTHM: regular rhythm GI: COMMON NORMALS: Soft to palpation and No hepatosplenomegaly present AUSCULTATION: Yes normoactive bowel sounds PALPATION: Yes Soft to palpation, No Tenderness to palpation present (GI), No Guarding due to palpation present (GI) and Yes No hepatosplenomegaly present Extremity: COMMON NORMALS: normal to inspection, capillary refill normal, no clubbing, cyanosis or edema, no calf tenderness and no pedal edema Neuro: SENSORIUM/ORIENTATION: Yes oriented to person, Yes oriented to place and Yes oriented to time Skin: COMMON NORMALS: no rashes or lesions noted GENERAL SKIN EXAM: no rashes or lesions noted Course Vital Signs: Vital signs: Vital Signs Temperature 97.9 F 05/15/22 09:34 Pulse Rate 78 05/15/22 12:00 Respiratory Rate 17 05/15/22 09:34 Blood Pressure 131/68 05/15/22 12:00 Pulse Oximetry 94 05/15/22 12:00 Oxygen Delivery Me thod 05/15/22 12:00 MDM - Weakness Medical Decision Making Labs and imaging reviewed. No significant findings I do think she is probably getting these episodes due to her hypoglycemia she reports he gets very low early in the morning we will have her increase her a.m. Lantus dose to 12 units and decrease the evening dose to 9 units. Follow-up with primary care doctor with blood sugar log and review them for further adjustments Medical Records I reviewed the patient's medical records. Lab Data I reviewed the patient's lab results. : 05/15/22 10:10 05/15/22 10:10 Radiology Impressions Chest X-Ray 05/15/22 09:39 IMPRESSION: 1. No acute cardiopulmonary finding. No change. Laboratory Results WBC 10.4 10^3/uL (4.0-10.0) H 05/15/22 10:10 RBC 5.18 10^6/uL (4.1-5.3) 05/15/22 10:10 Hgb 13.5 g/dL (11.5-15.3) 05/15/22 10:10 Hct 42.5 % (37.0-47.0) 05/15/22 10:10 MCV 82.0 fl (81-99) 05/15/22 10:10 MCH 26.1 pg (28.0-34.0) L 05/15/22 10:10 MCHC 31.8 g/dL (30.0-36.0) 05/15/22 10:10 RDW 16.6 % (12.1-15.1) H 05/15/22 10:10 Plt Count 385 10^3/cmm (130-400) 05/15/22 10:10 MPV 11.2 fL (7.4-10.4) H 05/15/22 10:10 Neut % (Auto) 72.5 % 05/15/22 10:10 Lymph % (Auto) 19.7 % 05/15/22 10:10 [place] % (Auto) 6.1 % 05/15/22 10:10 Eos % (Auto) 0.4 % 05/15/22 10:10 Baso % (Auto) 0.9 % 05/15/22 10:10 Neut # (Auto) 7.55 10^3/uL (1.8-7.7) 05/15/22 10:10 Lymph # (Auto) 2.1 10^3/uL (0.8-4.8) 05/15/22 10:10 [place] # (Auto) 0.6 10^3/uL (0.2-0.9) 05/15/22 10:10 Eos # (Auto) 0.0 10^3/uL (0.0-0.8) 05/15/22 10:10 Baso # (Auto) 0.1 10^3/uL (0.0-0.1) 05/15/22 10:10 Nucleated RBC % (auto) 0 % 05/15/22 10:10 Nucleated RBCs # 0.0 /100WBC 05/15/22 10:10 Sodium 139 mmol/L (136-145) 05/15/22 10:10 Potassium 4.3 mmol/L (3.5-5.1) 05/15/22 10:10 Chloride 98 mmol/L (98-107) 05/15/22 10:10 Carbon Dioxide 27 mmol/L (22-29) 05/15/22 10:10 Anion Gap 18.3 (5-19) 05/15/22 10:10 BUN 9 mg/dL (8-23) 05/15/22 10:10 Creatinine 1.2 mg/dL (0.5-0.9) H 05/15/22 10:10 GFR Calculation Not Reportable 05/15/22 10:10 Glucose 108 mg/dL (65-115) 05/15/22 10:10 Calculated Osmolality 287 mOsm/kg (285-295) 05/15/22 10:10 Calcium 9.4 mg/dL (8.5-10.5) 05/15/22 10:10 Total Bilirubin 0.5 mg/dL (0.15-1.2) 05/15/22 10:10 AST 29 U/L (0-32) 05/15/22 10:10 ALT 27 U/L (0-33) 05/15/22 10:10 Alkaline Phosphatase 110 U/L (35-105) H 05/15/22 10:10 Troponin T Baseline 11 ng/L (0-10) H 05/15/22 10:10 Total Protein 7.2 g/dL (6.6-8.7) 05/15/22 10:10 Albumin 4.1 g/dL (3.5-5.2) 05/15/22 10:10 Globulin 3.1 g/dL (1.3-4.6) 05/15/22 10:10 Lipase 12 U/L (13-60) L 05/15/22 10:10 Urine Color Yellow (Yellow) 05/15/22 10:24 Urine Appearance Clear (CLEAR) 05/15/22 10:24 Urine pH 6.5 (5-7) 05/15/22 10:24 Ur Specific [place] 1.005 (1.005-1.030) 05/15/22 10:24 Urine Protein Neg (Negative) 05/15/22 10:24 Urine Glucose (UA) Trace (Normal) H 05/15/22 10:24 Urine Ketones Negative (Negative) 05/15/22 10:24 Urine Blood Neg (Negative) 05/15/22 10:24 Urine Nitrate Negative (Negative) 05/15/22 10:24 Urine Bilirubin Neg (Negative) 05/15/22 10:24 Urine Urobilinogen Neg mg/dL (Negative) 05/15/22 10:24 Ur Leukocyte Esterase Negative (Negative) 05/15/22 10:24 Discharge Plan Discharge Patient Disposition: Home Clinical Impression: Hypoglycemia Condition: Stable Prescriptions: Changed Levemir FlexTouch U-100 Insuln 100 unit/mL (3 mL) insulin pen See Rx Instructions .ROUTE .COMPLEX Qty: 3 0RF Rx Instructions: 12 unit subcutaneously IN AM AND 9 UNITS PM No Action furosemide 20 mg tablet 20 mg PO DAILY@08 tramadol 50 mg tablet 50 mg PO QID PRN (Reason: Pain) oxybutynin chloride 10 mg tablet extended release 24hr 10 mg PO BID pantoprazole [Protonix] 40 mg tablet,delayed release (DR/EC) 40 mg PO BID 14 Days Qty: 28 0RF meclizine 25 mg tablet 25 mg PO BID@08,16 Qty: 180 12RF lorazepam [Ativan] 1 mg tablet 1 mg PO BID PRN (Reason: severe anxiety) Qty: 60 2RF loratadine [Claritin] 10 mg Tablet 10 mg PO DAILY@0800 Hair, Skin, Nails with Biotin 7.5-7.5-1,250 mg-unit-mcg Tablet,Chewable 2 tab PO DAILY Qty: 0 acetaminophen 500 mg Tablet 500 mg PO Q4H PRN (Reason: Pain) docusate sodium [Colace] 100 mg Capsule 100 mg PO BEDTIME Azo Cranberry 250 mg Tablet,Chewable 500 mg PO DAILY Qty: 0 insulin aspart U-100 [Novolog Flexpen U-100 Insulin] 100 unit/mL (3 mL) insulin pen See Rx Instructions .ROUTE .COMPLEX Rx Instructions: sliding sclae tid prn PreserVision AREDS-2 250-90-40-1 mg capsule 1 tab PO BID Multivitamins 28 mg iron- 800 mcg tablet 1 tab PO DAILY@08 ondansetron HCl 4 mg tablet 4 mg PO Q4H PRN (Reason: Nausea) tizanidine 4 mg Tablet 4 mg PO Q6H PRN (Reason: Muscle Spasm) Celexa 20 mg tablet 20 mg PO QAM Discharge Orders: Discharge ED (Routine); Ordered 05/15/22 Ordered By: Lee Turner Referrals: Arie Lewis MD [Primary Care Provider] - Discharge Diet: Usual diet Discharge Activity: Increase activity as tolerated Patient Instructions: Opioid Safety, Pain Management Activity Restrictions/Additional Instructions: You are seen today for generalized weakness and reports of low blood sugars 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 Recommend that you increase your a.m. insulin to 12 units and decrease your p.m. insulin units to 9 units. Follow-up with your primary care doctor with blood sugar logs within the next week. Continue your other medications as previously prescribed. Coding Level of Care Code ED Brazing Machine Operator Automatic for Chg 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
[2022-05-15 12:00] VITALS: BP 131/68; PULSE 78; O2SAT 94
== END 2022-05-15 12:10 | disposition home or self-care (01) ==
PROVIDERS: Physician Assistant; Emergency Provider Family Medicine; PCP Family Medicine
DX: E11.649 Type 2 diabetes mellitus with hypoglycemia without coma (principal); Z79.4 Long term (current) use of insulin; Z87.891 Personal history of nicotine dependence
CPT/HCPCS: 71045; 80053; 81003; 83690; 84484; 85025; 93005; 99285

== ENCOUNTER 2022-06-25 14:38 | Outpatient (CLI) | payer MEDICARE, MEDICAID, SELFPAY ==
--- NOTE | 2022-06-25 15:31 | XR_ITS ---
WS: [id number] KUB, AP view, 06/25/2022 Clinical Data: stones Comparison: KUB, 09/14/2021. Findings: No abnormal intraabdominal masses or calcifications are seen. There is no dilatated small bowel or ev idence of obstruction. There are phleboliths in the true pelvis. There is a dextroscoliosis of the lumbar spine. There are c lips in the right upper quadrant from a cholecystectomy. There is a moderate amount of fecal material in the colon. XR/XR KUB [id number] Impression: Negative KUB.
== END 2022-06-25 14:39 | disposition home or self-care (01) ==
LOC: RAD 14:43
PROVIDERS: PCP Family Medicine; Visit Provider Urology
DX: N20.9 Urinary calculus, unspecified (principal); N39.41 Urge incontinence; N30.20 Other chronic cystitis without hematuria
CPT/HCPCS: 74018; 81003; 99213

== ENCOUNTER → 2022-09-26 14:33 | Outpatient (BNVA) | payer MEDICARE, MEDICAID, OTHER, SELFPAY | PROVIDERS: PCP Family Medicine; Visit Provider Urology | DX: N30.20 Other chronic cystitis without hematuria (principal); N39.3 Stress incontinence (female) (male) | CPT/HCPCS: 81003; 99213 ==

== ENCOUNTER → 2022-12-05 14:45 | Outpatient (BNVA) | payer MEDICARE, MEDICAID, OTHER, SELFPAY | PROVIDERS: PCP Family Medicine; Referring Provider Family Medicine; Visit Provider Nurse Practitioner Family | DX: L82.0 Inflamed seborrheic keratosis (principal); L91.8 Other hypertrophic disorders of the skin; L85.3 Xerosis cutis; D22.5 Melanocytic nevi of trunk; Z71.89 Other specified counseling; L82.1 Other seborrheic keratosis; L57.8 Other skin changes due to chronic exposure to nonionizing radiation | CPT/HCPCS: 11200; 17110; 99203 ==

== ENCOUNTER 2022-12-29 23:41 | Emergency (ER) | payer MEDICARE, MEDICAID, SELFPAY ==
--- NOTE | 2022-12-29 23:41 | W.ED.ABDPA2 ---
HPI - Abdominal Pain General: Chief Complaint: Abdominal Pain Stated Complaint: abd pain Time Seen by Provider: 12/29/22 23:41 History of Present Illness: Ms Romero is a 72-year-old lady presented the emergency department for abdominal pain and distention. She notes onset of symptoms gradually approximately 2 weeks ago and has persisted. She initially thought it was constipation however has been having small hard bowel movements. She is passing flatus. Overall course has worsened. Mostly lower abdominal pain. Cramping in nature. Has recently had associated vomiting. No other specific changes in health, exacerbating, or alleviating factors identified. Onset (ago): week(s) Severity: moderate Migration to: no migration Exacerbating factors: nothing Relieving factors: nothing Review of Systems General: Reports: 10 or more systems reviewed and unremarkable except in HPI and below PFSH ED PFSH: Medical History Abdominal pain Blindness Cholecystectomy planned Chronic migraine Chronic migraine Colonoscopy planned Diabetes mellitus type 2 in nonobese She reports DM1 Encounter for long-term use of opiate analgesic Generalized anxiety disorder GERD (gastroesophageal reflux disease) Helicobacter pylori gastritis Major depressive disorder, recurrent severe without psychotic features Obstructive pyelonephritis Opioid contract exists Psychiatric care Recurrent UTI Right ureteral calculus Smoker Spondylosis without myelopathy or radiculopathy, lumbosacral region [place] (stress urinary incontinence, female) Urolithiasis Surgical History H/O tubal ligation History of cholecystectomy History of hysteroscopy Hx of colonoscopy Hx of dilation and curettage 09/14/19 [facility] Family History Father , at age 76 CHF (congestive heart failure) Mother Acute arthritis Other CAD (coronary artery disease) Cancer Social History Smoking and tobacco status: former smoker (Spouse is a smoker) Alcohol intake: never Substance/Drug Use: former Date of last use: 2020. THC USE Adopted: No Caregiver/support person: Yes Lives independently: Yes Housing: House Marital status: Current occupational status: disabled Physical Exam Const: COMMON NORMALS: alert GENERAL APPEARANCE: cooperative and well developed HENMT: COMMON NORMALS: normocephalic and atraumatic HEAD & SCALP: normocephalic and atraumatic Eye: COMMON NORMALS: conjunctivae normal CONJUNCTIVA: Yes conjunctivae normal SCLERA: sclerae normal Neck/C-Spine: COMMON NORMALS: supple GENERAL: Yes trachea midline Resp: COMMON NORMALS: clear to auscultation bilaterally EFFORT & INSPECTION: Yes able to speak in complete sentences AUSCULTATION: clear to auscultation bilaterally Cardio: COMMON NORMALS: regular rate and regular rhythm RATE: regular rate RHYTHM: regular rhythm GI: COMMON NORMALS: Soft to palpation PALPATION: Yes Soft to palpation, Yes Tenderness to palpation present (GI), No Guarding due to palpation present (GI) and No Rigid due to palpation OTHER: Mildly distended though still soft Extremity: GENERAL: Yes normal exam except as noted and No edema Neuro: COMMON NORMALS: moves all extremities SENSORIUM/ORIENTATION: Yes alert and No Orientation impaired Psych: COMMON NORMALS: mental status grossly normal and Normal thought process present THOUGHT PROCESS: Normal thought process present Course Vital Signs: Vital signs: Vital Signs Temperature 98.4 F 12/29/22 23:42 Pulse Rate 68 12/30/22 02:42 Respiratory Rate 16 12/30/22 02:05 Blood Pressure 148/68 12/30/22 02:42 Pulse Oximetry 94 12/30/22 02:42 Oxygen Delivery Me thod Room Air 12/30/22 02:05 MDM - Abdominal Pain Medical Decision Making 72-year-old lady presenting with abdominal fullness and pain. Exam as above. Patient is nontoxic and there is no evidence of acute surgical abdomen. Labs notable for mild leukocytosis, normal hemoglobin and platelet count. Metabolic panel similar to baseline without evidence of significant derangement. No UTI. CT demonstrates colitis with mild constipation which likely explains patient's symptoms. No evidence of perforation or bowel obstruction. Incidental findings noted. Patient feels improved with analgesia and antiemetic. Plan to treat outpatient with antibiotics, patient is comfortable with this plan. She is allergic to both penicillins and ciprofloxacin. Therefore I will treat with course of Bactrim. The results of ED evaluation were discussed with the patient including prescriptions and/or symptomatic cares (if applicable) including appropriate and responsible use, followup plan, and return precautions. The patient verbalized understanding and felt safe for discharge. Medical Records I reviewed the patient's medical records. Lab Data I reviewed the patient's lab results. 12/29/22 00:23 12/29/22 00:23 Labs/Radiology: Radiology Impressions Abdomen/Pelvis CT 12/30/22 00:10 IMPRESSION: 1. Colitis of the descending colon. 2. Small hiatal hernia. 3. Diverticulosis without diverticulitis. 4. Mild constipation. Laboratory Results WBC 13.3 10^3/uL (4.0-10.0) H 12/29/22 00:23 RBC 5.05 10^6/uL (4.1-5.3) 12/29/22 00:23 Hgb 13.2 g/dL (11.5-15.3) 12/29/22 00:23 Hct 41.6 % (37.0-47.0) 12/29/22 00:23 MCV 82.4 fl (81-99) 12/29/22 00:23 MCH 26.1 pg (28.0-34.0) L 12/29/22 00: MCHC 31.7 g/dL (30.0-36.0) 12/29/22 00:23 RDW 14.3 % (12.1-15.1) 12/29/22 00:23 Plt Count 378 10^3/cmm (130-400) 12/29/22 00:23 MPV 10.6 fL (7.4-10.4) H 12/29/22 00:23 Neut % (Auto) 72.6 % 12/29/22 00:23 Lymph % (Auto) 18.6 % 12/29/22 00:23 [place] % (Auto) 6.0 % 12/29/22 00:23 Eos % (Auto) 1.7 % 12/29/22 00:23 Baso % (Auto) 0.7 % 12/29/22 00:23 Neut # (Auto) 9.66 10^3/uL (1.8-7.7) H 12/29/22 00:23 Lymph # (Auto) 2.5 10^3/uL (0.8-4.8) 12/29/22 00:23 [place] # (Auto) 0.8 10^3/uL (0.2-0.9) 12/29/22 00:23 Eos # (Auto) 0.2 10^3/uL (0.0-0.8) 12/29/22 00:23 Baso # (Auto) 0.1 10^3/uL (0.0-0.1) 12/29/22 00:23 Nucleated RBC % (auto) 0 % 12/29/22 00:23 Nucleated RBCs # 0.0 /100WBC 12/29/22 00:23 Sodium 137 mmol/L (136-145) 12/29/22 00:23 Potassium 4.0 mmol/L (3.5-5.1) 12/29/22 00:23 Chloride 95 mmol/L (98-107) L 12/29/22 00:23 Carbon Dioxide 30 mmol/L (22-29) H 12/29/22 00:23 Anion Gap 16.0 (5-19) 12/29/22 00:23 BUN 13 mg/dL (8-23) 12/29/22 00:23 Creatinine 1.3 mg/dL (0.5-0.9) H 12/29/22 00:23 GFR Calculation Not Reportable 12/29/22 00: Glucose 197 mg/dL (65-115) H 12/29/22 00:23 Calculated Osmolality 290 mOsm/kg (285-295) 12/29/22 00:23 Calcium 8.8 mg/dL (8.5-10.5) 12/29/22 00:23 Lipase 10 U/L (13-60) L 12/29/22 00:23 Urine Color Yellow (Yellow) 12/30/22 01:33 Urine Appearance Clear (CLEAR) 12/30/22 01:33 Urine pH 9 (5-7) H 12/30/22 01:33 Ur Specific [place] 1.010 (1.005-1.030) 12/30/22 01:33 Urine Protein Neg (Negative) 12/30/22 01:33 Urine Glucose (UA) Norm (Normal) 12/30/22 01:33 Urine Ketones Negative (Negative) 12/30/22 01:33 Urine Blood Neg (Negative) 12/30/22 01:33 Urine Nitrate Negative (Negative) 12/30/22 01:33 Urine Bilirubin Neg (Negative) 12/30/22 01:33 Prot Sulfosalicylic Acd Negative (Negative) 12/30/22 01:33 Urine Urobilinogen Norm mg/dL (Negative) 12/30/22 01:33 Ur Leukocyte Esterase Negative (Negative) 12/30/22 01:33 Discharge Plan Discharge Patient Disposition: Home Clinical Impression: Abdominal pain, Constipation, Colitis Condition: Stable Prescriptions: New ondansetron 4 mg tablet,disintegrating 4 mg PO Q8H PRN (Reason: nausea and vomiting) Qty: 15 0RF oxycodone 5 mg tablet 5 mg PO Q4H PRN (Reason: pain) Qty: 10 0RF Bactrim DS 800-160 mg tablet 1 tab PO BID 5 Days Qty: 10 0RF Miralax 17 gram/dose powder 17 g PO TID PRN (Reason: constipation) Qty: 238 0RF No Action pantoprazole [Protonix] 40 mg tablet,delayed release (DR/EC) 40 mg PO BID 14 Days Qty: 28 0RF trazodone 50 mg tablet 50 mg PO BEDTIME PRN (Reason: insomnia) Qty: 30 3RF Rx Instructions: May take one tab at bedtime as needed for sleep aripiprazole [Abilify] 5 mg tablet 2.5 mg PO .morning Qty: 15 6RF Rx Instructions: Take half tablet every morning citalopram [Celexa] 20 mg tablet 20 mg PO .morning Qty: 30 6RF Rx Instructions: Take one tablet every morning meclizine 25 mg tablet 25 mg PO BID@08,16 Qty: 180 12RF tramadol 50 mg tablet 50 mg PO QID PRN (Reason: Pain) Qty: 120 5RF oxybutynin chloride 10 mg tablet extended release 24hr See Rx Instructions .ROUTE .COMPLEX Qty: 60 11RF Dose Instruction: TAKE 1 TABLET BY MOUTH TWO TIMES DAILY Rx Instructions: TAKE 1 TABLET BY MOUTH TWO TIMES DAILY (DME) pen needle, diabetic [TechLITE Pen Needle] 32 gauge x 1/4 needle See Rx Instructions .ROUTE .COMPLEX Qty: 100 11RF Dose Instruction: USE FIVE times daily Rx Instructions: USE FIVE times daily furosemide 20 mg tablet See Rx Instructions .ROUTE .COMPLEX Qty: 90 3RF Dose Instruction: TAKE 1 TABLET BY MOUTH EVERY DAY FOR SWELLING Rx Instructions: TAKE 1 TABLET BY MOUTH EVERY DAY FOR SWELLING Levemir FlexTouch U-100 Insuln 100 unit/mL (3 mL) insulin pen See Rx Instructions .ROUTE .COMPLEX Qty: 3 0RF Rx Instructions: 12 unit subcutaneously IN AM AND 9 UNITS PM ondansetron HCl 4 mg tablet See Rx Instructions .ROUTE .COMPLEX Qty: 30 10RF Dose Instruction: TAKE 1 TABLET BY MOUTH EVERY 4 HOURS NEEDED Rx Instructions: TAKE 1 TABLET BY MOUTH EVERY 4 HOURS NEEDED sulfamethoxazole-trimethoprim 400-80 mg tablet See Rx Instructions .ROUTE .COMPLEX Qty: 60 6RF Dose Instruction: TAKE 1 TABLET BY MOUTH TWICE DAILY FOR uti Rx Instructions: TAKE 1 TABLET BY MOUTH TWICE DAILY FOR uti loratadine 10 mg tablet See Rx Instructions .ROUTE .COMPLEX Qty: 90 3RF Dose Instruction: TAKE 1 TABLET BY MOUTH EVERY DAY Rx Instructions: TAKE 1 TABLET BY MOUTH EVERY DAY insulin aspart U-100 [Novolog FlexPen U-100 Insulin] 100 unit/mL (3 mL) insulin pen See Rx Instructions .ROUTE .COMPLEX Qty: 15 11RF Dose Instruction: inject 7-10 units SUBCUTANEOUSLY THREE TIMES DAILY Rx Instructions: inject 7-10 units SUBCUTANEOUSLY THREE TIMES DAILY lorazepam [Ativan] 1 mg tablet 1 mg PO BID PRN (Reason: severe anxiety) Qty: 60 3RF Rx Instructions: May take one tablet twice per day as needed for severe anxiety Hair, Skin, Nails with Biotin 7.5-7.5-1,250 mg-unit-mcg Tablet,Chewable 2 tab PO DAILY Qty: 0 acetaminophen 500 mg Tablet 500 mg PO Q4H PRN (Reason: Pain) docusate sodium [Colace] 100 mg Capsule 100 mg PO BEDTIME Azo Cranberry 250 mg Tablet,Chewable 500 mg PO DAILY Qty: 0 PreserVision AREDS-2 250-90-40-1 mg capsule 1 tab PO BID Multivitamins 28 mg iron- 800 mcg tablet 1 tab PO DAILY@08 tizanidine 4 mg Tablet 4 mg PO Q6H PRN (Reason: Muscle Spasm) Discharge Orders: Discharge ED (Routine); Ordered 12/30/22 Ordered By: Chung Jackson Referrals: Arie Lewis MD [Primary Care Provider] - Discharge Diet: Advance as tolerated and Clear Liquid Discharge Activity: Increase activity as tolerated Patient Instructions: Sulfamethoxazole/Trimethoprim (By mouth) (Bactrim, Bactrim DS,..., Constipation (ED), Colitis (ED), Opioid Safety Activity Restrictions/Additional Instructions: Thank you for visiting the emergency department. You were seen and evaluated for abdominal fullness and pain. The exact cause of your symptoms is unclear though likely related to colitis and continued constipation. I will prescribe laxative, antinausea medication, pain medication, antibiotics. Use pain medication cautiously. Do not count combine it with other sedating medication, opioids, or pain medication stronger than [id number] medications. Please ensure that you are staying hydrated. Please follow-up with your primary care provider. Return for uncontrolled symptoms, rash, decreased urine output, or anything else that you are concerned about and feel needs emergency department evaluation. Coding Level of Care Code ED Ict Business Analyst for Noemi Veliz
[2022-12-29 23:42] VITALS: BP 152/72; PULSE 77; RESP 22; TEMP 36.9; O2SAT 93; BMI 26.5
--- NOTE | 2022-12-30 00:10 | CTR_ITS ---
PROCEDURE INFORMATION: Exam: CT Abdomen And Pelvis With Contrast Exam date and time: 12/30/2022 12:59 AM Age: 72 years old Clinical indication: Abdominal pain; Generalized; Prior surgery; Surgery date: 6+ months; Surgery type: Gb. Tubal; Patient HX: Diffuse abd pain with constipation x 2 weeks. ; Additional info: Abd pain, distention TECHNIQUE: Imaging protocol: Computed tomography of the abdomen and pelvis with contrast. Radiation optimization: All CT scans at this facility use at least one of these dose optimization techniques: automated exposure control; mA and/or kV adjustment per patient size (includes targeted exams where dose is matched to clinical indication); or iterative reconstruction. Contrast material: OMNI 350; Contrast volume: 100 ml; Contrast route: INTRAVENOUS (IV); REPORTING DATA: Count of CT and Cardiac NM exams in prior 12 months: This patient has received 4 known CTs and 0 known cardiac nuclear medicine studies in the 12 months prior to the current study. COMPARISON: CT abdomen pelvis wo con [id number] 01/27/2022 1:19 PM RADIATION DOSE METRICS: Total DLP (mGy-cm): 589.09 FINDINGS: Lungs: The lung bases are clear. No effusion Diaphragm: Small hiatal hernia. Liver: There is a subcentimeter low-attenuation lesion of the liver which is too small to accurately characterize but may represent a cyst. Gallbladder and bile ducts: There has been a cholecystectomy. Pancreas: Normal. No ductal dilation. Spleen: Normal. No splenomegaly. Adrenal glands: Normal. No mass. Kidneys and ureters: Normal. No hydronephrosis. Stomach and bowel: Diverticulosis without diverticulitis. Wall thickening and pericolonic fat stranding involving the descending colon. Mild amount of formed stool in the colon. Appendix: No evidence of appendicitis. Intraperitoneal space: Unremarkable. No free air. No significant fluid collection. Vasculature: Unremarkable. No abdominal aortic aneurysm. Lymph nodes: Unremarkable. No enlarged lymph nodes. Urinary bladder: Unremarkable as visualized. Reproductive: Unremarkable as visualized. Bones/joints: Unremarkable. No acute fracture. Soft tissues: Unremarkable. CT/CT abdomen pelvis w con* [id number] IMPRESSION: 1. Colitis of the descending colon. 2. Small hiatal hernia. 3. Diverticulosis without diverticulitis. 4. Mild constipation.
[2022-12-30 00:23] VITALS: RESP 14; O2SAT 94
[2022-12-30] MEDS: morphine 4 mg/mL SDV 1 mL IVP (00:23)
[2022-12-30] MEDS: ondansetron 2 mg/ML SDV 2 mL 4 MG IVP (00:25)
[2022-12-30 00:33] LABS: Basophils # 0.1 10^3/uL (0.0-0.1); Basophils % 0.7 %; Eosinophils # 0.2 10^3/uL (0.0-0.8); Eosinophils % 1.7 %; Hematocrit 41.6 % (37.0-47.0); Hemoglobin 13.2 g/dL (11.5-15.3); Lymphocytes # 2.5 10^3/uL (0.8-4.8); Lymphocytes % 18.6 %; Mean Corpuscular HGB Conc 31.7 g/dL (30.0-36.0); Mean Corpuscular Hemoglobin 26.1 pg (28.0-34.0); Mean Corpuscular Volume 82.4 fl (81-99); Mean Platelet Volume 10.6 fL (7.4-10.4); Monocytes # 0.8 10^3/uL (0.2-0.9); Neutrophils # 9.66 10^3/uL (1.8-7.7); Neutrophils % 72.6 %; Nucleated Red Blood Cells % 0 %; Platelet Count 378 10^3/cmm (130-400); Red Blood Count 5.05 10^6/uL (4.1-5.3); Red Cell Distribution Width 14.3 % (12.1-15.1); White Blood Count 13.3 10^3/uL (4.0-10.0)
[2022-12-30 00:50] LABS: Blood Urea Nitrogen 13 mg/dL (8-23); Calcium 8.8 mg/dL (8.5-10.5); Carbon Dioxide 30 mmol/L (22-29); Chloride 95 mmol/L (98-107); Glucose 197 mg/dL (65-115); Lipase 10 U/L (13-60); Osmolality Calculated 290 mOsm/kg (285-295); Sodium 137 mmol/L (136-145)
[2022-12-30] MEDS: iohexol 350 mg/mL 500 mL Btl (per mL) IV (01:10)
[2022-12-30 01:38] LABS: Add Urine Microscopic? NO; Charge for UA Resulting for Rev
[2022-12-30 01:44] LABS: Bilirubin Urine Neg (Negative); Blood Urine Neg (Negative); Glucose Urine UA Norm (Normal); Ketones Urine Negative (Negative); Leukocyte Esterase Urine Negative (Negative); Nitrate Urine Negative (Negative); Protein Urine Neg (Negative); Sulfosalicylic Acid Urine Negative (Negative); Urine Appearance Clear (CLEAR); Urine Color Yellow (Yellow); Urobilinogen Urine Norm (Negative); pH Urine 9 (5-7)
[2022-12-30 02:02] VITALS: RESP 16; O2SAT 93
[2022-12-30] MEDS: oxyCODONE 5 mg IR Tab/Cap PO (02:02)
[2022-12-30] MEDS: sulfamethoxazole-trimeth DS 160-800 mg Tablet 1 TAB PO (02:03)
[2022-12-30 02:05] VITALS: BP 150/71; PULSE 77; RESP 16; O2SAT 94
[2022-12-30 02:42] VITALS: BP 148/68; PULSE 68; O2SAT 94
== END 2022-12-30 02:34 | disposition home or self-care (01) ==
PROVIDERS: Emergency Provider Emergency Medicine; PCP Family Medicine
DX: K52.9 Noninfective gastroenteritis and colitis, unspecified (principal); K44.9 Diaphragmatic hernia without obstruction or gangrene; K57.90 Diverticulosis of intestine, part unspecified, without perforation or abscess without bleeding; K59.00 Constipation, unspecified
CPT/HCPCS: 74177; 80048; 81003; 83690; 85025; 96374; 96375; 99285; J2270; J2405; Q9967

== ENCOUNTER 2023-02-17 23:42 | Emergency (ER) | payer MEDICARE, MEDICAID, SELFPAY ==
[2023-02-17 23:44] VITALS: BP 146/70; PULSE 80; RESP 18; TEMP 36.7; O2SAT 94; BMI 27.4
--- NOTE | 2023-02-17 23:49 | W.ED.FEMALGU ---
HPI - Female Genitourinary General: Chief complaint: Urogenital-Female Stated complaint: painful urination Time Seen by Provider: 02/17/23 23:45 History of Present Illness: 72-year-old female comes in tonight with some complaints of painful urination. Patient had just completed a course of Bactrim DS for post surgical bladder tie. Patient chronically takes Bactrim twice daily for the prevention of urinary tract infections. Patient denies any fever anything. Patient states has been 2 days since she had gone back to her normal dosing for Bactrim. Patient appears nontoxic. Patient also was concerned about a palpable chest wall lump in her right chest. Review of Systems General: Reports: 10 or more systems reviewed and unremarkable except in HPI and below : Reports: difficulty voiding and dysuria Musc: Reports: other (Chest tenderness) [facility] ED PFSH: Medical History Abdominal pain Blindness Cholecystectomy planned Chronic migraine Chronic migraine Colonoscopy planned Diabetes mellitus type 2 in nonobese She reports DM1 Encounter for long-term use of opiate analgesic Generalized anxiety disorder GERD (gastroesophageal reflux disease) Helicobacter pylori gastritis Major depressive disorder, recurrent severe without psychotic features Obstructive pyelonephritis Opioid contract exists Psychiatric care Recurrent UTI Right ureteral calculus Smoker Spondylosis without myelopathy or radiculopathy, lumbosacral region [place] (stress urinary incontinence, female) Urolithiasis Surgical History H/O tubal ligation History of cholecystectomy History of hysteroscopy Hx of colonoscopy Hx of dilation and curettage 09/14/19 [facility] Family History Father , at age 76 CHF (congestive heart failure) Mother Acute arthritis Other CAD (coronary artery disease) Cancer Social History Smoking and tobacco status: former smoker (Spouse is a smoker) Alcohol intake: never Substance/Drug Use: former Date of last use: 2020. THC USE Adopted: No Caregiver/support person: Yes Lives independently: Yes Housing: House Marital status: Current occupational status: disabled Physical Exam Const: COMMON NORMALS: alert HENMT: COMMON NORMALS: normocephalic HEAD & SCALP: normocephalic Neck/C-Spine: COMMON NORMALS: full ROM Chest: CHEST: Yes tenderness (Sternal costal border 3rd-4th with mild swelling) Resp: COMMON NORMALS: normal respiratory effort Cardio: COMMON NORMALS: regular rate RATE: regular rate GI: COMMON NORMALS: Soft to palpation PALPATION: Yes Soft to palpation : COMMON NORMALS: Yes no CVA tenderness BLADDER/KIDNEY EXAM: Yes no CVA tenderness Back/Pelvis: COMMON NORMALS: no CVA tenderness Extremity: COMMON NORMALS: full ROM Neuro: SENSORIUM/ORIENTATION: Yes alert Skin: COMMON NORMALS: turgor normal GENERAL SKIN EXAM: turgor normal Course Vital Signs: Vital signs: Vital Signs Temperature 98.1 F 02/17/23 23:44 Pulse Rate 80 02/17/23 23:44 Respiratory Rate 18 02/17/23 23:44 Blood Pressure 146/70 02/17/23 23:44 Pulse Oximetry 94 02/17/23 23:44 Oxygen Delivery Me thod Room Air 02/17/23 23:44 MDM - Female Medical Decision Making Patient comes in today for complaints of tenderness along the right chest, and painful urination. On exam patient has a palpable sternal costal border around the 3rd-4th rib spacing. No CVA tenderness. Lungs are clear to auscultation. Abdomen soft nontender. No swelling is noted in lower extremities. Differential diagnosis includes but not limited to malingering, costochondritis, urinary tract infection, renal calculi. Chest x-ray noted no abnormality in the ribs or lung tissues. Urinalysis did have an increase in white blood cells and bacteria and leukocyte esterase. Urine was sent for culture. We will switch patient from Bactrim to nitrofurantoin for next 5 days. Patient was given some Reglan and Tylenol for complaints of a headache. Recommend follow-up with primary care for further instructions. Return to ED for new concerns. Lab Data Radiology Impressions Chest X-Ray 02/17/23 23:57 IMPRESSION: No acute findings. Laboratory Results Urine Color Yellow (Yellow) 02/18/23 00:25 Urine Appearance Clear (CLEAR) 02/18/23 00:25 Urine pH 6 (5-7) 02/18/23 00:25 Ur Specific [place] 1.010 (1.005-1.030) 02/18/23 00:25 Urine Protein Neg (Negative) 02/18/23 00:25 Urine Glucose (UA) Norm (Normal) 02/18/23 00:25 Urine Ketones Negative (Negative) 02/18/23 00:25 Urine Blood 3+ (Negative) H 02/18/23 00:25 Urine Nitrate Negative (Negative) 02/18/23 00:25 Urine Bilirubin Neg (Negative) 02/18/23 00:25 Urine Urobilinogen Neg mg/dL (Negative) 02/18/23 00:25 Ur Leukocyte Esterase 2+ (Negative) H 02/18/23 00:25 Urine RBC 0-4 /hpf (0-2) H 02/18/23 00:25 Urine WBC 15-25 /hpf (0-5) H 02/18/23 00:25 Ur Squamous Epith Cells 0-4 /hpf (0-5) H 02/18/23 00:25 Amorphous Sediment Not Reportable 02/18/23 00:25 Urine Bacteria 1+ /hpf (NONE) H 02/18/23 00:25 Discharge Plan Discharge Patient Disposition: Home Clinical Impression: Recurrent UTI, Sternocostal pain Headache Qualifiers: Headache type: unspecified Headache chronicity pattern: acute headache Intractability: not intractable Qualified Code(s): R51.9 - Headache, unspecified Condition: Stable Prescriptions: New nitrofurantoin macrocrystal 100 mg capsule 100 mg PO BID 5 Days Qty: 10 0RF Rx Instructions: must administer with a meal/food No Action pantoprazole [Protonix] 40 mg tablet,delayed release (DR/EC) 40 mg PO BID 14 Days Qty: 28 0RF trazodone 50 mg tablet 50 mg PO BEDTIME PRN (Reason: insomnia) Qty: 30 3RF Rx Instructions: May take one tab at bedtime as needed for sleep aripiprazole [Abilify] 5 mg tablet 2.5 mg PO .morning Qty: 15 6RF Rx Instructions: Take half tablet every morning citalopram [Celexa] 20 mg tablet 20 mg PO .morning Qty: 30 6RF Rx Instructions: Take one tablet every morning meclizine 25 mg tablet 25 mg PO BID@08,16 Qty: 180 12RF tramadol 50 mg tablet 50 mg PO QID PRN (Reason: Pain) Qty: 120 5RF oxybutynin chloride 10 mg tablet extended release 24hr See Rx Instructions .ROUTE .COMPLEX Qty: 60 11RF Dose Instruction: TAKE 1 TABLET BY MOUTH TWO TIMES DAILY Rx Instructions: TAKE 1 TABLET BY MOUTH TWO TIMES DAILY (DME) pen needle, diabetic [TechLITE Pen Needle] 32 gauge x 1/4 needle See Rx Instructions .ROUTE .COMPLEX Qty: 100 11RF Dose Instruction: USE FIVE times daily Rx Instructions: USE FIVE times daily furosemide 20 mg tablet See Rx Instructions .ROUTE .COMPLEX Qty: 90 3RF Dose Instruction: TAKE 1 TABLET BY MOUTH EVERY DAY FOR SWELLING Rx Instructions: TAKE 1 TABLET BY MOUTH EVERY DAY FOR SWELLING Levemir FlexTouch U-100 Insuln 100 unit/mL (3 mL) insulin pen See Rx Instructions .ROUTE .COMPLEX Qty: 3 0RF Rx Instructions: 12 unit subcutaneously IN AM AND 9 UNITS PM ondansetron HCl 4 mg tablet See Rx Instructions .ROUTE .COMPLEX Qty: 30 10RF Dose Instruction: TAKE 1 TABLET BY MOUTH EVERY 4 HOURS NEEDED Rx Instructions: TAKE 1 TABLET BY MOUTH EVERY 4 HOURS NEEDED sulfamethoxazole-trimethoprim 400-80 mg tablet See Rx Instructions .ROUTE .COMPLEX Qty: 60 6RF Dose Instruction: TAKE 1 TABLET BY MOUTH TWICE DAILY FOR uti Rx Instructions: TAKE 1 TABLET BY MOUTH TWICE DAILY FOR uti loratadine 10 mg tablet See Rx Instructions .ROUTE .COMPLEX Qty: 90 3RF Dose Instruction: TAKE 1 TABLET BY MOUTH EVERY DAY Rx Instructions: TAKE 1 TABLET BY MOUTH EVERY DAY insulin aspart U-100 [Novolog FlexPen U-100 Insulin] 100 unit/mL (3 mL) insulin pen See Rx Instructions .ROUTE .COMPLEX Qty: 15 11RF Dose Instruction: inject 7-10 units SUBCUTANEOUSLY THREE TIMES DAILY Rx Instructions: inject 7-10 units SUBCUTANEOUSLY THREE TIMES DAILY lorazepam [Ativan] 1 mg tablet 1 mg PO BID PRN (Reason: severe anxiety) Qty: 60 3RF Rx Instructions: May take one tablet twice per day as needed for severe anxiety Hair, Skin, Nails with Biotin 7.5-7.5-1,250 mg-unit-mcg Tablet,Chewable 2 tab PO DAILY Qty: 0 acetaminophen 500 mg Tablet 500 mg PO Q4H PRN (Reason: Pain) docusate sodium [Colace] 100 mg Capsule 100 mg PO BEDTIME Azo Cranberry 250 mg Tablet,Chewable 500 mg PO DAILY Qty: 0 PreserVision AREDS-2 250-90-40-1 mg capsule 1 tab PO BID Multivitamins 28 mg iron- 800 mcg tablet 1 tab PO DAILY@08 tizanidine 4 mg Tablet 4 mg PO Q6H PRN (Reason: Muscle Spasm) ondansetron 4 mg tablet,disintegrating 4 mg PO Q8H PRN (Reason: nausea and vomiting) Qty: 15 0RF oxycodone 5 mg tablet 5 mg PO Q4H PRN (Reason: pain) Qty: 10 0RF Miralax 17 gram/dose powder 17 g PO TID PRN (Reason: constipation) Qty: 238 0RF Discharge Orders: Discharge ED (Routine); Ordered 02/18/23 Ordered By: Matthew Negro Referrals: Arie Lewis MD [Primary Care Provider] - Discharge Diet: Usual diet Discharge Activity: Increase activity as tolerated Patient Instructions: Pain Management Activity Restrictions/Additional Instructions: Hold Bactrim for 5 days while on nitrofurantoin. Take nitrofurantoin 100 mg 2 times a day for 5 days. Drink plenty of water with medications. Continue with routine medicines otherwise as prescribed. Follow-up with primary care in 3 to 5 days for recheck. Return to ED for new concerns. Coding Level of Care Code ED Cutter And Paster [employer] for Noemi Veliz
--- NOTE | 2023-02-17 23:57 | XRR_ITS ---
PROCEDURE INFORMATION: Exam: XR Chest Exam date and time: 02/18/2023 12:02 AM Age: 72 years old Clinical indication: Pain; Chest pressure; Prior surgery; Surgery date: 6+ months; Surgery type: Breast aug; Additional info: Chest wall pain, no injury TECHNIQUE: Imaging protocol: Radiologic exam of the chest. Views: 1 view. COMPARISON: CR XR chest 1V portable [id number] 05/15/2022 12:59 PM FINDINGS: Lungs: Lungs are clear. Pleural spaces: No pleural effusion. No pneumothorax. Heart/Mediastinum: Stable cardiomediastinal silhouette. Diaphragm: Stable eventration of the right hemidiaphragm Bones/joints: No acute osseous abnormality. XR/XR chest 1V portable [id number] IMPRESSION: No acute findings.
[2023-02-18] MEDS: acetaminophen 500 mg Tablet PO (00:47)
[2023-02-18 00:59] LABS: Add Urine Microscopic? YES; Bilirubin Urine Neg (Negative); Blood Urine 3+ (Negative); Glucose Urine UA Norm (Normal); Ketones Urine Negative (Negative); Leukocyte Esterase Urine 2+ (Negative); Nitrate Urine Negative (Negative); Protein Urine Neg (Negative); RBC Urine 0-4 /hpf (0-2); Urine Appearance Clear (CLEAR); Urine Color Yellow (Yellow); Urobilinogen Urine Neg (Negative); pH Urine 6 (5-7)
[2023-02-18 01:00] LABS: Add Urine Culture? Yes; Bacteria Urine 1+ /hpf; Squamous Epithelial Cell Urine 0-4 /hpf (0-5); WBC Urine 15-25 /hpf (0-5)
[2023-02-18] MEDS: nitrofurantoin SR (BID) 100 mg Capsule PO (01:37)
[2023-02-18] MEDS: metoclopramide 5 mg/mL SDV 2 mL 10 MG IM (01:37)
[2023-02-18 01:53] VITALS: BP 146/70; PULSE 80; RESP 18; TEMP 36.7; O2SAT 94
== END 2023-02-18 01:54 | disposition home or self-care (01) ==
PROVIDERS: Emergency Provider Nurse Practitioner Family; PCP Family Medicine
DX: N39.0 Urinary tract infection, site not specified (principal); M25.511 Pain in right shoulder
CPT/HCPCS: 71045; 81001; 87077; 87086; 87186; 96372; 99284; J2765

== ENCOUNTER 2023-04-25 20:41 | Observation (INO) | payer MEDICARE, MEDICAID, SELFPAY ==
[2023-04-25 20:50] VITALS: BP 131/69; PULSE 90; RESP 18; TEMP 36.8; O2SAT 94; BMI 26.9
--- NOTE | 2023-04-25 21:12 | XRR_ITS ---
PROCEDURE INFORMATION: Exam: XR Chest Exam date and time: 04/25/2023 9:34 PM Age: 72 years old Clinical indication: Shortness of breath; Additional info: SOB TECHNIQUE: Imaging protocol: Radiologic exam of the chest. Views: 1 view. COMPARISON: CR XR chest 1V portable [id number] 02/18/2023 12:02 AM FINDINGS: Lungs: Lungs are clear bilaterally. Pleural spaces: No pleural effusion. No pneumothorax. Heart/Mediastinum: Stable mild enlargement of the cardiac silhouette. Mediastinal contours are unremarkable. Bones/joints: Unremarkable for age. XR/XR chest 1V portable [id number] IMPRESSION: 1. No acute cardiopulmonary process. 2. Incidental/nonacute findings are listed in the report.
[2023-04-25 21:30] LABS: Basophils % 0.4 %; Lymphocytes # 1.1 10^3/uL (0.8-4.8); Lymphocytes % 10.5 %; Mean Corpuscular HGB Conc 31.2 g/dL (30-55); Mean Corpuscular Hemoglobin 26.6 pg (27-33); Mean Corpuscular Volume 85.4 fl (85-98); Mean Platelet Volume 12.3 fL (7.4-10.4); Monocytes # 0.3 10^3/uL (0.2-0.9); Monocytes % 2.4 %; Neutrophils # 9.18 10^3/uL (1.8-7.7); Neutrophils % 86.2 %; Nucleated Red Blood Cells % 0 %; Platelet Count 345 10^3/cmm (157-399); Red Blood Count 4.92 10^6/uL (3.85-5.65); Red Cell Distribution Width 14.2 % (12.1-15.1); White Blood Count 10.65 10^3/uL (3.29-11.43)
[2023-04-25 21:37] LABS: Ketone (Acetest) Serum Negative (Negative)
[2023-04-25 21:50] VITALS: PULSE 76; RESP 18; O2SAT 98
[2023-04-25] MEDS: ipratropium-albuterol 3 mL Neb INHALATION (21:50)
[2023-04-25 21:54] VITALS: PULSE 80; RESP 18; O2SAT 98
[2023-04-25 21:55] LABS: Alanine Aminotransferase 18 U/L (0-33); Albumin Level 4.2 g/dL (3.5-5.2); Alkaline Phosphatase 116 U/L (35-105); Anion Gap 24.4 (5-19); Aspartate Amino Transferase 18 U/L (0-32); Blood Urea Nitrogen 20 mg/dL (8-23); Calcium 9.6 mg/dL (8.5-10.5); Carbon Dioxide 24 mmol/L (22-29); Chloride 92 mmol/L (98-107); Globulin 2.9 g/dL (1.3-4.6); Glucose 459 mg/dL (65-115); NT Pro B Type Natriuretic Pept 118 pg/mL (0-125); Osmolality Calculated 307 mOsm/kg (285-295); Potassium 3.4 mmol/L (3.5-5.1); Sodium 137 mmol/L (136-145); Total Bilirubin 0.2 mg/dL (0.15-1.2); Total Protein 7.1 g/dL (6.6-8.7)
--- NOTE | 2023-04-25 21:56 | ED_ITS ---
HPI - SOB/Dyspnea General: Chief Complaint: Shortness of Breath/Dyspnea Stated Complaint: SOB Time Seen by Provider: 04/25/23 20:58 Source: patient History of Present Illness: HPI Narrative: 72-year-old female who is blind. She comes from home by EMS with a complaint of shortness of breath. She has insulin-dependent diabetes. She was given steroids today, for an upper respiratory tract infection with shortness of breath by her primary physician. She has had a bit of a cough. She has had congestion. No fever. No real sputum production. She notes that she is very panicky . She is tired of being short of breath. She has to sit up to breathe. MD elicited complaint: shortness of breath Associated symptoms: Deny abdominal pain, chest pain, fever(s), nausea, palpitations or vomiting Review of Systems Const: Denies: fever(s) ENMT: Denies: throat pain Card: Denies: chest pain or palpitations Resp: Reports: dyspnea and non-productive cough; Denies: productive cough GI: Denies: abdominal pain, nausea or vomiting Psych: Reports: anxiety PFSH ED PFSH: Medical History Abdominal pain Blindness Cholecystectomy planned Chronic migraine Chronic migraine Colonoscopy planned Diabetes mellitus type 2 in nonobese She reports DM1 Encounter for long-term use of opiate analgesic Generalized anxiety disorder GERD (gastroesophageal reflux disease) Helicobacter pylori gastritis Major depressive disorder, recurrent severe without psychotic features Obstructive pyelonephritis Opioid contract exists Psychiatric care Recurrent UTI Right ureteral calculus Smoker Spondylosis without myelopathy or radiculopathy, lumbosacral region [place] (stress urinary incontinence, female) Urolithiasis Surgical History H/O tubal ligation History of cholecystectomy History of hysteroscopy Hx of colonoscopy Hx of dilation and curettage 09/14/19 [facility] Family History Father , at age 76 CHF (congestive heart failure) Mother Acute arthritis Other CAD (coronary artery disease) Cancer Social History Smoking and tobacco/nicotine status: former use of tobacco/nicotine (Spouse is a smoker) Alcohol intake: never Substance/Drug Use: former Date of last use: 2020. THC USE Adopted: No Caregiver/support person: Yes Lives independently: Yes Housing: House Marital status: Current occupational status: disabled Physical Exam Const: GENERAL APPEARANCE: in distress and anxious; not ill appearing and not frail appearing HENMT: COMMON NORMALS: normocephalic, atraumatic and Normal external nose present HEAD & SCALP: normocephalic and atraumatic FACE & SINUS: normal facial exam and face symmetric NOSE: Normal external nose present Neck/C-Spine: GENERAL: Yes trachea midline Chest: CHEST: Yes Symmetrical chest wall rise Resp: COMMON NORMALS: normal respiratory effort, No retractions, No use of accessory muscles and clear to auscultation bilaterally AUSCULTATION: clear to auscultation bilaterally Cardio: COMMON NORMALS: regular rate and regular rhythm RATE: regular rate RHYTHM: regular rhythm GI: COMMON NORMALS: Normal to inspection, nondistended, normoactive bowel sounds present Extremity: COMMON NORMALS: no pedal edema Neuro: EDI COMA SCALE: document GCS findings Edi coma scale eye opening: Spontaneous [place] coma scale verbal response: Orientated Edi coma scale motor response: Obey commands Edi coma scale total score: 15 SENSO RY EXAM: Yes extremities (intact) Psych: COMMON NORMALS: speech normal SPEECH: Yes normal speech Skin: COMMON NORMALS: no rashes or lesions noted GENERAL SKIN EXAM: no rashes or lesions noted Course Vital Signs: Vital signs: Vital Signs Temperature 98.3 F 04/26/23 12:06 Pulse Rate 75 04/26/23 12:06 Respiratory Rate 18 04/26/23 12:06 Blood Pressure 124/73 04/26/23 12:06 Pulse Oximetry 92 04/26/23 12:06 Oxygen Delivery Me thod Nasal Cannula 04/26/23 04:04 Oxygen Flow Rate 1 04/26/23 04:02 MDM - SOB/Dyspnea Medical Decision Making 72-year-old female with shortness of breath. Oxygen saturations have been essentially normal on the monitor. She is placed on 1 L for comfort. She was given lorazepam IV, for panic type symptoms which transiently improved her shortness of breath. Chest x-ray is negative. CTA of the chest done after positive D-dimer is negative. It was followed through the belly CT, due to significant LE elevated lactate level. It is negative as well. She will be admitted for lactic metabolic acidosis and hyperglycemia. She was given fluid and insulin. Lab Data 04/26/23 09:25 04/25/23 20:27 Labs/Radiology: Radiology Impressions Chest X-Ray 04/25/23 21:12 IMPRESSION: 1. No acute cardiopulmonary process. 2. Incidental/nonacute findings are listed in the report. Chest/Abdomen/Pelvis CT 04/26/23 00:23 IMPRESSION: No acute findings. IMPRESSION: 1. No acute findings. 2. Small sliding hiatal hernia. 3. Mild sigmoid colon diverticulosis without diverticulitis. 4. Lumbar spine dextroscoliosis with a Shelley angle measuring 32 degrees. Laboratory Results WBC 10.65 10^3/uL (3.29-11.43) 04/25/23 20: RBC 4.92 10^6/uL (3.85-5.65) 04/25/23 20: Hgb 13.10 g/dL (11.27-16.99) 04/25/23 20: Hct 42.0 % (36-47) 04/25/23 20: MCV 85.4 fl (85-98) 04/25/23 20: MCH 26.6 pg (27-33) L 04/25/23 20: MCHC 31.2 g/dL (30-55) 04/25/23 20: RDW 14.2 % (12.1-15.1) 04/25/23 20: Plt Count 345 10^3/cmm (157-399) 04/25/23 20: MPV 12.3 fL (7.4-10.4) H 04/25/23 20: Neut % (Auto) 86.2 % 04/25/23 20: Lymph % (Auto) 10.5 % 04/25/23 20: [place] % (Auto) 2.4 % 04/25/23 20: Eos % (Auto) 0.0 % 04/25/23 20: Baso % (Auto) 0.4 % 04/25/23 20: Neut # (Auto) 9.18 10^3/uL (1.8-7.7) H 04/25/23: Lymph # (Auto) 1.1 10^3/uL (0.8-4.8) 04/25/23 20: [place] # (Auto) 0.3 10^3/uL (0.2-0.9) 04/25/23: Eos # (Auto) 0.0 10^3/uL (0.0-0.8) 04/25/23 20: Baso # (Auto) 0.0 10^3/uL (0.0-0.1) 04/25/23: Nucleated RBC % (auto) 0 % 04/25/23: Nucleated RBCs # 0.0 /100WBC 04/25/23: D-Dimer 1.23 ug/mLFEU (0-0.59) H 04/25/23 23:54 Specimen Type Arterial 04/25/23 22:00 Sample Site Brachial, right 04/25/23 22:00 ABG pH 7.44 (7.35-7.45) 04/25/23 22:00 ABG pCO2 42.9 mmHg (35-45) 04/25/23 22:00 ABG pO2 76.0 mmHg (80.0-100.0) L 04/25/23 22:00 ABG HCO3 28.9 mmol/L (22-26) H 04/25/23 22:00 ABG Base Excess 4.1 mmol/L (-2.0-2.0) H 04/25/23 22:00 Robert Test N/a 04/25/23 22:00 Hematocrit 40.0 % (37-47) 04/25/23 22:00 Hgb O2 Saturation 95.0 % (95-100) 04/25/23 22:00 Carboxyhemoglobin 0.8 %THgb (0.4-20.1) 04/25/23 22:00 Methemoglobin < 0.0 % (0.4-1.5) L 04/25/23 22:00 Total Hemoglobin 13.1 g/dL (12-16) 04/25/23 22:00 O2 Delivery Device Nc 04/25/23 22:00 O2 Liters/Min 1.0 % 04/25/23 22:00 FiO2 24.0 % 04/25/23 22:00 Ambulatory Services Representative ID [email or web address] 04/25/23 22:00 Sodium 137 mmol/L (136-145) 04/25/23 20:27 Potassium 3.4 mmol/L (3.5-5.1) L 04/25/23 20: Chloride 92 mmol/L (98-107) L 04/25/23 20: Carbon Dioxide 24 mmol/L (22-29) 04/25/23 20: Anion Gap 24.4 (5-19) H 04/25/23 20:27 BUN 20 mg/dL (8-23) 04/25/23 20: Creatinine 1.3 mg/dL (0.5-0.9) H 04/25/23 20: GFR Calculation Not Reportable 04/25/23 20: Glucose 459 mg/dL (65-115) H 04/25/23 20: POC Glucose 323 mg/dL (70-110) H 04/25/23 22:28 Calculated Osmolality 307 mOsm/kg (285-295) H 04/25/23 20:27 Lactic Acid 6.1 mmol/L (0.5-2.2) H* 04/26/23 02:37 Lactic Acid (Sepsis) 5.6 mmol/L (0.5-2.2) H* 04/25/23 23:54 Calcium 9.6 mg/dL (8.5-10.5) 04/25/23 20: Total Bilirubin 0.2 mg/dL (0.15-1.2) 04/25/23 20: AST 18 U/L (0-32) 04/25/23 20: ALT 18 U/L (0-33) 04/25/23 20: Alkaline Phosphatase 116 U/L (35-105) H 04/25/23 20: NT-Pro-B Natriuret Pep 118 pg/mL (0-125) 04/25/23 20: Total Protein 7.1 g/dL (6.6-8.7) 04/25/23 20: Albumin 4.2 g/dL (3.5-5.2) 04/25/23 20: Globulin 2.9 g/dL (1.3-4.6) 04/25/23 20:27 Serum Ketones Negative (Negative) 04/25/23 20:27 SARS-CoV-2 Ag (Rapid) negative (Negative) 04/25/23 22:11 All radiology interpretation(s) finalized by discharge Discharge Plan Discharge Patient Disposition: Admitted As Inpatient Admit Provider: Best Andrea Clinical Impression: Generalized anxiety disorder, Elevated d-dimer, Hyperglycemia Condition: Stable Coding Level of Care Code ED [facility] Hand Line for Noemi Veliz
[2023-04-25] MEDS: LORazepam 2 mg/mL INJ 1 mL 1 MG IVP (22:01)
[2023-04-25 22:05] LABS: ABG PCO2 42.9 mmHg (35-45); ABG PH Result 7.44 (7.35-7.45); Base Excess ABG 4.1 mmol/L (-2.0-2.0); Blood Gas Sample Site Brachial, right; Blood Gas Sample Type Arterial; Carboxyhemoglobin 0.8 %THgb (0.4-20.1); HCO3 ABG 28.9 mmol/L (22-26); Methemoglobin < 0.0 % (0.4-1.5); Oxygen Device NC; Total Hemoglobin 13.1 g/dL (12-16)
[2023-04-25 22:17] LABS: Lactic Sepsis W/Reflex 6.6 mmol/L (0.5-2.2)
[2023-04-25 22:31] LABS: Glucose Point of Care 323 mg/dL (70-110)
[2023-04-25 22:31] LABS: SARS Covid-2 Antigen negative (Negative)
[2023-04-25] MEDS: sodium chloride 0.9% 1,000 ML 999 ML IV (23:12)
[2023-04-25 23:38] LABS: Reflex Lactate Order REFLEX LACTIC ORDERD
[2023-04-26] VITALS (8 sets, daily range): BP systolic 124–169; BP diastolic 71–83; PULSE 75–85; RESP 14–18; TEMP 36.5–36.8; O2SAT 92–99
[2023-04-26 00:19] LABS: D Dimer 1.23 ug/mLFEU (0-0.59)
--- NOTE | 2023-04-26 00:23 | CTR_ITS ---
PROCEDURE INFORMATION: Exam: CTA Chest With Contrast Exam date and time: 04/26/2023 12:59 AM Age: 72 years old Clinical indication: Pain and abnormal findings; Abnormal lab test; Other: Lactic acid 6.6; Other: N/a; Abdominal pain; Generalized; Abnormal diagnostic tests; Elevated d-dimer; Shortness of breath; Prior surgery; Surgery date: 6+ months; Surgery type: Breast aug. Gb. Tubal. Patient HX: SOB with abd pain. Dimer of 1.23. Lactic acid of 6.6. ; Additional info: Chest pain sob/abd pain/ lactic acidosis TECHNIQUE: Imaging protocol: Computed tomographic angiography of the chest with contrast. Exam focused on the arteries. 3D rendering (Not supervised by radiologist): MIP and/or 3D reconstructed images were created by the technologist. Radiation optimization: All CT scans at this facility use at least one of these dose optimization techniques: automated exposure control; mA and/or kV adjustment per patient size (includes targeted exams where dose is matched to clinical indication); or iterative reconstruction. Contrast material: OMNI 350; Contrast volume: 75 ml; Contrast route: INTRAVENOUS (IV); REPORTING DATA: Count of CT and Cardiac NM exams in prior 12 months: This patient has received 2 known CTs and 0 known cardiac nuclear medicine studies in the 12 months prior to the current study. COMPARISON: CT chest w con* [id number] 05/03/2022 11:21 AM RADIATION DOSE METRICS: Total DLP (mGy-cm): 905.3 FINDINGS: Pulmonary arteries: Normal. No pulmonary emboli. Aorta: Unremarkable. No aortic aneurysm. No aortic dissection. Lungs: Unremarkable. No consolidation. No masses. Pleural spaces: Unremarkable. No pneumothorax. No pleural effusion. Heart: Unremarkable. No cardiomegaly. No pericardial effusion. Lymph nodes: Unremarkable. No enlarged lymph nodes. Bones/joints: Unremarkable. No acute fracture. Soft tissues: Bilateral breast implants. PROCEDURE INFORMATION: Exam: CT Abdomen And Pelvis With Contrast Exam date and time: 04/26/2023 12:59 AM Age: 72 years old Clinical indication: Pain and abnormal findings; Abnormal lab test; Other: Lactic acid 6.6; Other: N/a; Abdominal pain; Generalized; Abnormal diagnostic tests; Elevated d-dimer; Shortness of breath; Prior surgery; Surgery date: 6+ months; Surgery type: Breast aug. Gb. Tubal. Patient HX: SOB with abd pain. Dimer of 1.23. Lactic acid of 6.6. ; Additional info: Chest pain sob/abd pain/ lactic acidosis TECHNIQUE: Imaging protocol: Computed tomography of the abdomen and pelvis with contrast. Radiation optimization: All CT scans at this facility use at least one of these dose optimization techniques: automated exposure control; mA and/or kV adjustment per patient size (includes targeted exams where dose is matched to clinical indication); or iterative reconstruction. Contrast material: OMNI 350; Contrast volume: 75 ml; Contrast route: INTRAVENOUS (IV); REPORTING DATA: Count of CT and Cardiac NM exams in prior 12 months: This patient has received 2 known CTs and 0 known cardiac nuclear medicine studies in the 12 months prior to the current study. COMPARISON: CT abdomen pelvis w con* [id number] 12/30/2022 12:59 AM RADIATION DOSE METRICS: Total DLP (mGy-cm): 905.3 FINDINGS: Diaphragm: Small sliding hiatal hernia. Liver: Normal. No mass. Gallbladder and bile ducts: Cholecystectomy clips. There is no common bile duct dilatation. Pancreas: Normal. No ductal dilation. Spleen: Deformed spleen and splenule. No splenomegaly. Adrenal glands: Normal. No mass. Kidneys and ureters: Normal. No hydronephrosis. Stomach and bowel: Mild sigmoid colon diverticulosis without diverticulitis. No bowel obstruction, ileus, or colitis. Appendix: No evidence of appendicitis. Intraperitoneal space: Unremarkable. No free air. No significant fluid collection. Vasculature: Unremarkable. No abdominal aortic aneurysm. Lymph nodes: Unremarkable. No enlarged lymph nodes. Urinary bladder: Unremarkable as visualized. Reproductive: Unremarkable as visualized. Bones/joints: No acute fracture. Lumbar spine dextroscoliosis with a Shelley angle measuring 32 degrees. Soft tissues: Unremarkable. CT/CT angio chest w abd pel w con IMPRESSION: No acute findings. IMPRESSION: 1. No acute findings. 2. Small sliding hiatal hernia. 3. Mild sigmoid colon diverticulosis without diverticulitis. 4. Lumbar spine dextroscoliosis with a Shelley angle measuring 32 degrees.
[2023-04-26 00:30] LABS: Lactic Acid level (Lactate) 5.6 mmol/L (0.5-2.2)
[2023-04-26] MEDS: iohexol 350 mg/mL 500 mL Btl (per mL) IV (01:04)
--- NOTE | 2023-04-26 02:42 | P.HP_ITS ---
Providers/Chief Complaint Primary Care Provider: Arie Lewis MD Chief Complaint: SOB History of Present Illness 72-year-old lady with history of blindness, diabetes, JACKLYN, MDD, GERD, former smoker, other medical history was seen by her primary provider today, diagnosed with URI and started on doxycycline, prednisone, Ventolin, as well as given refills on furosemide and other medications. She came in to ER with shortness of breath, having to sit up to breathe, minimal to no cough, no sputum production. Has had some sneezing. With anxiety, feeling very panicky . Uses Ativan BID prn for panic. Used ventolin inhaler about 5 times. On assessment in ER she is afebrile, saturation around 94%, started on 1 L of oxygen for comfort. PO2 76 on ABG. Noted with metabolic acidosis, anion gap 24.4, bicarb 24. Glucose 459. Serum ketones negative. BUN 20, creatinine 1.3, similar to last year. He is found to have significant lactic acidosis, 6.6, with 1 L bolus fluid resuscitation lactate 5.6. D-dimer was checked and abnormal at 1.23. Additionally assessed by CTA chest, abdomen and pelvis. Reports has had some trouble breathing recently even before visiting PCP. She denies dysphagia. She does report having had quite a bit of acid reflux last few days and has a hiatal hernia. 2 weeks ago had diarrhea which resolved without recurrence. Review of Systems Const: Denies: fever(s), chills, body aches or malaise ENMT: Denies: throat pain Card: Denies: chest pain, edema, pre-syncope or dyspnea on exertion Resp: Reports: dyspnea; Denies: productive cough, change in phlegm color or hemoptysis GI: Reports: heartburn and diarrhea; Denies: abdominal pain, nausea, vomiting, constipation, hematochezia or melena : Denies: flank pain, urinary frequency or hematuria Musc: Denies: back pain, joint swelling or joint redness Skin/Breast: Denies: rash or new lesions Neuro: Denies: headache(s), numbness in extremities, weakness in extremities, dizziness, confusion or seizure-like activity Psych: Reports: anxiety and panic attacks Endo: Denies: polyuria or polydipsia Medications/Allergies Home Medications Medication Instructions Recorded Confirmed Last Taken Type ascorbic acid 7.5 mg-vit E 7.5 2 tab PO DAILY ##0 02/27/20 04/01/23 05/14/22 History unit-biotin 1,250 mcg chewable tablet (Hair,Skin,Nails with Biotin) acetaminophen 500 mg tablet 500 mg PO Q4H PRN Pain 04/06/21 04/01/23 04/18/22 History cranberry fruit concentrate 250 mg 500 mg PO DAILY ##0 04/06/21 04/01/23 05/14/22 History chewable tablet (Azo Cranberry) vit no.95-ferrous 1 tab PO DAILY@08 08/20/21 04/01/23 05/14/22 History fumarate 28 mg-folic acid 800 mcg tablet ( Multivitamins) vit C 250 mg-vit E 90 mg-zinc 40 1 tab PO BID 08/20/21 04/01/23 05/14/22 History mg-copper 1 [id number] capsule (PreserVision AREDS-2) meclizine 25 mg tablet 25 mg PO BID@ #180 tabs 03/01/22 04/01/23 04/18/22 Rx tizanidine 4 mg tablet 4 mg PO Q6H PRN Muscle Spasm 05/15/22 04/01/23 05/14/22 History oxybutynin chloride 10 mg See Rx Instructions .Route 06/06/22 04/01/23 Unknown Rx tablet,extended release 24 hr .COMPLEX #60 tabs tramadol 50 mg tablet 50 mg PO QID PRN Pain #120 tabs 06/06/22 04/01/23 Unknown Rx pen needle, diabetic 32 gauge x ##100 06/20/22 04/01/23 Unknown Rx 1/4 (TechLITE Pen Needle) furosemide 20 mg tablet See Rx Instructions .Route 08/15/22 04/01/23 Unknown Rx .COMPLEX #90 tabs insulin detemir U-100 100 unit/mL See Rx Instructions .Route 09/14/22 04/01/23 Unknown Rx (3 mL) subcutaneous pen (Levemir .COMPLEX #3 mL FlexTouch U-100 Insulin) insulin aspart U-100 100 unit/mL See Rx Instructions .Route 11/29/22 04/01/23 Unknown Rx (3 mL) subcutaneous pen (Novolog .COMPLEX #15 mL FlexPen U-100 Insulin aspart) ondansetron 4 mg disintegrating 4 mg PO Q8H PRN nausea and 12/30/22 04/01/23 Unknown Rx tablet vomiting #15 tabs ondansetron HCl 4 mg tablet See Rx Instructions .Route 03/03/23 04/01/23 Unknown Rx .COMPLEX #30 tabs lorazepam 1 mg tablet (Ativan) 1 mg PO BID PRN severe anxiety #60 03/14/23 04/01/23 Unknown Rx tabs pregabalin 25 mg capsule (Lyrica) 25 mg PO .hs 03/14/23 04/01/23 Unknown History trazodone 50 mg tablet 50 mg PO BEDTIME PRN insomnia #60 03/14/23 04/01/23 Unknown Rx tabs omeprazole 40 mg capsule,delayed See Rx Instructions .Route 03/20/23 04/01/23 Unknown Rx release .COMPLEX #180 caps cetirizine 10 mg tablet (All Day 10 mg PO DAILY PRN 04/01/23 04/01/23 Unknown History Allergy (cetirizine)) methenamine hippurate 1 gram tablet 1 g PO BID 04/01/23 04/01/23 Unknown History aripiprazole 5 mg tablet (Abilify) 15 mg PO DAILY #90 tabs 04/14/23 Unknown Rx Allergies Allergy/AdvReac Type Severity Reaction Status Date / Time ceftriaxone Allergy Severe ALGY-Hives Verified 04/01/23 08:46 escitalopram Allergy Severe rash Verified 04/01/23 08:47 Penicillins Allergy Severe ALGY-Anaphy Verified 04/01/23 08:46 laxis rivaroxaban [From Xarelto] Allergy Severe suicidial Verified 04/01/23 08:46 thoughts atorvastatin [From Lipitor] Allergy Unknown Unknown Verified 04/01/23 08:46 desvenlafaxine [From Pristiq] Allergy Unknown Unknown Verified 04/01/23 08:46 duloxetine [From Cymbalta] Allergy Unknown Unknown Verified 04/01/23 08:46 amoxicillin Allergy Unknown Verified 04/01/23 08:46 ciprofloxacin Allergy ALGY-Anaphy Verified 04/01/23 08:46 laxis gabapentin Allergy Unknown Verified 04/01/23 08:46 ibuprofen Allergy ADR-Abdominal Verified 04/01/23 08:46 Pain PFSH Acute PFSH: Medical History Abdominal pain Blindness Cholecystectomy planned Chronic migraine Chronic migraine Colonoscopy planned Diabetes mellitus type 2 in nonobese She reports DM1 Encounter for long-term use of opiate analgesic Generalized anxiety disorder GERD (gastroesophageal reflux disease) Helicobacter pylori gastritis Major depressive disorder, recurrent severe without psychotic features Obstructive pyelonephritis Opioid contract exists Psychiatric care Recurrent UTI Right ureteral calculus Smoker Spondylosis without myelopathy or radiculopathy, lumbosacral region [place] (stress urinary incontinence, female) Urolithiasis Surgical History H/O tubal ligation History of cholecystectomy History of hysteroscopy Hx of colonoscopy Hx of dilation and curettage 09/14/19 [facility] Family History Father , at age 76 CHF (congestive heart failure) Mother Acute arthritis Other CAD (coronary artery disease) Cancer Social History Smoking and tobacco/nicotine status: former use of tobacco/nicotine (Spouse is a smoker) Alcohol intake: never Substance/Drug Use: former Date of last use: 2020. THC USE Adopted: No Caregiver/support person: Yes Lives independently: Yes Housing: House Marital status: Current occupational status: disabled Vitals/I&O/Wt Last Vital Signs Temp 98.2 F 04/25/23 20:50 Pulse 80 04/25/23 21:54 Resp 18 04/25/23 21:54 BP 131/69 04/25/23 20:50 Pulse Ox 98 04/25/23 21:54 O2 Del Method Nasal Cannula 04/25/23 21:54 O2 Flow Rate 1 04/25/23 21:54 Weight last 48 hrs Weight 66.678 kg Physical Exam Const: COMMON NORMALS: patient oriented x3 and alert GENERAL APPEARANCE: cooperative ORIENTATION/CONSCIOUSNESS: Yes awake HENMT: COMMON NORMALS: oropharynx normal Neck/C-Spine: COMMON NORMALS: no JVD Resp: COMMON NORMALS: normal respiratory effort and clear to auscultation bilaterally AUSCULTATION: clear to auscultation bilaterally Cardio: COMMON NORMALS: no JVD, regular rhythm, S1 normal heart sound present, S2 normal heart sound present and No murmurs present (Cardio) RHYTHM: regular rhythm HEART SOUNDS: S1 normal heart sound present and S2 normal heart sound present GI: COMMON NORMALS: Normal to inspection, nondistended, normoactive bowel sounds present, Soft to palpation and non-tender PALPATION: Yes Soft to palpation Extremity: COMMON NORMALS: no joint enlargement and no pedal edema Neuro: COMMON NORMALS: patient oriented x3 and moves all extremities SENSORIUM/ORIENTATION: Yes alert Data 04/25/23 20:27 04/25/23 20:27 Micro: Microbiology 04/25/23 21:37 Blood Culture - Preliminary Blood SPECIMEN COLLECTED 04/25/23 21:31 Blood Culture - Preliminary Blood SPECIMEN COLLECTED A&P Assessment and plan (1) Hyperlactatemia: Severe lactate elevation down to 6.6, unclear cause. Initially did not appear to have any obvious medications, but has been recently started on prednisone as well as albuterol inhaler. States that she used the inhaler 5 times. Albuterol may cause elevation of lactic acidosis as in some cases steroids were noted to do as well. Additionally she was quite anxious, and anxiety/hyperventilation could have contributed, however ABG not highly suggestive of hyperventilation. With concern for possible inadequate tissue oxygenation some more additional assessment requested including CTA, with abnormal D-dimer, possible alcohol bowel ischemia or other intra-abdominal process CT extended to abdomen as well. Additional monitoring in the hospital requested for reassessment with potential severe and/or life-threatening condition given severe lactic acidosis until clearly resolving and etiology established. Received bolus of NS in ER. So far with some improvement in lactic acid. Observation requested. Repeat value. Reviewed vitals, CBC, CMP, serum ketones noted negative, rapid COVID-19 negative. Reviewed CTA chest, abdomen pelvis. Discussed with ER physician, ER documentation reviewed. (2) Dyspnea: With URI symptoms recently was started on doxycycline, prednisone, albuterol inhaler. States symptoms somewhat persistent we will check respiratory viral panel. Rapid COVID-19 noted negative. She additionally notes has had quite a bit of reflux recently, continue omeprazole. Does have hiatal hernia. Discussed with her strategies to reduce reflux. If persistently symptomatic consideration may be given to referral for repair. Consider also outpatient pulmonary function testing. Reviewed D-dimer, noted abnormal 1.23. Reviewed CTA chest, abdomen pelvis. Does have lumbar spine dextroscoliosis. (3) Elevated d-dimer: No PE on CTA chest. No lower extremity swelling to suggest DVT. We will obtain respiratory viral panel. (4) Hypokalemia: Reviewed potassium. Replace. Recheck chemistry. (5) Hyperglycemia: Moderate hyperglycemia, otherwise no ketoacidosis on review of ABG, serum ketones. We will add moderate sliding scale insulin. Continue long-acting insulin. Accu-Cheks requested. Consistent carb. Risk of hypoglycemia, requested hypoglycemia protocol. Plan Diabetes: As above. JACKLYN, panic episodes, Ativan PRN continue follow-up with behavioral health MDD, Continue follow up with behavioral health GERD, hiatal hernia, PPI, persistently symptomatic consider referral for assessment for repair Former smoker, Other per medical history Attestations Medical Necessity Statement*: Place in observation for additional assessment management with finding of severe hyperlipidemia, dyspnea, additional comorbidities as above. Diagnoses Hyperlactatemia E87.20 Dyspnea R06.00 Elevated d-dimer R79.89 Hypokalemia E87.6 Hyperglycemia R73.9
[2023-04-26 03:33] LABS: Lactic Sepsis W/Reflex 6.1 mmol/L (0.5-2.2)
[2023-04-26] MEDS: trazodone 50 mg Tablet 100 MG PO (04:21)
[2023-04-26] MEDS: potassium chloride ER 20 mEq Tablet 40 MEQ PO (04:21)
[2023-04-26] MEDS: acetaminophen 325 mg Tablet 650 MG PO (04:22)
[2023-04-26] MEDS: insulin glargine 100 units/1 mL 30 UNIT SUBCUT (05:17)
[2023-04-26 07:06] LABS: Glucose Point of Care 228 mg/dL (70-110)
[2023-04-26 07:33] LABS: Adenovirus Not Detected (NOT DETECT); Chlamydia Pneumoniae Not Detected (NOT DETECT); Coronavirus 229E,HKU1,NL63,OC4 Not Detected (NOT DETECT); Human Metapneumovirus Not Detected (NOT DETECT); Human Rhinovirus/Enterovirus Not Detected (NOT DETECT); Influenza A Not Detected (NOT DETECT); Influenza A H1 Not Detected (NOT DETECT); Influenza A H1-2009 Not Detected (NOT DETECT); Influenza A H3 Not Detected (NOT DETECT); Influenza B Not Detected (NOT DETECT); Mycoplasma Pneumoniae Not Detected (NOT DETECT); Parainfluenza Virus Type 1 Not Detected (NOT DETECT); Parainfluenza Virus Type 2 Not Detected (NOT DETECT); Parainfluenza Virus Type 3 Not Detected (NOT DETECT); Parainfluenza Virus Type 4 Not Detected (NOT DETECT); Respiratory Syncytial Virus A Not Detected (NOT DETECT); Respiratory Syncytial Virus B Not Detected (NOT DETECT); SARS-COV-2 Not Detected (NOT DETECT)
[2023-04-26] MEDS: pantoprazole DR 40 mg Tablet PO (09:22)
[2023-04-26] MEDS: insulin lispro 100 unit/1 mL SUBCUT (09:22)
--- NOTE | 2023-04-26 09:44 | PM.DCS ---
Discharge Providers Date of Admission: 04/26/23 03:09 Date of Discharge: April 26, 2023 Attending Provider at Admission: Best Andrea Attending Provider at Discharge: Vazquez Greenberg MD Primary Care Provider: Arie Lewis MD Diagnoses at Discharge Discharge Diagnosis (1) Hyperlactatemia: Status: Acute (2) Dyspnea: Status: Acute (3) Elevated d-dimer: Status: Acute (4) Hypokalemia: Status: Acute (5) Hyperglycemia: Status: Acute Reason for Visit Reason for Visit: SOB Hospital Course Hospital Course 72-year-old lady with history of blindness, diabetes, JACKLYN, MDD, GERD, former smoker, other medical history was seen by her primary provider today, diagnosed with URI and started on doxycycline, prednisone, Ventolin, as well as given refills on furosemide and other medications.? She came in to ER with shortness of breath, having to sit up to breathe, minimal to no cough, no sputum production. Has had some sneezing. Work-up during her hospitalization showed hiatal hernia, no other significant findings noted on CT chest abdomen pelvis, no signs of PE no acute findings at all sigmoid reticulosis, dextroscoliosis, patient is doing well on room air at the time of evaluation she is afebrile, lactic acidemia is likely type II related to use of albuterol she does not have any active source of infection she has already been given antibiotics outpatient by her primary care physician. We will request home oxygen evaluation before her discharge. Viral panel is negative Physical Exam Narrative: Patient is awake and alert GCS 15 Pleasant cooperative Currently on room air Abdomen soft Euvolemic No active signs of airway compromise No tachypnea tachycardia S1, S2 Discharge Data Studies Completed and Pending Completed Studies During Hospitalization Category Date Time Status CT angio chest w abd pel w con Urgent Cat Scan 04/26/23 00:23 Completed XR chest 1V portable [id number] Stat Exams 04/25/23 21:12 Completed Pending at discharge Category Date Time Status Blood Culture Stat Lab 04/25/23 21:37 Results CBC Auto Diff [Complete Blood Count w/Auto] Routine Lab 04/26/23 09:25 Results Comprehensive Metabolic Panel AM LABS Lab 04/27/23 04:00 Ordered Comprehensive Metabolic Panel AM LABS Lab 04/28/23 04:00 Ordered Lactate (Lactic Acid level) Q6H Lab 04/26/23 09:25 Received Lactate (Lactic Acid level) Q6H Lab 04/26/23 15:00 Ordered Radiology Impressions Chest X-Ray 04/25/23 21:12 IMPRESSION: 1. No acute cardiopulmonary process. 2. Incidental/nonacute findings are listed in the report. Chest/Abdomen/Pelvis CT 04/26/23 00:23 IMPRESSION: No acute findings. IMPRESSION: 1. No acute findings. 2. Small sliding hiatal hernia. 3. Mild sigmoid colon diverticulosis without diverticulitis. 4. Lumbar spine dextroscoliosis with a Shelley angle measuring 32 degrees. Laboratory Results WBC 10.65 10^3/uL (3.29-11.43) 04/25/23 20: RBC 4.92 10^6/uL (3.85-5.65) 04/25/23 20: Hgb 13.10 g/dL (11.27-16.99) 04/25/23 20: Hct 42.0 % (36-47) 04/25/23 20: MCV 85.4 fl (85-98) 04/25/23 20: MCH 26.6 pg (27-33) L 04/25/23 20: MCHC 31.2 g/dL (30-55) 04/25/23 20: RDW 14.2 % (12.1-15.1) 04/25/23 20: Plt Count 345 10^3/cmm (157-399) 04/25/23 20: MPV 12.3 fL (7.4-10.4) H 04/25/23 20: Neut % (Auto) 86.2 % 04/25/23 20: Lymph % (Auto) 10.5 % 04/25/23 20: Toombs % (Auto) 2.4 % 04/25/23 20: Eos % (Auto) 0.0 % 04/25/23 20: Baso % (Auto) 0.4 % 04/25/23 20: Neut # (Auto) 9.18 10^3/uL (1.8-7.7) H 04/25/23 20: Lymph # (Auto) 1.1 10^3/uL (0.8-4.8) 04/25/23 20: Toombs # (Auto) 0.3 10^3/uL (0.2-0.9) 04/25/23 20: Eos # (Auto) 0.0 10^3/uL (0.0-0.8) 04/25/23 20: Baso # (Auto) 0.0 10^3/uL (0.0-0.1) 04/25/23 20: Nucleated RBC % (auto) 0 % 04/25/23 20: Nucleated RBCs # 0.0 /100WBC 04/25/23 20: D-Dimer 1.23 ug/mLFEU (0-0.59) H 04/25/23 23:54 Specimen Type Arterial 04/25/23 22:00 Sample Site Brachial, right 04/25/23 22:00 ABG pH 7.44 (7.35-7.45) 04/25/23 22:00 ABG pCO2 42.9 mmHg (35-45) 04/25/23 22:00 ABG pO2 76.0 mmHg (80.0-100.0) L 04/25/23 22:00 ABG HCO3 28.9 mmol/L (22-26) H 04/25/23 22:00 ABG Base Excess 4.1 mmol/L (-2.0-2.0) H 04/25/23 22:00 Robert Test N/a 04/25/23 22:00 Hematocrit 40.0 % (37-47) 04/25/23 22:00 Hgb O2 Saturation 95.0 % (95-100) 04/25/23 22:00 Carboxyhemoglobin 0.8 %THgb (0.4-20.1) 04/25/23 22:00 Methemoglobin < 0.0 % (0.4-1.5) L 04/25/23 22:00 Total Hemoglobin 13.1 g/dL (12-16) 04/25/23 22:00 O2 Delivery Device Nc 04/25/23 22:00 O2 Liters/Min 1.0 % 04/25/23 22:00 FiO2 24.0 % 04/25/23 22:00 Graphic Arts Technician ID [email or web address] 04/25/23 22:00 Sodium 137 mmol/L (136-145) 04/25/23 20:27 Potassium 3.4 mmol/L (3.5-5.1) L 04/25/23 20: Chloride 92 mmol/L (98-107) L 04/25/23 20:27 Carbon Dioxide 24 mmol/L (22-29) 04/25/23 20: Anion Gap 24.4 (5-19) H 04/25/23 20: BUN 20 mg/dL (8-23) 04/25/23 20: Creatinine 1.3 mg/dL (0.5-0.9) H 04/25/23 20: GFR Calculation Not Reportable 04/25/23 20: Glucose 459 mg/dL (65-115) H 04/25/23 20: POC Glucose 228 mg/dL (70-110) H 04/26/23 06:53 Calculated Osmolality 307 mOsm/kg (285-295) H 04/25/23 20:27 Lactic Acid 6.1 mmol/L (0.5-2.2) H* 04/26/23 02:37 Lactic Acid (Sepsis) 5.6 mmol/L (0.5-2.2) H* 04/25/23 23:54 Calcium 9.6 mg/dL (8.5-10.5) 04/25/23 20: Total Bilirubin 0.2 mg/dL (0.15-1.2) 04/25/23 20: AST 18 U/L (0-32) 04/25/23 20:27 ALT 18 U/L (0-33) 04/25/23 20: Alkaline Phosphatase 116 U/L (35-105) H 04/25/23 20:27 NT-Pro-B Natriuret Pep 118 pg/mL (0-125) 04/25/23 20: Total Protein 7.1 g/dL (6.6-8.7) 04/25/23 20: Albumin 4.2 g/dL (3.5-5.2) 04/25/23 20: Globulin 2.9 g/dL (1.3-4.6) 04/25/23 20:27 Nasal Influ A H1 2008 PCR Not detected (NOT DETECT) 04/26/23 05:47 Serum Ketones Negative (Negative) 04/25/23 20:27 Adenovirus (PCR) Not detected (NOT DETECT) 04/26/23 05:47 C. pneumoniae DNA (PCR) Not detected (NOT DETECT) 04/26/23 05:47 Coronavirus 229E (PCR) Not detected (NOT DETECT) 04/26/23 05:47 Human Metapneumovir PCR Not detected (NOT DETECT) 04/26/23 05:47 Influenza A (H1) PCR Not detected (NOT DETECT) 04/26/23 05:47 Influenza A (H3) PCR Not detected (NOT DETECT) 04/26/23 05:47 Influenza Type A (PCR) Not detected (NOT DETECT) 04/26/23 05:47 Influenza Type B (PCR) Not detected (NOT DETECT) 04/26/23 05:47 M. pneumoniae (PCR) Not detected (NOT DETECT) 04/26/23 05:47 Parainfluenza 1 (PCR) Not detected (NOT DETECT) 04/26/23 05:47 Parainfluenza 2 (PCR) Not detected (NOT DETECT) 04/26/23 05:47 Parainfluenza 3 (PCR) Not detected (NOT DETECT) 04/26/23 05:47 Parainfluenza 4 (PCR) Not detected (NOT DETECT) 04/26/23 05:47 RSV Type A (PCR) Not detected (NOT DETECT) 04/26/23 05:47 RSV Type B (PCR) Not detected (NOT DETECT) 04/26/23 05:47 Entero/Rhino (PCR) Not detected (NOT DETECT) 04/26/23 05:47 SARS-CoV-2 (PCR) Not detected (NOT DETECT) 04/26/23 05:47 SARS-CoV-2 Ag (Rapid) negative (Negative) 04/25/23 22:11 Vitals Last Vital Signs Temp 98.2 F 04/26/23 08:00 Pulse 76 04/26/23 08:00 Resp 16 04/26/23 08:00 BP 136/71 04/26/23 08:00 Pulse Ox 96 04/26/23 08:00 O2 Del Method Nasal Cannula 04/26/23 04:04 O2 Flow Rate 1 04/26/23 04:02 Discharge Plan Discharge Patient Disposition: Home Condition: Stable Prescriptions: No Action cetirizine [All Day Allergy (cetirizine)] 10 mg tablet 10 mg PO DAILY PRN methenamine hippurate 1 gram tablet 1 g PO BID pregabalin [Lyrica] 25 mg capsule 25 mg PO .hs lorazepam [Ativan] 1 mg tablet 1 mg PO BID PRN (Reason: severe anxiety) Qty: 60 3RF Rx Instructions: May take one tablet twice per day as needed for severe anxiety trazodone 50 mg tablet 50 mg PO BEDTIME PRN (Reason: insomnia) Qty: 60 3RF Rx Instructions: May take one to two tab at bedtime as needed for sleep meclizine 25 mg tablet 25 mg PO BID@08,16 Qty: 180 12RF tramadol 50 mg tablet 50 mg PO QID PRN (Reason: Pain) Qty: 120 5RF oxybutynin chloride 10 mg tablet extended release 24hr See Rx Instructions .ROUTE .COMPLEX Qty: 60 11RF Dose Instruction: TAKE 1 TABLET BY MOUTH TWO TIMES DAILY Rx Instructions: TAKE 1 TABLET BY MOUTH TWO TIMES DAILY (DME) pen needle, diabetic [TechLITE Pen Needle] 32 gauge x 1/4 needle See Rx Instructions .ROUTE .COMPLEX Qty: 100 11RF Dose Instruction: USE FIVE times daily Rx Instructions: USE FIVE times daily furosemide 20 mg tablet See Rx Instructions .ROUTE .COMPLEX Qty: 90 3RF Dose Instruction: TAKE 1 TABLET BY MOUTH EVERY DAY FOR SWELLING Rx Instructions: TAKE 1 TABLET BY MOUTH EVERY DAY FOR SWELLING Levemir FlexTouch U100 Insulin 100 unit/mL (3 mL) insulin pen See Rx Instructions .ROUTE .COMPLEX Qty: 3 0RF Rx Instructions: 12 unit subcutaneously IN AM AND 9 UNITS PM insulin aspart U-100 [Novolog FlexPen U-100 Insulin] 100 unit/mL (3 mL) insulin pen See Rx Instructions .ROUTE .COMPLEX Qty: 15 11RF Dose Instruction: inject 7-10 units SUBCUTANEOUSLY THREE TIMES DAILY Rx Instructions: inject 7-10 units SUBCUTANEOUSLY THREE TIMES DAILY ondansetron HCl 4 mg tablet See Rx Instructions .ROUTE .COMPLEX Qty: 30 10RF Dose Instruction: TAKE 1 TABLET BY MOUTH EVERY 4 HOURS NEEDED Rx Instructions: TAKE 1 TABLET BY MOUTH EVERY 4 HOURS NEEDED omeprazole 40 mg capsule,delayed release(DR/EC) See Rx Instructions .ROUTE .COMPLEX Qty: 180 12RF Dose Instruction: TAKE ONE CAPSULE BY MOUTH TWICE DAILY Rx Instructions: TAKE ONE CAPSULE BY MOUTH TWICE DAILY aripiprazole [Abilify] 5 mg tablet 15 mg PO DAILY Qty: 90 3RF Rx Instructions: Take three tablets daily: am, noon and bedtime Hair, Skin, Nails with Biotin 7.5-7.5-1,250 mg-unit-mcg Tablet,Chewable 2 tab PO DAILY Qty: 0 acetaminophen 500 mg Tablet 500 mg PO Q4H PRN (Reason: Pain) Azo Cranberry 250 mg Tablet,Chewable 500 mg PO DAILY Qty: 0 PreserVision AREDS-2 250-90-40-1 mg capsule 1 tab PO BID Multivitamins 28 mg iron- 800 mcg tablet 1 tab PO DAILY@08 tizanidine 4 mg Tablet 4 mg PO Q6H PRN (Reason: Muscle Spasm) ondansetron 4 mg tablet,disintegrating 4 mg PO Q8H PRN (Reason: nausea and vomiting) Qty: 15 0RF Discharge Orders: Discharge Order (Routine); Ordered 04/26/23 Ordered By: Vazquez Greenberg Referrals: Arie Lewis MD [Primary Care Provider] - 1 week Patient Instructions: Opioid Safety Discharge Attestations Time Spent in Discharge Care*: greater than 30 min Quality Metrics Clinical Quality Measures [ No reported AMI, CVA or VTE this stay] Coding Level of Care Code Acute Code for Chg Fwd Diagnoses Hyperlactatemia E87.20 Dyspnea R06.00 Elevated d-dimer R79.89 Hypokalemia E87.6 Hyperglycemia R73.9
[2023-04-26 09:45] LABS: Basophils # 0.1 10^3/uL (0.0-0.1); Basophils % 0.5 %; Eosinophils # 0.1 10^3/uL (0.0-0.8); Eosinophils % 0.8 %; Hematocrit 42.3 % (36-47); Lymphocytes # 2.9 10^3/uL (0.8-4.8); Lymphocytes % 20.5 %; Mean Corpuscular HGB Conc 32.2 g/dL (30-55); Mean Corpuscular Hemoglobin 26.7 pg (27-33); Mean Corpuscular Volume 83.1 fl (85-98); Mean Platelet Volume 11.7 fL (7.4-10.4); Monocytes # 0.9 10^3/uL (0.2-0.9); Monocytes % 6.1 %; Neutrophils # 10.23 10^3/uL (1.8-7.7); Neutrophils % 71.5 %; Nucleated Red Blood Cells % 0 %; Platelet Count 335 10^3/cmm (157-399); Red Blood Count 5.09 10^6/uL (3.85-5.65); Red Cell Distribution Width 14.2 % (12.1-15.1); White Blood Count 14.29 10^3/uL (3.29-11.43)
--- NOTE | 2023-04-26 09:54 | PC.PHAR ---
pts ex verified pts medications-abdifatah the pts ex states he brought in a list but states all the pts meds were not on there and states some of the directions on the paper brought in were not correct-abdifatah states the pt takes abilify 5mg tid rx written 04/14/23 ext shows rx filled 5mg take 10mg daily filled 04/01/23 30d/s-abdifatah states he gives levemir flextouch 16-20 units qam and 30-34 units hs rx filled 04/11/23 30units qam and 20 units hs-abdifatah state the pt takes zofran 4mg bid rx filled 04/23/23 4mg po q4h prn-abdifatah states he gives the pt lyrica 25mg bid states the pt was taking 25mg hs but states he started giving 25mg bid-notes are made in the pharmacy comments
[2023-04-26 10:34] LABS: Lactate (Lactic Acid level) 3.2 mmol/L (0.5-2.2)
[2023-04-26 11:44] LABS: Glucose Point of Care 52 mg/dL (70-110)
[2023-04-26 12:00] LABS: Glucose Point of Care 94 mg/dL (70-110)
== END 2023-04-26 12:08 | disposition home or self-care (01) ==
LOC: ER 04-26 02:39 → MEDSURG 04-26 03:22
PROVIDERS: Admitting Provider Internal Medicine; Emergency Provider Emergency Medicine; PCP Family Medicine; Visit Provider Internal Medicine
DX: E87.20 Acidosis, unspecified (principal); R06.00 Dyspnea, unspecified; R79.89 Other specified abnormal findings of blood chemistry; E87.6 Hypokalemia; E11.69 Type 2 diabetes mellitus with other specified complication; F41.1 Generalized anxiety disorder; F32.9 Major depressive disorder, single episode, unspecified; K21.9 Gastro-esophageal reflux disease without esophagitis; Z87.891 Personal history of nicotine dependence; K44.9 Diaphragmatic hernia without obstruction or gangrene; Z79.4 Long term (current) use of insulin; K57.30 Diverticulosis of large intestine without perforation or abscess without bleeding; E11.65 Type 2 diabetes mellitus with hyperglycemia
CPT/HCPCS: 36415; 36416; 36600; 71045; 71275; 74177; 80053; 82009; 82805; 82962; 83605; 83880; 85025; 85378; 87040; 87426; 87486; 87581; 87633; 94640; 94760; 96361; 96372; 96374; 99285; G0378; J1815; J2060; J7030; Q9967

== ENCOUNTER → 2023-05-07 10:29 | Outpatient (BNVA) | payer MEDICARE, MEDICAID, OTHER, SELFPAY | PROVIDERS: PCP Family Medicine; Visit Provider Nurse Practitioner Psychiatric/Mental Health | DX: Z03.89 Encounter for observation for other suspected diseases and conditions ruled out (principal); Z79.899 Other long term (current) drug therapy | CPT/HCPCS: 81001 ==

== ENCOUNTER 2023-12-19 09:10 | Inpatient (IN) | payer MEDICARE, MEDICAID, SELFPAY ==
[2023-12-19] VITALS (39 sets, daily range): BP systolic 92–119; BP diastolic 48–68; PULSE 68–91; RESP 10–37; TEMP 36.6–37.9; O2SAT 93–100; BMI 27.4
--- NOTE | 2023-12-19 09:19 | XR_ITS ---
WS: [email or web address] Exam: XR chest 1V portable [id number] Date/Time of Exam: 12/19/2023 9:45 AM Reason For Exam: fever Comparison 04/25/2023. The lungs are clear and fully expanded. Normal cardiomediastinal silhouette. No pleural effusions. Re gional bony structures are intact. XR/XR chest 1V portable [id number] IMPRESSION: 1. No acute cardiopulmonary process.
--- NOTE | 2023-12-19 09:21 | ED_ITS ---
Documented by User: GT Silver 12/19/23 11:57 HPI - General Adult 2 General: Chief complaint: Nausea/Vomiting/Diarrhea Stated complaint: flu like symptoms Time Seen by Provider: 12/19/23 09:11 Source: patient and EMS Mode of arrival: EMS Limitations: no limitations History of Present Illness: Patient is a nice 72-year-old female presents to ED today via EMS for evaluation of fever and bodyaches. She states the fever began yesterday. She states she threw up most of yesterday evening and throughout the night. She does not complain of abdominal pain. EMS states upon arrival patient was satting at 80% on room air and placed her on oxygen however here she is anywhere from 94 to 97% on room air. Patient does not complain of feeling short of breath. She has not had any cough or congestion. She states she has had some acid reflux/throat clearing. She states her home health nurse possibly adjusted my acid reflux meds wrong . Patient has not had any diarrhea. Denies poor food exposure. Patient is a diabetic. Blood sugars in the mid 100s by EMS. She does not complain of any back pain or urinary symptoms. Blood pressure upon arrival is 97/48. She states a normal blood pressure for her is 90s/60s . Onset (ago): day(s) (yesterday) Exacerbating factors: none Associated symptoms: Reports nausea and vomiting; Deny chest pain, dyspnea, headache(s), malaise, rash, palpitations or syncope Treatments prior to arrival: other (zofran given by EMS) Review of Systems 2 Const: Reports: fever(s), chills and body aches; Denies: fatigue or malaise Eyes: Denies: change in vision, blurry vision, photophobia, eye discomfort, eye discharge, floaters or seeing flashes ENMT: Denies: throat pain, odynophagia, ear or mastoid pain, nasal discharge, nasal congestion or sinus pain Card: Denies: chest pain, palpitations, irregular heart rhythm, edema, swelling of feet/ankles, lightheadedness, syncope, pre-syncope, dyspnea on exertion, orthopnea, leg pain with exertion or acrocyanosis Resp: Reports: other (throat clearing due to acid reflex); Denies: dyspnea, productive cough, non-productive cough, wheezing, hemoptysis or chest congestion GI: Reports: nausea, vomiting and heartburn; Denies: abdominal pain or hematemesis : Denies: flank pain, difficulty voiding, dysuria, urinary frequency or urinary urgency Musc: Denies: neck pain, back pain, extremity pain, extremity swelling or joint pain Skin/Breast: Denies: rash Neuro: Denies: headache(s), numbness in extremities, weakness in extremities, sensory changes or dizziness PFSH ED 2 PFSH: Medical History (Updated 12/19/23 @ 11:59 by Woody Cervantes MD) Hyperglycemia Hypokalemia Elevated d-dimer Dyspnea Hyperlactatemia [place] (stress urinary incontinence, female) Helicobacter pylori gastritis Abdominal pain Recurrent UTI GERD (gastroesophageal reflux disease) Psychiatric care Cholecystectomy planned Colonoscopy planned Blindness Urolithiasis Diabetes mellitus type 2 in nonobese She reports DM1 Obstructive pyelonephritis Right ureteral calculus Chronic migraine Chronic migraine Opioid contract exists Encounter for long-term use of opiate analgesic Spondylosis without myelopathy or radiculopathy, lumbosacral region Smoker Generalized anxiety disorder Major depressive disorder, recurrent severe without psychotic features Surgical History Hx of colonoscopy History of cholecystectomy Hx of dilation and curettage 09/14/19 [facility] H/O tubal ligation History of hysteroscopy Family History Father , at age 76 Congestive heart failure (CHF) Mother Acute arthritis Other CAD (coronary artery disease) Cancer Social History Smoking and tobacco/nicotine status: former use of tobacco/nicotine (Spouse is a smoker) Alcohol intake: never Substance/Drug Use: former Date of last use: 2020. THC USE Adopted: No Caregiver/support person: Yes Lives independently: Yes Housing: House Marital status: Current occupational status: disabled Physical Exam 2 Const: COMMON NORMALS: no acute distress, patient oriented x3, no limitations, alert and well nourished GENERAL APPEARANCE: cooperative O RIENTATION/CONSCIOUSNESS: Yes awake, Yes oriented to person, Yes oriented to place and Yes oriented to time HENMT: COMMON NORMALS: normocephalic and atraumatic HEAD & SCALP: normal to inspection, normocephalic and atraumatic FACE & SINUS: normal facial exam Eye: GENERAL EYE: appearance normal, both eyes and all related structures Neck/C-Spine: COMMON NORMALS: full ROM, no lymphadenopathy, supple and no meningeal signs Chest: COMMONS NORMALS: normal inspection of the chest Resp: COMMON NORMALS: normal respiratory effort and clear to auscultation bilaterally AUSCULTATION: clear to auscultation bilaterally Cardio: COMMON NORMALS: regular rate and regular rhythm RATE: regular rate RHYTHM: regular rhythm GI: COMMON NORMALS: Normal to inspection, nondistended, normoactive bowel sounds present, Soft to palpation, No hepatosplenomegaly present and no masses INSPECTION: Yes normal to inspection AUSCULTATION: Yes normoactive bowel sounds PALPATION: Yes Soft to palpation, Yes Tenderness to palpation present (GI) (mild tenderness throughout abdomen-non surgical), No Guarding due to palpation present (GI), No Rigid due to palpation and Yes No hepatosplenomegaly present : COMMON NORMALS: Yes no CVA tenderness BLADDER/KIDNEY EXAM: Yes no CVA tenderness Back/Pelvis: COMMON NORMALS: no CVA tenderness and thoracic and lumbar spine normal to inspection Extremity: COMMON NORMALS: normal to inspection GENERAL: Yes normal exam except as noted Neuro: EDI COMA SCALE: document GCS findings [place] coma scale eye opening: Spontaneous Edi coma scale verbal response: Orientated [place] coma scale motor response: Obey commands [place] coma scale total score: 15 COMMON NORMALS: patient oriented x3, moves all extremities, no focal motor deficits and no sensory deficits noted SENSORIUM/ORIENTATION: Yes alert, Yes oriented to person, Yes oriented to place and Yes oriented to time MENINGEAL SIGNS: Yes no meningeal signs Skin: COMMON NORMALS: no rashes or lesions noted and turgor normal GENERAL SKIN EXAM: no rashes or lesions noted and turgor normal Course 2 Consultations: Consultation #1: Dr. Cervantes-accepts hospitalization Vital Signs: Vital signs: Vital Signs Temperature 98.5 F 12/19/23 11:11 Pulse Rate 83 12/19/23 11:40 Respiratory Rate 20 H 12/19/23 11:40 Blood Pressure 111/54 12/19/23 11:40 Pulse Oximetry 93 12/19/23 11:25 Oxygen Delivery Me thod Room Air 12/19/23 10:39 [facility] - General Adult Medical Decision Making Patient arrives with low-grade fever 100.2. She is complaint of fever, chills, vomiting at home. She was found to have a UTI with significant leukocytosis with a white count of 30.89. With her vomiting at home I do not feel she would tolerate oral antibiotics at this time. Patient does meet SIRS criteria. She will need to stay for IV antibiotics. She does have a history of ESBL infections. I spoke to hospitalist Dr. Cervantes who will admit. Medical Records I reviewed the patient's medical records. Lab Data I reviewed the patient's lab results. 12/19/23 09:06 12/19/23 09:06 Radiology Impressions Chest X-Ray 12/19/23 09:19 IMPRESSION: 1. No acute cardiopulmonary process. Abdomen/Pelvis CT 12/19/23 10:09 IMPRESSION: 1. Consider cystitis. 2. A few new noncalcified nodules in the lung bases. For patients at low risk (minimal or absent history of smoking and of other known risk factors), no routine follow-up is indicated. For patients at high risk (history of smoking or of other known risk factors), consider optional CT Chest at 12 months. (Reference: Ifeoma). 3. Small amount of increased atelectasis and/or pneumonitis in the lung bases. 4. Diffuse thickening of the distal esophageal wall may be slightly increased. This is probably esophagitis, but upper endoscopy is recommended to exclude esophageal malignancy. 5. Possible constipation. 6. New borderline bilateral inguinal lymphadenopathy. 7. No other acute findings. 8. Additional details as above. Unchanged. REFERENCES: Ifeoma Maier, et al. Guidelines for Management of Incidental Pulmonary Nodules Detected on CT Images: From the Fleischner Society 2017. Radiology. 2017;284(1):228-243. Laboratory Results WBC 30.89 10^3/uL (3.29-11.43) H* 12/19/23 09:06 RBC 5.38 10^6/uL (3.85-5.65) 12/19/23 09:06 Hgb 14.00 g/dL (11.27-16.99) 12/19/23 09:06 Hct 44.2 % (36-47) 12/19/23 09:06 MCV 82.2 fl (85-98) L 12/19/23 09:06 MCH 26.0 pg (27-33) L 12/19/23 09:06 MCHC 31.7 g/dL (30-55) 12/19/23 09:06 RDW 15.4 % (12.1-15.1) H 12/19/23 09:06 Plt Count 408 10^3/cmm (157-399) H 12/19/23 09:06 MPV 11.8 fL (7.4-10.4) H 12/19/23 09:06 Neut % (Auto) 86.0 % 12/19/23 09:06 Lymph % (Auto) 9.2 % 12/19/23 09:06 [place] % (Auto) 3.8 % 12/19/23 09:06 Eos % (Auto) 0.1 % 12/19/23 09:06 Baso % (Auto) 0.4 % 12/19/23 09:06 Neut # (Auto) 26.59 10^3/uL (1.8-7.7) H 12/19/23 09:06 Lymph # (Auto) 2.8 10^3/uL (0.8-4.8) 12/19/23 09:06 [place] # (Auto) 1.2 10^3/uL (0.2-0.9) H 12/19/23 09:06 Eos # (Auto) 0.0 10^3/uL (0.0-0.8) 12/19/23 09:06 Baso # (Auto) 0.1 10^3/uL (0.0-0.1) 12/19/23 09:06 Nucleated RBC % (auto) 0 % 12/19/23 09:06 Nucleated RBCs # 0.0 /100WBC 12/19/23 09:06 Sodium 143 mmol/L (136-145) 12/19/23 09:06 Potassium 3.3 mmol/L (3.5-5.1) L 12/19/23 09:06 Chloride 99 mmol/L (98-107) 12/19/23 09:06 Carbon Dioxide 30 mmol/L (22-29) H 12/19/23 09:06 Anion Gap 17.3 (5-19) 12/19/23 09:06 BUN 13 mg/dL (8-23) 12/19/23 09:06 Creatinine 1.2 mg/dL (0.5-0.9) H 12/19/23 09:06 GFR Calculation Not Reportable 12/19/23 09:06 Glucose 80 mg/dL (65-115) 12/19/23 09:06 Calculated Osmolality 295 mOsm/kg (285-295) 12/19/23 09:06 Lactic Acid 2.0 mmol/L (0.5-2.2) 12/19/23 09:06 Calcium 9.4 mg/dL (8.5-10.5) 12/19/23 09:06 Magnesium 1.7 mg/dL (1.7-2.3) 12/19/23 09:06 Total Bilirubin 0.6 mg/dL (0.15-1.2) 12/19/23 09:06 AST 18 U/L (0-32) 12/19/23 09:06 ALT 13 U/L (0-33) 12/19/23 09:06 Alkaline Phosphatase 102 U/L (35-105) 12/19/23 09:06 Total Protein 7.3 g/dL (6.6-8.7) 12/19/23 09:06 Albumin 3.9 g/dL (3.5-5.2) 12/19/23 09:06 Globulin 3.4 g/dL (1.3-4.6) 12/19/23 09:06 Lipase 6 U/L (13-60) L 12/19/23 09:06 Procalcitonin 0.90 ng/mL (0-0.5) H 12/19/23 09:06 Urine Color Yellow (Yellow) 12/19/23 10:00 Urine Appearance Cloudy (CLEAR) A 12/19/23 10:00 Urine pH 6 (5-7) 12/19/23 10:00 Ur Specific [place] 1.010 (1.005-1.030) 12/19/23 10:00 Urine Protein Trace (Negative) 12/19/23 10:00 Urine Glucose (UA) Norm (Normal) 12/19/23 10:00 Urine Ketones Negative (Negative) 12/19/23 10:00 Urine Blood Trace (Negative) H 12/19/23 10:00 Urine Nitrate Positive (Negative) H 12/19/23 10:00 Urine Bilirubin Neg (Negative) 12/19/23 10:00 Urine Urobilinogen 1 mg/dL (Negative) H 12/19/23 10:00 Ur Leukocyte Esterase 2+ (Negative) H 12/19/23 10:00 Urine RBC 0-4 /hpf (0-2) H 12/19/23 10:00 Urine WBC Too numerous to cnt /hpf (0-5) H 12/19/23 10:00 Ur Squamous Epith Cells 0-4 /hpf (0-5) H 12/19/23 10:00 Ur Transition Epith Cell 0-4 /hpf 12/19/23 10:00 Amorphous Sediment Not Reportable 12/19/23 10:00 Urine Bacteria 3+ /hpf (NONE) H 12/19/23 10:00 Urine Mucus 1+ /hpf 12/19/23 10:00 All radiology interpretation(s) finalized by discharge Discharge Plan Discharge Patient Disposition: Admitted As Inpatient Clinical Impression: Complicated urinary tract infection, History of ESBL E. coli infection Condition: Stable Coding Level of Care Code ED Process Specialist for Noemi Fwd Sepsis Event Note ED Sepsis Screening 2 Sepsis Screen No Definite Risk 12/19/23 11:40 Quick SOFA Score 0 12/19/23 11:40 If qSOFA score 2 or greater, continue SOFA Score: 2 [place] Coma Scale Score 15 12/19/23 11:56 Blood Pressure Mean 73 mmHg 12/19/23 11:40 Total Bilirubin 0.6 mg/dL (0.15-1.2) 12/19/23 09:06 Platelet Count 408 10^3/cmm (157-399) H 12/19/23 09:06 Creatinine 1.2 mg/dL (0.5-0.9) H 12/19/23 09:06 [place] coma scale: 15 Blood Pressure Mean: 73 Bilirubin (mg/dl): 0.6 Platelets (x10?/ml): 408 Creatinine (mg/dl): 1.2 Evaluation Current stage of sepsis: sepsis Sepsis stage criteria used: CMS Sep-1 and Sepsis-3 Crystalloid fluids: 30 mL/kg crystalloid fluids ordered and initiated within 3 hours Blood cultures ordered: Yes Possible source: genitourinary Focused Exam Vital signs: Temp Pulse Resp BP Pulse Ox O2 Del Method 12/19/23 11:40 83 20 H 111/54 12/19/23 11:35 85 24 H 111/54 12/19/23 11:30 86 19 H 111/54 12/19/23 11:25 86 37 H 106/50 93 12/19/23 11:20 86 15 106/50 94 12/19/23 11:15 87 24 H 106/50 96 12/19/23 11:11 98.5 F 12/19/23 11:10 88 10 L 106/50 93 12/19/23 11:05 106/50 94 12/19/23 11:00 115/48 96 12/19/23 10:55 115/48 95 12/19/23 10:50 115/48 12/19/23 10:48 115/48 12/19/23 10:39 79 115/48 97 Room Air 12/19/23 09:38 86 101/68 94 Room Air 12/19/23 09:13 100.2 F H 91 16 97/48 97 Room Air Respiratory exam: Yes clear to auscultation bilaterally Cardiovascular Exam: Yes regular rate and regular rhythm Capillary refill: < 3 Seconds Peripheral pulse strength: 3+ Normal Peripheral pulse location: Radial Skin exam: Yes turgor normal and no rashes or lesions noted Date exam was performed: 12/19/23 Time exam was performed: 11:55 Documented by User: Lee Turner DO 12/19/23 12:30 HPI - General Adult 2 General: Chief complaint: Nausea/Vomiting/Diarrhea Stated complaint: flu like symptoms Time Seen by Provider: 12/19/23 09:11 [facility] ED 2 PFSH: Medical History (Updated 12/19/23 @ 11:59 by Woody Cervantes MD) Hyperglycemia Hypokalemia Elevated d-dimer Dyspnea Hyperlactatemia [place] (stress urinary incontinence, female) Helicobacter pylori gastritis Abdominal pain Recurrent UTI GERD (gastroesophageal reflux disease) Psychiatric care Cholecystectomy planned Colonoscopy planned Blindness Urolithiasis Diabetes mellitus type 2 in nonobese She reports DM1 Obstructive pyelonephritis Right ureteral calculus Chronic migraine Chronic migraine Opioid contract exists Encounter for long-term use of opiate analgesic Spondylosis without myelopathy or radiculopathy, lumbosacral region Smoker Generalized anxiety disorder Major depressive disorder, recurrent severe without psychotic features Surgical History Hx of colonoscopy History of cholecystectomy Hx of dilation and curettage 09/14/19 [facility] H/O tubal ligation History of hysteroscopy Family History Father , at age 76 Congestive heart failure (CHF) Mother Acute arthritis Other CAD (coronary artery disease) Cancer Social History Smoking and tobacco/nicotine status: former use of tobacco/nicotine (Spouse is a smoker) Alcohol intake: never Substance/Drug Use: former Date of last use: 2020. THC USE Adopted: No Caregiver/support person: Yes Lives independently: Yes Housing: House Marital status: Current occupational status: disabled Physical Exam 2 Neuro: EDI COMA SCALE: document GCS findings Edi coma scale total score: 15 Course 2 Vital Signs: Vital signs: Vital Signs Temperature 98.5 F 12/19/23 11:11 Pulse Rate 83 12/19/23 11:40 Respiratory Rate 20 H 12/19/23 11:40 Blood Pressure 111/54 12/19/23 11:40 Pulse Oximetry 93 12/19/23 11:25 Oxygen Delivery Me thod Room Air 12/19/23 10:39 MDM - General Adult Medical Decision Making Patient arrives with low-grade fever 100.2. She is complaint of fever, chills, vomiting at home. She was found to have a UTI with significant leukocytosis with a white count of 30.89. With her vomiting at home I do not feel she would tolerate oral antibiotics at this time. Patient does meet SIRS criteria. She will need to stay for IV antibiotics. She does have a history of ESBL infections. I spoke to hospitalist Dr. Cervantes who will admit. Chart reviewed and patient discussed with midlevel. Agree with assessment and plan. Lab Data 12/19/23 09:06 12/19/23 09:06 Radiology Impressions Chest X-Ray 12/19/23 09:19 IMPRESSION: 1. No acute cardiopulmonary process. Abdomen/Pelvis CT 12/19/23 10:09 IMPRESSION: 1. Consider cystitis. 2. A few new noncalcified nodules in the lung bases. For patients at low risk (minimal or absent history of smoking and of other known risk factors), no routine follow-up is indicated. For patients at high risk (history of smoking or of other known risk factors), consider optional CT Chest at 12 months. (Reference: Ifeoma). 3. Small amount of increased atelectasis and/or pneumonitis in the lung bases. 4. Diffuse thickening of the distal esophageal wall may be slightly increased. This is probably esophagitis, but upper endoscopy is recommended to exclude esophageal malignancy. 5. Possible constipation. 6. New borderline bilateral inguinal lymphadenopathy. 7. No other acute findings. 8. Additional details as above. Unchanged. REFERENCES: Ifeoma Maier, et al. Guidelines for Management of Incidental Pulmonary Nodules Detected on CT Images: From the Fleischner Society 2017. Radiology. 2017;284(1):228-243. Laboratory Results WBC 30.89 10^3/uL (3.29-11.43) H* 12/19/23 09:06 RBC 5.38 10^6/uL (3.85-5.65) 12/19/23 09:06 Hgb 14.00 g/dL (11.27-16.99) 12/19/23 09:06 Hct 44.2 % (36-47) 12/19/23 09:06 MCV 82.2 fl (85-98) L 12/19/23 09:06 MCH 26.0 pg (27-33) L 12/19/23 09:06 MCHC 31.7 g/dL (30-55) 12/19/23 09:06 RDW 15.4 % (12.1-15.1) H 12/19/23 09:06 Plt Count 408 10^3/cmm (157-399) H 12/19/23 09:06 MPV 11.8 fL (7.4-10.4) H 12/19/23 09:06 Neut % (Auto) 86.0 % 12/19/23 09:06 Lymph % (Auto) 9.2 % 12/19/23 09:06 [place] % (Auto) 3.8 % 12/19/23 09:06 Eos % (Auto) 0.1 % 12/19/23 09:06 Baso % (Auto) 0.4 % 12/19/23 09:06 Neut # (Auto) 26.59 10^3/uL (1.8-7.7) H 12/19/23 09:06 Lymph # (Auto) 2.8 10^3/uL (0.8-4.8) 12/19/23 09:06 [place] # (Auto) 1.2 10^3/uL (0.2-0.9) H 12/19/23 09:06 Eos # (Auto) 0.0 10^3/uL (0.0-0.8) 12/19/23 09:06 Baso # (Auto) 0.1 10^3/uL (0.0-0.1) 12/19/23 09:06 Nucleated RBC % (auto) 0 % 12/19/23 09:06 Nucleated RBCs # 0.0 /100WBC 12/19/23 09:06 Sodium 143 mmol/L (136-145) 12/19/23 09:06 Potassium 3.3 mmol/L (3.5-5.1) L 12/19/23 09:06 Chloride 99 mmol/L (98-107) 12/19/23 09:06 Carbon Dioxide 30 mmol/L (22-29) H 12/19/23 09:06 Anion Gap 17.3 (5-19) 12/19/23 09:06 BUN 13 mg/dL (8-23) 12/19/23 09:06 Creatinine 1.2 mg/dL (0.5-0.9) H 12/19/23 09:06 GFR Calculation Not Reportable 12/19/23 09:06 Glucose 80 mg/dL (65-115) 12/19/23 09:06 Calculated Osmolality 295 mOsm/kg (285-295) 12/19/23 09:06 Lactic Acid 2.0 mmol/L (0.5-2.2) 12/19/23 09:06 Calcium 9.4 mg/dL (8.5-10.5) 12/19/23 09:06 Magnesium 1.7 mg/dL (1.7-2.3) 12/19/23 09:06 Total Bilirubin 0.6 mg/dL (0.15-1.2) 12/19/23 09:06 AST 18 U/L (0-32) 12/19/23 09:06 ALT 13 U/L (0-33) 12/19/23 09:06 Alkaline Phosphatase 102 U/L (35-105) 12/19/23 09:06 Total Protein 7.3 g/dL (6.6-8.7) 12/19/23 09:06 Albumin 3.9 g/dL (3.5-5.2) 12/19/23 09:06 Globulin 3.4 g/dL (1.3-4.6) 12/19/23 09:06 Lipase 6 U/L (13-60) L 12/19/23 09:06 Procalcitonin 0.90 ng/mL (0-0.5) H 12/19/23 09:06 Urine Color Yellow (Yellow) 12/19/23 10:00 Urine Appearance Cloudy (CLEAR) A 12/19/23 10:00 Urine pH 6 (5-7) 12/19/23 10:00 Ur Specific [place] 1.010 (1.005-1.030) 12/19/23 10:00 Urine Protein Trace (Negative) 12/19/23 10:00 Urine Glucose (UA) Norm (Normal) 12/19/23 10:00 Urine Ketones Negative (Negative) 12/19/23 10:00 Urine Blood Trace (Negative) H 12/19/23 10:00 Urine Nitrate Positive (Negative) H 12/19/23 10:00 Urine Bilirubin Neg (Negative) 12/19/23 10:00 Urine Urobilinogen 1 mg/dL (Negative) H 12/19/23 10:00 Ur Leukocyte Esterase 2+ (Negative) H 12/19/23 10:00 Urine RBC 0-4 /hpf (0-2) H 12/19/23 10:00 Urine WBC Too numerous to cnt /hpf (0-5) H 12/19/23 10:00 Ur Squamous Epith Cells 0-4 /hpf (0-5) H 12/19/23 10:00 Ur Transition Epith Cell 0-4 /hpf 12/19/23 10:00 Amorphous Sediment Not Reportable 12/19/23 10:00 Urine Bacteria 3+ /hpf (NONE) H 12/19/23 10:00 Urine Mucus 1+ /hpf 12/19/23 10:00 Discharge Plan Discharge Patient Disposition: Admitted As Inpatient Clinical Impression: Complicated urinary tract infection, History of ESBL E. coli infection Condition: Stable Coding Level of Care Code ED Process Specialist for Chg Fwd Sepsis Event Note ED Sepsis Screening 2 Sepsis Screen No Definite Risk 12/19/23 11:40 Quick SOFA Score 0 12/19/23 11:40 If qSOFA score 2 or greater, continue SOFA Score: 2 [place]i Coma Scale Score 15 12/19/23 11:56 Blood Pressure Mean 73 mmHg 12/19/23 11:40 Total Bilirubin 0.6 mg/dL (0.15-1.2) 12/19/23 09:06 Platelet Count 408 10^3/cmm (157-399) H 12/19/23 09:06 Creatinine 1.2 mg/dL (0.5-0.9) H 12/19/23 09:06 Edi coma scale: 15 Blood Pressure Mean: 73 Bilirubin (mg/dl): 0.6 Platelets (x10?/ml): 408 Creatinine (mg/dl): 1.2 Evaluation Sepsis stage criteria used: [facility] Sep-1 and Sepsis-3 Focused Exam Vital signs: Temp Pulse Resp BP Pulse Ox O2 Del Method 12/19/23 11:40 83 20 H 111/54 12/19/23 11:35 85 24 H 111/54 12/19/23 11:30 86 19 H 111/54 12/19/23 11:25 86 37 H 106/50 93 12/19/23 11:20 86 15 106/50 94 12/19/23 11:15 87 24 H 106/50 96 12/19/23 11:11 98.5 F 12/19/23 11:10 88 10 L 106/50 93 12/19/23 11:05 106/50 94 12/19/23 11:00 115/48 96 12/19/23 10:55 115/48 95 12/19/23 10:50 115/48 12/19/23 10:48 115/48 12/19/23 10:39 79 115/48 97 Room Air 12/19/23 09:38 86 101/68 94 Room Air 12/19/23 09:13 100.2 F H 91 16 97/48 97 Room Air Date exam was performed: 12/19/23 Time exam was performed: 12:30
[2023-12-19 09:30] LABS: Basophils # 0.1 10^3/uL (0.0-0.1); Basophils % 0.4 %; Eosinophils % 0.1 %; Hematocrit 44.2 % (36-47); Lymphocytes # 2.8 10^3/uL (0.8-4.8); Lymphocytes % 9.2 %; Mean Corpuscular HGB Conc 31.7 g/dL (30-55); Mean Corpuscular Volume 82.2 fl (85-98); Mean Platelet Volume 11.8 fL (7.4-10.4); Monocytes # 1.2 10^3/uL (0.2-0.9); Monocytes % 3.8 %; Neutrophils # 26.59 10^3/uL (1.8-7.7); Nucleated Red Blood Cells % 0 %; Platelet Count 408 10^3/cmm (157-399); Red Blood Count 5.38 10^6/uL (3.85-5.65); Red Cell Distribution Width 15.4 % (12.1-15.1)
[2023-12-19] MEDS: acetaminophen 500 mg Tablet 1000 MG PO (09:33)
[2023-12-19] MEDS: sodium chloride 0.9% 1,000 ML 999 ML IV ×2 (09:34→10:32)
[2023-12-19 09:55] LABS: White Blood Count 30.89 10^3/uL (3.29-11.43)
[2023-12-19 10:08] LABS: Alanine Aminotransferase 13 U/L (0-33); Albumin Level 3.9 g/dL (3.5-5.2); Alkaline Phosphatase 102 U/L (35-105); Anion Gap 17.3 (5-19); Aspartate Amino Transferase 18 U/L (0-32); Blood Urea Nitrogen 13 mg/dL (8-23); Calcium 9.4 mg/dL (8.5-10.5); Carbon Dioxide 30 mmol/L (22-29); Chloride 99 mmol/L (98-107); Globulin 3.4 g/dL (1.3-4.6); Glucose 80 mg/dL (65-115); Lipase 6 U/L (13-60); Osmolality Calculated 295 mOsm/kg (285-295); Potassium 3.3 mmol/L (3.5-5.1); Sodium 143 mmol/L (136-145); Total Bilirubin 0.6 mg/dL (0.15-1.2); Total Protein 7.3 g/dL (6.6-8.7)
--- NOTE | 2023-12-19 10:09 | CTR_ITS ---
PROCEDURE INFORMATION: Exam: CT Abdomen And Pelvis With Contrast Exam date and time: 12/19/2023 10:45 AM Age: 72 years old Clinical indication: Abdominal tenderness and nausea and vomiting; Prior surgery; Surgery date: 6+ months; Surgery type: Gb, tubal; Additional info: Abdominal tenderness, vomiting, fever/leukocytosis TECHNIQUE: Imaging protocol: Computed tomography of the abdomen and pelvis with contrast. Radiation optimization: All CT scans at this facility use at least one of these dose optimization techniques: automated exposure control; mA and/or kV adjustment per patient size (includes targeted exams where dose is matched to clinical indication); or iterative reconstruction. Contrast material: OMNI 350; Contrast volume: 218 ml; Contrast route: INTRAVENOUS (IV); COMPARISON: CT angio chest w abd pel w con 04/26/2023 12:59 AM RADIATION DOSE METRICS: Total DLP (mGy-cm): 550.94 FINDINGS: Lungs: Unchanged scarring in the lung bases. Slightly increased small amounts of atelectasis and/or pneumonitis in the lung bases. A few new noncalcified nodules in the lung bases, the largest on the right image 3 axial series 3 measuring 6 mm x 3 mm. Unchanged small amounts of parenchymal scarring right kidney. Otherwise, unremarkable. Esophagus: Diffuse thickening of the distal esophageal wall may be slightly increased. Diaphragm: Unchanged small hiatal hernia. Liver: Unchanged diffuse fatty infiltration of the liver. Unchanged tiny low-density lesion in the dome of the liver, so is probably a cyst. Otherwise, unremarkable. Gallbladder and biliary ducts: Unchanged cholecystectomy. Unchanged unremarkable post cholecystectomy bile ducts. Pancreas: Normal. No ductal dilation. Spleen: Unchanged lobulated splenic contour. Benign. Unchanged benign splenule. Otherwise, unremarkable. Adrenal glands: Normal. No mass. Kidneys and ureters: Normal. No hydronephrosis. Stomach and bowel: Again noted are a few diverticula from the colon. No acute diverticulitis. A large amount of stool suggests constipation. Otherwise, unremarkable. Appendix: No evidence of appendicitis. Intraperitoneal space: Unremarkable. No free air. No significant fluid collection. Vasculature: Unremarkable. No abdominal aortic aneurysm. Lymph nodes: New borderline inguinal lymphadenopathy bilaterally. No other lymphadenopathy. Urinary bladder: Increased diffuse thickening of the urinary bladder wall. Consider cystitis. Otherwise, unremarkable. Reproductive: Unremarkable as visualized. Bones/joints: Unchanged moderate scoliosis. Unchanged multilevel spondylosis. Otherwise, unremarkable. Soft tissues: Bilateral breast implants are partially in the field of view, and appear intact as visualized. Otherwise, unremarkable visualized body wall. Otherwise, unremarkable soft tissues. CT/CT abdomen pelvis w con* [id number] IMPRESSION: 1. Consider cystitis. 2. A few new noncalcified nodules in the lung bases. For patients at low risk (minimal or absent history of smoking and of other known risk factors), no routine follow-up is indicated. For patients at high risk (history of smoking or of other known risk factors), consider optional CT Chest at 12 months. (Reference: Ifeoma). 3. Small amount of increased atelectasis and/or pneumonitis in the lung bases. 4. Diffuse thickening of the distal esophageal wall may be slightly increased. This is probably esophagitis, but upper endoscopy is recommended to exclude esophageal malignancy. 5. Possible constipation. 6. New borderline bilateral inguinal lymphadenopathy. 7. No other acute findings. 8. Additional details as above. Unchanged. REFERENCES: Ifeoma H, et al. Guidelines for Management of Incidental Pulmonary Nodules Detected on CT Images: From the Fleischner Society 2017. Radiology. 2017;284(1):228-243.
[2023-12-19 10:11] LABS: Add Urine Microscopic? YES; Bilirubin Urine Neg (Negative); Blood Urine Trace (Negative); Glucose Urine UA Norm (Normal); Ketones Urine Negative (Negative); Leukocyte Esterase Urine 2+ (Negative); Nitrate Urine Positive (Negative); Protein Urine Trace (Negative); Urine Appearance Cloudy (CLEAR); Urine Color Yellow (Yellow); Urobilinogen Urine 1 mg/dL (Negative); pH Urine 6 (5-7)
[2023-12-19] MEDS: meropenem 1,000 MG in sodium chloride 0.9% (plus) 50 ML 100 MG IV ×2 (10:32→17:25)
[2023-12-19 10:34] LABS: RBC Urine 0-4 /hpf (0-2); Squamous Epithelial Cell Urine 0-4 /hpf (0-5); Transitional Epi Cells Urine 0-4 /hpf; WBC Urine TOO NUMEROUS TO CNT /hpf (0-5)
[2023-12-19 10:35] LABS: Add Urine Culture? Yes; Bacteria Urine 3+ /hpf; Mucus Urine 1+ /hpf
--- NOTE | 2023-12-19 10:36 | PC.PHAR ---
PT HAS [facility] MED LIST 12/19/23 10:35AM
[2023-12-19] MEDS: iohexol 350 mg/mL 500 mL Btl (per mL) IV (10:46)
[2023-12-19 10:47] LABS: Creatinine Clr Calc Pharmacy 37.1894
--- NOTE | 2023-12-19 11:49 | P.HP_ITS ---
Providers/Chief Complaint 2 Admitting Physician: Woody Cervantes MD, hospitalist Primary Care Provider: Arie Lewis MD Chief Complaint: flu like symptoms History of Present Illness Jackie Romero is a 72 year old female with history of diabetes mellitus type 2, ESBL in the past who presents with 1 day of illness with significant fever, chills, vomiting, back pain. She reports she felt weak yesterday but symptoms culminated last night into the above. She has had no diarrhea. She has had some lower abdominal discomfort but no dysuria. She reports no blood in her stool, black or tarry stool, or hematemesis. She reports frequent UTIs before for which she is on prophylactic Bactrim. She also relates that about 4 to 5 weeks ago she was started on Ozempic, and did take a dose of that yesterday at 1 mg. She reports she has taken this dose before, 1 week prior when it was increased. In the emergency department blood pressure was initially borderline low. With her fever, laboratory pending, a sepsis bolus was ordered. Patient's blood pressure currently normal, with normal heart rate. Lactic acid level was checked and within normal limits. Review of Systems 2 General: Reports: 10 or more systems reviewed and unremarkable except in HPI and below Card: Denies: chest pain Resp: Reports: dyspnea GI: Reports: abdominal pain, nausea and vomiting; Denies: hematochezia or melena Medications/Allergies Home Medications Medication Instructions Recorded Confirmed Last Taken Type acetaminophen 500 mg tablet 500 mg PO Q4H PRN Pain 04/06/21 12/19/23 04/18/22 History vit no.95-ferrous 1 tab PO DAILY@08 08/20/21 12/19/23 12/19/23 History fumarate 28 mg-folic acid 800 mcg tablet ( Multivitamins) vit C 250 mg-vit E 90 mg-zinc 40 1 tab PO BID 08/20/21 12/19/23 05/14/22 History mg-copper 1 yn-qiwsxz-hmhila capsule (PreserVision AREDS-2) tizanidine 4 mg tablet 4 mg PO Q6H PRN Muscle Spasm 05/15/22 12/19/23 05/14/22 History pen needle, diabetic 32 gauge x ##100 06/20/22 09/03/23 Unknown Rx 07/03 (TechLITE Pen Needle) pregabalin 25 mg capsule (Lyrica) 25 mg PO BID 03/14/23 12/19/23 12/19/23 History cetirizine 10 mg tablet (All Day 10 mg PO QAM 04/01/23 12/19/23 12/19/23 History Allergy (cetirizine)) methenamine hippurate 1 gram tablet 1 g PO BID 04/01/23 12/19/23 Unknown History albuterol sulfate 90 mcg/actuation 2 puff inhalation Q4H PRN 04/26/23 12/19/23 Unknown History aerosol inhaler (Ventolin HFA) Shortness Of Breath ascorbic acid (vitamin C) 500 mg 500 mg PO BID 04/26/23 12/16/23 Unknown History tablet (Vitamin C) junyqhy-xqjigkcffgshq-vresdchy 250 1 tab PO Q6H PRN Migraine Headache 04/26/23 12/19/23 Unknown History mg-250 mg-65 mg tablet (Excedrin Migraine) cyanocobalamin (vitamin B-12) 1,000 mcg IM Q30D 04/26/23 12/19/23 04/25/23 History 1,000 mcg/mL injection solution erenumab-aooe 70 mg/mL 70 mg SUBCUT Q30D 04/26/23 12/19/23 04/25/23 History subcutaneous auto-injector (Aimovig Autoinjector) fluticasone propionate 50 2 spray intranasal DAILY 04/26/23 12/19/23 Unknown History mcg/actuation nasal spray,suspension furosemide 40 mg tablet 40 mg PO DAILY 04/26/23 12/19/23 12/19/23 History omeprazole 40 mg capsule,delayed 40 mg PO BID PRN Heartburn 04/26/23 12/19/23 Unknown History release ondansetron HCl 4 mg tablet 4 mg PO BID PRN Nausea 04/26/23 12/19/23 Unknown History potassium chloride 10 mEq 10 meq PO DAILY 04/26/23 12/19/23 12/19/23 History tablet,extended release tramadol 50 mg tablet 50 mg PO Q6H PRN Pain 04/26/23 12/19/23 Unknown History sulfamethoxazole 400 1 tab PO DAILY 06/04/23 12/19/23 12/19/23 History mg-trimethoprim 80 mg tablet (Bactrim) lorazepam 1 mg tablet (Ativan) 1 mg PO TID PRN severe anxiety #90 09/16/23 12/19/23 12/19/23 Rx tabs semaglutide 1 mg/dose (4 mg/3 mL) 1 mg SUBCUT .once per week 12/16/23 12/19/23 Unknown History subcutaneous pen injector (Ozempic) aripiprazole 10 mg tablet (Abilify) 10 mg PO QPM 12/19/23 12/19/23 12/18/23 History citalopram 20 mg tablet (Celexa) 20 mg PO QAM 12/19/23 12/19/23 12/19/23 History oxybutynin chloride 10 mg 10 mg PO BID 12/19/23 12/19/23 12/19/23 History tablet,extended release 24 hr trazodone 50 mg tablet 50 - 100 mg PO BEDTIME PRN insomnia 12/19/23 12/19/23 Unknown History vit C 250 mg-vit E 90 mg-zinc 40 1 tab PO BID 12/19/23 12/19/23 12/19/23 History mg-copper 1 mj-elyhhu-idkrqd capsule (PreserVision AREDS-2) Allergies Allergy/AdvReac Type Severity Reaction Status Date / Time ceftriaxone Allergy Severe ALGY-Hives Verified 12/16/23 14:48 escitalopram Allergy Severe rash Verified 12/16/23 14:48 Penicillins Allergy Severe ALGY-Anaphy Verified 12/16/23 14:48 laxis rivaroxaban [From Xarelto] Allergy Severe suicidial Verified 12/16/23 14:48 thoughts atorvastatin [From Lipitor] Allergy Unknown Unknown Verified 12/16/23 14:48 desvenlafaxine [From Pristiq] Allergy Unknown Unknown Verified 12/16/23 14:48 duloxetine [From Cymbalta] Allergy Unknown Unknown Verified 12/16/23 14:48 amoxicillin Allergy Unknown Verified 12/16/23 14:48 ciprofloxacin Allergy ALGY-Anaphy Verified 12/16/23 14:48 laxis gabapentin Allergy Unknown Verified 12/16/23 14:48 ibuprofen Allergy ADR-Abdominal Verified 12/16/23 14:48 Pain PFSH Acute 2 PFSH: Medical History (Updated 12/19/23 @ 11:59 by Woody Cervantes MD) Hyperglycemia Hypokalemia Elevated d-dimer Dyspnea Hyperlactatemia [place] (stress urinary incontinence, female) Helicobacter pylori gastritis Abdominal pain Recurrent UTI GERD (gastroesophageal reflux disease) Psychiatric care Cholecystectomy planned Colonoscopy planned Blindness Urolithiasis Diabetes mellitus type 2 in nonobese She reports DM1 Obstructive pyelonephritis Right ureteral calculus Chronic migraine Chronic migraine Opioid contract exists Encounter for long-term use of opiate analgesic Spondylosis without myelopathy or radiculopathy, lumbosacral region Smoker Generalized anxiety disorder Major depressive disorder, recurrent severe without psychotic features Surgical History Hx of colonoscopy History of cholecystectomy Hx of dilation and curettage 09/14/19 [facility] H/O tubal ligation History of hysteroscopy Family History Father , at age 76 Congestive heart failure (CHF) Mother Acute arthritis Other CAD (coronary artery disease) Cancer Social History Smoking and tobacco/nicotine status: former use of tobacco/nicotine (Spouse is a smoker) Alcohol intake: never Substance/Drug Use: former Date of last use: 2020. THC USE Adopted: No Caregiver/support person: Yes Lives independently: Yes Housing: House Marital status: Current occupational status: disabled Vitals/I&O/Wt Last Vital Signs Temp 98.5 F 12/19/23 11:11 Pulse 83 12/19/23 11:40 Resp 20 H 12/19/23 11:40 BP 111/54 12/19/23 11:40 Pulse Ox 93 12/19/23 11:25 O2 Del Method Room Air 12/19/23 10:39 Weight last 48 hrs Weight 68.039 kg Physical Exam 2 Narrative: General exam is white female, in no apparent distress currently. HEENT: Atraumatic and normocephalic. Oropharynx slightly dry mucous membranes. 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 Neck is supple Cardiovascular regular rate and rhythm without murmur Lungs clear Abdomen is soft. Slight tenderness infraumbilical region. No obvious organomegaly exam is deferred Extremities no cyanosis clubbing or edema, cap refill better brisk Skin no rash Data 12/19/23 09:06 12/19/23 09:06 Other Labs: LFTs are normal Lactic acid 2.0 Calcium and albumin are normal Magnesium is ordered Procalcitonin 0.9 Lipase 6 Urinalysis demonstrates too numerous to count white blood cells, 0-4 red blood cells, positive leukocyte Estrace, 3+ bacteria, positive nitrates. Chest x-ray which I reviewed demonstrates no infiltrate CT abdomen pelvis thickened bladder, increased stool, thickened esophageal wall, a few nodules in the lungs. I reviewed this as well. Micro: Microbiology 12/19/23 10:31 Blood Culture - Preliminary Blood SPECIMEN COLLECTED 12/19/23 10:26 Blood Culture - Preliminary Blood SPECIMEN COLLECTED A&P Assessment and plan (1) Complicated urinary tract infection: Patient presents with an acute illness with fever, chills, vomiting, blood pressure of 97/48 and a markedly elevated white blood cell count of 31,000. She has a past history of complicated UTIs, bacteremia with E. coli, and last urine culture on a previous hospital stay demonstrating ESBL. She is so significantly ill that hospitalization is expected to cross greater than 2 midnights. It would be inappropriate to discharge the patient sooner than that considering her past history, presentation, without allowing adequate evaluation of cultures of urine and blood. She also has significant allergies to multiple antibiotics which limit treatment options. Urine and blood cultures have been obtained Continue hydration Nausea control with Zofran Secondary to her vomiting, initiate Protonix IV Hold oxybutynin currently (2) Hypokalemia: Supplement potassium Check magnesium (3) Diabetes mellitus type 2 in nonobese: Consistent carb diet, full liquid initially monitoring for any recurrent vomiting Hold Ozempic Sliding scale insulin if needed Plan Other medical problems as outlined in past medical history Note her druze observation is no blood or blood products. Full code Lovenox for DVT prophylaxis Attestations 2 Medical Necessity Statement*: Will require greater than 2 midnight stay for evaluation and treatment of complicated UTI Diagnoses Complicated urinary tract infection N39.0 Hypokalemia E87.6 Diabetes mellitus type 2 in nonobese E11.9 Time Spent (min) 53
[2023-12-19] MEDS: potassium chloride ER 20 mEq Tablet 40 MEQ PO (12:23)
--- NOTE | 2023-12-19 12:28 | PC.PHAR ---
PT HAS MED LIST FROM [facility], WHICH DOES NOT INCLUDE SEVERAL MEDICATIONS ON PT INTERNAL MED LIST. FAMILY ALSO BROUGHT IN MEDICATIONS IN A DAILY [employer]. MED REC COMPLETED BY USING BOTH LISTS AND FILL DATES, WELL SPEAKING WITH PT. SEE PHARMACY NOTES. ALSO, PUT MEDICATION LIST FROM [facility] ON PT CHART WITH INTERNAL MEDS NOT LISTED ON THEIR LIST HAD WRITTEN ON THE RIGHT.
[2023-12-19 12:29] LABS: Magnesium 1.7 mg/dL (1.7-2.3)
[2023-12-19] MEDS: sodium chloride 0.9% 1,000 ML 125 ML IV ×2 (15:13→23:38)
[2023-12-19] MEDS: pantoprazole 40 mg SDV IVP (15:14)
[2023-12-19 17:07] LABS: Glucose Point of Care 57 mg/dL (70-110)
[2023-12-19] MEDS: pregabalin 25 mg Capsule PO (17:24)
[2023-12-19] MEDS: ARIPiprazole 10 mg Tablet PO (17:24)
[2023-12-19] MEDS: sennosides-docusate Tablet 1 TAB PO (17:24)
[2023-12-19] MEDS: trazodone 50 mg Tablet 100 MG PO (20:28)
[2023-12-19] MEDS: LORazepam 1 mg Tablet PO (20:28)
[2023-12-19 20:34] LABS: Glucose Point of Care 187 mg/dL (70-110)
[2023-12-19] MEDS: insulin lispro 100 unit/1 mL SUBCUT (20:37)
[2023-12-20] MEDS: pantoprazole 40 mg SDV IVP ×2 (02:27→15:34)
[2023-12-20 03:58] VITALS: BP 117/64; PULSE 82; RESP 18; TEMP 37.5; O2SAT 97
[2023-12-20] MEDS: cetirizine 10 mg Tablet PO (05:53)
[2023-12-20] MEDS: citalopram 20 mg Tablet PO (05:53)
[2023-12-20] MEDS: meropenem 1,000 MG in sodium chloride 0.9% (plus) 50 ML 100 MG IV ×2 (05:54→17:53)
[2023-12-20 06:07] LABS: Basophils % 0.2 %; Eosinophils # 0.3 10^3/uL (0.0-0.8); Eosinophils % 1.9 %; Hematocrit 36.8 % (36-47); Lymphocytes # 1.8 10^3/uL (0.8-4.8); Lymphocytes % 10.5 %; Mean Corpuscular HGB Conc 31.3 g/dL (30-55); Mean Corpuscular Hemoglobin 26.1 pg (27-33); Mean Corpuscular Volume 83.4 fl (85-98); Mean Platelet Volume 12.1 fL (7.4-10.4); Monocytes # 0.4 10^3/uL (0.2-0.9); Monocytes % 2.5 %; Neutrophils # 13.98 10^3/uL (1.8-7.7); Neutrophils % 84.4 %; Nucleated Red Blood Cells % 0 %; Platelet Count 307 10^3/cmm (157-399); Red Blood Count 4.41 10^6/uL (3.85-5.65); Red Cell Distribution Width 15.9 % (12.1-15.1); White Blood Count 16.59 10^3/uL (3.29-11.43)
[2023-12-20 06:16] LABS: Glucose Point of Care 87 mg/dL (70-110)
[2023-12-20 06:27] LABS: Alanine Aminotransferase 7 U/L (0-33); Albumin Level 2.7 g/dL (3.5-5.2); Alkaline Phosphatase 87 U/L (35-105); Anion Gap 12.7 (5-19); Aspartate Amino Transferase 11 U/L (0-32); Blood Urea Nitrogen 9 mg/dL (8-23); Calcium 7.7 mg/dL (8.5-10.5); Carbon Dioxide 25 mmol/L (22-29); Chloride 110 mmol/L (98-107); Creatinine Clr Calc Pharmacy 51.7533; Globulin 2.5 g/dL (1.3-4.6); Glucose 82 mg/dL (65-115); Magnesium 1.6 mg/dL (1.7-2.3); Osmolality Calculated 296 mOsm/kg (285-295); Potassium 3.7 mmol/L (3.5-5.1); Sodium 144 mmol/L (136-145); Total Bilirubin 0.4 mg/dL (0.15-1.2); Total Protein 5.2 g/dL (6.6-8.7)
[2023-12-20 08:00] VITALS: BP 109/67; PULSE 86; RESP 14; TEMP 36.6; O2SAT 95
[2023-12-20] MEDS: sennosides-docusate Tablet 1 TAB PO (08:56)
[2023-12-20] MEDS: pregabalin 25 mg Capsule PO ×2 (08:56→17:53)
[2023-12-20] MEDS: sodium chloride 0.9% 1,000 ML 125 ML IV ×2 (08:58→17:54)
[2023-12-20 09:15] VITALS: PULSE 77; O2SAT 95
[2023-12-20] MEDS: ondansetron 2 mg/ML SDV 2 mL 4 MG IVP (09:22)
[2023-12-20] MEDS: magnesium sulfate premix 4 GM/100 ML PREMIX IV (10:32)
[2023-12-20 11:17] LABS: Glucose Point of Care 241 mg/dL (70-110)
[2023-12-20 12:00] VITALS: BP 111/63; PULSE 81; RESP 14; TEMP 36.6; O2SAT 97
[2023-12-20] MEDS: insulin lispro 100 unit/1 mL SUBCUT ×2 (12:54→21:04)
[2023-12-20 13:52] LABS: Glucose Point of Care 245 mg/dL (70-110)
--- NOTE | 2023-12-20 15:27 | P.PN_ITS ---
Subjective 2 Subjective: seen today no acute events overnight WBC 16K this am Vitals/I&O/Wt Last Vital Signs Temp 97.8 F 12/20/23 12:00 Pulse 81 12/20/23 12:00 Resp 14 12/20/23 12:00 BP 111/63 12/20/23 12:00 Pulse Ox 97 12/20/23 12:00 O2 Del Method Nasal Cannula 12/20/23 12:00 O2 Flow Rate 2 12/20/23 08:00 12/20/23 12/20/23 12/20/23 06:59 14:59 22:59 Intake Total 1170 / 3750 1460 / 1460 Balance 1170 / 3750 1460 / 1460 Weight last 48 hrs Weight 74.298 kg Weight 68.039 kg Physical Exam 2 Narrative: General exam is white female, in no apparent distress currently. HEENT: Atraumatic and normocephalic. 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 Neck is supple Cardiovascular regular rate and rhythm without murmur Lungs clear Abdomen is soft. non tender exam is deferred Extremities no cyanosis clubbing or edema, cap refill better brisk Skin no rash Data 12/20/23 05:32 12/20/23 05:32 Micro: Microbiology 12/19/23 10:31 Blood Culture - Preliminary Blood NEGATIVE TO DATE 12/19/23 10:26 Blood Culture - Preliminary Blood NEGATIVE TO DATE 12/19/23 10:00 Urine Culture - Preliminary Urine,Clean Catch Gram Negative Rods A&P Assessment and plan (1) Complicated urinary tract infection: Patient presents with an acute illness with fever, chills, vomiting, blood pressure of 97/48 and a markedly elevated white blood cell count of 31,000. She has a past history of complicated UTIs, bacteremia with E. coli, and last urine culture on a previous hospital stay demonstrating ESBL. She is so significantly ill that hospitalization is expected to cross greater than 2 midnights. It would be inappropriate to discharge the patient sooner than that considering her past history, presentation, without allowing adequate evaluation of cultures of urine and blood. She also has significant allergies to multiple antibiotics which limit treatment options. Urine and blood cultures have been obtained Continue hydration Nausea control with Zofran Secondary to her vomiting, initiate Protonix IV Hold oxybutynin currently (2) Hypokalemia: Supplement potassium Check magnesium (3) Diabetes mellitus type 2 in nonobese: Consistent carb diet, full liquid initially monitoring for any recurrent vomiting Hold Ozempic Sliding scale insulin if needed Plan Other medical problems as outlined in past medical history Note her gnosticist observation is no blood or blood products. Full code Lovenox for DVT prophylaxis Todays 12/19 - continue managment as per hnp - order iv mag Attestations 2 Medical Necessity Statement*: Will require greater than 2 midnight stay for evaluation and treatment of complicated UTI Diagnoses Complicated urinary tract infection N39.0 Hypokalemia E87.6 Diabetes mellitus type 2 in nonobese E11.9
[2023-12-20] MEDS: acetaminophen 325 mg Tablet 650 MG PO (15:30)
[2023-12-20] MEDS: LORazepam 1 mg Tablet PO (15:30)
[2023-12-20 16:00] VITALS: BP 109/64; PULSE 69; RESP 15; TEMP 36.7; O2SAT 93
[2023-12-20 17:09] LABS: Glucose Point of Care 102 mg/dL (70-110)
[2023-12-20] MEDS: ARIPiprazole 10 mg Tablet PO (17:53)
[2023-12-20 19:43] VITALS: BP 111/64; PULSE 73; RESP 18; TEMP 36.7; O2SAT 96
[2023-12-20 20:59] LABS: Glucose Point of Care 174 mg/dL (70-110)
[2023-12-21] VITALS: BP 157/84; PULSE 80; RESP 17; TEMP 37.3; O2SAT 98
[2023-12-21] MEDS: trazodone 50 mg Tablet 100 MG PO ×2 (02:16→23:47)
[2023-12-21] MEDS: sodium chloride 0.9% 1,000 ML 125 ML IV ×2 (02:16→09:45)
[2023-12-21] MEDS: pantoprazole 40 mg SDV IVP (02:30)
[2023-12-21 03:57] VITALS: BP 111/53; PULSE 77; RESP 18; TEMP 36.9; O2SAT 97
[2023-12-21 05:35] LABS: Basophils # 0.1 10^3/uL (0.0-0.1); Basophils % 0.5 %; Eosinophils # 0.5 10^3/uL (0.0-0.8); Eosinophils % 3.7 %; Hematocrit 34.5 % (36-47); Lymphocytes # 1.9 10^3/uL (0.8-4.8); Lymphocytes % 15.5 %; Mean Corpuscular HGB Conc 31.6 g/dL (30-55); Mean Corpuscular Hemoglobin 26.7 pg (27-33); Mean Corpuscular Volume 84.4 fl (85-98); Monocytes # 0.6 10^3/uL (0.2-0.9); Monocytes % 4.6 %; Neutrophils # 9.12 10^3/uL (1.8-7.7); Nucleated Red Blood Cells % 0 %; Platelet Count 305 10^3/cmm (157-399); Red Blood Count 4.09 10^6/uL (3.85-5.65); Red Cell Distribution Width 15.9 % (12.1-15.1); White Blood Count 12.16 10^3/uL (3.29-11.43)
[2023-12-21 06:00] LABS: Anion Gap 11.7 (5-19); Blood Urea Nitrogen 5 mg/dL (8-23); Calcium 7.6 mg/dL (8.5-10.5); Carbon Dioxide 25 mmol/L (22-29); Chloride 109 mmol/L (98-107); Creatinine Clr Calc Pharmacy 58.5232; Glucose 120 mg/dL (65-115); Magnesium 2.3 mg/dL (1.7-2.3); Osmolality Calculated 292 mOsm/kg (285-295); Potassium 3.7 mmol/L (3.5-5.1); Sodium 142 mmol/L (136-145)
[2023-12-21] MEDS: cetirizine 10 mg Tablet PO (06:00)
[2023-12-21] MEDS: citalopram 20 mg Tablet PO (06:00)
[2023-12-21] MEDS: meropenem 1,000 MG in sodium chloride 0.9% (plus) 50 ML 100 MG IV ×2 (06:00→17:56)
[2023-12-21 06:25] LABS: Glucose Point of Care 134 mg/dL (70-110)
[2023-12-21 08:26] VITALS: BP 113/64; PULSE 77; RESP 16; TEMP 37.4; O2SAT 93
[2023-12-21] MEDS: pregabalin 25 mg Capsule PO ×2 (09:45→17:56)
[2023-12-21] MEDS: TRAMadol 50 mg Tablet PO (09:53)
[2023-12-21] MEDS: LORazepam 1 mg Tablet PO (09:53)
[2023-12-21 11:26] LABS: Glucose Point of Care 249 mg/dL (70-110)
--- NOTE | 2023-12-21 11:40 | P.PN_ITS ---
Subjective 2 Subjective: seen today no acute events overnight awaiting urine culture will stop IV fluids Vitals/I&O/Wt Last Vital Signs Temp 99.3 F 12/21/23 08:26 Pulse 77 12/21/23 08:26 Resp 16 12/21/23 08:26 BP 113/64 12/21/23 08:26 Pulse Ox 93 12/21/23 08:26 O2 Del Method Room Air 12/21/23 08:26 O2 Flow Rate 2 12/21/23 08:00 12/20/23 12/21/23 12/21/23 22:59 06:59 14:59 Intake Total 1650 / 3110 1240 / 4350 1225.417 / 1225.417 Balance 1650 / 3110 1240 / 4350 1225.417 / 1225.417 Weight last 48 hrs Weight 75.07 kg Weight 74.298 kg Physical Exam 2 Narrative: General exam is white female, in no apparent distress currently. HEENT: Atraumatic and normocephalic. 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 Neck is supple Cardiovascular regular rate and rhythm without murmur Lungs clear Abdomen is soft. non tender exam is deferred Extremities no cyanosis clubbing or edema, cap refill better brisk Skin no rash Data 12/21/23 04:30 12/21/23 04:30 Micro: Microbiology 12/19/23 10:31 Blood Culture - Preliminary Blood NEGATIVE TO DATE 12/19/23 10:26 Blood Culture - Preliminary Blood NEGATIVE TO DATE 12/19/23 10:00 Urine Culture - Preliminary Urine,Clean Catch Gram Negative Rods A&P Assessment and plan (1) Complicated urinary tract infection: Patient presents with an acute illness with fever, chills, vomiting, blood pressure of 97/48 and a markedly elevated white blood cell count of 31,000. She has a past history of complicated UTIs, bacteremia with E. coli, and last urine culture on a previous hospital stay demonstrating ESBL. She is so significantly ill that hospitalization is expected to cross greater than 2 midnights. It would be inappropriate to discharge the patient sooner than that considering her past history, presentation, without allowing adequate evaluation of cultures of urine and blood. She also has significant allergies to multiple antibiotics which limit treatment options. Urine and blood cultures have been obtained Continue hydration Nausea control with Zofran Secondary to her vomiting, initiate Protonix IV Hold oxybutynin currently (2) Hypokalemia: Supplement potassium Check magnesium (3) Diabetes mellitus type 2 in nonobese: Consistent carb diet, full liquid initially monitoring for any recurrent vomiting Hold Ozempic Sliding scale insulin if needed Plan Other medical problems as outlined in past medical history Note her christian observation is no blood or blood products. Full code Lovenox for DVT prophylaxis Todays 12/20 - continue managment as per hnp - await urine culture - will potentially need IV abx at dc depending on urine culture Attestations 2 Medical Necessity Statement*: Will require greater than 2 midnight stay for evaluation and treatment of complicated UTI Diagnoses Complicated urinary tract infection N39.0 Hypokalemia E87.6 Diabetes mellitus type 2 in nonobese E11.9
[2023-12-21] MEDS: insulin lispro 100 unit/1 mL SUBCUT ×2 (12:11→22:04)
[2023-12-21 12:21] VITALS: BP 121/74; PULSE 74; RESP 17; TEMP 36.8; O2SAT 96
[2023-12-21 16:10] VITALS: BP 97/62; PULSE 66; RESP 16; TEMP 36.6; O2SAT 93
[2023-12-21 16:33] LABS: Glucose Point of Care 94 mg/dL (70-110)
[2023-12-21] MEDS: pantoprazole DR 40 mg Tablet PO (17:55)
[2023-12-21] MEDS: ARIPiprazole 10 mg Tablet PO (17:56)
[2023-12-21 20:00] VITALS: BP 133/75; PULSE 70; RESP 18; TEMP 36.7; O2SAT 97
[2023-12-21 21:13] LABS: Glucose Point of Care 221 mg/dL (70-110)
[2023-12-22] VITALS: BP 105/67; PULSE 69; RESP 18; TEMP 37.3; O2SAT 97
[2023-12-22] MEDS: meropenem 1,000 MG in sodium chloride 0.9% (plus) 50 ML 100 MG IV ×2 (00:39→08:58)
[2023-12-22 04:00] VITALS: BP 132/71; PULSE 84; RESP 18; TEMP 36.8; O2SAT 97
[2023-12-22] MEDS: citalopram 20 mg Tablet PO (05:42)
[2023-12-22] MEDS: cetirizine 10 mg Tablet PO (05:42)
[2023-12-22 06:31] LABS: Basophils # 0.1 10^3/uL (0.0-0.1); Basophils % 0.7 %; Eosinophils # 0.4 10^3/uL (0.0-0.8); Eosinophils % 4.8 %; Hematocrit 37.6 % (36-47); Lymphocytes # 2.2 10^3/uL (0.8-4.8); Lymphocytes % 24.3 %; Mean Corpuscular HGB Conc 30.3 g/dL (30-55); Mean Corpuscular Hemoglobin 26.5 pg (27-33); Mean Corpuscular Volume 87.2 fl (85-98); Mean Platelet Volume 11.7 fL (7.4-10.4); Monocytes # 0.6 10^3/uL (0.2-0.9); Monocytes % 6.1 %; Neutrophils # 5.68 10^3/uL (1.8-7.7); Neutrophils % 63.3 %; Nucleated Red Blood Cells % 0 %; Platelet Count 304 10^3/cmm (157-399); Red Blood Count 4.31 10^6/uL (3.85-5.65); Red Cell Distribution Width 15.6 % (12.1-15.1); White Blood Count 8.97 10^3/uL (3.29-11.43)
[2023-12-22 06:36] LABS: Glucose Point of Care 82 mg/dL (70-110)
[2023-12-22 06:48] LABS: Blood Urea Nitrogen 4 mg/dL (8-23); Calcium 8.2 mg/dL (8.5-10.5); Carbon Dioxide 23 mmol/L (22-29); Chloride 110 mmol/L (98-107); Creatinine Clr Calc Pharmacy 57.4803; Glucose 52 mg/dL (65-115); Osmolality Calculated 290 mOsm/kg (285-295); Sodium 143 mmol/L (136-145)
[2023-12-22 06:50] LABS: Anion Gap 14.3 (5-19); Potassium 4.3 mmol/L (3.5-5.1)
[2023-12-22 07:57] VITALS: BP 128/72; PULSE 70; TEMP 36.6; O2SAT 95
[2023-12-22 08:28] VITALS: PULSE 74; O2SAT 94
[2023-12-22] MEDS: sennosides-docusate Tablet 1 TAB PO (08:58)
[2023-12-22] MEDS: LORazepam 1 mg Tablet PO (08:58)
[2023-12-22] MEDS: pantoprazole DR 40 mg Tablet PO (08:58)
[2023-12-22] MEDS: TRAMadol 50 mg Tablet PO (08:58)
[2023-12-22] MEDS: pregabalin 25 mg Capsule PO (08:58)
[2023-12-22 09:12] LABS: Estmated Average Glucose 97
--- NOTE | 2023-12-22 09:20 | PC.CHAP ---
Pastoral Care Encounter/Spiritual Assessment Type of Contact [] Declined mink rancher visit [] Patient/Family/Request visit [] Outpatient visit [] Follow-up visit [] Physician referral [] Code/Alert [x] Routine visit [] Staff referral [] Actively dying [] Patient sleeping [] Family support [] [x] Out of room [] Palliative care [] [] Receiving care in room [] Pre-surgical visit [] Trauma [] Long length of stay [] ICU visit [] Other: Relational/Emotional Strength [] Patient feels connected with others/family/visitors/staff [] Distress [] Loneliness/isolation [] Abandonment Spirituality of Patient [] Person of Gricelda [] Attends Mormonism of their [place] [] Believes in Prayer [] Reads Bible or Yazdanism materials [] There are Spiritual issues to be addressed 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 Interventions [x] Prayer [] Active listening [] Non-anxious presence [] Spiritual/emotional support [] Crisis/trauma care [] Spiritual counseling [] Bereavement support [] Provided bereavement packet [] Provided Bible/devotional materials [] Provided toy/stuffed animal, coloring book to patient or family member [] Provided Communion [] Anointing/[place] [] Salvation [] Completed spiritual assessment [] Other: Impact on Illness or Injury [] Angry [] Fearful [] Anxious [] Often cries [] Exhaustion [] Unable to work [] Unable to attend mosque [] Unable to walk/stand [] Unable to read [] Unable to drive [] Unable to eat/drink [] Unable to sleep [] Unable to be with family [] Patient intubated [] Other: Summary Time spent with patient
--- NOTE | 2023-12-22 09:40 | P.DS_ITS ---
Discharge Providers Date of Admission: 12/19/23 12:36 Date of Discharge: December 22, 2023 Attending Provider at Admission: Woody Cervantes MD Attending Provider at Discharge: Gio Good MD Primary Care Provider: Arie Lewis MD Diagnoses at Discharge Discharge Diagnosis (1) Complicated urinary tract infection: Status: Acute (2) Hypokalemia: Status: Acute (3) Diabetes mellitus type 2 in nonobese: Status: Acute Permanent problem details: She reports DM1 Reason for Visit Reason for Visit: flu like symptoms Brief History: History as per HPI: Jackie Romero is a 72 year old female with history of diabetes mellitus type 2, ESBL in the past who presents with 1 day of illness with significant fever, chills, vomiting, back pain. She reports she felt weak yesterday but symptoms culminated last night into the above. She has had no diarrhea. She has had some lower abdominal discomfort but no dysuria. She reports no blood in her stool, black or tarry stool, or hematemesis. She reports frequent UTIs before for which she is on prophylactic Bactrim. She also relates that about 4 to 5 weeks ago she was started on Ozempic, and did take a dose of that yesterday at 1 mg. She reports she has taken this dose before, 1 week prior when it was increased. In the emergency department blood pressure was initially borderline low. With her fever, laboratory pending, a sepsis bolus was ordered. Patient's blood pressure currently normal, with normal heart rate. Lactic acid level was checked and within normal limits. Hospital Course Hospital Course She was admitted to the hospital for further evaluation and management with saleem lund for complicated UTI. Patient was started on broad-spectrum IV antibiotics given history of ESBL bacteremia and E. coli UTI in the past. Blood cultures remain negative. Urine cultures came back positive for ESBL Klebsiella. Patient responded well to the treatment. Klebsiella was sensitive to Levaquin though patient has allergy with anaphylaxis to ciprofloxacin has decision was made to treat with ertapenem. Midline has been placed. She will be discharged in hemodynamically stable condition on IV ertapenem once daily for next 7 days. She will need a CBC and CMP in 1 week after completion of IV antibiotics and will be followed up by the PCP. Physical Exam Narrative: General exam is white female, in no apparent distress currently. HEENT: Atraumatic and normocephalic. 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 Neck is supple Cardiovascular regular rate and rhythm without murmur Lungs clear Abdomen is soft. non tender exam is deferred Extremities no cyanosis clubbing or edema, cap refill better brisk Skin no rash Discharge Data Studies Completed and Pending Completed Studies During Hospitalization Category Date Time Status CT abdomen pelvis w con* [id number] Urgent Cat Scan 12/19/23 10:09 Completed XR chest 1V portable [id number] Urgent Exams 12/19/23 09:19 Completed Pending at discharge Category Date Time Status B12 [Vitamin B12] Routine Lab 12/22/23 05:47 Received Blood Culture Stat Lab 12/19/23 10:31 Results Complete Blood Count w/Auto AM LABS Lab 12/23/23 04:00 Ordered Comprehensive Metabolic Panel AM LABS Lab 12/23/23 04:00 Ordered Folate Level AM LABS Lab 12/23/23 04:00 Ordered Lipid Profile w/VLDL Routine Lab 12/23/23 04:00 Ordered MAG [Magnesium] AM LABS Lab 12/23/23 04:00 Ordered MAG [Magnesium] AM LABS Lab 12/24/23 04:00 Ordered MAG [Magnesium] AM LABS Lab 12/25/23 04:00 Ordered Procalcitonin Routine Lab 12/22/23 05:47 Received TIBC [Total Iron Binding Capacity] Routine Lab 12/22/23 05:47 Received Thyroid Stimulating Hormone Stat Lab 12/22/23 05:47 Received Radiology Impressions Chest X-Ray 12/19/23 09:19 IMPRESSION: 1. No acute cardiopulmonary process. Abdomen/Pelvis CT 12/19/23 10:09 IMPRESSION: 1. Consider cystitis. 2. A few new noncalcified nodules in the lung bases. For patients at low risk (minimal or absent history of smoking and of other known risk factors), no routine follow-up is indicated. For patients at high risk (history of smoking or of other known risk factors), consider optional CT Chest at 12 months. (Reference: Ifeoma). 3. Small amount of increased atelectasis and/or pneumonitis in the lung bases. 4. Diffuse thickening of the distal esophageal wall may be slightly increased. This is probably esophagitis, but upper endoscopy is recommended to exclude esophageal malignancy. 5. Possible constipation. 6. New borderline bilateral inguinal lymphadenopathy. 7. No other acute findings. 8. Additional details as above. Unchanged. REFERENCES: Ifeoma Maier, et al. Guidelines for Management of Incidental Pulmonary Nodules Detected on CT Images: From the Fleischner Society 2017. Radiology. 2017;284(1):228-243. Microbiology 12/19/23 10:00 Urine,Clean Catch Urine Culture - Final Klebsiella oxytoca esbl 12/19/23 10:31 Blood Blood Culture - Preliminary NEGATIVE TO DATE 12/19/23 10:26 Blood Blood Culture - Preliminary NEGATIVE TO DATE Laboratory Results WBC 8.97 10^3/uL (3.29-11.43) 12/22/23 05:47 RBC 4.31 10^6/uL (3.85-5.65) 12/22/23 05:47 Hgb 11.40 g/dL (11.27-16.99) 12/22/23 05:47 Hct 37.6 % (36-47) 12/22/23 05:47 MCV 87.2 fl (85-98) 12/22/23 05:47 MCH 26.5 pg (27-33) L 12/22/23 05:47 MCHC 30.3 g/dL (30-55) 12/22/23 05:47 RDW 15.6 % (12.1-15.1) H 12/22/23 05:47 Plt Count 304 10^3/cmm (157-399) 12/22/23 05:47 MPV 11.7 fL (7.4-10.4) H 12/22/23 05:47 Neut % (Auto) 63.3 % 12/22/23 05:47 Lymph % (Auto) 24.3 % 12/22/23 05:47 [place] % (Auto) 6.1 % 12/22/23 05:47 Eos % (Auto) 4.8 % 12/22/23 05:47 Baso % (Auto) 0.7 % 12/22/23 05:47 Neut # (Auto) 5.68 10^3/uL (1.8-7.7) 12/22/23 05:47 Lymph # (Auto) 2.2 10^3/uL (0.8-4.8) 12/22/23 05:47 [place] # (Auto) 0.6 10^3/uL (0.2-0.9) 12/22/23 05:47 Eos # (Auto) 0.4 10^3/uL (0.0-0.8) 12/22/23 05:47 Baso # (Auto) 0.1 10^3/uL (0.0-0.1) 12/22/23 05:47 Nucleated RBC % (auto) 0 % 12/22/23 05:47 Nucleated RBCs # 0.0 /100WBC 12/22/23 05:47 Sodium 143 mmol/L (136-145) 12/22/23 05:47 Potassium 4.3 mmol/L (3.5-5.1) 12/22/23 05:47 Chloride 110 mmol/L (98-107) H 12/22/23 05:47 Carbon Dioxide 23 mmol/L (22-29) 12/22/23 05:47 Anion Gap 14.3 (5-19) 12/22/23 05:47 BUN 4 mg/dL (8-23) L 12/22/23 05:47 Creatinine 0.7 mg/dL (0.5-0.9) 12/22/23 05:47 GFR Calculation Not Reportable 12/22/23 05:47 Glucose 52 mg/dL (65-115) L 12/22/23 05:47 POC Glucose 82 mg/dL (70-110) 12/22/23 06:28 Estimat Average Glucose 97 12/22/23 05:47 Hemoglobin A1c 5.0 % (4.0-6.0) 12/22/23 05:47 Calculated Osmolality 290 mOsm/kg (285-295) 12/22/23 05:47 Lactic Acid 2.0 mmol/L (0.5-2.2) 12/19/23 09:06 Calcium 8.2 mg/dL (8.5-10.5) L 12/22/23 05:47 Magnesium 2.3 mg/dL (1.7-2.3) 12/21/23 04:30 Total Bilirubin 0.4 mg/dL (0.15-1.2) 12/20/23 05:32 AST 11 U/L (0-32) 12/20/23 05:32 ALT 7 U/L (0-33) 12/20/23 05:32 Alkaline Phosphatase 87 U/L (35-105) 12/20/23 05:32 Total Protein 5.2 g/dL (6.6-8.7) L D 12/20/23 05:32 Albumin 2.7 g/dL (3.5-5.2) L 12/20/23 05:32 Globulin 2.5 g/dL (1.3-4.6) 12/20/23 05:32 Lipase 6 U/L (13-60) L 12/19/23 09:06 Procalcitonin 0.90 ng/mL (0-0.5) H 12/19/23 09:06 Urine Color Yellow (Yellow) 12/19/23 10:00 Urine Appearance Cloudy (CLEAR) A 12/19/23 10:00 Urine pH 6 (5-7) 12/19/23 10:00 Ur Specific [place] 1.010 (1.005-1.030) 12/19/23 10:00 Urine Protein Trace (Negative) 12/19/23 10:00 Urine Glucose (UA) Norm (Normal) 12/19/23 10:00 Urine Ketones Negative (Negative) 12/19/23 10:00 Urine Blood Trace (Negative) H 12/19/23 10:00 Urine Nitrate Positive (Negative) H 12/19/23 10:00 Urine Bilirubin Neg (Negative) 12/19/23 10:00 Urine Urobilinogen 1 mg/dL (Negative) H 12/19/23 10:00 Ur Leukocyte Esterase 2+ (Negative) H 12/19/23 10:00 Urine RBC 0-4 /hpf (0-2) H 12/19/23 10:00 Urine WBC Too numerous to cnt /hpf (0-5) H 12/19/23 10:00 Ur Squamous Epith Cells 0-4 /hpf (0-5) H 12/19/23 10:00 Ur Transition Epith Cell 0-4 /hpf 12/19/23 10:00 Amorphous Sediment Not Reportable 12/19/23 10:00 Urine Bacteria 3+ /hpf (NONE) H 12/19/23 10:00 Urine Mucus 1+ /hpf 12/19/23 10:00 Vitals Last Vital Signs Temp 97.8 F 12/22/23 07:57 Pulse 74 12/22/23 08:28 Resp 18 12/22/23 04:00 BP 128/72 12/22/23 07:57 Pulse Ox 94 12/22/23 08:28 O2 Del Method Room Air 12/22/23 08:28 O2 Flow Rate 2 12/22/23 04:00 Discharge Plan Discharge Patient Disposition: Home Health Service Condition: Stable Prescriptions: Continued cetirizine [All Day Allergy (cetirizine)] 10 mg tablet 10 mg PO QAM methenamine hippurate 1 gram tablet 1 g PO BID Ozempic 1 mg/dose (4 mg/3 mL) pen injector 1 mg SUBCUT .once per week Rx Instructions: FRIDAY pregabalin [Lyrica] 25 mg capsule 25 mg PO BID (DME) pen needle, diabetic [TechLITE Pen Needle] 32 gauge x 1/4 needle See Rx Instructions .ROUTE .COMPLEX Qty: 100 11RF Dose Instruction: USE FIVE times daily Rx Instructions: USE FIVE times daily lorazepam [Ativan] 1 mg tablet 1 mg PO TID PRN (Reason: severe anxiety) Qty: 90 3RF acetaminophen 500 mg Tablet 500 mg PO Q4H PRN (Reason: Pain) PreserVision AREDS-2 250-90-40-1 mg capsule 1 tab PO BID Multivitamins 28 mg iron- 800 mcg tablet 1 tab PO DAILY@08 tizanidine 4 mg Tablet 4 mg PO Q6H PRN (Reason: Muscle Spasm) furosemide 40 mg tablet 40 mg PO DAILY omeprazole 40 mg capsule,delayed release(DR/EC) 40 mg PO BID PRN (Reason: Heartburn) ascorbic acid (vitamin C) [Vitamin C] 500 mg Tablet 500 mg PO BID potassium chloride 10 mEq tablet extended release 10 meq PO DAILY cyanocobalamin (vitamin B-12) 1,000 mcg/mL solution 1,000 mcg IM Q30D albuterol sulfate [Ventolin HFA] 90 mcg/actuation HFA aerosol inhaler 2 puff INHALATION Q4H PRN (Reason: Shortness Of Breath) fluticasone propionate 50 mcg/actuation spray,suspension 2 spray INTRANASAL DAILY Excedrin Migraine 250-250-65 mg Tablet 1 tab PO Q6H PRN (Reason: Migraine Headache) Aimovig Autoinjector 70 mg/mL auto-injector 70 mg SUBCUT Q30D ondansetron HCl 4 mg tablet 4 mg PO BID PRN (Reason: Nausea) tramadol 50 mg tablet 50 mg PO Q6H PRN (Reason: Pain) oxybutynin chloride 10 mg tablet extended release 24hr 10 mg PO BID PreserVision AREDS-2 250-90-40-1 mg Capsule 1 tab PO BID trazodone 50 mg tablet 50 - 100 mg PO BEDTIME PRN (Reason: insomnia) Celexa 20 mg tablet 20 mg PO QAM Abilify 10 mg tablet 10 mg PO QPM biotin 10 mg Tablet 10 mg PO DAILY phenazopyridine 95 mg Tablet 95 mg PO DAILY budesonide-formoterol 160-4.5 mcg/actuation HFA aerosol inhaler 2 puff INHALATION BID Vitamin D3 50 mcg (2,000 unit) Tablet 50 mcg PO DAILY Tresiba FlexTouch U-100 100 unit/mL (3 mL) insulin pen See Rx Instructions .ROUTE .COMPLEX Rx Instructions: INJECT 20 UNITS EVERY MORNING AND 30 UNITS AT BEDTIME Discontinued sulfamethoxazole-trimethoprim [Bactrim] 400-80 mg tablet 1 tab PO DAILY Discharge Orders: Discharge Order (Routine); Ordered 12/22/23 Ordered By: Gio Good Referrals: [facility] [Other] [facility] [Other] Arie Lewis MD [Primary Care Provider] - (OFFICE WILL CALL WITH APPOINTMENT) Discharge Diet: Cardiac Discharge Activity: Resume usual activity and Increase activity as tolerated Patient Instructions: Ertapenem (By injection), Urinary Tract Infection in Women (GEN), How to Care for Your PICC (Peripherally Inserted Central Catheter) (GEN), Opioid Safety Activity Restrictions/Additional Instructions: Ertapenem 1 g IV daily for next 7 days. She should have a CBC and CMP done after completion of IV antibiotics. Blood work to be followed by PCP. PICC line should be removed after completion of IV antibiotic course. Discharge Attestations Time Spent in Discharge Care*: greater than 30 min Specific Discharge Activities: educating patient, discussing with pcp/other providers, discussing with case assistant/social workers/dc planners, documenting/other paperwork and evaluating patient/reviewing data Status at Discharge: Cognitive status at discharge: cognitively intact , Behavioral status at discharge: cooperative , Functional status at discharge: uses cane/walker , Overall status at discharge: patient is back to baseline Quality Metrics Clinical Quality Measures [ No reported AMI, CVA or VTE this stay] Coding Level of Care Code 08876 Total time (in minutes) for Discharge: 60 Diagnoses Complicated urinary tract infection N39.0 Hypokalemia E87.6 Diabetes mellitus type 2 in nonobese E11.9
[2023-12-22 09:52] LABS: Procalcitonin 0.15 ng/mL (0-0.5); Thyroid Stimulating Hormone 3.65 uIU/mL (0.27-4.20)
[2023-12-22 10:50] LABS: Iron 21 ug/dL (37-145); Total Iron Binding Capacity 123 mcg/dl; Unsaturated Iron Binding 102 ug/dL (112-347)
[2023-12-22 10:55] LABS: Glucose Point of Care 242 mg/dL (70-110)
[2023-12-22 11:03] LABS: Vitamin B12 1017 pg/mL (232-1245)
[2023-12-22 12:00] VITALS: BP 157/76; PULSE 73; TEMP 36.3; O2SAT 95
--- NOTE | 2023-12-22 12:27 | PICC.NOTE ---
Midline placed to left basilic vein. Referred to vascular access nurse for midline placement due to need for IV Ertapenem x 7 days. Risks and benefits discussed and informed consent obtained verbally with two nurse verification. Left arm assessed with left basilic vein measuring 4.1 mm, straight, and apparent best choice for placement. Using sterile technique and MST, leftt basilic vein accessed x 1 stick. Mid-arm circumference measured 10 cm from left AC 32 cm. Trimmed cath 10 cm with 1 cm external length noted. Line secured with stat-lock. Insertion site covered with Biopatch and TSM. Report given to charge nurse, ANTHONY Umanzor.
[2023-12-22] MEDS: ertapenem 1,000 MG in sodium chloride 0.9% (plus) 100 ML 200 MG IV (12:47)
[2023-12-22] MEDS: acetaminophen 325 mg Tablet 650 MG PO (13:27)
[2023-12-22] MEDS: ondansetron 2 mg/ML SDV 2 mL 4 MG IVP (13:27)
--- NOTE | 2023-12-22 15:39 | PC.SOCIAL ---
IMM Updated Updated pt on IMM. No questions voiced. Provided pt a copy. Initialed, dated, & timed a copy & placed in chart.
[2023-12-22 16:06] VITALS: BP 157/76; PULSE 73; TEMP 36.3; O2SAT 95
== END 2023-12-22 16:08 | disposition home or self-care (01) | DRG 690 ==
LOC: ER 11:27 → MEDSURG 12:37
PROVIDERS: Internal Medicine; Admitting Provider Internal Medicine; Emergency Provider Physician Assistant; PCP Family Medicine; Visit Provider Student in an Organized Health Care Education/Training Program
DX: N39.0 Urinary tract infection, site not specified (principal); Z16.12 Extended spectrum beta lactamase (ESBL) resistance; E87.6 Hypokalemia; E11.9 Type 2 diabetes mellitus without complications; Z79.85 Long-term (current) use of injectable non-insulin antidiabetic drugs; Z87.891 Personal history of nicotine dependence; B96.1 Klebsiella pneumoniae [K. pneumoniae] as the cause of diseases classified elsewhere; Z79.2 Long term (current) use of antibiotics; F32.9 Major depressive disorder, single episode, unspecified; F41.1 Generalized anxiety disorder
CPT/HCPCS: 36415; 36416; 36569; 71045; 74177; 80048; 80053; 81001; 82607; 82962; 83036; 83540; 83550; 83605; 83690; 83735; 84145; 84443; 85025; 87040; 87077; 87086; 87186; 96365; 96372; 96375; 99285; C1751; C9113; J1335; J1815; J2185; J2405; J3475; J7030; Q9967

== ENCOUNTER 2023-12-29 12:24 | Outpatient (CLI) | payer MEDICARE, MEDICAID, SELFPAY ==
[2023-12-29 12:44] LABS: Basophils # 0.1 10^3/uL (0.0-0.1); Basophils % 0.7 %; Eosinophils # 0.1 10^3/uL (0.0-0.8); Eosinophils % 0.9 %; Hematocrit 39.7 % (36-47); Lymphocytes # 2.7 10^3/uL (0.8-4.8); Lymphocytes % 20.3 %; Mean Corpuscular HGB Conc 32.7 g/dL (30-55); Mean Corpuscular Hemoglobin 25.9 pg (27-33); Mean Corpuscular Volume 79.2 fl (85-98); Mean Platelet Volume 11.8 fL (7.4-10.4); Monocytes # 0.5 10^3/uL (0.2-0.9); Monocytes % 3.6 %; Neutrophils # 9.99 10^3/uL (1.8-7.7); Neutrophils % 74.1 %; Nucleated Red Blood Cells % 0 %; Platelet Count 477 10^3/cmm (157-399); Red Blood Count 5.01 10^6/uL (3.85-5.65); Red Cell Distribution Width 15.1 % (12.1-15.1); White Blood Count 13.49 10^3/uL (3.29-11.43)
[2023-12-29 13:16] LABS: Alanine Aminotransferase 9 U/L (0-33); Albumin Level 3.9 g/dL (3.5-5.2); Alkaline Phosphatase 85 U/L (35-105); Anion Gap 16.6 (5-19); Aspartate Amino Transferase 15 U/L (0-32); Blood Urea Nitrogen 9 mg/dL (8-23); Carbon Dioxide 27 mmol/L (22-29); Chloride 96 mmol/L (98-107); Globulin 2.7 g/dL (1.3-4.6); Glucose 162 mg/dL (65-115); Osmolality Calculated 282 mOsm/kg (285-295); Potassium 4.6 mmol/L (3.5-5.1); Sodium 135 mmol/L (136-145); Total Bilirubin 0.3 mg/dL (0.15-1.2); Total Protein 6.6 g/dL (6.6-8.7)
== END 2023-12-29 12:25 | disposition home or self-care (01) ==
PROVIDERS: PCP Family Medicine; Visit Provider Family Medicine
DX: Z79.2 Long term (current) use of antibiotics (principal)
CPT/HCPCS: 80053; 85025

== ENCOUNTER 2024-04-01 12:17 | Outpatient (CLI) | payer MEDICARE, MEDICAID, SELFPAY ==
--- NOTE | 2024-04-01 12:21 | MR_ITS ---
WS: [id number] MRI LUMBAR SPINE NONCONTRAST TECHNIQUE: Sagittal T1, T2 and STIR imaging. Axial T1 and T2 imaging. 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 FINDINGS: Small central disc osteophyte protrusions C5-C6 and C6-C7 with mild central canal stenosis in the cer vical spine lightout examiner imaging. This could be further evaluated cervical spine MRI. Lumbar scoliosis. No acute compression. L1-L2: Mild annular bulging. Slight narrowing of the subarticular recess bilaterally. Mild facet arth ropathy. Tiny annular fissure. Mild to moderate RIGHT foraminal narrowing. L2-L3: Slight retrolisthesis. Disc osteophyte complex with endplate ridging. Narrowing of the LEFT watts barticular recess. Moderate LEFT foraminal narrowing with impingement on the exiting LEFT L2 nerve ro ot. L3-L4: Mild disc bulging with mild to moderate central canal stenosis and impingement on the subartic ular recess bilaterally LEFT greater than RIGHT. Mild bilateral foraminal narrowing. Mild facet arthr opathy. L4-L5: Central disc protrusion with moderate to severe central canal stenosis. Impingement traversing L5 nerve roots bilaterally. Moderate facet arthropathy ligamentum flavum hypertrophy. Moderate RIGHT L4-5 foraminal narrowing. Moderate facet arthropathy. L5-S1: Disc osteophyte complex with endplate ridging. Impingement RIGHT subarticular recess and trave rsing RIGHT S1 nerve root. Moderate RIGHT foraminal narrowing impinges the exiting L5 nerve root. Mod erate facet arthropathy. Visualized pelvic bony structures: Normal. Paravertebral soft tissues: Normal. MR/MR lumbar spine wo con* [id number] IMPRESSION: 1. Lumbar scoliosis. No acute compression. 2. Mild to moderate central canal stenosis L3-4 and moderate to severe central canal stenosis L4-5 due to disc bulge with facet arthropathy and ligamentum fl avum hypertrophy. Impingement of the subarticular recess at these levels. 3. Impingement of the LEFT subarticular recess L2-3 with moderate LEFT foramin al narrowing. Impingement on the exiting LEFT L2 nerve root at this level. 4. Moderate RIGHT L4-5 foraminal narrowing with impingement of the exiting RIG HT L4 nerve root. 5. Disc bulging L5-S1 impinges the traversing RIGHT S1 nerve root. Moderate RI GHT L5-S1 foraminal narrowing at this level.
== END 2024-04-01 12:18 | disposition home or self-care (01) ==
LOC: RAD 12:17
PROVIDERS: PCP Physician Assistant; Visit Provider Physician Assistant
DX: M48.061 Spinal stenosis, lumbar region without neurogenic claudication (principal); M41.86 Other forms of scoliosis, lumbar region; M25.78 Osteophyte, vertebrae; M99.63 Osseous and subluxation stenosis of intervertebral foramina of lumbar region; M47.896 Other spondylosis, lumbar region; M54.16 Radiculopathy, lumbar region; M51.369 Other intervertebral disc degeneration, lumbar region without mention of lumbar back pain or lower extremity pain; M47.898 Other spondylosis, sacral and sacrococcygeal region
CPT/HCPCS: 72148

== ENCOUNTER → 2024-10-18 14:31 | Outpatient (BNVA) | payer MEDICARE, MEDICAID, OTHER, SELFPAY | PROVIDERS: PCP Physician Assistant; Visit Provider Nurse Practitioner Psychiatric/Mental Health | DX: Z79.899 Other long term (current) drug therapy (principal) | CPT/HCPCS: 80053; 80061; 83036 ==

== ENCOUNTER 2024-11-14 10:09 | Emergency (ER) | payer MEDICARE, MEDICAID, SELFPAY ==
[2024-10-19 17:12] VITALS: BP 107/62; BMI 23.0
[2024-11-14 10:15] VITALS: BP 167/74; PULSE 85; RESP 16; TEMP 37; O2SAT 98; BMI 22.3
--- NOTE | 2024-11-14 10:16 | CTR_ITS ---
PROCEDURE INFORMATION: Exam: CT Head Without Contrast Exam date and time: 11/14/2024 10:35 AM Age: 73 years old Clinical indication: Weakness, facial TECHNIQUE: Imaging protocol: Computed tomography of the head without contrast. Radiation optimization: All CT scans at this facility use at least one of these dose optimization techniques: automated exposure control; mA and/or kV adjustment per patient size (includes targeted exams where dose is matched to clinical indication); or iterative reconstruction. COMPARISON: CT neck w con* [id number] 02/06/2022 12:30 PM RADIATION DOSE METRICS: Total DLP (mGy-cm): 981.53 FINDINGS: Brain: There is no mass effect, midline shift, acute hemorrhage, extra-axial fluid collection or acute lobar infarct. There is disproportionate frontal volume loss. Scattered hemispheric white matter hypodensity likely represents chronic microvascular ischemic change. Cerebral ventricles: No ventriculomegaly. Paranasal sinuses: Visualized sinuses are unremarkable. No fluid levels. Mastoid air cells: Visualized mastoid air cells are well aerated. Orbital cavities: The patient is post bilateral cataract surgery. Bones: Unremarkable. No acute fracture. Soft tissues: Unremarkable. CT/CT head wo con* [id number] IMPRESSION: No acute intracranial process.
--- NOTE | 2024-11-14 10:16 | CTR_ITS ---
PROCEDURE INFORMATION: Exam: CTA Head With Contrast, Arteriography Exam date and time: 11/14/2024 10:43 AM Age: 73 years old Clinical indication: Weakness and other: Slurred speech TECHNIQUE: Imaging protocol: Computed tomographic angiography of the head with contrast. Exam focused on the arteries. 3D rendering (Not supervised by radiologist): MIP and/or 3D reconstructed images were created by the technologist. Radiation optimization: All CT scans at this facility use at least one of these dose optimization techniques: automated exposure control; mA and/or kV adjustment per patient size (includes targeted exams where dose is matched to clinical indication); or iterative reconstruction. Contrast material: OMNI 350; Contrast volume: 93 ml; Contrast route: INTRAVENOUS (IV); COMPARISON: CT head wo con* [id number] 11/14/2024 10:35 AM RADIATION DOSE METRICS: Total DLP (mGy-cm): 410.71 FINDINGS: ANTERIOR CIRCULATION: Right internal carotid artery: Intracranial segment is patent with no significant stenosis. No aneurysm. Right middle cerebral artery: No occlusion or significant stenosis. No aneurysm. Right anterior cerebral artery: No occlusion or significant stenosis. No aneurysm. Atretic A1 segment. Left internal carotid artery: Intracranial segment is patent with no significant stenosis. No aneurysm. Left middle cerebral artery: No occlusion or significant stenosis. No aneurysm. Left anterior cerebral artery: No occlusion or significant stenosis. No aneurysm. POSTERIOR CIRCULATION: Right vertebral artery: No occlusion or significant stenosis. No aneurysm. Left vertebral artery: No occlusion or significant stenosis. No aneurysm. Basilar artery: No occlusion or significant stenosis. No aneurysm. Right posterior cerebral artery: No occlusion or significant stenosis. No aneurysm. Left posterior cerebral artery: No occlusion or significant stenosis. No aneurysm. Brain: No definite mass, mass effect, or midline shift. Cerebral ventricles: No ventriculomegaly. Orbital cavities: The patient is post bilateral cataract surgery. Bones/joints: Unremarkable. No acute fracture. Soft tissues: Unremarkable. PROCEDURE INFORMATION: Exam: CTA Neck With Contrast Exam date and time: 11/14/2024 10:43 AM Age: 73 years old Clinical indication: Weakness and other: Slurred speech TECHNIQUE: Imaging protocol: Computed tomographic angiography of the neck with contrast. Exam focused on the cervical segments of the vasculature. 3D rendering (Not supervised by radiologist): MIP and/or 3D reconstructed images were created by the technologist. Radiation optimization: All CT scans at this facility use at least one of these dose optimization techniques: automated exposure control; mA and/or kV adjustment per patient size (includes targeted exams where dose is matched to clinical indication); or iterative reconstruction. Contrast material: OMNI 350; Contrast volume: 93 ml; Contrast route: INTRAVENOUS (IV); COMPARISON: CT neck w con* [id number] 02/06/2022 12:30 PM RADIATION DOSE METRICS: Total DLP (mGy-cm): 410.71 FINDINGS: Right common carotid artery: No stenosis. No dissection or occlusion. Right internal carotid artery: There is heavy soft and calcific atheromatous plaque at the origin of the right internal carotid artery with a minimum transverse luminal dimension of 1.7 mm seen best on coronal imaging compared with distal internal carotid artery measurement of 3.2 mm. Right external carotid artery: No occlusion or stenosis of the origin. Left common carotid artery: No stenosis. No dissection or occlusion. Left internal carotid artery: Calcific and soft atheromatous plaque is noted in the proximal left internal carotid artery without significant stenosis. Left external carotid artery: No occlusion or stenosis of the origin. Right vertebral artery: No stenosis. No dissection or occlusion. Left vertebral artery: No stenosis. No dissection or occlusion. Soft tissues: Normal. No significant soft tissue swelling. Bones/joints: The bones are osteopenic with spondylotic change. CT/CT angio headneck* [id number] IMPRESSION: No acute intracranial large vessel occlusion. IMPRESSION: Calcific and soft atheromatous plaque at the origins of the internal carotid arteries. No significant stenosis on the left, less than 50% stenosis on the right. REFERENCES: NASCET CRITERIA. The degree of stenosis in the cervical segment of the internal carotid artery is based on NASCET criteria. Normal is no stenosis. Mild is less than 50% stenosis. Moderate is 50-69% stenosis. Severe is 70% to 99% stenosis. Total occlusion is no detectable patent lumen.
--- NOTE | 2024-11-14 10:16 | XRR_ITS ---
PROCEDURE INFORMATION: Exam: XR Chest Exam date and time: 11/14/2024 10:27 AM Age: 73 years old Clinical indication: Other: Weakness TECHNIQUE: Imaging protocol: Radiologic exam of the chest. Views: 1 view. COMPARISON: CR XR chest 1V portable [id number] 12/19/2023 9:40 AM FINDINGS: Lungs: Unremarkable. No consolidation. Pleural spaces: Unremarkable. No pleural effusion. No pneumothorax. There is mild elevation and mammilation of the right hemidiaphragm. Heart/Mediastinum: Unremarkable. No cardiomegaly. Bones/joints: The bones are osteopenic. XR/XR chest 1V portable [id number] IMPRESSION: No acute cardiopulmonary disease.
--- NOTE | 2024-11-14 10:17 | ECG_ITS ---
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 Measurements Intervals [place] Rate: 63 P: 64 WA: 180 QRS: 12 QRSD: 94 T: 75 QT: 405 QTc: 417 Interpretive Statements SINUS RHYTHM LOW QRS VOLTAGE IN PRECORDIAL LEADS [QRS DEFLECTION < 1.0 mV IN CHEST LEADS] Compared to ECG 05/15/2022 09:46:48 Myocardial infarct finding no longer present Electronically Signed On 11-14-2024 12:27:07 CDT by Ericka Ann M.D. [email or web address]
--- NOTE | 2024-11-14 10:35 | W.ED.NEUROSD ---
HPI - Neuro Symptoms/Deficit General: Chief Complaint: Altered Mental Status Stated Complaint: ams Time Seen by Provider: 11/14/24 10:12 Source: patient and EMS Mode of arrival: EMS Limitations: no limitations History of Present Illness: 73-year-old female with history anxiety she is quite anxious here and concerned that she has had a stroke she states that over the last day since yesterday she has been having some word finding difficulty she feels like she has a lump in her right neck and thinks she may have a clot in her carotid. I do not notice any slurred speech here facial drooping she denies any headache or fever. Associated symptoms: Deny chest pain, headache(s), nausea or vomiting Related Data Home Medications ?Medication ?Instructions ?Recorded ?Confirmed acetaminophen 500 mg tablet 500 mg PO Q4H PRN Pain 04/06/21 10/18/24 vit no.95-ferrous 1 tab PO DAILY@08 08/20/21 10/18/24 fumarate 28 mg-folic acid 800 mcg tablet ( Multivitamins) vit C 250 mg-vit E 90 mg-zinc 40 1 tab PO BID 08/20/21 10/18/24 mg-copper 1 kj-kyelis-cevtvh capsule (PreserVision AREDS-2) tizanidine 4 mg tablet 4 mg PO Q6H PRN Muscle Spasm 05/15/22 10/18/24 pregabalin 25 mg capsule (Lyrica) 25 mg PO BID 03/14/23 10/18/24 cetirizine 10 mg tablet (All Day 10 mg PO QAM 04/01/23 10/18/24 Allergy (cetirizine)) methenamine hippurate 1 gram tablet 1 g PO BID 04/01/23 10/18/24 albuterol sulfate 90 mcg/actuation 2 puff inhalation Q4H PRN 04/26/23 10/18/24 aerosol inhaler (Ventolin HFA) Shortness Of Breath ascorbic acid (vitamin C) 500 mg 500 mg PO BID 04/26/23 10/18/24 tablet (Vitamin C) [id number]-rjffzaqd 250 1 tab PO Q6H PRN Migraine Headache 04/26/23 10/18/24 mg-250 mg-65 mg tablet (Excedrin Migraine) cyanocobalamin (vitamin B-12) 1,000 mcg IM Q30D 04/26/23 10/18/24 1,000 mcg/mL injection solution fluticasone propionate 50 2 spray intranasal DAILY 04/26/23 10/18/24 mcg/actuation nasal spray,suspension omeprazole 40 mg capsule,delayed 40 mg PO BID PRN Heartburn 04/26/23 10/18/24 release ondansetron HCl 4 mg tablet 4 mg PO BID PRN Nausea 04/26/23 10/18/24 semaglutide 1 mg/dose (4 mg/3 mL) 1 mg SUBCUT .once per week 12/16/23 10/18/24 subcutaneous pen injector (Ozempic) biotin 10 mg tablet 10 mg PO DAILY 12/19/23 10/18/24 budesonide-formoterol HFA 160 2 puff inhalation BID 12/19/23 10/18/24 mcg-4.5 mcg/actuation aerosol inhaler cholecalciferol (vitamin D3) 50 50 mcg PO DAILY 12/19/23 10/18/24 mcg (2,000 unit) tablet (Vitamin D3) insulin degludec 100 unit/mL (3 See Rx Instructions .Route .COMPLEX 12/19/23 10/18/24 mL) subcutaneous pen (Tresiba FlexTouch U-100 insulin) oxybutynin chloride 10 mg 10 mg PO BID 12/19/23 10/18/24 tablet,extended release 24 hr phenazopyridine 95 mg tablet 95 mg PO DAILY 12/19/23 10/18/24 vit C 250 mg-vit E 90 mg-zinc 40 1 tab PO BID 12/19/23 10/18/24 mg-copper 1 jk-ejolad-nguohk capsule (PreserVision AREDS-2) Previous Rx's ?Medication ?Instructions ?Recorded pen needle, diabetic 32 gauge x ##100 06/20/2207/03 (TechLITE Pen Needle) lorazepam 1 mg tablet (Ativan) 1 mg PO BID PRN severe anxiety #60 10/18/24 tabs aripiprazole 10 mg tablet (Abilify) 10 mg PO .every evening #90 tabs 10/26/24 citalopram 20 mg tablet (Celexa) 20 mg PO QAM #90 tabs 10/26/24 Allergies Allergy/AdvReac Type Severity Reaction Status Date / Time ceftriaxone Allergy Severe ALGY-Hives Verified 11/14/24 10:38 escitalopram Allergy Severe rash Verified 11/14/24 10:38 Penicillins Allergy Severe ALGY-Anaphy Verified 11/14/24 10:38 laxis rivaroxaban (From Xarelto) Allergy Severe suicidial Verified 11/14/24 10:38 thoughts atorvastatin (From Lipitor) Allergy Unknown Unknown Verified 11/14/24 10:38 desvenlafaxine (From Pristiq) Allergy Unknown Unknown Verified 11/14/24 10:38 duloxetine (From Cymbalta) Allergy Unknown Unknown Verified 11/14/24 10:38 amoxicillin Allergy Unknown Verified 11/14/24 10:38 ciprofloxacin Allergy ALGY-Anaphy Verified 11/14/24 10:38 laxis gabapentin Allergy Unknown Verified 11/14/24 10:38 ibuprofen Allergy ADR-Abdominal Verified 11/14/24 10:38 Pain Review of Systems Const: Denies: fever(s), chills, body aches or change in appetite Eyes: Denies: blurry vision or eye discomfort ENMT: Denies: throat pain or dental pain Card: Denies: chest pain Resp: Denies: dyspnea GI: Denies: abdominal pain, nausea, vomiting or diarrhea Musc: Denies: neck pain or back pain Skin/Breast: Denies: rash Neuro: Denies: headache(s) PFSH ED PFSH: Medical History UTI due to extended-spectrum beta lactamase (ESBL) producing Escherichia coli Hyperglycemia Hypokalemia Elevated d-dimer Dyspnea Hyperlactatemia [place] (stress urinary incontinence, female) Helicobacter pylori gastritis Abdominal pain Recurrent UTI GERD (gastroesophageal reflux disease) Psychiatric care Cholecystectomy planned Colonoscopy planned Blindness Urolithiasis Diabetes mellitus type 2 in nonobese She reports DM1 Obstructive pyelonephritis Right ureteral calculus Chronic migraine Chronic migraine Opioid contract exists Encounter for long-term use of opiate analgesic Spondylosis without myelopathy or radiculopathy, lumbosacral region Smoker Generalized anxiety disorder Major depressive disorder, recurrent severe without psychotic features Surgical History Hx of colonoscopy History of cholecystectomy Hx of dilation and curettage 09/14/19 [facility] H/O tubal ligation History of hysteroscopy Family History Father , at age 76 Congestive heart failure (CHF) Mother Acute arthritis Other CAD (coronary artery disease) Cancer Social History Smoking and tobacco/nicotine status: former use of tobacco/nicotine (Spouse is a smoker) Alcohol intake: never Substance/Drug Use: former Date of last use: 2020. THC USE Adopted: No Caregiver/support person: Yes Lives independently: Yes Housing: House Marital status: Current occupational status: disabled NIH stroke score NIHSS: Level Of Consciousness - 1a: 0 Level Of Consciousness Questions - 1b: Both Correct Level Of Consciousness Commands - 1c: Both Correct Best Gaze - 2: Normal Visual Issa - 3: No Visual Loss Facial Palsy - 4: Normal Motor Arm Right - 5: No Drift Motor Arm Left - 5: No Drift Motor Leg Right - 6: No Drift Motor Leg Left - 6: No Drift Limb Ataxia - 7: Absent Sensory - 8: Normal Best Language - 9: No Aphasia Dysarthia - 10: Normal Extinction And Inattention - 11: 0 Score: Total Score: 0 Physical Exam Const: COMMON NORMALS: patient oriented x3 GENERAL APPEARANCE: anxious HENMT: COMMON NORMALS: normocephalic and atraumatic HEAD & SCALP: normocephalic and atraumatic Eye: COMMON NORMALS: Equal, round and reactive pupils present and EOMs intact bilaterally PUPIL: Yes Equal, round and reactive pupils present Neck/C-Spine: COMMON NORMALS: full ROM and supple Chest: COMMONS NORMALS: normal inspection of the chest and normal palpation of entire chest wall Resp: COMMON NORMALS: normal respiratory effort, No retractions, No use of accessory muscles and clear to auscultation bilaterally AUSCULTATION: clear to auscultation bilaterally Cardio: COMMON NORMALS: regular rate, regular rhythm and No murmurs present (Cardio) RATE: regular rate RHYTHM: regular rhythm GI: COMMON NORMALS: Normal to inspection, nondistended, normoactive bowel sounds present, Soft to palpation, non-tender and no masses PALPATION: Yes Soft to palpation Extremity: COMMON NORMALS: normal to inspection and full ROM Neuro: COMMON NORMALS: patient oriented x3, moves all extremities and no focal motor deficits Psych: COMMON NORMALS: mental status grossly normal, Normal thought process present and cooperative THOUGHT PROCESS: Normal thought process present Skin: COMMON NORMALS: no rashes or lesions noted and no wounds GENERAL SKIN EXAM: no rashes or lesions noted Course Vital Signs: Vital signs: Vital Signs Temperature 98.6 F 11/14/24 10:15 Pulse Rate 61 11/14/24 13:32 Respiratory Rate 16 11/14/24 10:15 Blood Pressure 158/70 11/14/24 13:32 Pulse Oximetry 98 11/14/24 13:32 Oxygen Delivery Me thod Room Air 11/14/24 10:15 MDM - Neuro Symptoms/Deficit Medical Decision Making Patient presents here with generalized weakness she has no signs of a stroke here no focal deficits she was quite anxious she feels much improved currently she ambulated the halls without difficulty she is stable for discharge follow-up PCP return if worsening. Medical Records I reviewed the patient's medical records. Lab Data I reviewed the patient's lab results. 11/14/24 11:05 11/14/24 11:05 Radiology Impressions Chest X-Ray 11/14/24 10:16 IMPRESSION: No acute cardiopulmonary disease. Head CT 11/14/24 10:16 IMPRESSION: No acute intracranial process. Head/Neck CTA 11/14/24 10:16 IMPRESSION: No acute intracranial large vessel occlusion. IMPRESSION: Calcific and soft atheromatous plaque at the origins of the internal carotid arteries. No significant stenosis on the left, less than 50% stenosis on the right. REFERENCES: NASCET CRITERIA. The degree of stenosis in the cervical segment of the internal carotid artery is based on NASCET criteria. Normal is no stenosis. Mild is less than 50% stenosis. Moderate is 50-69% stenosis. Severe is 70% to 99% stenosis. Total occlusion is no detectable patent lumen. Laboratory Results WBC 7.66 10^3/uL (3.29-11.43) 11/14/24 11:05 RBC 4.55 10^6/uL (3.85-5.65) 11/14/24 11:05 Hgb 12.00 g/dL (11.27-16.99) 11/14/24 11:05 Hct 37.9 % (36-47) 11/14/24 11:05 MCV 83.3 fl (85-98) L 11/14/24 11:05 MCH 26.4 pg (27-33) L 11/14/24 11:05 MCHC 31.7 g/dL (30-55) 11/14/24 11:05 RDW 13.9 % (12.1-15.1) 11/14/24 11:05 Plt Count 279 10^3/cmm (157-399) 11/14/24 11:05 MPV 11.3 fL (7.4-10.4) H 11/14/24 11:05 Neut % (Auto) 59.2 % 11/14/24 11:05 Lymph % (Auto) 31.7 % 11/14/24 11:05 [place] % (Auto) 5.7 % 11/14/24 11:05 Eos % (Auto) 1.7 % 11/14/24 11:05 Baso % (Auto) 1.3 % 11/14/24 11:05 Neut # (Auto) 4.53 10^3/uL (1.8-7.7) 11/14/24 11:05 Lymph # (Auto) 2.4 10^3/uL (0.8-4.8) 11/14/24 11:05 [place] # (Auto) 0.4 10^3/uL (0.2-0.9) 11/14/24 11:05 Eos # (Auto) 0.1 10^3/uL (0.0-0.8) 11/14/24 11:05 Baso # (Auto) 0.1 10^3/uL (0.0-0.1) 11/14/24 11:05 Nucleated RBC % (auto) 0 % 11/14/24 11:05 Nucleated RBCs # 0.0 /100WBC 11/14/24 11:05 PT 13.60 SECONDS (12.1-14.9) 11/14/24 11:05 INR 0.97 (0.8-1.2) 11/14/24 11:05 Sodium 133 mmol/L (136-145) L 11/14/24 11:05 Potassium 3.8 mmol/L (3.5-5.1) 11/14/24 11:05 Chloride 98 mmol/L (98-107) 11/14/24 11:05 Carbon Dioxide 26 mmol/L (22-29) 11/14/24 11:05 Anion Gap 12.8 (5-19) 11/14/24 11:05 BUN 13 mg/dL (8-23) 11/14/24 11:05 Creatinine 0.9 mg/dL (0.5-0.9) 11/14/24 11:05 GFR Calculation Not Reportable 11/14/24 11:05 Glucose 221 mg/dL (65-115) H 11/14/24 11:05 Calculated Osmolality 283 mOsm/kg (285-295) L 11/14/24 11:05 Calcium 8.2 mg/dL (8.5-10.5) L 11/14/24 11:05 Total Bilirubin 0.5 mg/dL (0.15-1.2) 11/14/24 11:05 AST 17 U/L (0-32) 11/14/24 11:05 ALT 13 U/L (0-33) 11/14/24 11:05 Alkaline Phosphatase 62 U/L (35-105) 11/14/24 11:05 Total Protein 6.1 g/dL (6.6-8.7) L 11/14/24 11:05 Albumin 3.6 g/dL (3.5-5.2) 11/14/24 11:05 Globulin 2.5 g/dL (1.3-4.6) 11/14/24 11:05 Urine Color Yellow (Yellow) 11/14/24 12:55 Urine Appearance Clear (CLEAR) 11/14/24 12:55 Urine pH 6.5 (5-7) 11/14/24 12:55 Ur Specific [place] 1.000 (1.005-1.030) L 11/14/24 12:55 Urine Protein Trace (Negative) 11/14/24 12:55 Urine Glucose (UA) Norm (Normal) 11/14/24 12:55 Urine Ketones Negative (Negative) 11/14/24 12:55 Urine Blood Neg (Negative) 11/14/24 12:55 Urine Nitrate Negative (Negative) 11/14/24 12:55 Urine Bilirubin Neg (Negative) 11/14/24 12:55 Urine Urobilinogen Norm mg/dL (Negative) 11/14/24 12:55 Ur Leukocyte Esterase Trace (Negative) H 11/14/24 12:55 Urine RBC 0-2 /hpf (0-2) 11/14/24 12:55 Urine WBC 21-50 /hpf (0-5) H 11/14/24 12:55 Ur Squamous Epith Cells 0-5 /hpf (0-5) 11/14/24 12:55 Amorphous Sediment Not Reportable 11/14/24 12:55 Urine Bacteria None seen /hpf (NONE) 11/14/24 12:55 Hyaline Casts 1.21 /lpf 11/14/24 12:55 All radiology interpretation(s) finalized by discharge EKG Data EKG 1: I personally reviewed and interpreted this EKG as follows: EKG interpretation date: 11/14/24 EKG interpretation time: 09:35 Interpretation: nsr hr [address] elevation qrs 117 qtc 410 Discharge Plan Discharge Patient Disposition: Home Clinical Impression: Weakness Condition: Stable Prescriptions: No Action cetirizine [All Day Allergy (cetirizine)] 10 mg tablet 10 mg PO QAM methenamine hippurate 1 gram tablet 1 g PO BID Ozempic 1 mg/dose (4 mg/3 mL) pen injector 1 mg SUBCUT .once per week Rx Instructions: FRIDAY lorazepam [Ativan] 1 mg tablet 1 mg PO BID PRN (Reason: severe anxiety) Qty: 60 3RF Rx Instructions: May take one tablet twice per day as needed for severe anxiety pregabalin [Lyrica] 25 mg capsule 25 mg PO BID (DME) pen needle, diabetic [TechLITE Pen Needle] 32 gauge x 1/4 needle See Rx Instructions .ROUTE .COMPLEX Qty: 100 11RF Dose Instruction: USE FIVE times daily Rx Instructions: USE FIVE times daily Abilify 10 mg tablet 10 mg PO .every evening Qty: 90 2RF Rx Instructions: Take one tablet every evening citalopram [Celexa] 20 mg tablet 20 mg PO QAM Qty: 90 2RF Rx Instructions: Take one tablet every morning acetaminophen 500 mg Tablet 500 mg PO Q4H PRN (Reason: Pain) PreserVision AREDS-2 250-90-40-1 mg capsule 1 tab PO BID Multivitamins 28 mg iron- 800 mcg tablet 1 tab PO DAILY@08 tizanidine 4 mg Tablet 4 mg PO Q6H PRN (Reason: Muscle Spasm) omeprazole 40 mg capsule,delayed release(DR/EC) 40 mg PO BID PRN (Reason: Heartburn) ascorbic acid (vitamin C) [Vitamin C] 500 mg Tablet 500 mg PO BID cyanocobalamin (vitamin B-12) 1,000 mcg/mL solution 1,000 mcg IM Q30D albuterol sulfate [Ventolin HFA] 90 mcg/actuation HFA aerosol inhaler 2 puff INHALATION Q4H PRN (Reason: Shortness Of Breath) fluticasone propionate 50 mcg/actuation spray,suspension 2 spray INTRANASAL DAILY Excedrin Migraine 250-250-65 mg Tablet 1 tab PO Q6H PRN (Reason: Migraine Headache) ondansetron HCl 4 mg tablet 4 mg PO BID PRN (Reason: Nausea) oxybutynin chloride 10 mg tablet extended release 24hr 10 mg PO BID PreserVision AREDS-2 250-90-40-1 mg Capsule 1 tab PO BID biotin 10 mg Tablet 10 mg PO DAILY phenazopyridine 95 mg Tablet 95 mg PO DAILY budesonide-formoterol 160-4.5 mcg/actuation HFA aerosol inhaler 2 puff INHALATION BID Vitamin D3 50 mcg (2,000 unit) Tablet 50 mcg PO DAILY Tresiba FlexTouch U-100 100 unit/mL (3 mL) insulin pen See Rx Instructions .ROUTE .COMPLEX Rx Instructions: INJECT 20 UNITS EVERY MORNING AND 30 UNITS AT BEDTIME Discharge Orders: Discharge ED (Routine); Ordered 11/14/24 Ordered By: Mateo Richard Referrals: Hazel Jimenez PA [Primary Care Provider, Physicians Superintendent Maintenance] - 4-7 days Discharge Diet: Advance as tolerated Discharge Activity: Resume usual activity Patient Instructions: Weakness (ED) Print Language: Argentine Coding Level of Care Code ED Digital Forensic Analyst for Noemi Veliz
[2024-11-14] MEDS: iohexol 350 mg/mL 500 mL Btl (per mL) IV (10:50)
[2024-11-14 11:00] VITALS: BP 144/56; PULSE 61; O2SAT 100
[2024-11-14 11:11] LABS: Basophils # 0.1 10^3/uL (0.0-0.1); Basophils % 1.3 %; Eosinophils # 0.1 10^3/uL (0.0-0.8); Eosinophils % 1.7 %; Hematocrit 37.9 % (36-47); Lymphocytes # 2.4 10^3/uL (0.8-4.8); Lymphocytes % 31.7 %; Mean Corpuscular HGB Conc 31.7 g/dL (30-55); Mean Corpuscular Hemoglobin 26.4 pg (27-33); Mean Corpuscular Volume 83.3 fl (85-98); Mean Platelet Volume 11.3 fL (7.4-10.4); Monocytes # 0.4 10^3/uL (0.2-0.9); Monocytes % 5.7 %; Neutrophils # 4.53 10^3/uL (1.8-7.7); Neutrophils % 59.2 %; Nucleated Red Blood Cells % 0 %; Platelet Count 279 10^3/cmm (157-399); Red Blood Count 4.55 10^6/uL (3.85-5.65); Red Cell Distribution Width 13.9 % (12.1-15.1); White Blood Count 7.66 10^3/uL (3.29-11.43)
[2024-11-14 11:27] LABS: Alanine Aminotransferase 13 U/L (0-33); Albumin Level 3.6 g/dL (3.5-5.2); Alkaline Phosphatase 62 U/L (35-105); Anion Gap 12.8 (5-19); Aspartate Amino Transferase 17 U/L (0-32); Blood Urea Nitrogen 13 mg/dL (8-23); Calcium 8.2 mg/dL (8.5-10.5); Carbon Dioxide 26 mmol/L (22-29); Chloride 98 mmol/L (98-107); Creatinine Clr Calc Pharmacy 44.5029; Globulin 2.5 g/dL (1.3-4.6); Glucose 221 mg/dL (65-115); Osmolality Calculated 283 mOsm/kg (285-295); Potassium 3.8 mmol/L (3.5-5.1); Sodium 133 mmol/L (136-145); Total Bilirubin 0.5 mg/dL (0.15-1.2); Total Protein 6.1 g/dL (6.6-8.7)
[2024-11-14 11:30] VITALS: BP 156/63; PULSE 65; O2SAT 98
[2024-11-14 11:37] LABS: INR 0.97 (0.8-1.2)
[2024-11-14 12:00] VITALS: BP 132/58; PULSE 62; O2SAT 97
[2024-11-14] MEDS: meclizine 25 mg tablet 50 MG PO (12:16)
[2024-11-14 12:30] VITALS: BP 126/57; PULSE 64; O2SAT 97
[2024-11-14 13:09] LABS: Bacteria Urine None Seen /hpf; Hyaline Casts Urine 1.21 /lpf; RBC Urine 0-2 /hpf (0-2); Squamous Epithelial Cell Urine 0-5 /hpf (0-5); WBC Urine 21-50 /hpf (0-5)
[2024-11-14 13:12] LABS: Add Urine Microscopic? YES; Bilirubin Urine Neg (Negative); Blood Urine Neg (Negative); Glucose Urine UA Norm (Normal); Ketones Urine Negative (Negative); Leukocyte Esterase Urine Trace (Negative); Nitrate Urine Negative (Negative); Protein Urine Trace (Negative); Urine Appearance Clear (CLEAR); Urine Color Yellow (Yellow); Urobilinogen Urine Norm (Negative); pH Urine 6.5 (5-7)
[2024-11-14 13:13] LABS: Add Urine Culture? Yes
[2024-11-14 13:32] VITALS: BP 158/70; PULSE 61; O2SAT 98
== END 2024-11-14 13:37 | disposition home or self-care (01) ==
PROVIDERS: Emergency Provider Emergency Medicine; PCP Physician Assistant
DX: R53.1 Weakness (principal); Z87.891 Personal history of nicotine dependence; E11.9 Type 2 diabetes mellitus without complications; R47.81 Slurred speech
CPT/HCPCS: 36415; 70450; 70496; 70498; 71045; 80053; 81001; 85025; 85610; 87086; 93005; 99285; J8597

== ENCOUNTER → 2024-11-30 09:54 | Outpatient (BNVA) | payer MEDICARE, MEDICAID, SELFPAY ==
[2024-10-19 17:12] VITALS: BP 107/62; BMI 23.0
== END ==
PROVIDERS: PCP Physician Assistant; Visit Provider Podiatrist Foot & Ankle Surgery
DX: E11.69 Type 2 diabetes mellitus with other specified complication (principal); L60.3 Nail dystrophy; I73.9 Peripheral vascular disease, unspecified; H54.7 Unspecified visual loss; Z79.4 Long term (current) use of insulin
CPT/HCPCS: 11721; 99203

== ENCOUNTER 2024-12-30 12:26 | Emergency (ER) | payer MEDICARE, MEDICAID, SELFPAY ==
[2024-10-19 17:12] VITALS: BP 107/62; BMI 23.0
--- NOTE | 2024-12-30 12:27 | ECG_ITS ---
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
[2024-12-30 12:31] VITALS: BP 143/58; PULSE 60; RESP 17; TEMP 36.8; O2SAT 98; BMI 22.3
--- OUTSIDE RECORDS SUMMARY | 2024-12-30 12:31 | XMS_ITS | Encounter Summary ---
Author Organization [employer] Address [address] [place] [address] Care Team Providers Care Account Solutions Analyst Name Role Phone Provider, Abstract Spg Primary Care Provider Viri vailable Encounter Details Date Type Department Care Team (Late st Contact Info) Description 07/18/2003 Outpatient Historical [facility] [address] 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
--- OUTSIDE RECORDS SUMMARY | 2024-12-30 12:31 | XMS_ITS | Patient Health Record ---
Author Organization [facility] Address [address] [place] [address] Care Team Providers Care Regeneration Operator Name Role Phone Arie Lewis MD Primary Care Provider UnavailCassie Devries Unavailable [phone] Artie Willard Unavailable Unavailable Dede Nolan Unavailable Allergies Allergen (clinical drug ingredient) Drug/Non Drug Allergy documented on EMR Reaction Allergy Type Onset Date Status amoxicillin / clavulanate Augmentin vomiting Drug Allergy Active duloxetine Cymbalta vomiting Drug Allergy Active atorvastatin Lipitor Unable to walk Drug Allergy Active paroxetine Paxil Unknown Drug Allergy 03/06/2006 Activ e paroxetine Paxil dizziness Drug Allergy Active ciprofloxacin Ciprofloxacin allergy Drug Allergy Active gabapentin Gabapentin Unknown Drug Allergy Activ e metformin Metformin unknown Drug Allergy Active Penicillin Unknown Drug Allergy Active Substance with penicillin structure and antibacterial mechanism of action (substance) Penicillins Unknown Drug Allergy 03/06/2006 Active Results Component Value Reference Range Notes Urine Drug Screen (cup read) - [id number] Reviewed date:06/29/2024 10:28:35 AM Interpretation:Positive Performing Lab: Notes/Report: Positive BZO + zzzUrine Drug Screen (confir mation by instrument) - [id number] Reviewed date:07/06/2024 01:07:04 PM Interpretation: Performing Lab: Notes/Report: Urine Drug Screen (cup read) - [id number] Reviewed date:12/02/2024 01:38:03 PM Interpretation: Performing Lab: Notes/Report: BZO Pos OPI Pos Urine Confirmation Panel (in strument) - [id number] Reviewed date:12/08/2024 02:51:35 PM Interpretation: Performing Lab: Notes/Report: 6-Acetylmorphine 0 <6 ng/mL This test w as developed and its performance characteristics determined by [facility]. It has not been cleared or approved by the U.S. Food and Drug Administration. 7-Aminoclonazepam 0 <60 ng/mL This test was developed and its performance characteristics determined by [facility]. It has not been cleared or approved by the U.S. Food and Drug Administration. Alprazolam 0 <60 ng/mL This test was d eveloped and its performance characteristics determined by [facility]. It has not been cleared or approved by the U.S. Food and Drug Administration. Amphetamine 0 <75 ng/mL This test was d eveloped and its performance characteristics determined by [facility]. It has not been cleared or approved by the U.S. Food and Drug Administration. aOH-Alprazolam 0 <60 ng/mL This test was developed and its performance characteristics determined by [facility]. It has not been cleared or approved by the U.S. Food and Drug Administration. Buprenorphine 0.0 <7.5 ng/mL This test was developed and its performance characteristics determined by [facility]. It has not been cleared or approved by the U.S. Food and Drug Administration. Norbuprenorphine 0.0 <37.5 ng/mL This test w as developed and its performance characteristics determined by [facility]. It has not been cleared or approved by the U.S. Food and Drug Administration. Carisoprodol 0 <75 ng/mL This test was d eveloped and its performance characteristics determined by [facility]. It has not been cleared or approved by the U.S. Food and Drug Administration. Codeine 0 <75 ng/mL This test was d eveloped and its performance characteristics determined by [facility]. It has not been cleared or approved by the U.S. Food and Drug Administration. EDDP 0 <75 ng/mL This test was d eveloped and its performance characteristics determined by [facility]. It has not been cleared or approved by the U.S. Food and Drug Administration. Fentanyl 0 <6 ng/mL This test was d eveloped and its performance characteristics determined by [facility]. It has not been cleared or approved by the U.S. Food and Drug Administration. Hydrocodone 182 <75 ng/mL This test was d eveloped and its performance characteristics determined by [facility]. It has not been cleared or approved by the U.S. Food and Drug Administration. Hydromorphone 46 <75 ng/mL This test was developed and its performance characteristics determined by [facility]. It has not been cleared or approved by the U.S. Food and Drug Administration. Lorazepam >4000 <60 ng/mL This test was d eveloped and its performance characteristics determined by [facility]. It has not been cleared or approved by the U.S. Food and Drug Administration. MDMA 0 <75 ng/mL This test was d eveloped and its performance characteristics determined by [facility]. It has not been cleared or approved by the U.S. Food and Drug Administration. Meperidine 0.0 <37.5 ng/mL This test was d eveloped and its performance characteristics determined by [facility]. It has not been cleared or approved by the U.S. Food and Drug Administration. Meprobamate 0 <75 ng/mL This test was d eveloped and its performance characteristics determined by [facility]. It has not been cleared or approved by the U.S. Food and Drug Administration. Methamphetamine 0 <75 ng/mL This test wa s developed and its performance characteristics determined by [facility]. It has not been cleared or approved by the U.S. Food and Drug Administration. Methadone 0 <75 ng/mL This test was d eveloped and its performance characteristics determined by [facility]. It has not been cleared or approved by the U.S. Food and Drug Administration. Morphine 0 <75 ng/mL This test was d eveloped and its performance characteristics determined by [facility]. It has not been cleared or approved by the U.S. Food and Drug Administration. Nordiazepam 0 <60 ng/mL This test was d eveloped and its performance characteristics determined by [facility]. It has not been cleared or approved by the U.S. Food and Drug Administration. Norfentanyl 0 <6 ng/mL This test was d eveloped and its performance characteristics determined by [facility]. It has not been cleared or approved by the U.S. Food and Drug Administration. Normeperidine 0.0 <37.5 ng/mL This test was developed and its performance characteristics determined by [facility]. It has not been cleared or approved by the U.S. Food and Drug Administration. O-desmethyltramadol 0 <75 ng/mL This lisa t was developed and its performance characteristics determined by [facility]. It has not been cleared or approved by the U.S. Food and Drug Administration. Oxazepam 0 <60 ng/mL This test was d eveloped and its performance characteristics determined by [facility]. It has not been cleared or approved by the U.S. Food and Drug Administration. Oxycodone 0.0 <37.5 ng/mL This test was d eveloped and its performance characteristics determined by [facility]. It has not been cleared or approved by the U.S. Food and Drug Administration. Oxymorphone 0 <75 ng/mL This test was d eveloped and its performance characteristics determined by [facility]. It has not been cleared or approved by the U.S. Food and Drug Administration. Phencyclidine 0.0 <7.5 ng/mL This test was developed and its performance characteristics determined by [facility]. It has not been cleared or approved by the U.S. Food and Drug Administration. Tapentadol 0.0 <37.5 ng/mL This test was d eveloped and its performance characteristics determined by [facility]. It has not been cleared or approved by the U.S. Food and Drug Administration. Temazepam 0 <60 ng/mL This test was d eveloped and its performance characteristics determined by [facility]. It has not been cleared or approved by the U.S. Food and Drug Administration. Tramadol 0 <75 ng/mL This test was d eveloped and its performance characteristics determined by [facility]. It has not been cleared or approved by the U.S. Food and Drug Administration. Norhydrocodone 2685 <75 ng/mL This test was developed and its performance characteristics determined by [facility]. It has not been cleared or approved by the U.S. Food and Drug Administration. Noroxycodone 0 <38 ng/mL This test was d eveloped and its performance characteristics determined by [facility]. It has not been cleared or approved by the U.S. Food and Drug Administration. Pregabalin >78532 <225 ng/mL This test was d eveloped and its performance characteristics determined by [facility]. It has not been cleared or approved by the U.S. Food and Drug Administration. Gabapentin 0 <225 ng/mL This test was d eveloped and its performance characteristics determined by [facility]. It has not been cleared or approved by the U.S. Food and Drug Administration. Benzoylecgonine 0.0 <37.5 ng/mL This test wa s developed and its performance characteristics determined by [facility]. It has not been cleared or approved by the U.S. Food and Drug Administration. 4-Hydroxy Xylazine 0 <25 ng/mL This test was developed and its performance characteristics determined by [facility]. It has not been cleared or approved by the U.S. Food and Drug Administration. Tox Results Reviewed date:12/08/2024 02:59:21 PM Interpretation: Performing Lab: Notes/Report: Reason For Referral No Information Medications Medication SIG (Take, Route, Frequency, Duration) Notes Start Date End Date Status Loratadine Active Vitamin C Active HYDROcodone-Acetaminophen 5-325 MG 1 tablet as needed Orally every 4-6 hrs for 30 days As needed Do not exceed 2 per day Fill on 12-02-24 12/02/2024 01/01/2025 Active LORazepam Active Meclizine HCl Active Acetaminophen Active Cranberry Active Pregabalin 50 mg take 1 capsule BY MOUTH TWICE DAILY for 30 11/29/2024 Active Docusate Sodium Acti ve Active Furosemide Active Sulfamethoxazole Act tejinder Insulin Aspart Activ e tiZANidine HCl Activ e Ondansetron Active ARIPiprazole Active oxyBUTYnin Active Ascorbic Acid Active Pantoprazole Sodium Active Citalopram Hydrobromide Active Potassimin Active HYDROcodone-Acetaminophen 5-325 MG 1 tablet as needed Orally every 4-6 hrs for 30 days As needed Do not exceed 2 per day Fill on 01-01-25 12/02/2024 01/31/2025 Active Social History Tobacco Use: Social History Observation Description Date Details (start date - stop date) Never Smoker NA - NA xTobacco Use/Smoking Question Answer Notes Are you a nonsmoker Problems Problem Type SNOMED Code ICD Code Onset Dates Problem Status W/U Status Risk Notes Problem Chronic pain syndrom e (266164261) Chronic pain syndrome (G89.4) Active confirmed Problem 2873290 Trochanteric bursitis, right hip (M70.61) Active confirmed Problem 543234685869638 Trochanteric bursitis, left hip (M70.62) Active confirmed Problem Lumbar radiculopathy (457289963) Lumbar radiculopathy (M54.16) Active confirmed Problem 48086173 Spondylosis of lumbosacral region without myelopathy or radiculopathy (M47.817) Active confirmed Problem 86013417 Female stress incontinence (N39.3) Active confirmed Problem Peripheral neuropath y (063506175) Peripheral neuropathy (G62.9) Active confirmed Problem 17004671 Myalgia (M79.10) Active confirmed Problem 324532738 Recurrent UTI (N39.0) Active confirmed Problem Bladder muscle dysfunction - overactive (405112004) OAB (overactive bladder) (N32.81) Active confirmed Problem Healed pyelonephriti s (disorder) (890153214) History of pyelonephritis (Z87.448) Active confirmed Problem Lumbosacral radiculopathy (2887911) Radiculopathy of lumbosacral region (M54.17) Active confirmed Problem 4655347 Greater trochant bladimir bursitis of right hip (M70.61) Active confirmed Problem History of nephrolithiasis (724655233) History of nephrolithiasis (Z87.442) Active confirmed Problem 9650604 Greater trochant bladimir bursitis of left hip (M70.62) Active confirmed Problem Mixed incontinence (240619253) Mixed incontinence urge and stress (N39.46) Active confirmed Problem 634163258 Neurogenic claudication (R29.818) Active confirmed Problem Long-term current us e of drug therapy (280989429) Analgesic use (Z79.899) Active confirmed Problem 017137441 Vision impairmen t (H54.7) Active confirmed Problem Diverticulosis of colon (870753770) Diverticulosis of colon (562.10) 2005 Active confirmed [id number]-98 [id number]- Problem Moderate recurrent major depression (66102419) Major depression, recurrent episode, moderate (296.32) 2005 Active confirmed [id number]-98 [id number]- Problem Depressive disorder (50428484) Depressive disorder not elsewhere classified (311) 2006 Active confirmed [id number]-98 [id number]- Problem Primary hypercholesterolemia (100928268) Primary hypercholesterolemia (272.0) 2006 Active confirmed [id number]-98 [id number]- Problem Type I diabetes mellitus without complication (097752900) Type 1 diabetes (250.01) 2005 Active confirmed [id number]- Problem Type II diabetes mellitus without complication (900276510) Type 2 diabetes (250.00) 2006 Active confirmed [id number]-98 [id number]- Problem Upper respiratory infection (39099856) Upper respiratory infection (465.9) 2006 Problem resolved confirmed [id number]- Problem Acute exacerbation o f chronic obstructive airways disease (918433395) Acute exacerbation of chronic obstructive pulmonary disease (COPD) (491.21) 2005 Problem resolved confirmed [id number]- Problem Insomnia (424938328) Insomnia (307.41) 2006 Problem resolved confirmed [id number]- Problem Needs influenza immunization (772268806) Vaccination against other viral diseases, Influenza (V04.81) 2006 Problem resolved confirmed [id number]- Problem Acute upper respiratory infection (18152745) Acute upper respiratory infection (465.8) 2005 Problem resolved confirmed [id number]- Problem Acute sinusitis (02744856) Acute sinusitis (461.8) 2005 Problem resolved confirmed [id number]-98 [id number]- Vital Signs Height-cm 157.48 cm 12/02/2024 Weight-kg 57.61 kg 12/02/2024 Height 62 in 12/02/2024 Weight 127 lbs 12/02/2024 BMI 23.23 kg/m2 12/02/2024 Procedures Procedure Date Ordered Date Performed Result Body Sit e Epidural, Transforaminal, Lumbar/Sacral, single level, w/ imaging guidance - [id number] 09/22/2024 09/22/2024 03-20 VM FULL Epidural, Transforaminal, Lumbar/Sacral, single level, w/ imaging guidance - 06606 12/29/2024 12/29/2024 N/A Encounters Encounter Location Date Provider Diagnosis [facility]ly [facility] [address] [place] [place] [address] [facility] G89.4 [facility] [address] [facility] [place] [address] 07/23/2024 Dede [facility]ly [facility] [address] [address] 12/02/2024 Dede [facility] Formerly [facility] [address] [place] [address] 09/07/2024 Dede [facility] Peripheral neuropathy G62.9 ; Greater trochanteric bursitis of right hip M70.61 ; Greater trochanteric bursitis of left hip M70.62 and Lumbar radiculopathy M54.16 Formerly [facility] [address] [address] 10/26/2024 Dede [facility] Peripheral neuropathy G62.9 ; Greater trochanteric bursitis of right hip M70.61 ; Greater trochanteric bursitis of left hip M70.62 ; Lumbar radiculopathy M54.16 ; Analgesic use Z79.899 and Spondylosis of lumbosacral region without myelopathy or radiculopathy M47.817 Formerly [facility] [address] [address] 12/02/2024 Cassie Arce Peripheral neuropathy G62.9 ; Greater trochanteric bursitis of right hip M70.61 ; Greater trochanteric bursitis of left hip M70.62 ; Lumbar radiculopathy M54.16 ; Analgesic use Z79.899 and Spondylosis of lumbosacral region without myelopathy or radiculopathy M47.817 Formerly [facility] [place] [address] [place] [address] 06/29/2024 Dede [facility] Chronic pain syndrome G89.4 ; Radiculopathy of lumbosacral region M54.17 ; Myalgia M79.10 ; Neurogenic claudication R29.818 and Analgesic use Z79.899 Formerly [facility] [place] [address] [place] [address] 10/19/2024 Ddee [facility] Peripheral neuropathy G62.9 ; Greater trochanteric bursitis of right hip M70.61 ; Greater trochanteric bursitis of left hip M70.62 and Lumbar radiculopathy M54.16 Formerly [facility] [address] [place] [place] [address] 09/22/2024 Dede [facility] Lumbar radiculopathy M54.16 Formerly [facility] [address] [facility] [place] [address] 12/29/2024 Dede [facility] Lumbar radiculopathy M54.16 Assessments Encounter Date Diagnosis (ICD Code) Assessment Notes Treatment Notes Treatment Clinical Notes Section Notes 09/07/2024 Peripheral neuropathy (ICD-10 - G62.9) Ms. 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 She was supposed to be scheduled for bilateral epidural steroid injections at at the 4-5 level, but she did not recieve the phone call. She might have missed it because she uses voice operation for her phone calls and assumes that many things are spam calls. We'll have the nurses put the clinic in [place] as well as the [facility]'s phone number in so she knows that it's our clinic calling her to get something scheduled. She additionally has a physical exam consistent with gluteus medius bursitis. I talked to her about doing GTB injections with ultrasound in [place]. She would like to proceed with this. I counseled her that I cannot take over any opioid prescribing until she weans off or continues to wean off her Lorazepam. She'll work on that with her primary care nurse practitioner. I'll refill her Lyrica 50 mg as well. 09/07/2024 Greater trochanteric bursitis of right hip (ICD-10 - M70.61) Patient has history, physical exam, and imaging consistent of greater trochanteric bursitis. I discussed with the patient pursuing greater trochanteric bursae injections with ultrasound guidance. Risks and expectations of the procedure were discussed with the patient, and they agree to proceed. Ultrasound is needed for needle localization into joint and to decrease the risk of intravascular injection. The options for treatment were explained in detail, this included PT, medications, injections, lifestyle modifications and exercise. Proceed with bilateral greater trochanteric bursae injection with ultrasound guidance 06/24/2024 Chronic pain syndrome (ICD-10 - G89.4) 06/29/2024 Chronic pain syndrome (ICD-10 - G89.4) Very pleasant patient with history of neurogenic claudication, lumbosacral spondylosis, diabetes, and radiculopathy of the lumbosacral region. Patient has imaging, history, and physical exam consistent with pain generated from radiculopathy of the lumbosacral region. Patient has tried conservative measures including medication with limited benefit including medications to include gabapentin if they could tolerate it and physical therapy including home exercise regimen under a physician's guidance for at least 6 weeks. They have had a decrease in their quality of life as a result of this pain. This pain is impairing their ability to perform ADLs and care for their family. This pain is also interfering with their ability to work. They now have had to increase their medication use. It is medically necessary to proceed with this procedure, risks and expectations of the procedure were discussed with the patient and they agreed to proceed. The options for treatment were explained in detail, this included PT, medications, injections, lifestyle modifications and exercise. Proceed with bilateral L4/5 TFESI with sedation The aforementioned procedure is medically necessary to be performed with minimal sedation. This sedation is necessary to ensure patient comfort and cooperation, while also minimizing anxiety and discomfort. 06/29/2024 Radiculopathy of lumbosacral region (ICD-10 - M54.17) Additionally, we will increase her Lyrica from 25 mg TID to 50 mg BID and see her back in 1 month. 10/19/2024 Peripheral neuropathy (ICD-10 - G62.9) 10/26/2024 Peripheral neuropathy (ICD-10 - G62.9) Ms. 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 She additionally has lumbosacral radiculopathy as well as gluteus medius bursitis. She's doing much better after a bilateral L4/5 TFESI and bilateral greater trochanteric bursa injections. She's working with her psychiatry nurse practitioner Carie Jack on weaning off of the Lorazepam slowly. The last prescription was filled 09/17/24. With that, she's now on 3-2 times a day and we'll trial stopping Tramadol and utilizing Hydrocodone 5/325 mg up to 2 tabs daily as needed for her pain. We'll see her back in 5 weeks for reevaluation. At that time, we'll obtain a UDS confirmation. 10/26/2024 Greater trochanteric bursitis of right hip (ICD-10 - M70.61) 12/02/2024 Peripheral neuropathy (ICD-10 - G62.9) I had a nice discussion with the patient today regarding her chronic pain complaints. She states she is doing well on her current medication regimen. She is continuing to cut down on her benzodiazepine. She does report that she has started having some return of her lower back pain as well as her radicular symptoms. She is requesting another injection. After discussion she would like to proceed with a bilateral TFESI at L4-5. She has done well with these in the past noting greater than 50% relief for greater than 3 months. She denies any other changes in her health since we last seen her any untoward side effects of the medication. She will return to clinic in 2 months/after procedure to monitor for treatment effectiveness and compliance. The patient continues with chronic pain requiring treatment to help restore function and improve quality of life. Risks of opioid therapy as well as interaction of opioids with alcohol, illicit drugs, muscle relaxers, and other sedative medications are reviewed briefly with patient again today. The patient has trialed all other reasonable treatment options and uses the medication to alleviate pain in order to remain active and rest with less pain. No clinically relevant medication side effects are noted. Last UDS and [employer] GALLERY ASSISTANT reviewed today. Patient is advised that best long-term goals include increased activity, core strengthening, proper weight management, coping strategies, avoidance of painful triggers, and targeted interventional therapy. We will see the patient for routine follow up in accordance with all clinic policies. We did remind patient today of current guidelines to decrease opioid when possible. We will continue to stress nonopioid treatment. 09/22/2024 Lumbar radiculopathy (ICD-10 - M54.16) 12/29/2024 Lumbar radiculopathy (ICD-10 - M54.16) 12/02/2024 Greater trochanteric bursitis of right hip (ICD-10 - M70.61) 10/26/2024 Greater trochanteric bursitis of left hip (ICD-10 - M70.62) 10/19/2024 Greater trochanteric bursitis of right hip (ICD-10 - M70.61) The patient presented today for bilateral GTB injections with ultrasound guidance. Written and verbal informed consent were obtained. Sterile prep at procedure location. A 22 ga needle used. 1 mL of 40 mg of Depo Medrol and 8 mL of 0.5% bupivacaine injected after negative aspiration under ultrasound guidance. No complications noted. 06/29/2024 Myalgia (ICD-10 - M79.10) 09/07/2024 Greater trochanteric bursitis of left hip (ICD-10 - M70.62) 06/29/2024 Neurogenic claudication (ICD-10 - R29.818) 10/19/2024 Greater trochanteric bursitis of left hip (ICD-10 - M70.62) 10/26/2024 Lumbar radiculopathy (ICD-10 - M54.16) 12/02/2024 Greater trochanteric bursitis of left hip (ICD-10 - M70.62) 10/19/2024 Lumbar radiculopathy (ICD-10 - M54.16) 10/26/2024 Analgesic use (ICD-10 - Z79.899) 12/02/2024 Lumbar radiculopathy (ICD-10 - M54.16) RECOMMEND THERAPEUTIC LUMBAR EPIDURAL STEROID INJECTION, levels The patient reports overall 50% improvement in function and decrease in pain for greater than one month from previous diagnostic MIREYA. The patient also reports improvement in tolerance to activities which generally cause pain. Based on the results of previous diagnostic MIREYA, a therapeutic MIREYA is recommended. Expectation from a successful therapeutic epidural steroid injection is at least 50-70% relief of pain from baseline and evidence of improved function for at least six to eight weeks after delivery. The goal of epidural steroid injections is to reduce pain and inflammation, restoring range of motion and, thereby, facilitating progress in more active treatment programs, and avoiding surgery. The procedure and risks were discussed with the patient including but not limited to infection, bleeding, neurological complications, side effects from medications, no change in pain, worsening of pain, or even . We also discussed conservative options, surgical options, and medical management with patient as well. The patient indicates understanding and wishes to proceed with the recommended treatment approach. The patient was given written information about the procedure and all questions were answered. 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 We will monitor with in-office testing (rapid testing) today and review the results prior to dispensing prescription. All positive results will be sent for quantitative analysis to ensure accuracy and quantify amounts. Any expected positive results that return negative will also be sent for quantitative analysis. Any questionable read or any medication we cannot test for in the office confidently will be sent for quantitative analysis, as well. Patient has been made aware of this policy and agrees to abide by our urine testing policy. 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 The patient also reports improvement in tolerance to activities which generally cause pain. Based on the results of previous diagnostic MIREYA, a therapeutic MIREYA is recommended. Expectation from a successful therapeutic epidural steroid injection is at least 50-70% relief of pain from baseline and evidence of improved function for at least six to eight weeks after delivery. The goal of epidural steroid injections is to reduce pain and inflammation, restoring range of motion and, thereby, facilitating progress in more active treatment programs, and avoiding surgery. The procedure and risks were discussed with the patient including but not limited to infection, bleeding, neurological complications, side effects from medications, no change in pain, worsening of pain, or even . We also discussed conservative options, surgical options, and medical management with patient as well. The patient indicates understanding and wishes to proceed with the recommended treatment approach. The patient was given written information about the procedure and all questions were answered. Total time spent caring for the patient today was greater than 45 minutes. This includes time spent before the visit reviewing the chart, time spent during the visit, and time spent after the visit on documentation Johanna Villasenor am scribing for Dr. Solis. Dr. Will Villasenor, personally performed the services described in this documentation , as scribed by Johanna Potter, and it is both accurate and complete. 09/07/2024 Other Johanna Villasenor am scribing for Dr. Solis. Dr. Will Villasenor, personally performed the services described in this documentation, as scribed by Johanna Potter, and it is both accurate and complete. 10/19/2024 Other Johanna Villasenor am scribing for Dr. Solis. Dr. Will Villasenor, personally performed the services described in this documentation, as scribed by Johanna Potter, and it is both accurate and complete. 10/26/2024 Other Johanna Villasenor am scribing for Dr. Solis. Dr. Will Villasenor, personally performed the services described in this documentation, as scribed by Johanna Potter, and it is both accurate and complete. Plan Of Treatment Pending Test Test Name Order Date UA Without Micro-Auto, Machine - [id number] 01/23/2023 Next Appt Details Provider Name:Cassie Barbra rm, 02/03/2025 01:00:00 PM, [address] [place], [address], Insurance Providers Payer Name Payer Address Payer Phone Subscriber Number Group Number Insured Name Patient Relationship to Insured Coverage Start Date Coverage End Date [place] [address] [address] [place] [address] [id number] Jackie Romero Self - patient is the insured [place] QMB [address] [place] [address] [phone] [id number] VarinaJackie capellan Self - patient is the insured Medications Administered Medication Instructions Date of Administration Dosage Notes BUPivacaine HCl 10/19/2024 8 mL see notes [facility] [id number] DEPO-Medrol 10/19/2024 40 mg see notes [facility] [id number] Medical (General) History Medical History History ICD Code hypotension back trouble hernia diabetes bladder infections heart disease stress incontinence urinary blind Surgical History Surgery Date(Month/Year) cholecystectomy tubal ligation Hospitalization History Reason Date(Month/Year) See Surgical Hx
--- OUTSIDE RECORDS SUMMARY | 2024-12-30 12:31 | XMS_ITS | Data Portability ---
Author Organization [facility] Lindsey Davis [facility] Address [address] [place] [id number] Assessment Encounter Date Assessment Date Assessment LastModified by Organization Details LastModified Time 08/05/2024 08/05/2024 Encounter done on paper [email or web address] Not available 08/08/2024 15:10:03 09/21/2024 09/21/2024 [facility] - note for nail care [email or web address] Not available 09/21/2024 11:57:53 Plan of Treatment Reminders Order Date Submit Date Provider Last Modified By Organization Details Last Modified Time Details Appointments OFFICE VISIT 15 2024 10:00A M Arie Lewis MD Not available Not available Not available Lab culture, urine 2024 025 [facility], [address] [place] [address] [address], [address] [place], [address], 09/02/2024 22:58:14 urinalysi s, dipstick 2024 025 [facility], [address], [place], [address], 09/23/2024 20:14:36 culture, urine 2024 025 [facility], [address] [place] [address] 248, [address], [place], [address], 08/09/2024 10:00:09 urinalysi s, dipstick 2024 025 [facility] ([facility]), [address] [place], [address], 08/06/2024 10:02:53 Referral None recorded. Procedures None recorded. Surgeries None recorded. Imaging None recorded. Medication Orders ondansetr on HCl 4 mg tablet 2024 025 [facility] [place], [address] [place] [address], [address], 11/24/2024 11:31:31 Repatha Syringe 140 mg/mL subcutane ous syringe 2024 025 [facility], [address] [place] [address], [address], 11/16/2024 18:04:23 Bactrim DS 800 mg-160 mg tablet 2024 025 [facility], [address] [place] [address], [address], 09/21/2024 11:43:00 Patient TargetsNo targets recorded. Patient InstructionsNo instructions recorded. Reason for Referral None Reported. Results Created Date Observation Date Name Description Value Unit Range Abnormal Flag Note LastModifiedBy Organization Detail LastModifiedTime 08/05/1908/05/2024 urina lysis , dipst ick Leukocytes Small Not Available [facility] ( [facility] [address] [place], [address], 08/05/2024 21:07:10 08/05/19 25 08/05/2024 urina lysis , dipst ick Nitrite positi ve Not Available [facility] ([facility]) [address] [place], [address], 08/05/2024 21:07:10 08/05/19 25 08/05/2024 urina lysis , dipst ick Urobilinogen .2 Not Available [facility] ([facility]) [address] [place], [address], 08/05/2024 21:07:10 08/05/19 25 08/05/2024 urina lysis , dipst ick Protein Negati ve Not Available [facility] ([facility]) [address] [place], [address], 08/05/2024 21:07:10 08/05/19 25 08/05/2024 urina lysis , dipst ick pH 6.0 Not Available [facility] ([facility]) [address] [place], [address], 08/05/2024 21:07:10 08/05/19 25 08/05/2024 urina lysis , dipst ick Blood Negati ve Not Available [facility] ([facility]) [address] [place], [address], 08/05/2024 21:07:10 08/05/19 25 08/05/2024 urina lysis , dipst ick Specific [place] 1.020 Not Available [facility] ( [facility]) [address] [place], [address], 08/05/2024 21:07:10 08/05/19 25 08/05/2024 urina lysis , dipst ick Ketone Large (80) Not Available [facility] ([facility]) [address] [place], [address], 08/05/2024 21:07:10 08/05/19 25 08/05/2024 urina lysis , dipst ick Bilirubin Negati ve Not Available [facility] ([facility]) [address] [place], [address], 08/05/2024 21:07:10 08/05/19 25 08/05/2024 urina lysis , dipst ick Glucose 100 Not Available [facility] ([facility]) [address] [place], [address], 08/05/2024 21:07:10 08/05/19 25 08/05/2024 urina lysis , dipst ick Appearance Clear Not Available [facility] ([facility]) [address] [place], [address], 08/05/2024 21:07:10 08/05/19 25 08/05/2024 urina lysis , dipst ick Color Yellow Not Available [facility] ([facility]) [address] [place], [address], 08/05/2024 21:07:10 08/06/19 25 08/09/2024 CULTU RE, URINE , ROUTI NE culture, urine, routine SEE NOTE abnormal CULTU RE, URINE , ROUTI NE Micro Numbe r: [id number] Test Statu s: Final Speci men Sourc e: Urine Speci men Quali ty: Adequ ate Resul t: 10,00 0-49, 000 CFU/m L of Esche francisca a coli E.col i ----- ----- ----- - INT ANNITA AMOX/ CLAVU LANAT E S 4 AMP/S ULBAC HERRERA S 4 CEFAZ RICKEY NR <=4 2 CEFEP DOTTIE S <=0.1 2 CEFTA ZIDIM E S <=1 CEFTR IAXON E S <=0.2 5 CIPRO FLOXA KALIE S <=0.0 6 GENTA MICIN S <=1 IMIPE NEM S <=0.2 5 LEVOF LOXAC IN S <=0.1 2 MEROP ENEM S <=0.2 5 NITRO FURAN TOIN R >=512 PIP/T AZOBA CTAM S <=4 TRIME THOPR IM/JONES LFA S <=20 S = Susce ptibl e I = Inter media te R = Resis tant NS = Not susce ptibl e SDD = Susce ptibl e Dose Depen dent * = Not Teste d NR = Not Repor octaviano NN = See Thera py Comme nts THERA PY COMME NTS Note 1: For infec tions other than uncom plica octaviano UTI cause d by E. coli, K. pneum oniae or P. mirab ilis: Cefaz rickey is resis tant if ANNITA > or = 8 mcg/m L. (Dist ingui shing susce ptibl e versu s inter media te for isola lisa with ANNITA < or = 4 mcg/m L requi res addit ional testi ng.) Note 2: For uncom plica octaviano UTI cause d by E. coli, K. pneum oniae or P. mirab ilis: Cefaz rickey is susce ptibl e if ANNITA <32 mcg/m L and predi cts susce ptibl e to the oral agent s cefac wilmer, cefdi kelsie, cefpo doxim e, cefpr ozil, cefur oxime , cepha lexin and lorac arbef . Not Available [facility] [address] [place], [address], 08/09/2024 10:00:09 09/02/19 25 09/01/2024 URINA LYSIS WITH MICRO color [place] abnormal Not Available [facility] [address], [address], 09/01/2024 15:50:37 09/02/19 25 09/01/2024 URINA LYSIS WITH MICRO clarity Cloudy abnormal Not Available [facility] [address], [address], 09/01/2024 15:50:37 09/02/19 25 09/01/2024 URINA LYSIS WITH MICRO glu 1+ abnormal Not Available [facility] [address], [address], 09/01/2024 15:50:37 09/02/19 25 09/01/2024 URINA LYSIS WITH MICRO bili 1+ abnormal Not Available [facility] [address] [place], [address], 09/01/2024 15:50:37 09/02/19 25 09/01/2024 URINA LYSIS WITH MICRO ket 1+ abnormal Not Available [facility] [address] [facility] [address], [place], [address], 09/01/2024 15:50:37 09/02/19 25 09/01/2024 URINA LYSIS WITH MICRO S.g 1.015 1.005- 1.025 Not Available [facility] [place] [address] [facility], [place], [address], 09/01/2024 15:50:37 09/02/19 25 09/01/2024 URINA LYSIS WITH MICRO pH 5.0 5.0-7. 0 Not Available [facility] [place] [address] [facility] 1, [place], [address], 09/01/2024 15:50:37 09/02/19 25 09/01/2024 URINA LYSIS WITH MICRO pro 3+ abnormal Not Available [facility] [address] [facility] 1, [place], [address], 09/01/2024 15:50:37 09/02/19 25 09/01/2024 URINA LYSIS WITH MICRO uro 4.0 E.U./d L abnormal Not Available [facility] [address] [facility], [place], [address], 09/01/2024 15:50:37 09/02/19 25 09/01/2024 URINA LYSIS WITH MICRO nit Positi ve abnormal Not Available [facility] [address] [facility] 1, [place], [address], 09/01/2024 15:50:37 09/02/19 25 09/01/2024 URINA LYSIS WITH MICRO blo 3+ abnormal Not Available [facility] [address] [facility] 1, [place], [address], 09/01/2024 15:50:37 09/02/19 25 09/01/2024 URINA LYSIS WITH MICRO kali 3+ abnormal Not Available [facility] [address] [facility] 1, [place], [address], 09/01/2024 15:50:37 09/02/19 25 09/01/2024 URINA LYSIS WITH MICRO WBC 100 abnormal > Not Available [facility] [address] [facility] 1, [place], [address], 09/01/2024 15:50:37 09/02/19 25 09/01/2024 URINA LYSIS WITH MICRO RBC 100 abnormal > Not Available [facility] [address] [facility] 1, [place], [address], 09/01/2024 15:50:37 09/02/19 25 09/01/2024 URINA LYSIS WITH MICRO epi cells Negati ve Not Available [facility] [address] [facility] 1, [place], [address], 09/01/2024 15:50:37 09/02/19 25 09/01/2024 URINA LYSIS WITH MICRO bacteria Negati ve Not Available [facility] [address] [address], [place], [address], 09/01/2024 15:50:37 09/02/19 25 09/01/2024 URINA LYSIS WITH MICRO other ng Not Available [facility] [address] [facility] 1, [place], [address], 09/01/2024 15:50:37 09/02/19 25 09/02/2024 CULTU RE, URINE , ROUTI NE culture, urine, routine SEE NOTE CULTU RE, URINE , ROUTI NE Micro Numbe r: [id number] Test Statu s: Final Speci men Sourc e: Urine , clean catch Speci men Quali ty: Adequ ate Resul t: No Growt h Not Available [facility] [address] [place] [address], [address], 09/02/2024 22:58:13 Result Notes None recorded. Problems Name Problem SNOMED Code Status Onset Date Resolution Date Notes Provider Name and Address Organization Details Recorded Time Chronic mood disorder 83511255599 9108 Completed 201507/24/2015 Mood disorder - Status is Inactive ; 07/24/19 16 10:23AM by Juan Carroll MD, Annotati on/Adden dum; Promoted ; acuity set as *; Not Available [facility] 3 03:10:32 Disorder due to type 2 diabetes mellitus 971628341 Active 2022 DIABETES MELLITUS WITH COMPLICA TION; Impressi on: Hypoglyc emia may be related to the abx or infectio n. We will have her monitor blood sugar as she returns to typical medicati on doses. Return if issues with hypoglyc emia recur so med adjustme nts can be made. Annemarie bocanegra [facility] 4 10:27:36 Cholecys tectomy planned [id number] Completed 201507/24/2015 Cholecys tectomy - Status is Inactive ; 07/24/19 16 10:23AM by Juan Carroll MD, Annotati on/Adden dum; Promoted ; acuity set as *; Not Available [facility] 3 03:10:32 Ulcer of anus 34091471 Completed 202209/03/2024 RECTAL ULCER; Story: Colonosc opy 2014. Jesenia bocanegra [facility] 5 19:15:17 Abdomina l bloating 712136128 Completed 202209/03/2024 Jesenia bocanegra [facility], [facility] 5 19:17:42 Depresse d bipolar I disorder 36353158 Active 03/10/ 2023 BIPOLAR AFFECTIV E DISORDER , DEPRESSE D; Impressi on: Stable on current medicati on Annemarie bocanegra [facility] 4 10:27:06 Blindnes s AND/OR vision impairme nt level 166448684 Active 2017 BLINDNES S; Juvenile Macular Degenera tion, complete ly blind since about 1999. Annemarie Cerdaestefania daljit [facility] 4 10:25:20 Chronic back pain 739481885 Active 2022 NELLA bocanegra [facility] 3 11:28:31 Acute urinary tract infectio n 974823866 Active 2022 NELLA bocanegra [facility] 3 10:49:53 Migraine 38408427 Active 2022 NELLA bocanegra [facility] 3 10:50:14 Vitamin B12 deficien cy (non anemic) 05142911 Active 2022 NELLA bocanegra [facility] 3 10:50:08 Recurren t urinary tract infectio n 032691837 Active 2022 Jesenia bocanegra [facility] 5 19:11:34 Chronic obstruct tejinder pulmonar y disease 89254419 Active 2022 Jesenia bocanegra [facility] 5 19:14:44 Diabetes mellitus 33356458 Completed 202309/03/2024 Removal Reason: duplicat e Jesenia bocanegra [facility] 5 19:16:59 Drug-ind uced myopathy 717174178 Active 2023 HAZEL JIMENEZ PA-C [address] [place], [place], [address] [place] [address] , [facility] 4 12:55:19 Gastroes ophageal reflux disease 964906587 Active 2024 Jesenia bocanegra, [facility] 5 19:13:07 Ingrowin g nail of toe of right foot 18959218245 820054 Completed 202411/08/2024 Jesenia bocanegra [facility] 5 14:17:14 Mixed hyperlip idemia 973768726 Active 2024 Arie Lewis MD [address] [place], [place] [address] , [facility] 5 15:43:52 Unsteady when walking 46379926 Active 2024 Arie Lewis MD [address] [place], [place] [address] , [facility] 5 11:18:53 Nausea and vomiting 06795216 Active 2024 Arie Lewis MD [address] [place] [address], [address] , [facility] 5 14:48:36 Type 2 diabetes mellitus 75575727 Active 2022 NELLA bocanegra [facility] 3 11:28:31 Degenera tive disorder of macula 354173388 Active 2022 NELLA bocanegra [facility] 3 08:50:31 [facility] s 42475874 Completed 202209/03/2024 Removal Reason: duplicat e Jesenia bocanegra [facility] 5 19:18:36 Bipolar disorder 99119425 Active 2022 NELLA JOSHUAG daljit, [facility] 3 08:51:04 Physical decondit ioning 72800844028 102 Active 2022 [facility] 3 11:28:31 Fatigue 01174968 Active 2022 NELLA bocanegra, [facility] 3 11:28:31 Osteoart hritis 446170634 Active 2022 [facility] 3 11:28:31 Overacti ve urinary bladder 787494205 Active 2022 NELLA JAG daljit [facility] 3 11:28:31 Hemangio ma of liver 20841266 Active 2022 NELLASA RM [facility] 3 11:28:31 Skin lesion 14830719 Completed 202209/03/2024 [facility] 5 19:15:52 Problem Notes None recorded. Procedures Surgical History Date Name Laterality Status Provider Name and Address Organization Details Recorded Time 2021 esophagogastroduodenoscopy completed HAZEL JIMENEZ PA-C [address] [place] [address], [address] , [facility] 4 13:58:37 2016 mammography completed LUIS SHELTON [facility] 4 12:37:56 2011 colonoscopy completed LUIS SHELTON [facility], LNidhiL.CN[facility]hi 4 12:37:42 cholecystectomy completed HAZEL JIMENEZ PA-C [address] [place], [address], [facility] 4 12:58:16 Imaging Results None recorded. Procedure Notes None recorded. Medical Equipment None Reported. Allergies Allergen ID Allergen Name Allergen Category Reaction Reaction Severity Criticality Documentation Date Start Date Code Code System Note Provider Name and Address Organization Details Recorded Time 262 metformin medicatio n other Not available Not available 11/04/2022 6809 RxNorm unkno wn react ion per patie nt [facility] 4 10:28:51 2625 Paxil medicatio n dizziness moderate low 11/04/2022 87491 8 RxNorm [facility] 4 10:16:28 2626 Lipitor medicatio n other moderate low 11/04/2022 70767 5 RxNorm can't walk [facility] 4 10:17:03 2627 Augmentin medicatio n vomiting moderate low 11/04/2022 44915 2 RxNorm [facility] 4 10:17:35 2628 Cymbalta medicatio n vomiting moderate low 11/04/2022 39030 4 RxNorm [facility] 4 10:17:16 2629 Product containin g penicilli n (product) medicatio n anaphylax is severe high 11/04/2022 49499 8001 SNOMED [facility] 4 10:16:21 72181 metformin hydrochlo ride medicatio n Not available Not available Not available 01/25/2023 50884 3 RxNorm Comme nt: Recor ded 09/06 11:41 AM by Bre Maier , Offic e Visit ; Thang brumfield; Yunior ruiz ce: *; Reaso n: Drug aller gy; ; [facility] 3 12:29:33 02169 ciproflox acin medicatio n Not available Not available Not available 09/01/2024 2551 RxNorm [facility] 5 16:48:40 Medications Name Sig Start Date Stop Date Status Note LastModified by Organization Details LastModified Time celecoxib 200 mg capsule take 1 capsule BY MOUTH EVERY DAY active Not Available Not Available No t Available amoxicill in 500 mg capsule TAKE 2 CAPSULES BY MOUTH TWICE DAILY FOR 14 DAYS 11/04 completed Not Available Not Available Not Available furosemid e 40 mg tablet TAKE ONE TABLET BY MOUTH EVERY DAY 09/01 completed Not Available Not Available Not Available nystatin 100,000 unit/mL oral suspensio n take 5ml BY MOUTH FOUR TIMES DAILY 11/04 completed Not Available Not Available Not Available Tylenol 500 mg capsule as needed 03/27 completed 0; Recorded 09/07/19 23 11:41AM by Abraham Maier, Office Visit; Not Available Not Available Not Available nitrofura ntoin macrocrys jorge 50 mg capsule take 1 capsule BY MOUTH EVERY DAY active Not Available Not Available No t Available doxycycli ne hyclate 100 mg capsule take 1 capsule BY MOUTH TWICE DAILY FOR SEVEN DAYS 10/12 completed Not Available Not Available Not Available tizanidin e 2 mg tablet TAKE 1 TABLET BY MOUTH EVERY 8 HOURS NEEDED FOR back pain 03/04 completed Not Available Not Available Not Available trazodone 50 mg tablet TAKE 1 TO 2 TABLETS BY MOUTH AT BEDTIME NEEDED FOR SLEEP 11/10 completed Not Available Not Available Not Available cetirizin e 10 mg tablet TAKE 1 TABLET BY MOUTH EVERY DAY active Not Available Not Available No t Available oxybutyni n chloride ER 10 mg tablet,ex tended release 24 hr TAKE 1 TABLET BY MOUTH TWICE DAILY active Not Available Not Available No t Available tizanidin e 4 mg tablet TAKE 1 TABLET BY MOUTH EVERY 6 HOURS NEEDED active Not Available Not Available No t Available fluconazo le 150 mg tablet Take 1 tablet by oral route for 1 day. 10/12 completed Not Available Not Available Not Available sulfameth oxazole 400 mg-trimet hoprim 80 mg tablet TAKE 1 TABLET BY MOUTH TWICE DAILY FOR uti 10/13 completed Not Available Not Available Not Available citalopra m 10 mg tablet TAKE 1 TABLET BY MOUTH EVERY MORNING 01/07 completed Not Available Not Available Not Available clarithro mycin 500 mg tablet TAKE 1 TABLET BY MOUTH TWICE DAILY FOR 14 DAYS 02/24 completed Not Available Not Available Not Available hydrocodo ne 5 mg-acetam inophen 325 mg tablet TAKE 1 TABLET BY MOUTH EVERY 4 TO 6 HOURS NEEDED FOR 30 DAYS max of TWO PER day active Not Available Not Available No t Available phenazopy ridine 200 mg tablet TAKE 1 TABLET BY MOUTH THREE TIMES DAILY AFTER MEALS 01/07 completed Not Available Not Available Not Available ondansetr on HCl 4 mg tablet TAKE 1 TABLET BY MOUTH EVERY 4 HOURS NEEDED active Not Available Not Available No t Available prednison e 20 mg tablet TAKE 2 TABLETS BY MOUTH EVERY DAY FOR SIX DAYS 03/04 completed Not Available Not Available Not Available potassium chloride ER 10 mEq tablet,ex tended release TAKE 1 TABLET BY MOUTH EVERY DAY 09/01 completed Not Available Not Available Not Available metronida zole 500 mg tablet TAKE 1 TABLET BY MOUTH TWICE DAILY FOR 14 DAYS 02/24 completed Not Available Not Available Not Available ciproflox acin 500 mg tablet TAKE 1 TABLET BY MOUTH EVERY TWELVE HOURS FOR THREE DAYS 02/24 completed Not Available Not Available Not Available omeprazol e 40 mg capsule,d elayed release take 1 capsule BY MOUTH TWICE DAILY active Not Available Not Available No t Available tramadol 50 mg tablet TAKE 1 TABLET BY MOUTH EVERY 6 HOURS NEEDED 11/10 completed Not Available Not Available Not Available acyclovir 800 mg tablet TAKE 1 TABLET BY MOUTH five times a DAY 09/01 completed Not Available Not Available Not Available lamotrigi ne 25 mg tablet TAKE 2 TABLETS BY MOUTH EVERY MORNING AND TWO EVERY EVENING WITH SUPPER 01/07 completed Not Available Not Available Not Available methenami ne hippurate 1 gram tablet TAKE 1 TABLET BY MOUTH TWICE DAILY active Not Available Not Available No t Available citalopra m 20 mg tablet TAKE 1 TABLET BY MOUTH EVERY MORNING active Not Available Not Available No t Available meclizine 25 mg tablet Take 1 tablet twice a day by oral route. active Not Available Not Available No t Available cephalexi n 500 mg capsule take 1 capsule BY MOUTH THREE TIMES DAILY UNTIL GONE 11/04 completed Not Available Not Available Not Available pantopraz ole 40 mg tablet,de layed release TAKE ONE TABLET BY MOUTH TWICE DAILY FOR SIX weeks 01/07 completed Not Available Not Available Not Available cyanocoba stevenson (vit B-12) 1,000 mcg/mL injection solution inject 1ml SUBCUTAN EOUSLY every month active Not Available Not Available No t Available BD Luer-Dilan Syringe 3 mL 25 gauge x 1 USE DIRECTED active Not Available Not Available No t Available magnesium citrate oral solution take 100mL BY MOUTH UP TO THREE TIMES DAILY NEEDED active Not Available Not Available No t Available furosemid e 20 mg tablet TAKE 1 TABLET BY MOUTH EVERY DAY FOR SWELLING 11/04 completed Not Available Not Available Not Available lorazepam 1 mg tablet TAKE 1 TABLET BY MOUTH TWICE DAILY NEEDED FOR SEVERE ANXIETY active Not Available Not Available No t Available estradiol 0.01% (0.1 mg/gram) vaginal cream USE VAGINALL Y AT BEDTIME THREE DAYS PER WEEK FOR EIGHT WEEKS THEN ONCE WEEKLY FOR MAINTENA NCE active Not Available Not Available No t Available cefdinir 300 mg capsule take 1 capsule BY MOUTH EVERY TWELVE HOURS for 7 days 09/01 completed Not Available Not Available Not Available fluticaso ne propionat e 50 mcg/actua tion nasal spray,summer pension ADMINIST ER TWO SPRAYS INTO EACH NOSTRIL ONCE A DAY active Not Available Not Available No t Available clotrimaz ole 1 % topical cream APPLY TOPICALL Y TO THE AFFECTED AND SURROUND ING AREAS TWICE DAILY IN THE MORNING AND IN THE EVENING 01/29 completed Not Available Not Available Not Available docusate sodium 100 mg tablet Take 1 tablet every day by oral route at bedtime. 03/04 completed Not Available Not Available Not Available loratadin e 10 mg tablet TAKE 1 TABLET BY MOUTH EVERY DAY 03/27 completed Not Available Not Available Not Available Ventolin HFA 90 mcg/actua tion aerosol inhaler INHALE TWO PUFFS BY MOUTH EVERY 4 HOURS 09/01 completed Not Available Not Available Not Available tobramyci n 0.3 %-dexamet hasone 0.1 % eye drops,summer pension instill 1 drop IN EACH EYE FOUR TIMES DAILY 02/16 completed Not Available Not Available Not Available oxycodone 5 mg tablet TAKE 1 TABLET BY MOUTH EVERY 4 HOURS NEEDED FOR PAIN 01/01 completed Not Available Not Available Not Available ertapenem 1 gram solution for injection 01/01 completed Not Available Not Available Not Available Bactrim DS 800 mg-160 mg tablet Take 1 tablet every 12 hours by oral route for 7 days. 09/21 completed Not Available Not Available Not Available escitalop adonis 10 mg tablet TAKE 1 TABLET BY MOUTH EVERY MORNING 01/07 completed Not Available Not Available Not Available aripipraz ole 10 mg tablet TAKE 1 TABLET BY MOUTH EVERY EVENING active Not Available Not Available No t Available Novolog FlexPen U-100 Insulin aspart 100 unit/mL (3 mL) subcutane ous inject 7-10 units SUBCUTAN EOUSLY THREE TIMES DAILY 09/01 completed Not Available Not Available Not Available aripipraz ole 5 mg tablet TAKE 3 TABLETS BY MOUTH EVERY DAY (ONE IN THE MORNING, ONE at NOON and ONE at AT BEDTIME) 01/07 completed Not Available Not Available Not Available Fleet Glycerin (Adult) rectal supposito ry INSERT ONE SUPPOSIT ORY EVERY DAY by rectal route NEEDED active Not Available Not Available No t Available nitrofura ntoin monohydra te/macroc rystals 100 mg capsule take 1 capsule BY MOUTH TWICE DAILY for 5 days 09/01 completed Not Available Not Available Not Available lamotrigi ne 25 mg (35) tablets in a dose pack Take 1 tablet every day by oral route at bedtime. 02/24 completed Not Available Not Available Not Available tizanidin e 4 mg capsule Take 1 capsule every 6 hours by oral route. 11/04 completed Not Available Not Available Not Available pregabali n 25 mg capsule TAKE ONE CAPSULE BY MOUTH THREE TIMES DAILY 09/21 completed Not Available Not Available Not Available pregabali n 50 mg capsule take 1 capsule BY MOUTH TWICE DAILY active Not Available Not Available No t Available loratadin e daily 02/24 completed 0; Recorded 09/07/19 11:41AM by Abraham Maier, Office Visit; Not Available Not Available Not Available nystatin four times daily 03/27 completed Recorded 09/07/19 12:23PM by Hazel Jimenez PA-C, Office Visit; Refill Quantity : 0; Not Available Not Available Not Available cranberry daily 09/21 completed Not Available Not Available Not Available oxybutyni n chloride daily 02/24 completed 0; Recorded 09/07/19 11:41AM by Abraham Maier, Office Visit; Not Available Not Available Not Available Lasix daily 03/27 completed [id number]; Recorded 08/22/19 11:16AM by Nella Rm (Authori quique through Arie Lewis MD), Historic al Summary; Refill Quantity : 90; Tablet; Not Available Not Available Not Available lorazepam two times daily 02/24 completed Recorded 03/21/20 7:57AM by Arie Lewis MD, Office Visit; Not Available Not Available Not Available meclizine two times daily 02/24 completed 0; Recorded 09/07/19 11:41AM by Abraham Maier, Office Visit; Not Available Not Available Not Available lamotrigi ne at bedtime 02/24 completed Recorded 03/21/20 7:56AM by Arie Lewis MD, Office Visit; Not Available Not Available Not Available Celexa daily 01/07 completed Not Available Not Available Not Available Vitamin daily 03/27 completed 0; Recorded 09/07/19 11:41AM by Abraham Maier, Office Visit; Not Available Not Available Not Available Trazodone at bedtime 02/24 completed 0; Recorded 09/07/19 11:41AM by Abraham Maier, Office Visit; Not Available Not Available Not Available Novolog FlexPen U-100 Insulin as needed active Not Available Not Available No t Available pregabali n three times daily 02/24 completed [id number]; Recorded 10/18/20 22 11:10AM by Nella Rm (Authori quique through Arie Lewis MD), Historic al Summary; Refill Quantity : 90; Capsule; Not Available Not Available Not Available Levemir FlexPen 100 unit/mL (3 mL) solution subcutane ous insulin pen inject 30 units EVERY MORNING and 20 units AT BEDTIME 2023 active Not Available Not Available Not Avai lable budesonid e-formote rol HFA 160 mcg-4.5 mcg/actua tion aerosol inhaler INHALE TWO PUFFS BY MOUTH TWICE DAILY 09/01 completed Not Available Not Available Not Available Gavilax 17 gram/dose oral powder MIX ONE SCOOP WITH EIGHT OUNCES OF FLUID TWICE DAILY FOR THREE DAYS THEN EVERY DAY FOR MAINTENA NCE 01/29 completed Not Available Not Available Not Available BD Ultra-Fin e Anisha Pen Needle 32 gauge x 5/32 USE DIRECTED FIVE times daily active Not Available Not Available No t Available Myrbetriq 25 mg tablet,ex tended release TAKE 1 TABLET BY MOUTH EVERY DAY 11/10 completed Not Available Not Available Not Available Levemir FlexTouch U100 Insulin in the morning 02/24 completed 09247; Recorded 09/12/19 23 9:21AM by Nella Rm (Authori quique through Arie Lewis MD), Historic al Summary; Refill Quantity : 4; Each; Not Available Not Available Not Available Vitamin B12 every 6 months 09/01 completed Not Available Not Available Not Available Repatha Syringe 140 mg/mL subcutane ous syringe INJECT 1ML SUBCUTAN EOUSLY every TWO weeks active Not Available Not Available No t Available Tresiba FlexTouch U-100 insulin 100 unit/mL (3 mL) subcutane ous pen Inject 15 units twice a day by subcutan eous route in the morning for 90 days. 09/01 completed pa done and approved km/dh Not Available Not Available Not Available naloxone 4 mg/actuat ion nasal spray CALL 911, USE 1 SPRAY IN ONE NOSTRIL. MAY REPEAT IN ALTERNAT E NOSTRILS EVERY 3 MINUTES NEEDED IF NO OR MINIMAL RESPONSE . active Not Available Not Available No t Available TechLITE Pen Needle 32 gauge x 1/4 USE TWICE DAILY DIRECTED active Not Available Not Available No t Available Basaglgraham KwikPen U-100 Insulin 100 unit/mL (3 mL) subcutane ous INJECT 15 UNITS SUBCUTAN EOUSLY TWICE DAILY 09/01 completed Not Available Not Available Not Available Ozempic 0.25 mg or 0.5 mg (2 mg/1.5 mL) subcutane ous pen injector 1mg weekly for 4 week 01/01 completed Not Available Not Available Not Available Aimovig Autoinjec tor 70 mg/mL subcutane ous auto-inje ctor inject 1ml UNDER THE SKIN every month 09/01 completed Not Available Not Available Not Available Tresiba U-100 Insulin 100 unit/mL subcutane ous solution Inject 15 units twice a day by subcutan eous route. 08/05 completed Not Available Not Available Not Available FreeStyle Nicci 2 Sensor kit 2023 active Not Available Not Available Not Avai lable FreeStyle Nicci 2 [place] 2023 active Not Available Not Available Not Avai lable Ozempic 1 mg/dose (4 mg/3 mL) subcutane ous pen injector INJECT 1MG SUBCUTAN EOUSLY every week FOR 30 DAYS active Not Available Not Available No t Available Ozempic 0.25 mg or 0.5 mg (2 mg/3 mL) subcutane ous pen injector Inject by subcutan eous route for 14 days. 01/01 completed Not Available Not Available Not Available Vitals Date Recorded Body height Body mass index (BMI) Body weight Oxygen saturation Oxygen saturation in Arterial blood by Pulse oximetry Heart rate Respiratory rate Body temperature Systolic And Diastolic Provider Name and Address Organization Details Last Updated DateTime 157.48 cm 24 kg/m2 41870.6 g 99 % 99 % 64 /min 16 /min 96.8 [degF] 104/66 mm[Hg] Jesenia Joiner [facility], [place] 5 14:42:31 Date Recorded Body height Body mass index (BMI) Body weight Body temperature Respiratory rate Heart rate Oxygen saturation Oxygen saturation in Arterial blood by Pulse oximetry Systolic And Diastolic Provider Name and Address Organization Details Last Updated DateTime 5 157.48 cm 22.8 kg/m2 44934.2 5 g 97.3 [degF] 16 /min 62 /min 93 % 93 % 116/70 mm[Hg] Bernardo Aguirre [facility] 5 11:42:45 Date Recorded Body height Body mass index (BMI) Body weight Oxygen saturation Oxygen saturation in Arterial blood by Pulse oximetry Heart rate Respiratory rate Body temperature Systolic And Diastolic Provider Name and Address Organization Details Last Updated DateTime 5 157.48 cm 22.3 kg/m2 87456.2 7 g 99 % 99 % 68 /min 16 /min 96.9 [degF] 110/68 mm[Hg] Jesenia Joiner [facility] 5 15:23:21 Date Recorded Body height Body mass index (BMI) Body weight Oxygen saturation Oxygen saturation in Arterial blood by Pulse oximetry Heart rate Respiratory rate Body temperature Systolic And Diastolic Provider Name and Address Organization Details Last Updated DateTime 5 157.48 cm 22.3 kg/m2 79069.2 7 g 99 % 99 % 63 /min 18 /min 97.2 [degF] 100/62 mm[Hg] Jesenia Joiner [facility] 5 11:03:10 Social History Question Answer Notes LastModified by [employer] Details LastModified Time Tobacco Smoking Status Never [facility]/17/[facility]24 10:17:55 What Was The Date Of Your Most Recent Tobacco Screening? 11/24/2024 [email or web address] Information not available 11/24/2024 Sex: Unknown Functional Status Question Answer Note LastModified by [employer] Details LastModified Time Do you use any illicit or recreational drugs? No Information not available 02/17/2024 What is your level of alcohol consumption? None Information not available 02/17/2024 Mental Status None recorded. Family History Relationship Description Onset Age of this Age Resolved Age Notes LastModified by Organization Details LastModified Time Maternal Grandmother Arthritis [email or web address] Not available 09/01/2024 14:53:27 Medical History Condition Response Coronary Artery Disease N Other Y Gout N Kidney Stones N Blood Diseases N Hyperthyroidism N Breast Cancer N Blood Transfusion N Hypothyroidism N Depression N COPD Y Lung Disease N Defects or Inherited Disease N Developmental or Behavioral Disorders N Breast Problem N Difficulty Swallowing N Anesthesia Complications N Anxiety Disorder N Meniere's disease N Muscle, Joint, or Bone Problems Y Vision or Eye Problems N Arthritis Y Polyps N Infertility N Cancer N Varicosities N Stroke N Endometriosis N Bladder or Kidney Problems N High Cholesterol Y Liver Disease Y Headaches Y Fibromyalgia N Kidney Disease N Allergies/Hayfever Y Heart Problems N Ear or Hearing Problems N Hospitalizations N Thyroid Problems N GI Problems N ADD/ADHD N Skin Problems N Eating Disorder N Anemia N Constipation N Mental Illness Y Ovarian Cancer N Diabetes Y Bedwetting N Seizures/Epilepsy N Tuberculosis N Eczema N Diverticulitis N Abuse/Domestic Violence N Asthma N Reflux/GERD N Hepatitis N Heart Disease N Pulmonary Embolism N Chronic Ear Infections N Pre-Eclampsia N Hypertension N Chicken Pox N Autism Spectrum Disorder (ASD) N Osteoporosis N Thrombophilias N Gynecological HistoryNo gynecological history recorded. Obstetrics History GPAL:G 0 P 0 0 0 0 Immunizations Vaccine Type Date Status Note Provider Nam e and Address Organization Details Recorded Time COVID-19, mRNA, LNP-S, PF, 100 mcg/0.5mL dose or 50 mcg/0.25mL dose 1 completed NELLA bocanegra [facility] 12/17/2022 12:04:40 COVID-19, mRNA, LNP-S, PF, 100 mcg/0.5mL dose or 50 mcg/0.25mL dose 1 completed NELLA bocanegra [facility] 12/17/2022 12:04:40 pneumococcal polysaccharide PPV23 3 completed NELLA bocanegra [facility] 12/17/2022 12:04:40 Pneumococcal conjugate PCV 13 9 completed NELLA bocanegra [facility] 12/17/2022 12:04:40 Influenza, split virus, trivalent, preservative 4 completed NELLA bocanegra [facility] 12/17/2022 12:04:40 Influenza, split virus, trivalent, preservative 9 completed Not Available [facility] 05/02/2023 12:25:59 Past Encounters Encounter ID Performer Location Encounter Start Date Encounter Closed Date Diagnosis/Indication Diagnosis SNOMED-CT Code Diagnosis ICD10 Code Diagnosis Note [id number] Arie Lewis MD [facility] (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) [address] [place] [address] [id number] 5 12/09/2022 16:08:41 12/19/2022 16:45:26 Chronic back pain 408241725 M54.9 increase frequency of tramadol to better control her chronic pain. PRERNA STERLING [facility] ([facility]) [address] [place] [address] [id number] 5 12/14/2022 16:32:31 12/25/2022 13:43:28 Dysuria 46900506 R30.0 Increase Bactrim to BID. Will culture urine. Candidiasis of vagina 72 231216 B37.31 [id number] Arie Lewis MD [facility] ([facility]) [address] [place] [address] [id number] 5 02/24/2023 14:49:38 02/24/2023 16:50:22 Acute urinary tract infection 815262225 N39.0 Continue current medication s and follow-up with urology. Migraine 50345461 G43.90 9 Patient had good relief from migraines previously on Aimovig. We will restart this medication . Vitamin B1 2 deficiency (non anemic) 89556685 E53.8 [id number] Arie Lewis MD [facility] ([facility]) [address] [place] [address] [id number] 5 03/27/2023 16:03:44 04/06/2023 22:16:32 Recurrent urinary tract infection 757304614 N39.0 Patient has completed her course of antibiotic s. We will start her on methenamin e to do antibiotic sparing Tunas to reduce frequency of UTIs. Follow-up with Dr. Fernandez as scheduled. Seasonal a llergic rhinitis 596870171 J30.2 She has signs and symptoms suggestive of allergies and this is likely contributi ng to issues with feeling unbalanced . Patient has been taking Claritin but has not seen much benefit. We will transition to Zyrtec. Diarrhea 51750583 R19.7 . Likely will continue to improve. [id number] Arie Lewis MD [facility] ([facility]) [address] [place] [address] [id number] 5 04/25/2023 11:28:42 04/25/2023 14:38:06 Acute bronchitis 81300525 J20.9 Patient's lungs sound clear but the patient has been having worsening symptoms and is not improving. Recommend starting medication s and adding an inhaler to help with breathing concerns. Vitamin B1 2 deficiency (non anemic) 51448089 E53.8 Migraine 41159235 G43.90 9 Doing well on Aimovig. [id number] Arie Lewis MD [facility] ([facility]) [address] [place] [address] [id number] 5 05/02/2023 12:25:40 05/02/2023 12:52:21 Chronic obstructive pulmonary disease 76352945 J44.9 [id number] Arie Lewis MD [facility] ([facility]) [address] [place] [address] [id number] 5 10/14/2023 13:43:24 10/14/2023 16:32:25 Type 2 diabetes mellitus 97875473 E11.8 Uri options for treatment and the patient would like to go and proceed with Ozempic. Did discuss the risk versus side effects of this medication . Start the medication and likely cut back on her insulin to help manage her sugars. Weight gain and help with her overall health [id number] HAZEL JIMENEZ PA-C [facility] ([facility]) [address] [place] [address] [id number] 5 01/02/2024 12:55:57 01/02/2024 14:23:26 Acute urinary tract infection 366453847 N39.0 Hospital i npatient stay within past 30 days 8867849319 106 Z76.89 Gastroesop hageal reflux disease 430047062 K21.9 CT reported esophageal thickening EGD in 04.[address] Etienne for report on CT and she was treated for H,pylori. no cancer seen. [id number] HAZEL JIMENEZ PA-C [facility] ([facility]) [address] [place] [address] [id number] 5 01/08/2024 12:06:42 01/08/2024 13:08:07 Type 2 diabetes mellitus 40923801 E11.21 Depressed bipolar I disorder 43647639 F31.30 Chronic low back pain 27 8167066 M54.50 form came and filled out for back brace approval. [id number] PRERNA RAMIREZ [facility] ([facility]) [address] [place] [address] [id number] 5 02/17/2024 10:11:28 02/17/2024 11:10:22 Acute back pain with sciatica 806884114 M54.40 Use prednisone as prescribed Apply a heating pad for 10 minutes every 2 hours while awake. Perform slow stretches 2 times a day.F/u with PCP in 4-5 days if symptoms persist or worsen. [id number] HAZEL JIMENEZ PA-C [facility] (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 I worry she is having disc bulgde or facet joint impingment worsening her pain with radicular pain. Need for MRI to give better imaging due to the recent worsing to determine if pain tx or surgcial referal is needed.Tony l see if her Home health can pick her up for PT as well. [id number] HAZEL JIMENEZ PA-C [facility] ([facility]) [address] [place] [address] [id number] 5 03/04/2024 12:21:33 03/05/2024 13:57:15 Constipation 02897946 K59.00 Diabetes mellitus 062390 09 E11.21 Recurrent falls 43497130 2 R29.6 [id number] HAZEL JIMENEZ PA-C [facility] ([facility]) [address] [place] [address] [id number] 5 03/12/2024 09:18:36 03/15/2024 10:25:47 [id number] HAZEL JIMENEZ PA-C [facility] ([facility]) [address] [place] [address] [id number] 04/14/2024 14:07:31 05/10/2024 07:55:23 Diabetes mellitus 04549414 E11.21 Pt is on a basal bolus insulin regimen with Novolog and tresiba and needs to check her blood sugars 4x/day and prn.her last A1C was great 6.7 in Feb. Spinal kleber nosis of lumbar region 03658261 M48.062 L4/5 and L5/s1 with impingemen t R>LPain tx referral placed and pending. she did not like the PT with Home health and refused services. [id number] HAZEL JIMENEZ PA-C [facility] ([facility]) [address] [place] [address] [id number] 5 06/15/2024 12:17:07 06/15/2024 13:16:30 Diabetes mellitus 43874959 E11.21 Face to Face: Pt is on a basal bolus insulin regimen with Novolog and tresiba and needs to check her blood sugars 4x/day and prn. DUE TO FLUCTUATIN G BLOOD SUGARS AC AND HSHer fastings run btwn 80-90 but post parandial will be up to 300s. she checks her sugars AM, AC and HSher last A1C was great 6.7 in Feb.Pt needs glucometer with audible readings due to her blindness . She checks her sugars QID. no CGM on the market has audible readings, so this does not work for her. Recurrent urinary tract infection 206618398 N39.0 Type 2 garry betes mellitus 44089321 E11.21 [id number] Arie Lewis MD [facility] ([facility]) [address] [place] [address] [id number] 5 08/05/2024 15:00:20 08/07/2024 04:05:55 Dysuria 39555662 R30.0 UA dipstick done [id number] Arie Lewis MD [facility] ([facility]) [address] [place], [place] [phone] 5 09/01/2024 14:32:55 09/01/2024 15:37:04 Acute urinary tract infection 313680475 N39.0 Concerned that the patient may have persistent UTI despite recent treatment. Will obtain UA and culture. Go ahead and start Bactrim. Overactive urinary bladder 213083401 N32.81 The patient has tried and failed oxybutynin . Will transition to Myrbetriq and see if this improves her symptoms. Patient was encouraged to make follow-up appointmen t with urology due to persistent symptoms. [id number] Arie Lewis MD [facility] ([facility]) [address] [place] [address] [id number] 5 09/21/2024 11:05:38 09/21/2024 12:14:20 Ingrowing nail of toe of right foot 6580625554 0896699 L60.0 The patient likely had ingrowing toenail, and now that the nail is cut short it is mildly tender. No sign of infection. Encouraged the patient to make a follow-up with Dr. Gomez or Dr. Hernandez for nail care going forward. [id number] Arie Lewis MD [facility] ([facility]) [address] [place] [address] [id number] 5 11/10/2024 15:14:54 11/10/2024 15:56:42 Mixed hyperlipidemia 420264560 E78.2 Reviewed labs with the patient. The patient has not tolerated statins due to myalgias and other side effects. We will proceed with Repatha injections to see if we cannot get her cholestero l better controlled . [id number] Arie Lewis MD [facility] ([facility]) [address] [place] [address] [id number] 5 11/24/2024 10:51:05 11/24/2024 12:00:30 Nausea and vomiting 53077752 R11.2 Will continue Zofran. Discussed the concern about using the medication all the time. The patient states that the medicine is very helpful and would like to continue it. Unsteady when walking 22 547643 R26.81 Patient feels unsteady when up walking and is at increased risk for falls. The patient would benefit from a walker. Prescripti on provided today for 4 wheeled walker. At [facility] risk for falls 274030120 Z91.81 Health Concerns Section Related Observation LastModified by Organization Detai ls LastModified Time None Recorded Concern Status LastModified by Organization Details LastModified Time None Recorded Advance Directives Directive None Recorded Payers Insurance Date Sequence Insurance Name Policy Number Policy Ortega Covered Member ID Ortega Member ID Guarantor Name 2024 1 [place] [facility] Jackie Romero [id number] Jackie Romero 2024 2 [place]) Jackie Romero [id number] Jackie Romero 2024 [place] - [facility] (MEDICARE) Jackie Romero [id number] Jackie Romero 2024 [place] [facility] Jackie Romero [id number] Jackie Romero Notes Date Note Type Note Provider Name and Address Organization Details Recorded Time 09/01/2024 text/html This is a 73-yea r-old female that comes in today to discuss bladder issues. The patient states that she has been having recurrent infections. The patient was recently treated for 1 that she still having increasing urinary urgency. The patient has been on oxybutynin and has not had a significant improvement in her symptoms. The patient has seen urology in the past. Arie Lewis MD [address] [place] [address], [phone], [facility] 09/04/2024 12:12:19 09/21/2024 text/html Musculoskeletal PainReported bypatient.Location:[facility] foot Quality:sharp Severity:no change Context:trauma Associated Symptoms:no fever ADLs Affected:walking Here today for pain Right medial toe. Patient states that a caregiver was trying to trim her nail last , and caused pain in this toe. She states that the pain has improved since last , but wants to get it evaluated. Patient also wants to see podiatry for nail care going forward. Arie Lewis MD [address] [place] [address], [phone], [facility] 09/25/2024 09:44:48 11/10/2024 text/html This is a 73-yea r-old female that comes in today for follow-up. The patient had lab work done at [facility] and was found to have significantly elevated cholesterol. The patient had taken statins in the past and has not tolerated them previously. Arie Lewis MD [address] [place] [address], [phone], [facility] 11/14/2024 08:53:41 11/24/2024 text/html This is 73-year- old female who comes in today for ER follow-up. The patient states that she felt some neck swelling and was concerned about her carotid arteries so she went to the ER. Patient was evaluated in the ER and there was no significant stenosis in the carotid arteries. No other concerns were noted. Patient is taking Zofran every day with her pills to manage her nausea and would like to continue that. Patient also reports that she wants a prescription for walker. The patient has had some gait instability and states that she used a walker today and felt that it was very helpful for her. Arie Lewis MD [address] [place], [phone], [facility], [place] 11/25/2024 14:49:07 OBGyn Episode No OBEpisode recorded.
--- OUTSIDE RECORDS SUMMARY | 2024-12-30 12:31 | XMS_ITS | Encounter Summary ---
Author Organization [facility] Address 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
--- OUTSIDE RECORDS SUMMARY | 2024-12-30 12:31 | XMS_ITS | Encounter Summary ---
Author Organization [employer] [facility] Address 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
--- OUTSIDE RECORDS SUMMARY | 2024-12-30 12:31 | XMS_ITS | Encounter Summary ---
Author Organization [employer] [facility] Address 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
--- OUTSIDE RECORDS SUMMARY | 2024-12-30 12:32 | XMS_ITS | Encounter Summary ---
Author Organization [facility] Address 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
--- OUTSIDE RECORDS SUMMARY | 2024-12-30 12:32 | XMS_ITS | Clinical Summary ---
Author Organization [facility] Address [address] Ortiz: [place] [address] Care Team Providers Care Mold Maker Helper Name Role Phone Provider, Abstract Spg Primary Care Provider Viri vailable Allergies Active Allergy Reactions Criticality Noted Date Comments Paroxetine Hcl Anaphylaxis High 12/14/2014 Penicillins Anaphylaxis High 05/26/2012 Active Problems Problem Noted Date Diagnosed Date Neck pain 03/10/2014 Insomnia 01/11/2014 Type II or unspecified type diabetes mellitus without mention of complication, uncontrolled 10/22/2012 Macular degeneration 10/22/2012 Blindness of both eyes 10/22/2012 Status post hysteroscopy PMB (postmenopausal bleeding) Family History Medical History Relation Name Comments Heart Disease Father Lung Cancer Father Healthy Mother Cervical Cancer Sister 1 Cervical can cer Ovarian Cancer Sister 2 Colon Cancer Neg Hx Relation Name Status Comments Father Mother Alive Sister 1 Sister 2 Social History Tobacco Use Types Packs/Day Years Used Date Smoking Tobacco: Every Day Cigarettes Last attempted to quit: 09/29/2016 Smokeless Tobacco: Never Comments:Quit smoking: only 3 cigarettes daily Alcohol Use Standard Drinks/Week Comments No 0 (1 standard drink = 0.6 oz pur e alcohol) Comments Unknown Sex and Gender Information Value Date Recorded Sex Assigned at Not on file Legal Sex Female 6:09 AM MANAGING EDITOR Gender Identity Not on file Sexual Orientation Not on file Last Filed Vital Signs Vital Sign Reading Time Taken Comments Blood Pressure 136/50 09/14/2019 12:15 PM CDT Pulse 61 09/14/2019 12:15 PM CDT Temperature 36.4 C (97.6 F) 09/14/2019 11:30 AM CDT Respiratory Rate 16 09/14/2019 12:15 PM CDT Oxygen Saturation - - Inhaled Oxygen Concentration - - Weight 62 kg (136 lb 11 oz) 09/14/2019 8:06 AM C DT Height 157.5 cm (5' 2 ) 09/14/2019 8:06 AM CDT Body Mass Index 25 09/14/2019 8:06 AM CDT Plan of Treatment Health Maintenance Due Date Last Done Comments DTAP/TDAP/TD VACCINES (1 - Tdap) 12/29/1967 PNEUMOCOCCAL VACCINE 50+ YEA RS (1 of 2 - PCV) 12/29/1967 ZOSTER VACCINE (1 of 2) 1998 OSTEOPOROSIS SCREENING 2013 RSV VACCINE (60+ or ) (1 - 1-dose 75+ series) 12/29/2023 INFLUENZA VACCINE (#1) 2025 COLORECTAL SCREENING Discontinued 03/08/2015, 12/21/19 15 Colorectal Cancer Screening Discontinued Flex Sig/CT Colonography Q 5 years Discontinued 2014, 12/20/2014 FIT-DNA Q 3 years Discontinued FIT/FOBT Q 1 year Discontinued Insurance MEDICARE PART A AND B [place]ICAID [place] Care Teams Mold Maker Helper Relationship Specialty Start Date End Date Provider, Abstract Spg NO ADDRESS ON FILE PCP - General Family Practice 05/26/12
--- OUTSIDE RECORDS SUMMARY | 2024-12-30 12:32 | XMS_ITS | Clinical Summary ---
Author Organization [facility] Address [address] [place] [address] Care Team Providers Care Non Profit Financial Controller Name Role Phone Unavailable Primary Care Provider Unavailabl e Allergies Active Allergy Reactions Criticality Noted Date Comments Paroxetine Hcl Anaphylaxis High 12/14/2014 Penicillins Anaphylaxis High 05/26/2012 Medications ARIPiprazole (ABILIFY) 10 mg tablet Take 1 Tab by mouth daily. 30 Tab 11 01/11/20 14 Active insulin detemir (LEVEMIR FLEXPEN) 100 unit/mL Insulin Pen Inject by subcutaneous injection see administration instructions. 35 units subcutaneous ac breakfast daily 23 units subcutaneous ac supper daily Active insulin aspart (NOVOLOG FLEXPEN) 100 unit/mL Insulin Pen Inject by subcutaneous injection. Sliding scale/ 20 units total daily or as directed 15 mL 6 03/08/20 14 Active blood sugar diagnostic (BLOOD GLUCOSE TEST) Strip 4 times daily 450 Strip 3 03/31/20 14 Active Insulin Waddell, Disposable, (AKOSUA PEN NEEDLE) 32 x 5/32 Needle 1 Each by [facility].(Non-Drug; Combo Route) route 5 times daily. DX 250.02 200 Each 11 04/05/20 14 Active citalopram (CELEXA) 40 mg tablet Take 1 Tab by mouth Daily LATE. 30 Tab 3 06/16/20 14 Active blood sugar diagnostic (PRODIGY AUTOCODE TEST STRIPS) Strip Test 3-4 times daily. DX 240.02 NEEDS APPOINTMENT 200 Strip 6 08/08/19 15 Active oxybutynin chloride (DITROPAN) 5 mg tablet 07/24/19 18 Active LORazepam (ATIVAN) 1 mg tablet Take 1 mg by mouth every 8 hours as needed for Anxiety. Active multivitamin with minerals (HAIR,SKIN AND NAILS ORAL) Take by mouth. Act tejinder furosemide (LASIX) 20 mg tablet 20 mg daily. 07/01/19 20 Active HYDROcodone-acet aminophen (NORCO) 5-325 mg tabletIndication s:PMB (postmenopausal bleeding),Status post hysteroscopy Take 1 Tablet by mouth 2 times daily as needed for Pain, Moderate. 10 Tablet 09/14/19 Active Active Problems Problem Noted Date Diagnosed Date Neck pain 03/10/2014 Insomnia 01/11/2014 Type II or unspecified type diabetes mellitus without mention of complication, uncontrolled 10/22/2012 Macular degeneration 10/22/2012 Blindness of both eyes 10/22/2012 Status post hysteroscopy PMB (postmenopausal bleeding) Resolved Problems Problem Noted Date Diagnosed Date Resolved Date Early satiety 05/26/2012 01/11/2014 Type I (juvenile type) diabe lisa mellitus without mention of complication, not stated as uncontrolled 05/26/2012 10/22/2012 Family History Medical History Relation Name Comments Heart Disease Father Lung Cancer Father Healthy Mother Cervical Cancer Sister 1 Cervical can cer Ovarian Cancer Sister 2 Colon Cancer Neg Hx Relation Name Status Comments Father Mother Alive Sister 1 Sister 2 Social History Tobacco Use Types Packs/Day Years Used Date Smoking Tobacco: Every Day Cigarettes Started: 09/30/2015; Last attempted to quit: 09/29/2016 Smokeless Tobacco: Never Comments:only 3 cigarettes d aily Alcohol Use Standard Drinks/Week Comments No 0 (1 standard drink = 0.6 oz pur e alcohol) Comments No Sex and Gender Information Value Date Recorded Sex Assigned at Not on file Legal Sex Female 1:38 PM MD 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 Gender Identity Not on file Sexual Orientation Not on file Occupation Industry Job Start Date Job End Date Not on file Not on file Not on file Not on file Last Filed Vital Signs Vital Sign Reading Time Taken Comments Blood Pressure 136/50 09/14/2019 12:15 PM CDT Pulse 61 09/14/2019 12:15 PM CDT Temperature 36.4 C (97.6 F) 09/14/2019 11:30 AM CDT Respiratory Rate 16 09/14/2019 12:15 PM CDT Oxygen Saturation 96% 09/14/2019 12:15 PM CDT Inhaled Oxygen Concentration - - Weight 62 kg (136 lb 11 oz) 09/14/2019 8:06 AM C DT Height 157.5 cm (5' 2 ) 09/14/2019 8:06 AM CDT Body Mass Index 25 09/14/2019 8:06 AM CDT Plan of Treatment Health Maintenance Due Date Last Done Comments DIABETES ANNUAL FOOT EXAM 1966 DTAP/TDAP/TD VACCINES (1 - Tdap) 12/29/1967 PNEUMOCOCCAL VACCINE 50+ YEA RS (1 of 2 - PCV) 12/29/1967 FIT-DNA Q 3 years 1993 FIT/FOBT Q 1 year 1993 ZOSTER VACCINE (1 of 2) 1998 OSTEOPOROSIS SCREENING 2013 DIABETES MICROALBUMIN ANNUAL SCREEN 02/09/2015 02/09/2014 LDL CHOLESTEROL ANNUAL 02/09/2015 02/09/2014 DIABETES ANNUAL RETINAL EXAM 03/04/201910/2017, 12/19/2016, 12/19/2016, Additional history exists DIABETES HBA1C Q 6 MONTHS 08/12/20192018, 10/05/2018, 07/29/2018, Additional history exists Flex Sig/CT Colonography Q 5 years 03/08/20202014, 12/20/2014 RSV VACCINE (60+ or ) (1 - 1-dose 75+ series) 12/29/2023 INFLUENZA VACCINE (#1) 2024 COLORECTAL SCREENING 03/08/2025 03/08/2015, 12/20/2014, 07/09/2012 (Previously completed) Colorectal Cancer Screening 03/08/2025 Procedures Procedure Name Priority Date/Time Associated Diagnosis Comments MICROALBUMIN/CREATI NINE RATIO, RANDOM UR Routine 02/09/2014 12:06 PM CDT Type II or unspecified type diabetes mellitus without mention of complication, uncontrolled LIPID PANEL Routine 02/09/2014 11:56 AM CDT Type II or unspecified type diabetes mellitus without mention of complication, uncontrolled HEMOGLOBIN A1C Routine 02/09/2014 11:56 AM CDT Type II or unspecified type diabetes mellitus without mention of complication, uncontrolled from Last 3 Months or Most Recently Relevant to Health Maintenance Results * MICROALBUMIN/CREATININE RATIO, RANDOM UR (02/09/2014 12:06 PM CDT) MICROALBUMIN URINE 1.1 MG/DL [facility] Creatinine, Urine 45 MG/DL [facility] MICROALBUMIN/CREA T RATIO, UR 24.4 MCG/MG CREAT. [facility] Comment: NORMAL: <30 MCG/MG CREAT MICROALBUMINURIA: 30-300 MCG/MG CREAT CLINICAL ALBUMINURIA: >300 MCG/MG CREAT Urine specimen (specimen) 02/09/2014 12:06 PM CDT 02/09/2014 12:11 PM CDT Ace Bello DO URINE ORDERABLES Final Result Performing Organization Address [facility] de Phone Number INTERFACE SYSTEM Refer to clinic/hospital department [facility] CLIA# [id number] [address] [place] [address] * (ABNORMAL) HEMOGLOBIN A1C (02/09/2014 11:56 AM CDT) HEMOGLOBIN A1C 8.9(H) 4.0 - 6.0 % [facility] Comment: This test was performed on a [employer] VARIANT II instrument using HPLC methodology. Blood specimen (specimen) 02/09/2014 11:56 AM CDT 02/09/2014 12:01 PM CDT Ace Bello DO CHEMISTRY ORDERABLES Final Resu lt Performing Organization Address [facility] de Phone Number INTERFACE SYSTEM Refer to clinic/hospital department [facility] CLIA# [id number] [address] [place] [address] * (ABNORMAL) LIPID PANEL (02/09/2014 11:56 AM CDT) CHOLESTEROL 325(H) 100 - 200 MG/DL [facility] TRIGLYCERIDE 178(H) 0 - 150 MG/DL [facility] HDL 75(H) 40 - 60 MG/DL [facility] LDL CALCULATED 214(H) 58 - 100 MG/DL [facility] Comment: CALCULATED LDL REFERENCE: < 100 Optimal 100 - 129 Near Optimal 130 - 159 Borderline High > 160 High Risk CHOL/HDL RATIO 4.33 3.27 - 4.44 RATIO [facility] Blood specimen (specimen) 02/09/2014 11:56 AM CDT 02/09/2014 12:01 PM CDT Ace Bello DO CHEMISTRY ORDERABLES Final Resu lt INTERFACE SYSTEM Refer to clinic/hospital department [facility] CLIA# [id number] [address] [place] [address] from Last 3 Months or Most Recently Relevant to Health Maintenance Insurance MEDICARE PART A AND B MEDICAID [place] Advance Directives For more information, please contact: [phone] * Full Code (Latest Code Status on File) Date Activated Date Inactivated Comments 09/14/2019 8:00 AM 09/14/2019 3:30 PM * Full Code Date Activated Date Inactivated Comments 09/10/2012 10:44 AM 09/10/2012 2:18 PM
--- OUTSIDE RECORDS SUMMARY | 2024-12-30 12:32 | XMS_ITS | Encounter Summary ---
Author Organization [employer] [facility] Address [address] [place] [address] Care Team Providers Care Frame Operator Name Role Phone Provider, Abstract Spg Primary Care Provider Viri vailable Encounter Details Date Type Department Care Team (Late st Contact Info) Description 04/29/2003 Outpatient Historical [facility] Support [facility] ([facility]) [address] [place] [address] Terrie Choi MD Social History Tobacco Use Types Packs/Day Years Used Date Smoking Tobacco: Never Assessed Comments Unknown Sex and Gender Information Value Date Recorded Sex Assigned at Not on file Legal Sex Female 6:09 AM PLASTERER SPOT Gender Identity Not on file Sexual Orientation Not on file documented as of this encounter Plan of Treatment Not on file documented as of this encounter Visit Diagnoses Not on filedocumented in this encounter Care Teams Frame Operator Relationship Specialty Start Date End Date Provider, Abstract Spg NO ADDRESS ON FILE PCP - General Family Practice 05/26/12 documented as of this encounter
--- OUTSIDE RECORDS SUMMARY | 2024-12-30 12:32 | XMS_ITS | Encounter Summary ---
Author Organization [facility] Address [address] [place] [address] Care Team Providers Care Fan Engine Engineer Name Role Phone Provider, Abstract Spg Primary Care Provider Viri vailable Encounter Details Date Type Department Care Team (Latest Contact Info) Description 07/07/2003 Inpatient Historical HIS PATIENT IN A BED Deep Riggins MD [address] [address] BIPOLAR AFFECT, DEPR-UNSPEC (CMS/HCC) (Primary Dx) Social History Tobacco Use Types Packs/Day Years Used Date Smoking Tobacco: Never Assessed Comments Unknown Sex and Gender Information Value Date Recorded Sex Assigned at Not on file Legal Sex Female 6:09 AM SUMMER 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
--- OUTSIDE RECORDS SUMMARY | 2024-12-30 12:32 | XMS_ITS | Encounter Summary ---
Author Organization [employer] [facility] Address [address] [place] [address] Care Team Providers Care Plywood Matcher Name Role Phone Provider, Abstract Spg Primary Care Provider Viri vailable Encounter Details Date Type Department Care Team (Late st Contact Info) Description 07/07/2003 Outpatient Historical [facility] Support Serv. ([facility]) [address] [place] [address] Terrie Choi MD Social History Tobacco Use Types Packs/Day Years Used Date Smoking Tobacco: Never Assessed Comments Unknown Sex and Gender Information Value Date Recorded Sex Assigned at Not on file Legal Sex Female 6:09 AM MEDICAL RECORDS CLERK Gender Identity Not on file Sexual Orientation Not on file documented as of this encounter Plan of Treatment Not on file documented as of this encounter Visit Diagnoses Not on filedocumented in this encounter Care Teams Plywood Matcher Relationship Specialty Start Date End Date Provider, Abstract Spg NO ADDRESS ON FILE PCP - General Family Practice 05/26/12 documented as of this encounter
--- OUTSIDE RECORDS SUMMARY | 2024-12-30 12:32 | XMS_ITS | Encounter Summary ---
Author Organization [employer] [facility] Address [address] [place] [address] Care Team Providers Care Finish Remover Name Role Phone Provider, Abstract Spg Primary Care Provider Viri vailable Encounter Details Date Type Department Care Team ([facility] Contact Info) Description 07/06/2003 Inpatient Historical HIS PATIENT IN A BED Deep Riggins MD [address] [place] [address] Er, Authorized P NO ADDRESS ON FILE RECURR DEPR PSYCH-SEVERE (CMS/HCC) (Primary Dx) Social History Tobacco Use Types Packs/Day Years Used Date Smoking Tobacco: Never Assessed Comments Unknown Sex and Gender Information Value Date Recorded Sex Assigned at Not on file Legal Sex Female 6:09 AM FARE ENFORCEMENT OFFICER Gender Identity Not on file Sexual Orientation Not on file documented as of this encounter Plan of Treatment Not on file documented as of this encounter Visit Diagnoses Diagnosis Major depressive disorder, recurrent episode, severe, without mention of psychotic behavior (CMS/HCC)- Primary Major depressive disorder, recurrent episode, severe, without mention of psychotic behavior documented in this encounter Care Teams Finish Remover Relationship Specialty Start Date End Date Provider, Abstract Spg NO ADDRESS ON FILE PCP - General Family Practice 05/26/12 documented as of this encounter
--- OUTSIDE RECORDS SUMMARY | 2024-12-30 12:32 | XMS_ITS | Encounter Summary ---
Author Organization [employer] [facility] Address [address] [place] [address] Care Team Providers Care Artillery Officer Name Role Phone Provider, Abstract Spg Primary Care Provider Viri vailable Encounter Details Date Type Department Care Team (Latest Contact Info) Description 07/07/2003 Inpatient Historical HIS PATIENT IN A BED Tim Lindsey MD Deep Riggins MD [facility][note 2][address] [place] [address] DIAB KETOACIDOSIS ADULT (CMS/HCC) (Primary Dx) Social History Tobacco Use Types Packs/Day Years Used Date Smoking Tobacco: Never Assessed Comments Unknown Sex and Gender Information Value Date Recorded Sex Assigned at Not on file Legal Sex Female 6:09 AM SOUND ENGINEER Gender Identity Not on file Sexual Orientation Not on file documented as of this encounter Plan of Treatment Not on file documented as of this encounter Visit Diagnoses Diagnosis Type II or unspecified type diabetes mellitus with ketoacidosis, not stated as uncontrolled- Primary documented in this encounter Care Teams Artillery Officer Relationship Specialty Start Date End Date Provider, Abstract Spwhit NO ADDRESS ON FILE PCP - General Family Practice 05/26/12 documented as of this encounter
--- OUTSIDE RECORDS SUMMARY | 2024-12-30 12:32 | XMS_ITS | Encounter Summary ---
Author Organization [facility] Address [address] [place] [address] Care Team Providers Care Meter Tester Polyphase Name Role Phone Provider, Abstract Spg Primary Care Provider Viri vailable Encounter Details Date Type Department Care Team (Late st Contact Info) Description 04/29/2003 Outpatient Historical [facility] Hospitalists [address] [address] Nella Brito MD [address] [facility] [address] [facility] [place] [address] Social History Tobacco Use Types Packs/Day Years Used Date Smoking Tobacco: Never Assessed Comments Unknown Sex and Gender Information Value Date Recorded Sex Assigned at Not on file Legal Sex Female 6:09 AM DIRECTOR OF DEVELOPMENT Gender Identity Not on file Sexual Orientation Not on file documented as of this encounter Plan of Treatment Not on file documented as of this encounter Visit Diagnoses Not on filedocumented in this encounter Care Teams Meter Tester Polyphase Relationship Specialty Start Date End Date Provider, Abstract Spwhit NO ADDRESS ON FILE PCP - General Family Practice 05/26/12 documented as of this encounter
--- OUTSIDE RECORDS SUMMARY | 2024-12-30 12:32 | XMS_ITS | Encounter Summary ---
Author Organization [facility] Address [address] [place] [address] Care Team Providers Care Heat Transfer Technician Name Role Phone Provider, Abstract Spg Primary Care Provider Viri vailable Encounter Details Date Type Department Care Team (Late Contact Info) Description 08/12/2003 Outpatient Historical [facility] Pauline Hutchinson MD Social History Tobacco Use Types Packs/Day Years Used Date Smoking Tobacco: Never Assessed Comments Unknown Sex and Gender Information Value Date Recorded Sex Assigned at Not on file Legal Sex Female 6:09 AM SENIOR SECURITY ENGINEER Gender Identity Not on file Sexual Orientation Not on file documented as of this encounter Plan of Treatment Not on file documented as of this encounter Visit Diagnoses Not on filedocumented in this encounter Care Teams Heat Transfer Technician Relationship Specialty Start Date End Date Provider, Abstract Spg NO ADDRESS ON FILE PCP - General Family Practice 05/26/12 documented as of this encounter
--- OUTSIDE RECORDS SUMMARY | 2024-12-30 12:32 | XMS_ITS | Encounter Summary ---
Author Organization [facility] Address [address] [place] [address] Care Team Providers Care Kayak Maker Name Role Phone Provider, Abstract Spg Primary Care Provider Viri vailable Encounter Details Date Type Department Care Team (Late st Contact Info) Description 07/06/2003 Outpatient Historical [facility] ([facility]) [address] [place] [address] Terrie Choi MD Social History Tobacco Use Types Packs/Day Years Used Date Smoking Tobacco: Never Assessed Comments Unknown Sex and Gender Information Value Date Recorded Sex Assigned at Not on file Legal Sex Female 6:09 AM LINING IRONER Gender Identity Not on file Sexual Orientation Not on file documented as of this encounter Plan of Treatment Not on file documented as of this encounter Visit Diagnoses Not on filedocumented in this encounter Care Teams Kayak Maker Relationship Specialty Start Date End Date Provider, Abstract Spg NO ADDRESS ON FILE PCP - General Family Practice 05/26/12 documented as of this encounter
--- OUTSIDE RECORDS SUMMARY | 2024-12-30 12:32 | XMS_ITS | Encounter Summary ---
Author Organization [facility] Address [address] [place] [address] Care Team Providers Care Sludge Filtration Operator Name Role Phone Provider, Abstract Spg Primary Care Provider Viri vailable Encounter Details Date Type Department Care Team (Latest Contact Info) Description 04/30/2003 Inpatient Historical HIS PATIENT IN A BED Deep Riggins MD [address] [address] [facility] (Primary Dx) Social History Tobacco Use Types Packs/Day Years Used Date Smoking Tobacco: Never Assessed Comments Unknown Sex and Gender Information Value Date Recorded Sex Assigned at Not on file Legal Sex Female 6:09 AM GENERAL CLAIMS AGENT Gender Identity Not on file Sexual Orientation Not on file documented as of this encounter Plan of Treatment Not on file documented as of this encounter Visit Diagnoses Diagnosis Major depressive disorder, recurrent episode, unspecified- Primary documented in this encounter Care Teams Sludge Filtration Operator Relationship Specialty Start Date End Date Provider, Abstract Spg NO ADDRESS ON FILE PCP - General Family Practice 05/26/12 documented as of this encounter
--- OUTSIDE RECORDS SUMMARY | 2024-12-30 12:32 | XMS_ITS | Patient Health Record ---
Author Organization [facility] Address [address] [facility] [place] [address] Care Team Providers Care Oncology Consultant Name Role Phone Arie Lewis MD Primary Care Provider Unavaila [address] JOSEL[place] Unavailable [phone] NING PALMA Unavailable [phone] Allergies Allergen (clinical drug ingredient) Drug/Non Drug Allergy documented on EMR Reaction Allergy Type Onset Date Status Ciprofloxacin allergy Drug Allergy Act tejinder gabapentin Gabapentin Unknown Drug Allergy Activ e amoxicillin Amoxicillin Unknown Drug Allergy Act tejinder Penicillin Unknown Drug Allergy Active Results Component Value Reference Range Notes Gx - Recurrent Persistent Co mplicated UTI Reviewed date:09/20/2024 02:20:59 PM Interpretation: Performing Lab:, [id number] Notes/Report: PatientName: : Gender: PatientRelation: PatientAddress: , , , InsuranceName: InsuranceCode: Test Result: Guidance, Voided Uri ne, UTI Surgical, Test Result: PATHOGENIC DNA NOT DETECTED#*F Gx - Recurrent Persistent Co mplicated UTI Reviewed date:09/13/2024 04:33:25 PM Interpretation: Performing Lab:, [id number] Notes/Report: PatientName: : Gender: PatientRelation: PatientAddress: , , , InsuranceName: InsuranceCode: Test Result: Guidance 7.0, Voided Urine, UTI Surgical, Test Result: INCIDENTAL FINDING: LOW CELL DENSITY PATHOGENIC DNA DETECTED#*F Urinalysis, Routine Reviewed date:09/16/2024 02:15:22 PM Interpretation: Performing Lab: Notes/Report: Urine-Color Danita Appearance clear Glucose 1+ Bilirubin - Ketones 2+ Specific [place] 1.025 Occult Blood - pH 6.0 Urine Protein + Urobilinogen,Semi-Qn 0.2 Nitrite, Urine - WBC Esterase - Urinalysis, Routine Reviewed date:09/06/2024 11:43:06 AM Interpretation: Performing Lab: Notes/Report: Urine-Color dk yellow Appearance clear Glucose 2+ Bilirubin - Ketones - Specific [place] 1.025 Occult Blood - pH 6.0 Urine Protein trace Urobilinogen,Semi-Qn - Nitrite, Urine - WBC Esterase - Reason For Referral No Information Medications Medication SIG (Take, Route, Frequency, Duration) Notes Start Date End Date Status Active Acetaminophen Active Citalopram Hydrobromide Active Estradiol 0.1 MG/GM as directed Vaginal at bedtime 3x per week x 8 weeks, then once weekly for maintenance for 90 days 09/20/2024 Active LORazepam Active traMADol HCl Active traZODone HCl 50 MG 1 tablet at bedtime as needed Orally Once a day Active Vitamin C Active Macrobid 100 MG 1 capsule with food Orally every 12 hrs Active Insulin Aspart Activ e Sulfamethoxazole Not -Taking Methenamine Mandelate - as directed twice a day Active Pantoprazole Sodium Active Ozempic Active ARIPiprazole Active Furosemide Active Docusate Sodium Acti ve tiZANidine HCl Activ e Potassimin Active Loratadine Active Ascorbic Acid Active Ondansetron Active Cranberry Active Meclizine HCl Active Social History Tobacco Use: Social History Observation Description Date Details (start date - stop date) Never Smoker NA - NA Tobacco Use/Smoking Question Answer Notes Tobacco use: nonsmoker Problems Problem Type SNOMED Code ICD Code Onset Dates Problem Status W/U Status Risk Notes Problem Constipation (93996114) Constipation (K59.00) Active confirmed Problem 50769386 Female stress incontinence (N39.3) Active confirmed Problem Healed pyelonephritis (disorder) (854206112) History of pyelonephritis (Z87.448) Active confirmed Problem 163752651 Recurrent UTI (N39.0) Active confirmed Problem 027364407 Mixed incontinen ce urge and stress (N39.46) Active confirmed Problem Overactive urinary bladder (disorder) (006941320) OAB (overactive bladder) (N32.81) Active confirmed Problem 915799574 History of nephrolithiasis (Z87.442) Active confirmed Vital Signs Heart Rate 76 /min 09/16/2024 Blood pressure diastolic 76 mm Hg 09/16/2024 Height-cm 157.48 cm 09/16/2024 Weight-kg 58.06 kg 09/16/2024 Height 62 in 09/16/2024 Blood pressure systolic 120 mm Hg 09/16/2024 Weight 128 lbs 09/16/2024 BMI 23.41 kg/m2 09/16/2024 Procedures Procedure Date Ordered Date Performed Result Body Sit e Bladder Scan 09/06/2024 09/06/2024 0ml Encounters Encounter Location Date Provider Diagnosis [facility] [address] [facility] [address] [facility] [place] [address] 09/06/2024 NING REANO OAB (overactive bladder) N32.81 ; Recurrent UTI N39.0 ; Urinary frequency R35.0 ; Constipation K59.00 ; Mixed incontinence urge and stress N39.46 ; History of pyelonephritis Z87.448 ; History of nephrolithiasis Z87.442 and Acute right-sided low back pain without sciatica M54.[address] [facility] [address] [facility] [place] [address] 09/16/2024 NING PALMA Complicated UTI (urinary tract infection) N39.0 [facility] [address] [facility] [place] [address] 09/13/[address] DO NOT USE THIS FACILITY [facility] [address], [place] [id number] 09/20/[address] Assessments Encounter Date Diagnosis (ICD Code) Assessment Notes Treatment Notes Treatment Clinical Notes Section Notes 09/06/2024 Recurrent UTI (ICD-10 - N39.0) 09/06/2024 OAB (overactive bladder) (ICD-10 - N32.81) 09/16/2024 Complicated UTI (urinary tract infection) (ICD-10 - N39.0) Pt here for straight cath UA, given that most recent urine culture was resistent to everything. If PCR continues to remain multi-resistant, referral to Dr. Russell will be needed. Imaging from still has not been powershared and 2nd request will be sent. She will be called and treated accordingly to results and discuss further follow up. This patient has clinical indication for infectious disease testing. Urinalysis performed indicates the need for further sensitive detection by PCR. The patient is at higher risk for UTI complications and is being seen in the urologic setting. The enhanced diagnostic accuracy, identification of possible resistance mutations, and quicker result to better guide antibiotics and prevention infection complications that PCR provides is recommended. 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 09/06/2024 Urinary frequency (ICD-10 - R35.0) 09/06/2024 Constipation (ICD-10 - K59.00) 09/06/2024 Mixed incontinence urge and stress (ICD-10 - N39.46) 09/06/2024 History of pyelonephritis (ICD-10 - Z87.448) 09/06/2024 History of nephrolithiasis (ICD-10 - Z87.442) 09/06/2024 Acute right-sided low back pain without sciatica (ICD-10 - M54.50) 09/06/2024 Other She has history of pyelonephritis and nephrolithiasis. The region of her back pain seems more musculoskeletal. I will give Toradol today and send urine for PCR. Call with results and treat as indicated. I will request recent imaging to be PowerShared to see if there is any visualization of kidneys to assess for possible stones. If not, then we can set her up for CT. Plan Of Treatment Pending Test Test Name Order Date Urinalysis, Routine 02/25/2023 UA Without Micro-Auto [id number] 01/23/2023 Insurance Providers Payer Name Payer Address Payer Phone Subscriber Number Group Number Insured Name Patient Relationship to Insured Coverage Start Date Coverage End Date [place] Medicare [address] [address] [place], [place] [id number] Jackie Romero Self - patient is the insured [place] Medicaid [address] [place], [place] [id number] Jackie Romero Self - patient is the insured Medications Administered Medication Instructions Date of Administration Dosage Notes Ketorolac Tromethamine 09/06/2024 30 mg Medical (General) History Medical History History ICD Code hypotension back trouble hernia diabetes bladder infections heart disease stress incontinence urinary blind Surgical History Surgery Date(Month/Year) cholecystectomy tubal ligation Cysto with Bulkamid 02/07/23
[2024-12-30 12:56] LABS: Hematocrit 40.8 % (36-47); Hemoglobin 13.30 g/dL (11.27-16.99); Mean Corpuscular HGB Conc 32.6 g/dL (30-55); Mean Corpuscular Hemoglobin 26.3 pg (27-33); Mean Corpuscular Volume 80.8 fl (85-98); Nucleated Red Blood Cells % 0 %; Platelet Count 328 10^3/cmm (157-399); Red Blood Count 5.05 10^6/uL (3.85-5.65); White Blood Count 12.90 10^3/uL (3.29-11.43)
[2024-12-30 13:07] LABS: Ketone (Acetest) Serum Negative (Negative)
[2024-12-30 13:07] LABS: ABG PCO2 39.8 mmHg (35-45); ABG PH Result 7.38 (7.35-7.45); Alveolar-Arterial Oxygen Gradi 2.2 mmHg (5-10); Arterial Blood Gas Hematocrit 38.0 % (37-47); Blood Gas Allen Test Pos; Blood Gas Operator Identificat WALCI; Blood Gas Sample Site Radial, left; Blood Gas Sample Type Arterial; Carboxyhemoglobin 1.0 %THgb (0.4-20.1); Glucose Level-ABG 360.0 mg/dL (70-115); HCO3 ABG 23.7 mmol/L (22-26); Ionized Calcium Level - ABG 1.1 mmol/L (1.1-1.4); Methemoglobin 1.0 % (0.4-1.5); Oxygen Saturation ABG 96.7; PO2 ABG 83.1 mmHg (80.0-100.0); PO2 FiO2 Ratio Arterial Blood 395; Potassium Level - ABG 3.9 mmol/L (3.5-5.0); Sodium Level - ABG 135.0 mmol/L (131-143)
--- NOTE | 2024-12-30 13:10 | W.ED.RECABL ---
HPI - Recheck/Abnormal Lab/Rx General: Chief Complaint: Recheck/Abnormal Lab/Rx Stated Complaint: elevated blood sugar Time Seen by Provider: 12/30/24 12:27 History of Present Illness: 74-year-old female presents emergency room concerned about elevated blood sugars. She is on Tresiba and Ozempic she had in the past used short acting insulin but is no longer using any she has not taken any short acting insulin at home today. EMS had a blood glucose in the field of 525. She denies any dysuria urgency or frequency no abdominal pain no vomiting or diarrhea she did get a steroid shot yesterday in her back for back pain with radicular symptoms blood sugar seem to go back control after this. No cough or shortness of breath. Related Data Home Medications ?Medication ?Instructions ?Recorded ?Confirmed acetaminophen 500 mg tablet 500 mg PO Q4H PRN Pain 04/06/21 11/30/24 vit no.95-ferrous 1 tab PO DAILY@08 08/20/21 11/30/24 fumarate 28 mg-folic acid 800 mcg tablet ( Multivitamins) vit C 250 mg-vit E 90 mg-zinc 40 1 tab PO BID 08/20/21 11/30/24 mg-copper 1 [id number]-yayglj capsule (PreserVision AREDS-2) tizanidine 4 mg tablet 4 mg PO Q6H PRN Muscle Spasm 05/15/22 11/30/24 pregabalin 25 mg capsule (Lyrica) 25 mg PO BID 03/14/23 11/30/24 cetirizine 10 mg tablet (All Day 10 mg PO QAM 04/01/23 11/30/24 Allergy (cetirizine)) methenamine hippurate 1 gram tablet 1 g PO BID 04/01/23 11/30/24 albuterol sulfate 90 mcg/actuation 2 puff inhalation Q4H PRN 04/26/23 11/30/24 aerosol inhaler (Ventolin HFA) Shortness Of Breath ascorbic acid (vitamin C) 500 mg 500 mg PO BID 04/26/23 11/30/24 tablet (Vitamin C) gwzjmfx-lgdprmyykpxte-kajceqii 250 1 tab PO Q6H PRN Migraine Headache 04/26/23 11/30/24 mg-250 mg-65 mg tablet (Excedrin Migraine) cyanocobalamin (vitamin B-12) 1,000 mcg IM Q30D 04/26/23 11/30/24 1,000 mcg/mL injection solution fluticasone propionate 50 2 spray intranasal DAILY 04/26/23 11/30/24 mcg/actuation nasal spray,suspension omeprazole 40 mg capsule,delayed 40 mg PO BID PRN Heartburn 04/26/23 11/30/24 release ondansetron HCl 4 mg tablet 4 mg PO BID PRN Nausea 04/26/23 11/30/24 semaglutide 1 mg/dose (4 mg/3 mL) 1 mg SUBCUT .once per week 12/16/23 11/30/24 subcutaneous pen injector (Ozempic) biotin 10 mg tablet 10 mg PO DAILY 12/19/23 11/30/24 budesonide-formoterol HFA 160 2 puff inhalation BID 12/19/23 11/30/24 mcg-4.5 mcg/actuation aerosol inhaler cholecalciferol (vitamin D3) 50 50 mcg PO DAILY 12/19/23 11/30/24 mcg (2,000 unit) tablet (Vitamin D3) insulin degludec 100 unit/mL (3 See Rx Instructions .Route .COMPLEX 12/19/23 11/30/24 mL) subcutaneous pen (Tresiba FlexTouch U-100 insulin) oxybutynin chloride 10 mg 10 mg PO BID 12/19/23 11/30/24 tablet,extended release 24 hr phenazopyridine 95 mg tablet 95 mg PO DAILY 12/19/23 11/30/24 vit C 250 mg-vit E 90 mg-zinc 40 1 tab PO BID 12/19/23 11/30/24 mg-copper 1 dr-pjrkvd-cykrqg capsule (PreserVision AREDS-2) Previous Rx's ?Medication ?Instructions ?Recorded pen needle, diabetic 32 gauge x ##100 06/20/2207/03 (TechLITE Pen Needle) lorazepam 1 mg tablet (Ativan) 1 mg PO BID PRN severe anxiety #60 10/18/24 tabs aripiprazole 10 mg tablet (Abilify) 10 mg PO .every evening #90 tabs 10/26/24 citalopram 20 mg tablet (Celexa) 20 mg PO QAM #90 tabs 10/26/24 insulin regular human 100 unit/mL 3 unit (0.03 mL) SUBCUT TID #15 mL 12/30/24 (3 mL) subcutaneous pen Allergies Allergy/AdvReac Type Severity Reaction Status Date / Time ceftriaxone Allergy Severe ALGY-Hives Verified 11/30/24 09:59 escitalopram Allergy Severe rash Verified 11/30/24 09:59 Penicillins Allergy Severe ALGY-Anaphy Verified 11/30/24 09:59 laxis rivaroxaban (From Xarelto) Allergy Severe suicidial Verified 11/30/24 09:59 thoughts atorvastatin (From Lipitor) Allergy Unknown Unknown Verified 11/30/24 09:59 desvenlafaxine (From Pristiq) Allergy Unknown Unknown Verified 11/30/24 09:59 duloxetine (From Cymbalta) Allergy Unknown Unknown Verified 11/30/24 09:59 amoxicillin Allergy Unknown Verified 11/30/24 09:59 ciprofloxacin Allergy ALGY-Anaphy Verified 11/30/24 09:59 laxis gabapentin Allergy Unknown Verified 11/30/24 09:59 ibuprofen Allergy ADR-Abdominal Verified 11/30/24 09:59 Pain Review of Systems Const: Denies: fever(s) or chills Card: Denies: chest pain Resp: Denies: dyspnea GI: Denies: abdominal pain : Denies: dysuria, urinary frequency or urinary urgency Musc: Denies: neck pain or back pain Skin/Breast: Denies: rash PFSH ED PFSH: Medical History UTI due to extended-spectrum beta lactamase (ESBL) producing Escherichia coli Hyperglycemia Hypokalemia Elevated d-dimer Dyspnea Hyperlactatemia [place] (stress urinary incontinence, female) Helicobacter pylori gastritis Abdominal pain Recurrent UTI GERD (gastroesophageal reflux disease) Psychiatric care Cholecystectomy planned Colonoscopy planned Blindness Urolithiasis Diabetes mellitus type 2 in nonobese She reports DM1 Obstructive pyelonephritis Right ureteral calculus Chronic migraine Chronic migraine Opioid contract exists Encounter for long-term use of opiate analgesic Spondylosis without myelopathy or radiculopathy, lumbosacral region Smoker Generalized anxiety disorder Major depressive disorder, recurrent severe without psychotic features Surgical History Hx of colonoscopy History of cholecystectomy Hx of dilation and curettage 09/14/19 [facility] H/O tubal ligation History of hysteroscopy Family History Father , at age 76 Congestive heart failure (CHF) Mother Acute arthritis Other CAD (coronary artery disease) Cancer Social History Smoking and tobacco/nicotine status: unknown if used tobacco/nicotine Alcohol intake: never Substance/Drug Use: former Date of last use: 2020. THC USE Adopted: No Caregiver/support person: Yes Lives independently: Yes Housing: House Marital status: Current occupational status: disabled Physical Exam Const: GENERAL APPEARANCE: cooperative ORIENTATION/CONSCIOUSNESS: Yes awake, Yes oriented to person, Yes oriented to place and Yes oriented to time HENMT: COMMON NORMALS: normocephalic, atraumatic and hearing grossly normal bilaterally HEAD & SCALP: normocephalic and atraumatic Resp: COMMON NORMALS: normal respiratory effort, No retractions, No use of accessory muscles and clear to auscultation bilaterally AUSCULTATION: clear to auscultation bilaterally Cardio: COMMON NORMALS: regular rate, regular rhythm and No murmurs present (Cardio) RATE: regular rate RHYTHM: regular rhythm GI: COMMON NORMALS: Soft to palpation and No hepatosplenomegaly present AUSCULTATION: Yes normoactive bowel sounds PALPATION: Yes Soft to palpation, No Tenderness to palpation present (GI), No Guarding due to palpation present (GI) and Yes No hepatosplenomegaly present Extremity: COMMON NORMALS: normal to inspection, capillary refill normal, no clubbing, cyanosis or edema, no calf tenderness and no pedal edema Neuro: SENSORIUM/ORIENTATION: Yes oriented to person, Yes oriented to place and Yes oriented to time Skin: COMMON NORMALS: no rashes or lesions noted GENERAL SKIN EXAM: no rashes or lesions noted Course Vital Signs: Vital signs: Vital Signs Temperature 98.2 F 12/30/24 12:31 Pulse Rate 65 12/30/24 14:00 Respiratory Rate 17 12/30/24 12:31 Blood Pressure 110/51 12/30/24 14:00 Pulse Oximetry 97 12/30/24 14:00 Oxygen Delivery Me thod Room Air 12/30/24 14:00 MDM - Recheck/Abnormal Lab/Rx Medical Decision Making Blood sugar improved patient states she feels better after insulin and fluids. Will discharge patient home on low-dose sliding scale insulin she was given chart and a prescription for regular insulin pen. Follow-up with her doctor next week Medical Records I reviewed the patient's medical records. Lab Data I reviewed the patient's lab results. 12/30/24 12:02 12/30/24 12:02 Laboratory Results WBC 12.90 10^3/uL (3.29-11.43) H 12/30/24 12:02 RBC 5.05 10^6/uL (3.85-5.65) 12/30/24 12:02 Hgb 13.30 g/dL (11.27-16.99) 12/30/24 12:02 Hct 40.8 % (36-47) 12/30/24 12:02 MCV 80.8 fl (85-98) L 12/30/24 12:02 MCH 26.3 pg (27-33) L 12/30/24 12:02 MCHC 32.6 g/dL (30-55) 12/30/24 12:02 RDW 13.7 % (12.1-15.1) 12/30/24 12:02 Plt Count 328 10^3/cmm (157-399) 12/30/24 12:02 MPV 12.6 fL (7.4-10.4) H 12/30/24 12:02 Neut % (Auto) 73.6 % 12/30/24 12:02 Lymph % (Auto) 19.0 % 12/30/24 12:02 [place] % (Auto) 5.9 % 12/30/24 12:02 Eos % (Auto) 0.2 % 12/30/24 12:02 Baso % (Auto) 0.8 % 12/30/24 12:02 Neut # (Auto) 9.50 10^3/uL (1.8-7.7) H 12/30/24 12:02 Lymph # (Auto) 2.5 10^3/uL (0.8-4.8) 12/30/24 12:02 [place] # (Auto) 0.8 10^3/uL (0.2-0.9) 12/30/24 12:02 Eos # (Auto) 0.0 10^3/uL (0.0-0.8) 12/30/24 12:02 Baso # (Auto) 0.1 10^3/uL (0.0-0.1) 12/30/24 12:02 Nucleated RBC % (auto) 0 % 12/30/24 12:02 Nucleated RBCs # 0.0 /100WBC 12/30/24 12:02 Specimen Type Arterial 12/30/24 12:56 Sample Site Radial, left 12/30/24 12:56 ABG pH 7.38 (7.35-7.45) 12/30/24 12:56 ABG pCO2 39.8 mmHg (35-45) 12/30/24 12:56 ABG pO2 83.1 mmHg (80.0-100.0) 12/30/24 12:56 ABG PO2/FiO2 Ratio 395 12/30/24 12:56 ABG HCO3 23.7 mmol/L (22-26) 12/30/24 12:56 ABG O2 Saturation 96.7 12/30/24 12:56 ABG Base Excess -1.2 mmol/L (-2.0-2.0) 12/30/24 12:56 Robert Test Pos 12/30/24 12:56 A-a O2 Gradient 2.2 mmHg (5-10) L 12/30/24 12:56 Hematocrit 38.0 % (37-47) 12/30/24 12:56 Hgb O2 Saturation 94.7 % (95-100) L 12/30/24 12:56 Carboxyhemoglobin 1.0 %THgb (0.4-20.1) 12/30/24 12:56 Methemoglobin 1.0 % (0.4-1.5) 12/30/24 12:56 Total Hemoglobin 12.4 g/dL (12-16) 12/30/24 12:56 Sodium 135.0 mmol/L (131-143) 12/30/24 12:56 Potassium 3.9 mmol/L (3.5-5.0) 12/30/24 12:56 Glucose 360.0 mg/dL (70-115) H 12/30/24 12:56 Ionized Calcium 1.1 mmol/L (1.1-1.4) 12/30/24 12:56 O2 Delivery Device Room air 12/30/24 12:56 FiO2 21.0 % 12/30/24 12:56 Knitting Machine Fixer ID Gertrudis 12/30/24 12:56 Sodium 134 mmol/L (136-145) L 12/30/24 12:02 Potassium 4.5 mmol/L (3.5-5.1) 12/30/24 12:02 Chloride 94 mmol/L (98-107) L 12/30/24 12:02 Carbon Dioxide 24 mmol/L (22-29) 12/30/24 12:02 Anion Gap 20.5 (5-19) H 12/30/24 12:02 BUN 15 mg/dL (8-23) 12/30/24 12:02 Creatinine 1.0 mg/dL (0.5-0.9) H 12/30/24 12:02 GFR Calculation Not Reportable 12/30/24 12:02 Glucose 449 mg/dL (65-115) H 12/30/24 12:02 POC Glucose 253 mg/dL (70-110) H 12/30/24 14:03 Calculated Osmolality 298 mOsm/kg (285-295) H 12/30/24 12:02 Calcium 9.2 mg/dL (8.5-10.5) 12/30/24 12:02 Total Bilirubin 0.8 mg/dL (0.15-1.2) 12/30/24 12:02 AST 14 U/L (0-32) 12/30/24 12:02 ALT 12 U/L (0-33) 12/30/24 12:02 Alkaline Phosphatase 91 U/L (35-105) 12/30/24 12:02 Total Protein 7.3 g/dL (6.6-8.7) 12/30/24 12:02 Albumin 4.2 g/dL (3.5-5.2) 12/30/24 12:02 Globulin 3.1 g/dL (1.3-4.6) 12/30/24 12:02 Urine Color Yellow (Yellow) 12/30/24 13:00 Urine Appearance Clear (CLEAR) 12/30/24 13:00 Urine pH 6.0 (5-7) 12/30/24 13:00 Ur Specific [place] 1.037 (1.005-1.030) H 12/30/24 13:00 Urine Protein Negative (Negative) 12/30/24 13:00 Urine Glucose (UA) 3+ (Normal) H 12/30/24 13:00 Urine Ketones Trace (Negative) 12/30/24 13:00 Urine Blood Negative (Negative) 12/30/24 13:00 Urine Nitrate Negative (Negative) 12/30/24 13:00 Urine Bilirubin Negative (Negative) 12/30/24 13:00 Urine Urobilinogen 0.2 mg/dL (Negative) 12/30/24 13:00 Ur Leukocyte Esterase Negative (Negative) 12/30/24 13:00 Urine RBC 0-2 /hpf (0-2) 12/30/24 13:00 Urine WBC 0-5 /hpf (0-5) 12/30/24 13:00 Ur Squamous Epith Cells 0-5 /hpf (0-5) 12/30/24 13:00 Amorphous Sediment Not Reportable 12/30/24 13:00 Urine Bacteria None seen /hpf (NONE) 12/30/24 13:00 Hyaline Casts 1.65 /lpf 12/30/24 13:00 Serum Ketones Negative (Negative) 12/30/24 12:02 No radiology studies performed this visit Discharge Plan Discharge Patient Disposition: Home Clinical Impression: Acute hyperglycemia, Diabetes mellitus type 2 in nonobese Condition: Stable Prescriptions: New insulin regular human 100 unit/mL (3 mL) insulin pen 3 unit SUBCUT TID Qty: 15 0RF Rx Instructions: Use sliding scale insulin that you were given at the time of discharge. No Action cetirizine [All Day Allergy (cetirizine)] 10 mg tablet 10 mg PO QAM methenamine hippurate 1 gram tablet 1 g PO BID Ozempic 1 mg/dose (4 mg/3 mL) pen injector 1 mg SUBCUT .once per week Rx Instructions: FRIDAY lorazepam [Ativan] 1 mg tablet 1 mg PO BID PRN (Reason: severe anxiety) Qty: 60 3RF Rx Instructions: May take one tablet twice per day as needed for severe anxiety pregabalin [Lyrica] 25 mg capsule 25 mg PO BID (DME) pen needle, diabetic [TechLITE Pen Needle] 32 gauge x 1/4 needle See Rx Instructions .ROUTE .COMPLEX Qty: 100 11RF Dose Instruction: USE FIVE times daily Rx Instructions: USE FIVE times daily Abilify 10 mg tablet 10 mg PO .every evening Qty: 90 2RF Rx Instructions: Take one tablet every evening citalopram [Celexa] 20 mg tablet 20 mg PO QAM Qty: 90 2RF Rx Instructions: Take one tablet every morning acetaminophen 500 mg Tablet 500 mg PO Q4H PRN (Reason: Pain) PreserVision AREDS-2 250-90-40-1 mg capsule 1 tab PO BID Multivitamins 28 mg iron- 800 mcg tablet 1 tab PO DAILY@08 tizanidine 4 mg Tablet 4 mg PO Q6H PRN (Reason: Muscle Spasm) omeprazole 40 mg capsule,delayed release(DR/EC) 40 mg PO BID PRN (Reason: Heartburn) ascorbic acid (vitamin C) [Vitamin C] 500 mg Tablet 500 mg PO BID cyanocobalamin (vitamin B-12) 1,000 mcg/mL solution 1,000 mcg IM Q30D albuterol sulfate [Ventolin HFA] 90 mcg/actuation HFA aerosol inhaler 2 puff INHALATION Q4H PRN (Reason: Shortness Of Breath) fluticasone propionate 50 mcg/actuation spray,suspension 2 spray INTRANASAL DAILY Excedrin Migraine 250-250-65 mg Tablet 1 tab PO Q6H PRN (Reason: Migraine Headache) ondansetron HCl 4 mg tablet 4 mg PO BID PRN (Reason: Nausea) oxybutynin chloride 10 mg tablet extended release 24hr 10 mg PO BID PreserVision AREDS-2 250-90-40-1 mg Capsule 1 tab PO BID biotin 10 mg Tablet 10 mg PO DAILY phenazopyridine 95 mg Tablet 95 mg PO DAILY budesonide-formoterol 160-4.5 mcg/actuation HFA aerosol inhaler 2 puff INHALATION BID Vitamin D3 50 mcg (2,000 unit) Tablet 50 mcg PO DAILY Tresiba FlexTouch U-100 100 unit/mL (3 mL) insulin pen See Rx Instructions .ROUTE .COMPLEX Rx Instructions: INJECT 20 UNITS EVERY MORNING AND 30 UNITS AT BEDTIME Discharge Orders: Discharge ED (Routine); Ordered 12/30/24 Ordered By: Lee Tunrer Referrals: Arie Lewis MD [Primary Care Provider, Family Practice] Discharge Diet: Diabetic Discharge Activity: Increase activity as tolerated Patient Instructions: Opioid Safety, Pain Management, Patient Portal & [place] Instructions Activity Restrictions/Additional Instructions: Thank you for choosing [facility] for your healthcare needs today. It is very important that you follow up as instructed or that you return to the Emergency Department should you have concerns or if your condition changes or worsens in any way. You were seen in the emergency room with elevated blood sugars this likely related to the steroid shot you received yesterday. You responded well to fluids and insulin. Recommend you start a low-dose sliding scale insulin. You were given a insulin sliding scale chart along with your discharge information follow-up with your primary care doctor next week Print Language: Yakut Coding Level of Care Code ED Implementation Project Coordinator for Noemi Veliz
[2024-12-30 13:29] LABS: Glucose Urine UA 3+ (Normal); Nitrate Urine Negative (Negative)
[2024-12-30] MEDS: insulin regular-human 100 units/1 mL 15 UNIT IVP (13:34)
[2024-12-30 13:35] LABS: Add Urine Microscopic? YES
[2024-12-30 13:37] VITALS: BP 134/55; PULSE 68; O2SAT 99
[2024-12-30 13:47] LABS: Alanine Aminotransferase 12 U/L (0-33); Albumin Level 4.2 g/dL (3.5-5.2); Alkaline Phosphatase 91 U/L (35-105); Aspartate Amino Transferase 14 U/L (0-32); Blood Urea Nitrogen 15 mg/dL (8-23); Calcium 9.2 mg/dL (8.5-10.5); Carbon Dioxide 24 mmol/L (22-29); Chloride 94 mmol/L (98-107); Creatinine Clr Calc Pharmacy 39.4364; Globulin 3.1 g/dL (1.3-4.6); Glucose 449 mg/dL (65-115); Osmolality Calculated 298 mOsm/kg (285-295); Sodium 134 mmol/L (136-145); Total Protein 7.3 g/dL (6.6-8.7)
[2024-12-30 13:49] LABS: Anion Gap 20.5 (5-19); Potassium 4.5 mmol/L (3.5-5.1)
[2024-12-30 14:00] VITALS: BP 110/51; PULSE 65; O2SAT 97
[2024-12-30 14:04] LABS: Specific Gravity, Urine 1.037 (1.005-1.030)
[2024-12-30 14:05] LABS: UA Slide Review UA Slide Review Perf
[2024-12-30 15:24] VITALS: BP 96/49; PULSE 63; O2SAT 97
== END 2024-12-30 15:25 | disposition home or self-care (01) ==
PROVIDERS: Emergency Provider Family Medicine; PCP Family Medicine
DX: E11.65 Type 2 diabetes mellitus with hyperglycemia (principal)
CPT/HCPCS: 36415; 36416; 36600; 80051; 80053; 81001; 82009; 82330; 82805; 82962; 85025; 93005; 93010; 96374; 99284; J1815

== ENCOUNTER → 2025-02-01 08:53 | Outpatient (BNVA) | payer MEDICARE, MEDICAID, SELFPAY ==
[2024-10-19 17:12] VITALS: BP 107/62; BMI 23.0
== END ==
PROVIDERS: PCP Family Medicine; Visit Provider Podiatrist Foot & Ankle Surgery
DX: E11.69 Type 2 diabetes mellitus with other specified complication (principal); L60.3 Nail dystrophy; I73.9 Peripheral vascular disease, unspecified; H54.7 Unspecified visual loss; Z79.4 Long term (current) use of insulin
CPT/HCPCS: 11721

== ENCOUNTER → 2025-04-06 08:37 | Outpatient (BNVA) | payer MEDICARE, MEDICAID, SELFPAY ==
[2024-10-19 17:12] VITALS: BP 107/62; BMI 23.0
== END ==
PROVIDERS: PCP Family Medicine; Visit Provider Podiatrist Foot & Ankle Surgery
DX: E11.69 Type 2 diabetes mellitus with other specified complication (principal); L60.3 Nail dystrophy; I73.9 Peripheral vascular disease, unspecified; H54.7 Unspecified visual loss; Z79.4 Long term (current) use of insulin
CPT/HCPCS: 11721

== ENCOUNTER → 2025-06-15 09:14 | Outpatient (BNVA) | payer MEDICARE, MEDICAID, SELFPAY ==
[2024-10-19 17:12] VITALS: BP 107/62; BMI 23.0
== END ==
PROVIDERS: PCP Family Medicine; Visit Provider Podiatrist Foot & Ankle Surgery
DX: E11.69 Type 2 diabetes mellitus with other specified complication (principal); L60.3 Nail dystrophy; I73.9 Peripheral vascular disease, unspecified; H54.7 Unspecified visual loss; Z79.84 Long term (current) use of oral hypoglycemic drugs; Z79.85 Long-term (current) use of injectable non-insulin antidiabetic drugs
CPT/HCPCS: 11721